=== PATIENT | female | born 2000 | race Caucasian/White ===

== ENCOUNTER 2022-09-19 00:12 | Emergency (ER) | payer BC, SELFPAY ==
[2022-09-19 00:28] VITALS: BP 135/90; PULSE 98; RESP 16; TEMP 36.3; O2SAT 98; BMI 22.3
--- NOTE | 2022-09-19 01:12 | ED.GENADULT ---
HPI - General Adult General Chief complaint: Unspecified Complaint, Adult Stated complaint: light headed, chest pain, shortness of breath Time Seen by Provider: 09/19/22 00:59 History of Present Illness HPI narrative: 22-year-old young woman presenting to the emergency department where was is lying in bed tonight and started to feel short of air, lightheaded, tingly, shaky. Maybe heart racing but did not measure pulse. Denies headaches or visual changes however on later review I see rizatriptan as a medication. Was seen for 5 days ago in clinic where workup included some labs and EKG. Has had 5-6 of these episodes over the last week and half. Today's sounds to have lingered a little more. Typically these episodes will last about 15 minutes and then fade slowly back to baseline. Has also noticed lately that seems more exertionally dyspneic, heart racing when taking the stairs for example. No extremity swelling or pain. Friend/SO accompanying references POTS. In initial conversation at least not amenable to suggestion of possibly anxiety related noting that not anxious; friend/SO who accompanies emphasizes that sentiment noting her own experiences with anxiety / panic attacks and that Radha is not anxious. Father was a smoker with [place] apparently around age 40 Later endorses THC oral ingestion yesterday Related Data Home Medications Medication Instructions Recorded Confirmed escitalopram oxalate 10 mg tablet 10 mg PO DAILY 09/19/22 09/19/22 (Lexapro) rizatriptan 5 mg disintegrating 5 mg PO Q2-4H PRN 09/19/22 09/19/22 tablet Allergies Allergy/AdvReac Type Severity Reaction Status Date / Time amoxicillin Allergy Intermediate Rash Verified 09/19/22 00:27 ciprofloxacin [From Cipro] Allergy Intermediate Rash Verified 09/19/22 00:27 morphine AdvReac Intermediate dizzy Verified 09/19/22 00:27 Review of Systems Status of ROS: Reports: 10 or more systems reviewed and unremarkable except as noted in History and below PFSH PFSH Social History Smoking Status: Never smoker Do you use any of these nicotine containing products: None Second hand tobacco smoke exposure: No How often do you have a drink containing alcohol: never AUDIT-C Alcohol total score: 0 Non-prescribed substance use: denies use service: No Exam Narrative: Exam Narrative: Quiet. NAD. Breathing easily. Speaking fluidly. Moving all extremities without difficulty. No focal weakness is appreciated. No sensory loss apparent. Cranial nerves 2-12 look to be intact. Neck is supple. Head atraumatic. No nystagmus appreciated. Lungs are clear. Heart with initially elevated rate in a regular rhythm. Abdomen is flat soft nontender. Well perfused peripherally. No extremity edema. Const: Vital Signs, click to edit/add: Vital Signs - 24 hr 09/19/22 00:28 09/19/22 01:43 09/19/22 02:01 Temperature 97.4 F L Pulse Rate [Pulse Oximeter] 98 79 Pulse Rate [orthos tatic lying Pulse Oximeter] Pulse Rate [orthos tatic sitting Puls e Oximeter] Pulse Rate [orthos tatic standing] Respiratory Rate 16 18 Blood Pressure [Le ft Upper Arm] 135/90 H 117/83 Blood Pressure [or thostatic lying Le ft Arm] Blood Pressure [or thostatic sitting Left Arm] Blood Pressure [or thostatic standing Left Arm] Pulse Oximetry 98 98 96 Oxygen Delivery Me thod Room Air Room Air 09/19/22 02:01 09/19/22 02:50 09/19/22 02:51 Temperature Pulse Rate [Pulse Oximeter] 72 Pulse Rate [orthos tatic lying Pulse Oximeter] 80 Pulse Rate [orthos tatic sitting Puls e Oximeter] 96 Pulse Rate [orthos tatic standing] 94 Respiratory Rate 16 Blood Pressure [Le ft Upper Arm] 120/81 Blood Pressure [or thostatic lying Le ft Arm] 118/71 Blood Pressure [or thostatic sitting Left Arm] 123/92 H Blood Pressure [or thostatic standing Left Arm] 117/81 Pulse Oximetry Oxygen Delivery Me thod Documenting provider has reviewed patient's vital signs: yes Course Vital Signs Vital signs: Initial Vital Signs Temperature 97.4 F L 09/19/22 00:28 Temperature Source Temporal Artery Scan 09/19/22 00:28 Pulse Rate 98 09/19/22 00:28 Pulse Rhythm 09/19/22 00:28 Respiratory Rate 16 09/19/22 00:28 Blood Pressure 135/90 H 09/19/22 00:28 Blood Pressure Mean 105 09/19/22 00:28 Pulse Oximetry 98 09/19/22 00:28 Oxygen Delivery Method 09/19/22 00:28 Vital Signs Temperature 97.4 F L 09/19/22 00:28 Pulse Rate 98 09/19/22 00:28 Respiratory Rate 16 09/19/22 00:28 Blood Pressure 135/90 H 09/19/22 00:28 Pulse Oximetry 98 09/19/22 00:28 Oxygen Delivery Method 09/19/22 00:28 Temperature 97.4 F L 09/19/22 00:28 Pulse Rate 72 09/19/22 02:50 Respiratory Rate 16 09/19/22 02:50 Blood Pressure 120/81 09/19/22 02:51 Pulse Oximetry 96 09/19/22 02:01 Oxygen Delivery Method 09/19/22 01:43 Medical Decision Making MDM Narrative Medical decision making narrative: I do discuss that anxiety would be high in the differential and that I suspect workup here will be negative. Admittedly anxiety is a diagnosis of exclusion and so does warrant further evaluation. Concerning perhaps more is what is described as an exertional dyspnea. Chest x-ray reviewed by me is unremarkable. Without pneumothorax or wide mediastinum. No pneumomediastinum. Normal cardiac silhouette. No evidence of edema. Did receive IV hydration. No events on monitor or otherwise during time in the emergency department. Lab Data Labs: Lab Results 09/19/22 09/19/22 09/19/22 Range/Units 01:30 01:30 01:35 WBC 9.19 (4.50-11.00) K/uL RBC 4.78 (4.00-5.20) m/uL Hgb 13.9 (12.0-16.0) gm/dL Hct 41.8 (33.0-51.0) % MCV 87 (80-100) fL MCH 29 (26-34) pg MCHC 33 (32-36) gm/dL RDW Coeff of Dionicio 12.4 (11.5-15.5) % Plt Count 299 (140-440) K/uL Neut % (Auto) 57.5 (42.0-72.0) % Lymph % (Auto) 35.1 (20-44) % [place] % (Auto) 6.5 (0.0-11.0) % Eos % (Auto) 0.4 (0.0-7.0) % Baso % (Auto) 0.3 (0.0-3.0) % Neut # (Auto) 5.27 (1.7-7.0) K/uL Lymph # (Auto) 3.23 H (0.90-2.90) K/uL [place] # (Auto) 0.60 (0.00-0.90) K/UL Eos # (Auto) 0.04 (0.00-0.50) K/uL Baso # (Auto) 0.03 (0.00-0.30) K/uL D-Dimer Quant (PE/DVT) (0.00-0.50) ug/ml Sodium (135-149) mmol/L Potassium (3.6-5.1) mmol/L Chloride (96-114) mmol/L Carbon Dioxide (20-32) mmol/L BUN (5-24) mg/dL Creatinine (0.5-1.5) mg/dL Estimated Creat Clear Estimated GFR ml/min Glucose (60-115) mg/dL Calcium (8.4-10.6) mg/dL Magnesium (1.5-2.6) mg/dL Total Bilirubin (0.1-1.5) mg/dL Direct Bilirubin (0.0-0.5) mg/dL AST (12-35) U/L ALT (4-35) U/L Alkaline Phosphatase (40-150) U/L Troponin I (0.01-0.04) ng/mL C-Reactive Protein (0.5-1.0) mg/dL NT-Pro-B Natriuret Pep pg/mL Total Protein (6.0-8.3) g/dL Albumin (3.3-5.0) g/dL Urine Color Yellow (Yellow) Urine Appearance Cloudy A (Clear) Urine pH 7.0 (5.0-8.5) Ur Specific Neely 1.015 (1.000-1.030) Urine Protein Negative (Negative) Urine Glucose (UA) Negative (Negative) Urine Ketones Negative (Negative) Urine Blood Negative (Negative) Urine Nitrite Negative (Negative) Urine Bilirubin Negative (Negative) Urine Urobilinogen 0.2 (0.2-1.0) Ur Leukocyte Esterase Trace A (Negative) Urine RBC 0-2 (0-2) Urine WBC 2-5 (0-5) Ur Squamous Epith Cells Few (None-Few) Amorphous Sediment Many A (None) Urine Bacteria Moderate A (None) Urine Opiates Screen Negative (Negative) Ur Oxycodone Screen Negative (Negative) Urine Methadone Screen Negative (Negative) Ur Propoxyphene Screen Negative (Negative) Ur Barbiturates Screen Negative (Negative) U Tricyclic Antidepress Negative (Negative) Ur Phencyclidine Scrn Negative (Negative) Ur Amphetamines Screen Negative (Negative) U Methamphetamines Scrn Negative (Negative) U Benzodiazepines Scrn Negative (Negative) Urine Cocaine Screen Negative (Negative) U Marijuana (THC) Screen POSITIVE A* (Negative) Ur Drug Screen Comment See Note Ethyl Alcohol (0.01-0.03) % SARS-CoV-2 (PCR) (Negative) Influenza Type A (PCR) (Negative) Influenza Type B (PCR) (Negative) 09/19/22 09/19/22 09/19/22 Range/Units 01:35 01:35 01:35 WBC (4.50-11.00) K/uL RBC (4.00-5.20) m/uL Hgb (12.0-16.0) gm/dL Hct (33.0-51.0) % MCV (80-100) fL MCH (26-34) pg MCHC (32-36) gm/dL RDW Coeff of Dionicio (11.5-15.5) % Plt Count (140-440) K/uL Neut % (Auto) (42.0-72.0) % Lymph % (Auto) (20-44) % [place] % (Auto) (0.0-11.0) % Eos % (Auto) (0.0-7.0) % Baso % (Auto) (0.0-3.0) % Neut # (Auto) (1.7-7.0) K/uL Lymph # (Auto) (0.90-2.90) K/uL [place] # (Auto) (0.00-0.90) K/UL Eos # (Auto) (0.00-0.50) K/uL Baso # (Auto) (0.00-0.30) K/uL D-Dimer Quant (PE/DVT) < 0.27 (0.00-0.50) ug/ml Sodium 140 (135-149) mmol/L Potassium 3.8 (3.6-5.1) mmol/L Chloride 106 (96-114) mmol/L Carbon Dioxide 26 (20-32) mmol/L BUN 8 (5-24) mg/dL Creatinine 0.6 (0.5-1.5) mg/dL Estimated Creat Clear 129.15 Estimated GFR 132 ml/min Glucose 102 (60-115) mg/dL Calcium 9.3 (8.4-10.6) mg/dL Magnesium (1.5-2.6) mg/dL Total Bilirubin (0.1-1.5) mg/dL Direct Bilirubin (0.0-0.5) mg/dL AST (12-35) U/L ALT (4-35) U/L Alkaline Phosphatase (40-150) U/L Troponin I (0.01-0.04) ng/mL C-Reactive Protein < 0.5 L (0.5-1.0) mg/dL NT-Pro-B Natriuret Pep pg/mL Total Protein (6.0-8.3) g/dL Albumin (3.3-5.0) g/dL Urine Color (Yellow) Urine Appearance (Clear) Urine pH (5.0-8.5) Ur Specific Neely (1.000-1.030) Urine Protein (Negative) Urine Glucose (UA) (Negative) Urine Ketones (Negative) Urine Blood (Negative) Urine Nitrite (Negative) Urine Bilirubin (Negative) Urine Urobilinogen (0.2-1.0) Ur Leukocyte Esterase (Negative) Urine RBC (0-2) Urine WBC (0-5) Ur Squamous Epith Cells (None-Few) Amorphous Sediment (None) Urine Bacteria (None) Urine Opiates Screen (Negative) Ur Oxycodone Screen (Negative) Urine Methadone Screen (Negative) Ur Propoxyphene Screen (Negative) Ur Barbiturates Screen (Negative) U Tricyclic Antidepress (Negative) Ur Phencyclidine Scrn (Negative) Ur Amphetamines Screen (Negative) U Methamphetamines Scrn (Negative) U Benzodiazepines Scrn (Negative) Urine Cocaine Screen (Negative) U Marijuana (THC) Screen (Negative) Ur Drug Screen Comment Ethyl Alcohol < 0.01 L (0.01-0.03) % SARS-CoV-2 (PCR) Negative SARS-CoV-2 (Negative) Influenza Type A (PCR) Negative PCR FLU A (Negative) Influenza Type B (PCR) Negative PCR FLU B (Negative) 09/19/22 Range/Units 01:35 WBC (4.50-11.00) K/uL RBC (4.00-5.20) m/uL Hgb (12.0-16.0) gm/dL Hct (33.0-51.0) % MCV (80-100) fL MCH (26-34) pg MCHC (32-36) gm/dL RDW Coeff of Dionicio (11.5-15.5) % Plt Count (140-440) K/uL Neut % (Auto) (42.0-72.0) % Lymph % (Auto) (20-44) % [place] % (Auto) (0.0-11.0) % Eos % (Auto) (0.0-7.0) % Baso % (Auto) (0.0-3.0) % Neut # (Auto) (1.7-7.0) K/uL Lymph # (Auto) (0.90-2.90) K/uL [place] # (Auto) (0.00-0.90) K/UL Eos # (Auto) (0.00-0.50) K/uL Baso # (Auto) (0.00-0.30) K/uL D-Dimer Quant (PE/DVT) (0.00-0.50) ug/ml Sodium (135-149) mmol/L Potassium (3.6-5.1) mmol/L Chloride (96-114) mmol/L Carbon Dioxide (20-32) mmol/L BUN (5-24) mg/dL Creatinine (0.5-1.5) mg/dL Estimated Creat Clear Estimated GFR ml/min Glucose (60-115) mg/dL Calcium (8.4-10.6) mg/dL Magnesium 2.0 (1.5-2.6) mg/dL Total Bilirubin 0.8 (0.1-1.5) mg/dL Direct Bilirubin 0.1 (0.0-0.5) mg/dL AST 26 (12-35) U/L ALT 19 (4-35) U/L Alkaline Phosphatase 91 (40-150) U/L Troponin I < 0.01 L (0.01-0.04) ng/mL C-Reactive Protein (0.5-1.0) mg/dL NT-Pro-B Natriuret Pep < 20 pg/mL Total Protein 7.5 (6.0-8.3) g/dL Albumin 4.6 (3.3-5.0) g/dL Urine Color (Yellow) Urine Appearance (Clear) Urine pH (5.0-8.5) Ur Specific Neely (1.000-1.030) Urine Protein (Negative) Urine Glucose (UA) (Negative) Urine Ketones (Negative) Urine Blood (Negative) Urine Nitrite (Negative) Urine Bilirubin (Negative) Urine Urobilinogen (0.2-1.0) Ur Leukocyte Esterase (Negative) Urine RBC (0-2) Urine WBC (0-5) Ur Squamous Epith Cells (None-Few) Amorphous Sediment (None) Urine Bacteria (None) Urine Opiates Screen (Negative) Ur Oxycodone Screen (Negative) Urine Methadone Screen (Negative) Ur Propoxyphene Screen (Negative) Ur Barbiturates Screen (Negative) U Tricyclic Antidepress (Negative) Ur Phencyclidine Scrn (Negative) Ur Amphetamines Screen (Negative) U Methamphetamines Scrn (Negative) U Benzodiazepines Scrn (Negative) Urine Cocaine Screen (Negative) U Marijuana (THC) Screen (Negative) Ur Drug Screen Comment Ethyl Alcohol (0.01-0.03) % SARS-CoV-2 (PCR) (Negative) Influenza Type A (PCR) (Negative) Influenza Type B (PCR) (Negative) ECG Data Attestation: I personally reviewed and interpreted this ECG as follows: ( normal sinus rate of 94. No ischemic changes.) Discharge Plan Discharge Clinical Impression: Exertional dyspnea, Malaise Patient Disposition: Home w/ Parent or Adult Condition: Improved Additional Instructions: Stable hydrated drinking 2-3 L of water daily. Try to get quality and regular sleep. Try to get in a little heart pumping exercise daily. I would caution you regarding THC ingestion. Possible this is contributing to some of your symptoms. Hard to tell. Follow-up as directed regarding this ZIO patch. Return for persistent and increased shortness of breath, persistent chest pain, persistent lightheadedness, syncope. Prescriptions: No Action escitalopram oxalate [Lexapro] 10 mg tablet 10 mg PO DAILY rizatriptan 5 mg tablet,disintegrating 5 mg PO Q2-4H PRN Rx Instructions: do not exceed 6 doses per 24 hrs Follow Up/Referrals: Provider,Not a Local [Primary Care Provider] - Stand Alone Forms: [facility] Info Instructions
--- NOTE | 2022-09-19 01:15 | CRLHL7_ITS ---
For Patients: As a result of the Century Cures Act, medical imaging exams and procedure reports are released immediately into your electronic medical record. You may view this report before your referring provider. If you have questions, please contact your health care provider. INDICATION: Chest pain. TECHNIQUE: Chest 1 view. COMPARISON: None. FINDINGS: Cardiovascular and mediastinum: Heart size and vasculature are normal in caliber and appearance. Lungs and pleural spaces: Lungs are clear. No sign of infiltrate or mass. No sign of pleural effusion. No pneumothorax. Bones and soft tissues: No significant findings. IMPRESSION: Unremarkable chest. Dictated by Thomas Shah MD @ 09/19/2022 1:36:54 AM (Electronically Signed)
[2022-09-19 01:38] LABS: Appearance Urine Cloudy (Clear); Bilirubin Urine Negative (Negative); Blood Urine Negative (Negative); Color Urine Yellow (Yellow); Glucose Urine Negative (Negative); Ketones Urine Negative (Negative); Leukocyte Esterase Urine Trace (Negative); Nitrite Urine Negative (Negative); Protein Urine Negative (Negative); Specific Gravity Urine 1.015 (1.000-1.030); Urobilinogen Urine 0.2 (0.2-1.0)
[2022-09-19 01:43] VITALS: BP 117/83; PULSE 79; RESP 18; O2SAT 98
[2022-09-19 01:45] LABS: Amphetamine Screen Urine Negative (Negative); Barbiturate Screen Urine Negative (Negative); Benzodiazepines Screen Urine Negative (Negative); Cocaine Screen Urine Negative (Negative); Methadone Screen Urine Negative (Negative); Methamphetamines Screen Urine Negative (Negative); Opiate Screen Urine Negative (Negative); Oxycodone Screen Urine Negative (Negative); Phencyclidine Screen Urine Negative (Negative); Tricyclic Antidepressant Urine Negative (Negative)
[2022-09-19] MEDS: 0.9 % SODIUM CHLORIDE 1000 ml 1,000 ML IV (01:50)
[2022-09-19 01:56] LABS: Cannabinoid Screen Urine POSITIVE (Negative)
[2022-09-19 01:57] LABS: Hematocrit 41.8 % (33.0-51.0); Hemoglobin* 13.9 gm/dL (12.0-16.0); Mean Corpuscular HGB Conc 33 gm/dL (32-36); Mean Corpuscular Hemoglobin 29 pg (26-34); Mean Corpuscular Volume 87 fL (80-100); Neutrophils Percent Auto 57.5 % (42.0-72.0); Platelet Count* 299 K/uL (140-440); RDW Coefficient of Variation % 12.4 % (11.5-15.5); Red Blood Count 4.78 m/uL (4.00-5.20); White Blood Count* 9.19 K/uL (4.50-11.00)
[2022-09-19 01:58] LABS: Basophils Absolute Auto 0.03 K/uL (0.00-0.30); Basophils Percent Auto 0.3 % (0.0-3.0); Eosinophils Absolute Auto 0.04 K/uL (0.00-0.50); Eosinophils Percent Auto 0.4 % (0.0-7.0); Immature Granulocytes Abs Auto 0.02 K/uL (0.00-0.30); Immature Granulocytes Pct Auto 0.2 %; Lymphocytes Absolute Auto 3.23 K/uL (0.90-2.90); Lymphocytes Percent Auto 35.1 % (20-44); Monocytes Percent Auto 6.5 % (0.0-11.0); Neutrophils Absolute Auto 5.27 K/uL (1.7-7.0)
[2022-09-19 02:00] LABS: Amorphous Sediment Urine Many; Bacteria Urine Moderate; RBC Urine 0-2 (0-2); Squamous Epithelial Cell Urine Few (None-Few)
[2022-09-19 02:01] VITALS: BP 117/81; BP 118/71; BP 123/92; PULSE 80; PULSE 94; PULSE 96; O2SAT 96
[2022-09-19 02:01] LABS: Slide Review Reflex No
[2022-09-19 02:10] LABS: Albumin* 4.6 g/dL (3.3-5.0)
[2022-09-19 02:11] LABS: Chloride* 106 mmol/L (96-114)
[2022-09-19 02:12] LABS: Potassium* 3.8 mmol/L (3.6-5.1); Sodium* 140 mmol/L (135-149)
[2022-09-19 02:13] LABS: Bilirubin Direct* 0.1 mg/dL (0.0-0.5); Bilirubin Total* 0.8 mg/dL (0.1-1.5)
[2022-09-19 02:14] LABS: Alanine Aminotransferase* 19 U/L (4-35); Alkaline Phosphatase* 91 U/L (40-150); Aspartate Amino Transferase* 26 U/L (12-35); Creatinine* 0.6 mg/dL (0.5-1.5); Est. Creatinine Clearance* 129.15; Estimated Glomerular Filt Rate 132 ml/min; Total Protein* 7.5 g/dL (6.0-8.3)
[2022-09-19 02:15] LABS: Blood Urea Nitrogen* 8 mg/dL (5-24); Carbon Dioxide* 26 mmol/L (20-32); Glucose* 102 mg/dL (60-115)
[2022-09-19 02:16] LABS: Calcium* 9.3 mg/dL (8.4-10.6); D Dimer Quantitative* < 0.27 ug/ml (0.00-0.50); Ethanol* < 0.01 % (0.01-0.03)
[2022-09-19 02:29] LABS: C Reactive Protein* < 0.5 mg/dL (0.5-1.0); NT Pro B Type NatriureticPept* < 20 pg/mL; Troponin I* < 0.01 ng/mL (0.01-0.04)
[2022-09-19 02:36] LABS: PCR FLU A Negative PCR FLU A (Negative); PCR FLU B Negative PCR FLU B (Negative)
[2022-09-19 02:43] LABS: SARS PCR* Negative SARS-CoV-2 (Negative)
[2022-09-19 02:50] VITALS: PULSE 72; RESP 16
[2022-09-19 02:51] VITALS: BP 120/81
== END 2022-09-19 02:51 | disposition home or self-care (01) ==
PROVIDERS: Emergency Provider Family Medicine
DX: R06.09 Other forms of dyspnea (principal); R53.81 Other malaise
CPT/HCPCS: 36415; 71045; 80048; 80076; 80306; 81001; 82077; 83735; 83880; 84484; 85025; 85379; 86140; 87086; 87631; 93005; 94761; 96360; 99284; 99285; J7030

== ENCOUNTER 2023-05-19 20:02 | Emergency (ER) | payer BC, SELFPAY ==
[2023-05-19 20:19] VITALS: BP 137/101; PULSE 97; RESP 16; TEMP 36.7; O2SAT 98
--- NOTE | 2023-05-19 20:35 | CRLHL7_ITS ---
Patient: RINA BAILEY Facility:?[facility] Patient ID:?[id number] Site Patient ID:?[id number]. Site :?[id number] Study:?XRay-Extremity Left Foot-05/19/2023 9:06:15 PM Ordering Physician:?Fareed Harmon Final Report: INDICATION: Medial foot injury, bent back TECHNIQUE: Foot radiograph 3 views left COMPARISON: None FINDINGS: Bone: No acute fractures or aggressive bone lesions are identified. Joint: The visualized hindfoot, midfoot, and forefoot joints are unremarkable in appearance. No significant ankle effusion is seen. Soft tissue: Unremarkable. No radiopaque foreign bodies are seen. IMPRESSION: 1. No acute osseous injuries or abnormalities are noted. Dictated by: Jessee Jason MD @ 05/19/2023 21:18:31 Signed by:?Jessee Jason MD @05/19/2023 9:18:31 PM (Electronic Signature)
--- NOTE | 2023-05-19 20:38 | ED.LOWEXIN ---
HPI - Extremity Injury (Lower) General Chief Complaint: Extremity Pain/Injury, Lower Stated Complaint: Broken toe Time Seen by Provider: 05/19/23 20:17 History of Present Illness HPI Narrative: This 23-year-old female comes in with an injury to her left foot. She states that she was playing sand volleyball and got her foot caught somehow where it was hyper flexed at her toes. She felt a pop and complains of pain in the MTP joint of her great toe of the left foot and extending proximally a bit into her foot. She does not report any other injury. She has ambulated on this foot but reports some pain when doing so. Related Data Home Medications Medication Instructions Recorded Confirmed escitalopram oxalate 10 mg tablet 10 mg PO DAILY 09/19/22 09/19/22 (Lexapro) rizatriptan 5 mg disintegrating 5 mg PO Q2-4H PRN 09/19/22 09/19/22 tablet Allergies Allergy/AdvReac Type Severity Reaction Status Date / Time amoxicillin Allergy Intermediate Rash Verified 09/19/22 00:27 ciprofloxacin [From Cipro] Allergy Intermediate Rash Verified 09/19/22 00:27 morphine AdvReac Intermediate dizzy Verified 09/19/22 00:27 Review of Systems Status of ROS: Reports: 10 or more systems reviewed and unremarkable except as noted in History and below Narrative: Constitutional: No fevers, no weight gain or loss. Eyes: No discharge. No vision changes. HENT: No congestion, no sore throat, no ear pain. Cardiovascular: No chest pain, no palpitations. Respiratory: No shortness of breath, no wheezes, no cough. Gastrointestinal: No abdominal pain, no vomiting, no diarrhea. Genitourinary: No dysuria, no hematuria. Musculoskeletal: Left foot injury as described above. Skin: No rashes, no pruritis. Neurological: No dizziness, weakness, sensory change, speech change. Endo/Heme/Allergies: No bruising or bleeding. No polydipsia. Pysch: no suicidality, no anxiety, no insomnia. All other systems reviewed and are negative. [facility] Social History Smoking Status: Never smoker Do you use any of these nicotine containing products: None Second hand tobacco smoke exposure: No How often do you have a drink containing alcohol: never AUDIT-C Alcohol total score: 0 Non-prescribed substance use: denies use service: No Exam Narrative: Exam Narrative: Constitutional: Well-developed, well-nourished, no acute distress. HEENT: Normocephalic, atraumatic. Neck: Normal range of motion. Nontender. Supple. Heart: Intact distal pulses. Lungs: No chest discomfort. No wheezes, rhonchi, or rales. Abdomen: Nontender. Back: Normal range of motion. Extremities: Tenderness along the 1st metatarsal and the great toe of the left foot. There is no obvious swelling or sign of deformity. There is no evidence of tendon dysfunction. She is able to dorsiflex and plantar flex her toes and that foot. Skin: Intact. No rash. Warm. No erythema or pallor. Neurologic: No altered sensation. No weakness. Alert and oriented. Psychiatric: No suicidality. No anxiety or depression. No insomnia. Nursing notes and vitals signs are reviewed. Const: Vital Signs, click to edit/add: Vital Signs - 24 hr 05/19/23 20:19 Temperature 98.1 F Pulse Rate [Left P ulse Oximeter] 97 Respiratory Rate 16 Blood Pressure [Ri ght Upper Arm] 137/101 H Pulse Oximetry 98 Oxygen Delivery Me thod Room Air Course Vital Signs Vital signs: Initial Vital Signs Temperature 98.1 F 05/19/23 20:19 Temperature Source Temporal Artery Scan 05/19/23 20:19 Pulse Rate 97 05/19/23 20:19 Pulse Rhythm Regular 05/19/23 20:19 Respiratory Rate 16 05/19/23 20:19 Blood Pressure 137/101 H 05/19/23 20:19 Blood Pressure Mean 113 H 05/19/23 20:19 Blood Pressure Position Sitting 05/19/23 20:19 Pulse Oximetry 98 05/19/23 20:19 Oxygen Delivery Method Room Air 05/19/23 20:19 Vital Signs Temperature 98.1 F 05/19/23 20:19 Pulse Rate 97 05/19/23 20:19 Respiratory Rate 16 05/19/23 20:19 Blood Pressure 137/101 H 05/19/23 20:19 Pulse Oximetry 98 05/19/23 20:19 Oxygen Delivery Method Room Air 05/19/23 20:19 Temperature 98.1 F 05/19/23 20:19 Pulse Rate 97 05/19/23 20:19 Respiratory Rate 16 05/19/23 20:19 Blood Pressure 137/101 H 05/19/23 20:19 Pulse Oximetry 98 05/19/23 20:19 Oxygen Delivery Method Room Air 05/19/23 20:19 MDM - Extremity Injury (Lower) MDM Narrative Medical decision making narrative: This patient comes in with an injury to her left great toe and forefoot. On exam her foot shows no sign of deformity or swelling. There is no skin injury also. She states that she hyper plantar flexed her toes when playing volleyball. She does have normal tendon function and is able to dorsiflex and plantar flex her toes on that foot. An x-ray is obtained which by my review shows no sign of fracture dislocation. Radiology report is pending. Patient received an Murali wrap and is encouraged to increase activity as tolerated. Discharge Plan Discharge Clinical Impression: Injury of toe Patient Disposition: Home, Self-Care Condition: Unchanged Additional Instructions: Use [id number] medicines as needed and directed. Increase activity as tolerated. Follow up with MD return if worsening. Prescriptions: No Action escitalopram oxalate [Lexapro] 10 mg tablet 10 mg PO DAILY rizatriptan 5 mg tablet,disintegrating 5 mg PO Q2-4H PRN Rx Instructions: do not exceed 6 doses per 24 hrs Follow Up/Referrals: Provider,Not a Local [Primary Care Provider] - Stand Alone Forms: [employer] Info Instructions
== END 2023-05-19 21:16 | disposition home or self-care (01) ==
PROVIDERS: Emergency Provider Emergency Medicine Emergency Medical Services
DX: S99.922A Unspecified injury of left foot, initial encounter (principal)
CPT/HCPCS: 73630; 99283; 99284

== ENCOUNTER 2023-07-02 14:18 | Emergency (ER) | payer BC, SELFPAY ==
[2023-07-02] VITALS (14 sets, daily range): BP systolic 115–149; BP diastolic 66–89; PULSE 82–111; RESP 18; TEMP 37.3; O2SAT 98–99; BMI 23.2
--- NOTE | 2023-07-02 14:31 | ED.GENADULT ---
HPI - General Adult General Chief complaint: Allergic Reaction Stated complaint: Allergic reaction--mouth tingling Time Seen by Provider: 07/02/23 14:28 History of Present Illness HPI narrative: when leaving lunch noted mouth was tingly. does have allergy to nuts. unsure if nuts in chicken. has taken 25 benedryl and 2 epi pens prior to arrival 23-year-old woman presenting to the emergency department concern of exposure to unspecified nuts. Noticed this just after lunch. Does have verified nut allergy recommended to avoid all nuts at this point. Last exposure and reaction was apparently to honey nut Cheerios. She treated herself similarly. Today as noted began to feel itchiness in her mouth extended over her jaw to her neck. She took diphenhydramine is followed by dose of epinephrine from her EpiPen repeating that in 10 minutes. After the 1st EpiPen dosing was experiencing chest tightness and so 10 minutes later repeated dosing. She has not had any nausea. No abdominal pain or cramping. No rash. Not describing trouble breathing. Underlying history of anxiety. Related Data Home Medications Medication Instructions Recorded Confirmed escitalopram oxalate 10 mg tablet 10 mg PO DAILY 09/19/22 05/28/23 (Lexapro) rizatriptan 5 mg disintegrating 5 mg PO Q2-4H PRN 09/19/22 05/28/23 tablet Previous Rx's Medication Instructions Recorded epinephrine 0.3 mg/0.3 mL 0.3 mg (0.3 mL) IM Q5-15M PRN #1 ea 07/02/23 injection, auto-injector (EpiPen 2-Pablo) prednisone 20 mg tablet 20 mg PO BID 2 days #4 tabs 07/02/23 Allergies Allergy/AdvReac Type Severity Reaction Status Date / Time amoxicillin Allergy Intermediate Rash Verified 05/28/23 13:01 ciprofloxacin [From Cipro] Allergy Intermediate Rash Verified 05/28/23 13:01 morphine AdvReac Intermediate dizzy Verified 05/28/23 13:01 Review of Systems Status of ROS: Reports: 6 or more systems reviewed and unremarkable except as noted in History and below [facility] Social History Smoking Status: Never smoker Do you use any of these nicotine containing products: None Second hand tobacco smoke exposure: No How often do you have a drink containing alcohol: 2-3 times a week How many standard drinks containing alcohol do you have on a typical day: 1 or 2 How often do you have six or more drinks on one occasion: Never AUDIT-C Alcohol total score: 3 Non-prescribed substance use: denies use service: No Exam Narrative: Exam Narrative: Pleasant. Accompanied by boyfriend. Seems a little sleepy. Breathing easily. Oropharynx is unremarkable moist erythematous no asymmetry. Lungs are clear heart is tachycardic in a regular rhythm. Seems to have intermittent murmur mid Systolic. Skin is warm and dry without rash. Abdomen soft flat nontender. Cranial nerves 2-12 intact. Const: Vital Signs, click to edit/add: Vital Signs - 24 hr 07/02/23 14:22 07/02/23 14:46 07/02/23 15:00 Temperature 99.1 F Pulse Rate 108 H 101 H Pulse Rate [Right Pulse Oximeter] 111 H Respiratory Rate 18 Blood Pressure Blood Pressure [Ri ght Upper Arm] 149/89 H Pulse Oximetry 99 98 99 Oxygen Delivery Me thod Room Air 07/02/23 15:02 07/02/23 15:19 07/02/23 15:23 Temperature Pulse Rate 101 H 92 Pulse Rate [Right Pulse Oximeter] Respiratory Rate Blood Pressure 125/72 Blood Pressure [Ri ght Upper Arm] Pulse Oximetry 98 98 98 Oxygen Delivery Me thod 07/02/23 15:30 07/02/23 15:32 07/02/23 15:45 Temperature Pulse Rate 101 H 94 94 Pulse Rate [Right Pulse Oximeter] Respiratory Rate Blood Pressure 117/66 Blood Pressure [Ri ght Upper Arm] Pulse Oximetry 98 98 98 Oxygen Delivery Me thod Documenting provider has reviewed patient's vital signs: yes Course Vital Signs Vital signs: Initial Vital Signs Temperature 99.1 F 07/02/23 14:22 Temperature Source Temporal Artery Scan 07/02/23 14:22 Pulse Rate 111 H 07/02/23 14:22 Respiratory Rate 18 07/02/23 14:22 Blood Pressure 149/89 H 07/02/23 14:22 Blood Pressure Mean 109 H 07/02/23 14:22 Blood Pressure Position Sitting 07/02/23 14:22 Pulse Oximetry 99 07/02/23 14:22 Oxygen Delivery Method Room Air 07/02/23 14:22 Vital Signs Temperature 99.1 F 07/02/23 14:22 Pulse Rate 111 H 07/02/23 14:22 Respiratory Rate 18 07/02/23 14:22 Blood Pressure 149/89 H 07/02/23 14:22 Pulse Oximetry 99 07/02/23 14:22 Oxygen Delivery Method Room Air 07/02/23 14:22 Temperature 99.1 F 07/02/23 14:22 Pulse Rate 94 07/02/23 15:45 Respiratory Rate 18 07/02/23 14:22 Blood Pressure 117/66 07/02/23 15:32 Pulse Oximetry 98 07/02/23 15:45 Oxygen Delivery Method Room Air 07/02/23 14:22 Medical Decision Making MDM Narrative Medical decision making narrative: Reports medically verified allergy to nuts. Symptoms generally seem to have resolved with treatment. Would add prednisone yet. Did discuss though IV fluids and decided to treat orally as above. Will also give another dose of diphenhydramine. Continue to monitor for at least 2 hours after prednisone. I suspect some of the chest discomfort she was feeling was more epinephrine effect than difficulty breathing. As far as the honey nut cheerio exposure goes, it is my understanding that that does not actually contain nuts. They maintain that this particular box noted almond extract. Anticipate continued improvement and discharge as noted above. Continue continue 2 more days of prednisone. Will refill EpiPen. On reassessment is feeling fine See patient discharge plan Discharge Plan Discharge Clinical Impression: Allergic reaction Patient Disposition: Home w/ Parent or Adult Condition: Improved Additional Instructions: You may want to wait a little more time before dosing another epinephrine in the future should that become necessary.. Can take diphenhydramine for breakthrough itch. Course of prednisone as prescribed. Prescriptions: New prednisone 20 mg tablet 20 mg PO BID 2 Days Qty: 4 1RF epinephrine [EpiPen 2-Pablo] 0.3 mg/0.3 mL auto-injector 0.3 mg IM Q5-15M PRNQty: 1 0RF Rx Instructions: do not exceed 3 doses per episode No Action escitalopram oxalate [Lexapro] 10 mg tablet 10 mg PO DAILY rizatriptan 5 mg tablet,disintegrating 5 mg PO Q2-4H PRN Rx Instructions: do not exceed 6 doses per 24 hrs Follow Up/Referrals: Provider,Not a Local [Primary Care Provider] - Stand Alone Forms: [employer] Info Instructions
[2023-07-02] MEDS: predniSONE 20 MG TABLET 80 MG PO (15:08)
[2023-07-02] MEDS: diphenhydrAMINE 25 MG CAPSULE PO (15:08)
== END 2023-07-02 17:20 | disposition home or self-care (01) ==
PROVIDERS: Emergency Provider Family Medicine
DX: T78.1XXA Other adverse food reactions, not elsewhere classified, initial encounter (principal); Z91.010 Allergy to peanuts
CPT/HCPCS: 94761; 99283; 99284; A9270; J7512

== ENCOUNTER 2023-12-26 11:36 | Outpatient (CLI) | payer BC, SELFPAY ==
--- OUTSIDE RECORDS SUMMARY | 2024-01-01 14:54 | XMS_ITS | Data Portability ---
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 Name Role Phone [facility] Primary Care Provid er [facility] [employer] [phone] ROSS ESCOTO [employer]ator Assessment Encounter Date Assessment Date Assessment LastModified [...] vitamin D, 25-hydroxy, total, serum 2021 022 [facility], [address] [place], [address], 08:43:42 CMP, serum or plasma 2021 022 [facility], [address] [place] [address], [address], 08:43:42 lipid panel, serum 2021 022 [place], [address] [place] [address], [address], 08:43:41 CBC w/ auto diff 2021 022 [employer], [address] [place] [address], [address], 08:43:43 TSH + free T4, serum 2021 022 [facility], [address] [place] [address], [address], 08:43:41 TSH, serum or plasma 2020 021 [facility], [address] [place] [address], [address], 09:49:46 CMP, serum or plasma 2020 021 [facility], [address] [place] [address], [address], 09:49:45 CBC w/ auto diff 2020 021 [facility], [address] [place] [address], [address], 09:49:47 iron + TIBC + ferritin, serum 2020 021 [facility], [address] [place] [address], [address], 09:49:45 vitamin D, 25-hydroxy, total, serum 2020 021 [facility], [address] [place], [address], 09:49:46 vitamin B12, serum 2020 021 [place] [facility], [address] [place], [address], 09:49:47 Referral None recorded. Procedures None recorded. Surgeries None recorded. Imaging None recorded. Medication Orders Auvi-Q 0.3 mg/0.3 mL injection, auto-inject or 2021 [facility] [address] [place], [address], 11:49:23 rizatriptan 10 mg disintegrat ing tablet 2021 [facility], [address] [place], [address], 11:49:23 escitalopra m 10 mg tablet 2021 [facility] [address] [place], [address], 13:21:44 ergocalcife rol (vitamin D2) 1,250 mcg (50,000 unit) capsule 2021 022 [facility] [address] [place], [address], 2 12:01:46 escitalopra m 10 mg tablet 2021 022 [facility] [address] [place], [address], 12:01:47 Zithromax Z-Pablo 250 mg tablet 2020 021 [email or web address], [address] [place], [address], 11:23:26 escitalopra m 10 mg tablet 2020 021 [facility], [address] [place], [address], 14:07:32 Patient TargetsNo targets recorded. Patient Instructions Encounter Date Encounter Id Patient Instructions Last Modified By Organization Details Last Modified Time 01/24/2022 [id number] learning about mood disorders Not available 01/24/2022 13:21:42 Reason for Referral None Reported. Results Created Date Observation Date Name Description Value Unit Range Abnormal Flag LastModifiedBy Organization Detail LastModifiedTime 11/29/1911/29/2020 iron + TIBC + chan tin, serum iron, total 67 mcg/d L 27-164 normal Not Available [facility] [address], [place], [address], 11/29/2020 09:49:44 11/29/1911/29/2020 iron + TIBC + chan tin, serum iron binding capacity 381 mcg/d L_(ca lc) 271-44 8 normal Not Available [facility] [address], [place], [address], 11/29/2020 09:49:44 11/29/1911/29/2020 iron + TIBC + chan tin, serum % saturation 18 %_(ca lc) 15-45 normal Not Available [facility] [address], [place], [address], 11/29/2020 09:49:44 11/29/19 21 11/29/2020 iron + TIBC + chan tin, serum ferritin 9 NG/mL 6-[address] [facility] [address], [place], [address], 11/29/2020 09:49:44 11/29/19 21 11/29/2020 CMP, serum or plasm a glucose 83 mg/dL 65-99 normal Not Available [facility] [address], [place], [address], 11/29/2020 09:49:45 11/29/19 21 11/29/2020 CMP, serum or plasm a urea nitrogen (BUN) 7 mg/dL 7-20 normal Not Available [facility] [place] [address], [place], [address], 11/29/2020 09:49:45 11/29/19 21 11/29/2020 CMP, serum or plasm a creatinine 0.92 mg/dL 0.50-1 .00 normal Not Available [place] [address], [place], [address], 11/29/2020 09:49:45 11/29/19 21 11/29/2020 CMP, serum or plasm a eGFR non-afr. marshallese 91 mL/mi n/1.7 3m2 > or = 60 normal Not Available [place] [address], [place], [address], 11/29/2020 09:49:45 11/29/19 21 11/29/2020 CMP, serum or plasm a eGFR 105 mL/mi n/1.7 3m2 > or = 60 normal Not Available [facility] [address], [place], [address], 11/29/2020 09:49:45 11/29/19 21 11/29/2020 CMP, serum or plasm a BUN/creatini ne ratio not applic able (calc ) 6-22 Not Available [facility] [place] [facility] [address], [place], [address], 11/29/2020 09:49:45 11/29/1911/29/2020 CMP, serum or plasm a sodium 143 mmol/ L 135-14 [address] [facility] [address], [place], [address], 11/29/2020 09:49:45 11/29/19 21 11/29/2020 CMP, serum or plasm a potassium 4.0 mmol/ L 3.8-5. [address] [facility] [address], [place], [address], 11/29/2020 09:49:45 11/29/1911/29/2020 CMP, serum or plasm a chloride 106 mmol/ L 98-[address] [facility] [address], [place], [address], 11/29/2020 09:49:45 11/29/19 21 11/29/2020 CMP, serum or plasm a carbon dioxide 27 mmol/ L 20-[address] [facility] [address], [place], [address], 11/29/2020 09:49:45 11/29/1911/29/2020 CMP, serum or plasm a calcium 9.5 mg/dL 8.9-10 .4 normal Not Available [facility] [address], [place], [address], 11/29/2020 09:49:45 11/29/1911/29/2020 CMP, serum or plasm a protein, total 6.9 g/dL 6.3-8. [address] [facility] [address], [place], [address], 11/29/2020 09:49:45 11/29/19 21 11/29/2020 CMP, serum or plasm a albumin 4.8 g/dL 3.6-5. [address] [facility] [address], [place], [address], 11/29/2020 09:49:45 11/29/19 21 11/29/2020 CMP, serum or plasm a globulin 2.1 g/dL_ (calc ) 2.0-3. [address] [facility] [address], [place], [address], 11/29/2020 09:49:45 11/29/19 21 11/29/2020 CMP, serum or plasm a albumin/glob ulin ratio 2.3 (calc ) 1.0-2. [address] [facility] [address], [place], [address], 11/29/2020 09:49:45 11/29/19 21 11/29/2020 CMP, serum or plasm a bilirubin, total 1.1 mg/dL 0.2-1. [address] [facility] [address], [place], [address], 11/29/2020 09:49:45 11/29/19 21 11/29/2020 CMP, serum or plasm a alkaline phosphatase 60 U/L 36-[address] [facility] [address], [place], [address], 11/29/2020 09:49:45 11/29/19 21 11/29/2020 CMP, serum or plasm a AST 17 U/L 12-32 normal Not Available [facility] [address], [place], [address], 11/29/2020 09:49:45 11/29/19 21 11/29/2020 CMP, serum or plasm a ALT 14 U/L 5-32 normal Not Available [facility] [address], [place], [address], 11/29/2020 09:49:45 11/29/19 21 11/29/2020 vitam in D, 25-hy droxy , total , serum vitamin D,25-oh,tota l,ia 17 NG/mL 30-[address] [facility] [address], [place], [address], 11/29/2020 09:49:46 11/29/19 21 11/29/2020 TSH, serum or plasm a TSH w/reflex to FT4 1.14 mIU/L normal Not Available [facility] [address], [place], [address], 11/29/2020 09:49:46 11/29/19 21 11/29/2020 CBC w/ auto diff white blood cell count 7.2 thous and/u L 4.5-13 .[address] [facility] [address], [place], [address], 11/29/2020 09:49:47 11/29/19 21 11/29/2020 CBC w/ auto diff red blood cell count 4.82 ghazala on/uL 3.80-5 .[address] [facility] [address], [place], [address], 11/29/2020 09:49:47 11/29/19 21 11/29/2020 CBC w/ auto diff hemoglobin 14.0 g/dL 11.5-1 5.3 normal Not Available [facility] [address], [place], [address], 11/29/2020 09:49:47 11/29/19 21 11/29/2020 CBC w/ auto diff hematocrit 41.4 % 34.0-4 6.0 normal Not Available [facility] [address], [place], [address], 11/29/2020 09:49:47 11/29/19 21 11/29/2020 CBC w/ auto diff MCV 85.9 fL 78.0-9 8.0 normal Not Available [facility] [address], [place], [address], 11/29/2020 09:49:47 11/29/19 21 11/29/2020 CBC w/ auto diff MCH 29.0 pg 25.0-3 5.0 normal Not Available [facility] [address], [place], [address], 11/29/2020 09:49:47 11/29/19 21 11/29/2020 CBC w/ auto diff MCHC 33.8 g/dL 31.0-3 6.[address] [facility] [address], [place], [address], 11/29/2020 09:49:47 11/29/19 21 11/29/2020 CBC w/ auto diff RDW 12.6 % 11.0-1 5.0 normal Not Available [facility] [address], [place], [address], 11/29/2020 09:49:47 11/29/19 21 11/29/2020 CBC w/ auto diff platelet count 288 thous and/u L 140-40 0 normal Not Available [facility] [address], [place], [address], 11/29/2020 09:49:47 11/29/19 21 11/29/2020 CBC w/ auto diff MPV 10.2 fL 7.5-12 .5 normal Not Available [facility] [address], [place], [address], 11/29/2020 09:49:47 11/29/19 21 11/29/2020 CBC w/ auto diff absolute neutrophils 4212 cells /uL 1800-8 000 normal Not Available [facility] [address], [place], [address], 11/29/2020 09:49:47 11/29/19 21 11/29/2020 CBC w/ auto diff absolute lymphocytes 2563 cells /uL 1200-5 200 normal Not Available [facility] [address], [place], [address], 11/29/2020 09:49:47 11/29/19 21 11/29/2020 CBC w/ auto diff absolute monocytes 353 cells /uL 200-90 0 normal Not Available [facility] [address], [place], [address], 11/29/2020 09:49:47 11/29/19 21 11/29/2020 CBC w/ auto diff absolute eosinophils 29 cells /uL 15-500 normal Not Available [facility] [address], [place], [address], 11/29/2020 09:49:47 11/29/19 21 11/29/2020 CBC w/ auto diff absolute basophils 43 cells /uL 0-200 normal Not Available [facility] [address], [place], [address], 11/29/2020 09:49:47 11/29/19 21 11/29/2020 CBC w/ auto diff neutrophils 58.5 % normal Not Available [facility] [address], [place], [address], 11/29/2020 09:49:47 11/29/19 21 11/29/2020 CBC w/ auto diff lymphocytes 35.6 % normal Not Available [facility] [address], [place], [address], 11/29/2020 09:49:47 11/29/19 21 11/29/2020 CBC w/ auto diff monocytes 4.9 % normal Not Available [facility] [address], [place], [address], 11/29/2020 09:49:47 11/29/19 21 11/29/2020 CBC w/ auto diff eosinophils 0.4 % normal Not Available [facility] [address], [place], [address], 11/29/2020 09:49:47 11/29/19 21 11/29/2020 CBC w/ auto diff basophils 0.6 % normal Not Available [facility] [address], [place], [address], 11/29/2020 09:49:47 11/29/19 21 11/29/2020 vitam in B12, serum vitamin B12 467 pg/mL 200-11 00 normal Not Available [facility] [address], [place], [address], 11/29/2020 09:49:47 10/03/19 22 10/04/2021 LIPID PANEL , STAND MICHAEL cholesterol, total 161 mg/dL <170 normal Not Available [facility] [address], [place], [address], 10/04/2021 08:43:41 10/03/19 22 10/04/2021 LIPID PANEL , STAND MICHAEL HDL cholesterol 61 mg/dL >45 normal Not Available [facility] [address], [place], [address], 10/04/2021 08:43:41 10/03/19 22 10/04/2021 LIPID PANEL , STAND MICHAEL triglyceride s 112 mg/dL <90 high Not Available [facility] [address], [place], [address], 10/04/2021 08:43:41 10/03/19 22 10/04/2021 LIPID PANEL , [place] LDL-choleste rol 79 mg/dL _(marvin c) <[address] [facility] [address], [place], [address], 10/04/2021 08:43:41 10/03/19 22 10/04/2021 LIPID PANEL , [place] chol/HDLC ratio 2.6 (calc ) <5.[address] [facility] [address], [place], [address], 10/04/2021 08:43:41 10/03/19 22 10/04/2021 LIPID PANEL , [place] non HDL cholesterol 100 mg/dL _(marvin c) <[address] [facility] [address], [place], [address], 10/04/2021 08:43:41 10/03/19 22 10/04/2021 TSH+F REE T4 TSH 1.19 mIU/L normal Not Available [facility] [address], [place], [address], 10/04/2021 08:43:41 10/03/19 22 10/04/2021 TSH+F REE T4 T4, free 1.1 NG/dL 0.8-1. [address] [facility] [address], [place], [address], 10/04/2021 08:43:41 10/03/19 22 10/04/2021 COMPR EHENS NICO METAB OLIC PANEL glucose 68 mg/dL 65-[address] [facility] [address], [place], [address], 10/04/2021 08:43:42 10/03/19 22 10/04/2021 COMPR EHENS NICO METAB OLIC PANEL urea nitrogen (BUN) 12 mg/dL 7-[address] [facility] [address], [place], [address], 10/04/2021 08:43:42 10/03/19 22 10/04/2021 COMPR EHENS NICO METAB OLIC PANEL creatinine 0.74 mg/dL 0.50-1 .00 normal Not Available [facility] [address], [place], [address], 10/04/2021 08:43:42 10/03/19 22 10/04/2021 COMPR EHENS NICO METAB OLIC PANEL eGFR non-afr. marshallese 117 mL/mi n/1.7 3m2 > or = [address] [facility] [address], [place], [address], 10/04/2021 08:43:42 10/03/19 22 10/04/2021 COMPR EHENS NICO METAB OLIC PANEL eGFR 136 mL/mi n/1.7 3m2 > or = [address] [facility] [address], [place], [address], 10/04/2021 08:43:42 10/03/19 22 10/04/2021 COMPR EHENS NICO METAB OLIC PANEL BUN/creatini ne ratio not applic able (calc ) 6-[address] [facility] [address], [place], [address], 10/04/2021 08:43:42 10/03/19 22 10/04/2021 COMPR EHENS NICO METAB OLIC PANEL sodium 141 mmol/ L 135-14 6 normal Not Available [facility] [address], [place], [address], 10/04/2021 08:43:42 10/03/19 22 10/04/2021 COMPR EHENS NICO METAB OLIC PANEL potassium 4.3 mmol/ L 3.8-5. 1 normal Not Available [facility] [address], [place], [address], 10/04/2021 08:43:42 10/03/19 22 10/04/2021 COMPR EHENS NICO METAB OLIC PANEL chloride 105 mmol/ L 98-110 normal Not Available [facility] [address], [place], [address], 10/04/2021 08:43:42 10/03/19 22 10/04/2021 COMPR EHENS NICO METAB OLIC PANEL carbon dioxide 26 mmol/ L 20-32 normal Not Available [facility] [address], [place], [address], 10/04/2021 08:43:42 10/03/19 22 10/04/2021 COMPR EHENS NICO METAB OLIC PANEL calcium 9.1 mg/dL 8.9-10 .4 normal Not Available [facility] [address], [place], [address], 10/04/2021 08:43:42 10/03/19 22 10/04/2021 COMPR EHENS NICO METAB OLIC PANEL protein, total 6.5 g/dL 6.3-8. 2 normal Not Available [facility] [address], [place], [address], 10/04/2021 08:43:42 10/03/19 22 10/04/2021 COMPR EHENS NICO METAB OLIC PANEL albumin 4.2 g/dL 3.6-5. 1 normal Not Available [facility] [address], [place], [address], 10/04/2021 08:43:42 10/03/19 22 10/04/2021 COMPR EHENS NICO METAB OLIC PANEL globulin 2.3 g/dL_ (calc ) 2.0-3. 8 normal Not Available [facility] [place] [facility] [address], [place], [address], 10/04/2021 08:43:42 10/03/19 22 10/04/2021 COMPR EHENS NICO METAB OLIC PANEL albumin/glob ulin ratio 1.8 (calc ) 1.0-2. [address] [facility] [address], [place], [address], 10/04/2021 08:43:42 10/03/19 22 10/04/2021 COMPR EHENS NICO METAB OLIC PANEL bilirubin, total 1.1 mg/dL 0.2-1. [address] [facility] [address], [place], [address], 10/04/2021 08:43:42 10/03/19 22 10/04/2021 COMPR EHENS NICO METAB OLIC PANEL alkaline phosphatase 63 U/L 36-[address] [facility] [address], [place], [address], 10/04/2021 08:43:42 10/03/19 22 10/04/2021 COMPR EHENS NICO METAB OLIC PANEL AST 23 U/L 12-[address] [facility] [address], [place], [address], 10/04/2021 08:43:42 10/03/19 22 10/04/2021 COMPR EHENS NICO METAB OLIC PANEL ALT 17 U/L 5-[address] [facility] [address], [place], [address], 10/04/2021 08:43:42 10/03/19 22 10/04/2021 VITAM IN D,25- OH,TO AILYN,I A vitamin D,25-oh,tota l,ia 71 NG/mL 30-100 normal Not Available [facility] [address], [place], [address], 10/04/2021 08:43:42 10/03/19 22 10/04/2021 CBC (INCL UDES DIFF/ PLT) white blood cell count 7.6 thous and/u L 3.8-10 .8 normal Not Available [facility] [address], [place], [address], 10/04/2021 08:43:43 10/03/19 22 10/04/2021 CBC (INCL UDES DIFF/ PLT) red blood cell count 4.80 ghazala on/uL 3.80-5 .10 normal Not Available [facility] [address], [place], [address], 10/04/2021 08:43:43 10/03/19 22 10/04/2021 CBC (INCL UDES DIFF/ PLT) hemoglobin 13.8 g/dL 11.7-1 5.5 normal Not Available [facility] [address], [place], [address], 10/04/2021 08:43:43 10/03/19 22 10/04/2021 CBC (INCL UDES DIFF/ PLT) hematocrit 41.5 % 35.0-4 5.0 normal Not Available [facility] [address], [place], [address], 10/04/2021 08:43:43 10/03/19 22 10/04/2021 CBC (INCL UDES DIFF/ PLT) MCV 86.5 fL 80.0-1 00.0 normal Not Available [facility] [address], [place], [address], 10/04/2021 08:43:43 10/03/19 22 10/04/2021 CBC (INCL UDES DIFF/ PLT) MCH 28.8 pg 27.0-3 3.0 normal Not Available [facility] [address], [place], [address], 10/04/2021 08:43:43 10/03/19 22 10/04/2021 CBC (INCL UDES DIFF/ PLT) MCHC 33.3 g/dL 32.0-3 6.0 normal Not Available [facility] [address], [place], [address], 10/04/2021 08:43:43 10/03/19 22 10/04/2021 CBC (INCL UDES DIFF/ PLT) RDW 12.5 % 11.0-1 5.0 normal Not Available [facility] [address], [place], [address], 10/04/2021 08:43:43 10/03/19 22 10/04/2021 CBC (INCL UDES DIFF/ PLT) platelet count 273 thous and/u L 140-40 0 normal Not Available [facility] [address], [place], [address], 10/04/2021 08:43:43 10/03/19 22 10/04/2021 CBC (INCL UDES DIFF/ PLT) MPV 10.2 fL 7.5-12 .5 normal Not Available [facility] [address], [place], [address], 10/04/2021 08:43:43 10/03/19 22 10/04/2021 CBC (INCL UDES DIFF/ PLT) absolute neutrophils 4180 cells /uL 1500-7 800 normal Not Available [facility] [address], [place], [address], 10/04/2021 08:43:43 10/03/19 22 10/04/2021 CBC (INCL UDES DIFF/ PLT) absolute lymphocytes 2949 cells /uL 850-39 00 normal Not Available [facility] [address], [place], [address], 10/04/2021 08:43:43 10/03/19 22 10/04/2021 CBC (INCL UDES DIFF/ PLT) absolute monocytes 403 cells /uL 200-95 0 normal Not Available [facility] [address], [place], [address], 10/04/2021 08:43:43 10/03/19 22 10/04/2021 CBC (INCL UDES DIFF/ PLT) absolute eosinophils 30 cells /uL 15-500 normal Not Available [facility] [address], [place], [address], 10/04/2021 08:43:43 10/03/19 22 10/04/2021 CBC (INCL UDES DIFF/ PLT) absolute basophils 38 cells /uL 0-[address] [facility] [address], [place], [address], 10/04/2021 08:43:43 10/03/19 22 10/04/2021 CBC (INCL UDES DIFF/ PLT) neutrophils 55 % normal Not Available [facility] [address], [place], [address], 10/04/2021 08:43:43 10/03/19 22 10/04/2021 CBC (INCL UDES DIFF/ PLT) lymphocytes 38.8 % normal Not Available [facility] [address], [place], [address], 10/04/2021 08:43:43 10/03/19 22 10/04/2021 CBC (INCL UDES DIFF/ PLT) monocytes 5.3 % normal Not Available [facility] [address], [place], [address], 10/04/2021 08:43:43 10/03/19 22 10/04/2021 CBC (INCL UDES DIFF/ PLT) eosinophils 0.4 % normal Not Available [facility] [place] [facility] [address], [place], [address], 10/04/2021 08:43:43 10/03/19 22 10/04/2021 CBC (INCL UDES DIFF/ PLT) basophils 0.5 % normal Not Available [facility] [place] [facility] [address], [place], [address], 10/04/2021 08:43:43 Result Notes None recorded. Problems Name Status Onset Date Resolution Date Notes Provider Name and Address Organization Details Recorded Time Asthma Active 016 Asthma ([id number]) Not Available [facility] 9 03:54:04 Gastroesophageal reflux disease Active 016 GERD - Gastro-es ophageal reflux disease ([id number]) Not Available [facility] 9 03:54:04 Notes:09/28/2021 Problem Notes None recorded. Procedures Surgical History Date Name Laterality Status Provider Name and Address Organization Details Recorded Time 01/25/20 BMI Assessment completed ANGIE Lantigua, [facility] 01/23/2022 15:56:04 01/25/20 22 Controlling High Blood Pressure-Systolic completed Ramona Smith [facility], [facility] 01/23/2022 15:56:04 01/25/20 22 Controlling High Blood Pressure-Diastolic completed ANGIE Lantigua, [facility] 01/23/2022 15:56:04 09/28/19 22 BMI Assessment completed Leigh Greene [facility] 09/28/2021 11:43:01 09/28/19 22 Controlling High Blood Pressure-Systolic completed Leigh Greene [facility] 09/28/2021 11:43:01 09/28/19 22 Controlling High Blood Pressure-Diastolic completed Leigh Greene [facility] 09/28/2021 11:43:01 01/18/20 21 BMI Assessment completed Carol Ann rush, [facility] 01/17/2021 12:17:36 01/18/20 21 Comprehensive Diabetes Care- Hemoglobin A1c completed Carol Ann rush [facility] 01/17/2021 12:17:36 01/18/20 21 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 completed Carol Ann Somers [facility] 01/17/2021 12:17:36 01/18/20 21 [facility] 12:17:36 01/18/20 21 Controlling High Blood Pressure-Systolic completed Carol Ann Somers [facility] 01/17/2021 12:17:36 01/18/20 21 Controlling High Blood Pressure-Diastolic completed Carol Ann Somers [facility] 01/17/2021 12:17:36 01/18/20 21 Transitions of Care-Medication Reconciliation Post-Discharge completed Carol Ann Somers [facility] 01/17/2021 12:17:36 11/22/19 21 BMI Assessment completed Dhiraj Rosa [facility] 11/17/2020 16:06:17 11/22/19 21 Comprehensive Diabetes Care- Hemoglobin A1c completed Dhiraj Rosa [facility] 11/17/2020 16:06:17 11/22/19 21 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 completed Dhiraj Rosa [facility] 11/17/2020 16:06:17 11/22/19 21 Comprehensive Diabetes Care-Eye Exam completed Dhiraj Rosa [facility] 11/17/2020 16:06:17 11/22/19 21 Controlling High Blood Pressure-Systolic completed Dhiraj Rosa [facility] 11/17/2020 16:06:17 11/22/19 21 Controlling High Blood Pressure-Diastolic completed Dhiraj Rosa [facility] 11/17/2020 16:06:17 11/22/19 21 DMARD Therapy [facility]oid [facility]thritis [facility] 16:06:17 11/22/19 21 Transitions of Care-Medication Reconciliation Post-Discharge completed Dhiraj Rosa [facility] 11/17/2020 16:06:17 12/02/19 20 Date of Last Pap Smear completed [facility] 11/21/2020 12:53:12 tonsilectomy/adeno idectomy completed [facility] 11/21/2020 12:37:14 Carpal tunnel surgery completed [facility] 11/21/2020 12:51:09 repair or plastic operation on bone, except facial bones completed [facility] 11/21/2020 12:51:53 Pin finger dislocation completed [facility] 11/21/2020 12:52:11 extraction of wisdom tooth completed [facility] 11/21/2020 12:52:39 Imaging Results None recorded. Procedure Notes None recorded. Medical Equipment None Reported. Allergies Allergen ID Allergen Name Allergen Category Reaction Reaction Severity Criticality Documentation Date Start Date Code Code System Note Provider Name and Address Organization Details Recorded Time 234514 wheat preparati on food,medi cation nausea other Not available Not available Not available 11/21/2020 16657 52 RxNorm [facility] 12:36:58 78008 amoxicill in medicatio n rash Not available Not available 08/28/20192015 723 RxNorm [facility] 12:36:58 36071 Medicinal product containin g penicilli n and acting as antibacte rial agent (product) medicatio n rash Not available Not available 08/28/20192015 16065 05 SNOMED [facility] 12:36:58 Medications Name Sig Start [...] No t Available Nasonex 50 mcg/actuati on [place] ,for 30 days 11/09 completed Not Available Not Available Not Available estradiol 0.01% (0.1 mg/gram) vaginal cream active Not Available Not Available Not Available levofloxaci n 750 mg tablet ,for 10 days 06/20 completed Not Available Not Available Not Available [facility] 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 [employer] 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 Tray Reg Bevel 1 mL 27 x [...] Address Organization Details Last Updated DateTime 8 25428.2 94392 g 162.56 cm 21.37 kg/m2 14 /min 97.6 [degF] 98 mm[Hg] 76 mm[Hg] Not Available [facility] 9 06:28:52 Date Recorded Body weight Body height Body mass index (BMI) Respiratory rate Body temperature Systolic blood pressure Diastolic blood pressure Provider Name and Address Organization Details Last Updated DateTime 6 27360.4 5388 g 162.56 cm 21.28 kg/m2 14 /min 97.8 [degF] 110 mm[Hg] 82 mm[Hg] Not Available [facility] 9 06:28:52 Date Recorded Body weight Body height Body mass index (BMI) Respiratory rate Body temperature Systolic blood pressure Diastolic blood pressure Provider Name and Address Organization Details Last Updated DateTime 7 09097.8 95300 g 162.56 cm 21.52 kg/m2 14 /min 97.7 [degF] 108 mm[Hg] 70 mm[Hg] Not Available [facility] 9 06:28:52 Date Recorded Body weight Body temperature Body mass index (BMI) Percentile per age and sex Body mass index (BMI) Body height Heart rate Oxygen saturation Oxygen saturation in Arterial blood by Pulse oximetry Respiratory rate Systolic blood pressure Diastolic blood pressure Provider Name and Address Organization Details Last Updated DateTime 1 25351.7 1 g 97.4 [degF] 29 % 19.9 kg/m2 162.56 cm 75 /min 99 % 99 % 14 /min 118 mm[Hg] 78 mm[Hg] [facility] 12:42:15 Date Recorded Body height Body mass index (BMI) Percentile per age and sex Body mass index (BMI) Body weight Body temperature Heart rate Oxygen saturation Oxygen saturation in Arterial blood by Pulse oximetry Respiratory rate Systolic blood pressure Diastolic blood pressure Provider Name and Address Organization Details Last Updated DateTime 1 162.56 cm 24 % 19.6 kg/m2 80813.5 3 g 99 [degF] 81 /min 99 % 99 % 14 /min 116 mm[Hg] 77 mm[Hg] Carol Ann rush [facility] 1 12:22:47 Date Recorded Body height Body [...] % 73 /min 20.6 kg/m2 36 % 11566.0 8 g 110 mm[Hg] 80 mm[Hg] Leigh Greene [facility] 2 11:44:49 Date Recorded Body height Body mass index (BMI) Body mass index (BMI) Percentile per age and sex Body weight Heart rate Oxygen saturation Oxygen saturation in Arterial blood by Pulse oximetry Respiratory rate Body temperature Systolic blood pressure Diastolic blood pressure Provider Name and Address Organization Details Last Updated DateTime 2 162.56 cm 23.2 kg/m2 66 % 58331.9 7 g 104 /min 98 % 98 % 18 /min 99.8 [degF] 122 mm[Hg] 68 mm[Hg] Ramona Smith MA [facility] 2 11:22:49 Social History Question Answer Notes LastModified by Organizat ion Details LastModified Time Tobacco Smoking Status Never Smoker Carol Ann Somers [facility] 11/21/2020 12:37:10 Do You Have An Advance [...] Do You Have A Medical Power Of Vice President Research? No Information not available 11/21/2020 What Was [...] PF, 0.5 mL 12/07/2020 completed ANGIE Lantigua, [facility] 01/24/2022 11:23:09 DTaP 2002 kamilah Somers [facility] 06/28/2021 17:20:51 Influenza, seasonal, injectable 06/14/2008 kamilah Somers [facility] 06/28/2021 17:20:51 Hep A, unspecified formulation [facility]/04/[facility] 17:20:51 IPV 2002 kamilah Somers [facility] 06/28/2021 17:20:51 meningococcal MCV4, unspecified formulation 05/13/2013 completed Carol Ann Somers [facility] 06/28/2021 17:20:51 COVID-19, mRNA, LNP-S, PF, 30 mcg/0.3 mL dose 12/07/2020 [facility] 17:20:51 HPV, quadrivalent 05/13/2013 [facility]/28/[facility]21 17:20:51 Novel [id number], preservative-free 07/13/2009 completed [facility] 06/28/2021 17:20:52 influenza, live, intranasal 06/15/2013 completed Carol Ann Lizbet null, [facility] 06/28/2021 17:20:52 MMR 06/16/2003 completed Carol Ann Lizbet null, [facility] 06/28/2021 17:20:52 DTaP 2002 [facility]/28/[facility]21 17:20:52 COVID-19, mRNA, LNP-S, PF, 30 mcg/0.3 mL dose 12/30/2020 completed [facility] 06/28/2021 17:20:52 Hib, unspecified formulation 2002 completed Carol Ann Lizbet null, [facility] 06/28/2021 17:20:52 DTaP 06/16/2003 completed Carol Ann Lizbet null, [facility] 06/28/2021 17:20:52 Hib, unspecified formulation 06/16/2003 completed Carol Ann Lizbet null, [facility] 06/28/2021 17:20:52 IPV 2002 completed Carol Ann Lizbet null, [facility] 06/28/2021 17:20:52 Hep B, unspecified formulation 2002 completed Carol Ann Lizbet null, [facility] 06/28/2021 17:20:52 MMR 05/31/2006 completed Carol Ann Lizbet null, [facility] 06/28/2021 17:20:52 varicella 06/16/2003 completed Carol Ann Lizbet null, [facility] 06/28/2021 17:20:52 DTaP 2002 completed Carol Ann Lizbet null, [facility] 06/28/2021 17:20:52 pneumococcal conjugate PCV 7 2002 [facility] 17:20:52 pneumococcal conjugate PCV 7 2002 [facility] 17:20:52 Influenza, seasonal, injectable, preservative free 06/15/2014 [facility] 17:20:52 Hep A, unspecified formulation 03/30/2009 [facility] 17:20:52 Tdap 04/30/2012 [facility] 17:20:52 HPV, quadrivalent 11/23/2013 [facility] 17:20:52 varicella 03/30/2009 [facility]21 17:20:52 influenza, live, intranasal 06/09/2009 [facility]21 17:20:52 Influenza, seasonal, injectable, preservative free 06/11/2015 [facility] 17:20:52 IPV 2002 [facility]21 17:20:52 pneumococcal conjugate PCV 7 06/16/2003 [facility]28[facility]21 17:20:52 Hep B, unspecified formulation 05/12/2003 [facility]28/[facility]21 17:20:52 meningococcal MCV4P 02/06/2019 [facility] 17:20:52 Hib, unspecified formulation 2002 completed Carol Ann Lizbet [facility] 06/28/2021 17:20:52 HPV, quadrivalent 07/13/2013 completed Carol Ann Somers [facility] 06/28/2021 17:20:52 IPV 05/28/2006 completed Carol Ann Somers [facility] 06/28/2021 17:20:52 Hep B, unspecified formulation 2002 completed Carol Ann Somers [facility] 06/28/2021 17:20:52 influenza, injectable, quadrivalent, preservative free 06/15/2021 completed Carol Ann Somers [facility] 06/28/2021 17:20:52 DTaP 05/31/2006 completed Carol Ann Somers [facility] 06/28/2021 17:20:52 Hib, unspecified formulation 2002 completed Carol Ann Somers [facility] 06/28/2021 17:20:52 Influenza, seasonal, injectable, preservative free 06/05/2010 completed Carol Ann Somers [facility] 06/28/2021 17:20:52 influenza, injectable, quadrivalent, preservative free 06/18/2020 completed Carol Ann Somers [facility] 06/28/2021 17:20:52 COVID-19, mRNA, LNP-S, PF, 30 mcg/0.3 mL dose 08/15/2021 completed Ramona Smith MA [facility] 01/24/2022 11:23:09 Past Encounters Encounter ID Performer Location Encounter Start Date Encounter Closed Date Diagnosis/Indication Diagnosis SNOMED-CT Code [id number] REYNA Seals [facility] [address] [place] [address] 11/21/2020 11:32:27 11/21/2020 14:05:45 Body mass index less than 20 884213311 Fatigue 16522930 Mood disorder 61775399 [id number] REYNA Seals [facility] [address] [place] [address] 12/19/2020 15:29:25 12/19/2020 17:00:03 Fatigue 37929319 Mood disorder 68831573 Body mass index less than 20 531110404 Vitamin D deficiency 347 73990 [id number] REYNA Seals [facility] [address],[place] [address] 01/17/2021 11:42:00 01/17/2021 12:40:30 Body mass index less than 20 561298657 Vitamin D deficiency 347 78407 Mood disorder 79184082 Acute sinusitis 10772921 Migraine 24085828 [id number] REYNA Seals [facility] [address],[place] [address] 06/29/2021 14:18:19 07/21/2021 15:35:12 [id number] REYNA Seals [facility] [address],[place] [address] 09/28/2021 11:28:19 09/28/2021 12:05:29 Body mass index 20-24 - normal 430168473 Depressive disorder 3548 9007 Asthma 463116410 Vitamin D deficiency 347 29233 Vertigo 944530423 Mood disorder 70566006 [id number] REYNA Seals [facility] [address],[place] [address] 01/24/2022 11:16:56 01/24/2022 11:56:41 Body mass index 20-24 - normal 704584823 Migraine 51557875 Food anaphylaxis 0923312 2 Depressive disorder 3548 9007 Dizziness 571160132 Hypertriglyceridemia 302 751205 Health Concerns Section Related Observation LastModified by Organization Detai ls LastModified Time None Recorded Concern Status LastModified by Organization Details LastModified Time None Recorded Advance Directives Directive N: Payers Encounter Date Sequence Insurance Name Policy Number Policy Deng Covered Member ID Deng Member ID Guarantor Name 01/24/2022 1 [employer] [place] Philip Crowder [id number] 09/28/2021 1 [employer] [place] Philip Crowder [id number] 06/29/2021 1 [employer] [place] Philip Crowder [id number] 01/17/2021 1 [employer] Philip Crowder [id number] 12/19/2020 1 [employer] [place] Philip Crowder [id number] 11/21/2020 1 [employer] [place] Philip Crowder [id number] Notes Date Note Type Note Provider Name and Address Organization Details Recorded Time 11/21/2020 text/html HPI Notes: new p t here to establish care c.o of being cold REYNA Seals [address] [place], [address], [facility] 11/21/2020 14:07:37 12/19/2020 text/html HPI Notes: pt do ing well lab result review high stress level with college and her final exams coming up but she notes she is handling it well Patient verbally consents today to telehealth visit via audiovisual communications ([email or web address], [employer], [employer], etc.) REYNA Seals [address] [place], [address], [facility] 12/19/2020 17:10:32 01/17/2021 text/html HPI Notes: pt c. o of head pressure around her forehead and under her eyes for the past 3 wks she is unsure if this is sinus related or migraine related no other sx high stress level at school REYNA Seals [address] [place], [address], [facility] 01/17/2021 14:24:49 01/24/2022 text/html HPI Notes: 3 mon th f/u on vertigo hx of depression- stable on escitalopram pt wants an epipen, has an allergy to almonds REYNA Seals [address] [place], [address], [facility] 01/24/2022 13:22:47 OBGyn Episode No OBEpisode recorded.
--- OUTSIDE RECORDS SUMMARY | 2024-01-01 14:54 | XMS_ITS | Data Portability ---
Author Name Unknown Address [address] [place] [id number] Phone [phone] Organization [facility] Address [address] [address] Assessment Encounter Date Assessment Date Assessment LastModified [...] monocytes to suggest EBV or CMV infection. [email or web address] Not available 02/11/2018 16:48:29 Plan of Treatment Reminders Order Date Submit Date Provider Last Modified By Organization Details Last Modified Time Details Appointments None recorded. Lab None recorded. Referral None recorded. Procedures None recorded. Surgeries None recorded. Imaging XR, abdomen 018 018 [facility], [address], [address], [place], [address], 8 17:35:17 Medication Orders None recorded. Patient TargetsNo targets recorded. Patient Instructions Encounter Date Encounter Id Patient Instructions Last Modified By Organization Details Last Modified Time 02/24/2018 [id number] 1. Reviewed all of her recently test [...] constipation/impaction . Note by Micha Anderson MD. [email or web address] Not available 02/25/2018 11:10:46 02/03/2018 [id number] 1. Both Radha hernandez nd her grandmother [...] on her clinical symptoms and test results. Not available 02/11/2018 16:57:16 Reason for Referral None Reported. Results Created Date Observation Date Name Description Value Unit Range Abnormal Flag LastModifiedBy Organization Detail LastModifiedTime 02/12/20 18 02/12/2018 hepat itis panel (A+B+ C), acute , serum hepatitis A IgM non-re active non-re active normal Not Available [facility] [place] [facility] [address], [place], [address], 02/12/2018 13:53:51 02/12/20 18 02/12/2018 hepat itis panel (A+B+ C), acute , serum hepatitis B surface antigen non-re active non-re active normal Not Available [facility] [address] [place], [address], 02/12/2018 13:53:51 02/12/20 18 02/12/2018 hepat itis panel (A+B+ C), acute , serum hepatitis B core antibody (IgM) non-re active non-re active normal Not Available [facility] [address] [place], [address], 02/12/2018 13:53:51 02/12/20 18 02/12/2018 hepat itis panel (A+B+ C), acute , serum hepatitis C antibody non-re active non-re active normal Not Available [facility] [address], [place], [address], 02/12/2018 13:53:51 02/12/20 18 02/12/2018 hepat itis panel (A+B+ C), acute , serum signal to cut-off 0.04 <1.00 normal Not Available [facility] [address] [place], [address], 02/12/2018 13:53:51 02/12/20 18 02/13/2018 cytom egalo virus (cmv) igg+i gm Ab, serum cytomegalovi malvin antibody (IgG) <0.60 U/mL normal Not Available [facility] [address] [place], [address], 02/13/2018 13:58:23 02/12/20 18 02/13/2018 cytom egalo virus (cmv) igg+i gm Ab, serum cytomegalovi malvin antibody (IgM) <30.00 AU/mL normal Not Available [facility] [address], [place], [address], 02/13/2018 13:58:23 02/12/20 18 02/12/2018 ldh, serum or plasm a LD 299 U/L 110-23 0 high Not Available [facility] [address], [place], [address], 02/12/2018 00:44:22 02/12/20 18 02/12/2018 CMP, serum or plasm a glucose 81 mg/dL 65-99 normal Not Available [facility] [address], [place], [address], 02/12/2018 00:44:23 02/12/20 18 02/12/2018 CMP, serum or plasm a urea nitrogen (BUN) 9 mg/dL 7-20 normal Not Available [facility] [address], [place], [address], 02/12/2018 00:44:23 02/12/20 18 02/12/2018 CMP, serum or plasm a creatinine 0.80 mg/dL 0.40-1 .00 normal Not Available [facility] [address], [place], [address], 02/12/2018 00:44:23 02/12/20 18 02/12/2018 CMP, serum or plasm a BUN/creatini ne ratio not applic able (calc ) 6-22 Not Available [facility] [address], [place], [address], 02/12/2018 00:44:23 02/12/20 18 02/12/2018 CMP, serum or plasm a sodium 140 mmol/ L 135-14 6 normal Not Available [facility] [address], [place], [address], 02/12/2018 00:44:23 02/12/20 18 02/12/2018 CMP, serum or plasm a potassium 3.9 mmol/ L 3.8-5. 1 normal Not Available [facility] [address], [place], [address], 02/12/2018 00:44:23 02/12/20 18 02/12/2018 CMP, serum or plasm a chloride 102 mmol/ L 98-110 normal Not Available [facility] [address], [place], [address], 02/12/2018 00:44:23 02/12/20 18 02/12/2018 CMP, serum or plasm a carbon dioxide 26 mmol/ L 20-31 normal Not Available [facility] [address], [place], [address], 02/12/2018 00:44:23 02/12/20 18 02/12/2018 CMP, serum or plasm a calcium 9.3 mg/dL 8.9-10 .4 normal Not Available [facility] [address], [place], [address], 02/12/2018 00:44:23 02/12/20 18 02/12/2018 CMP, serum or plasm a protein, total 7.4 g/dL 6.3-8. 2 normal Not Available [facility] [address], [place], [address], 02/12/2018 00:44:23 02/12/20 18 02/12/2018 CMP, serum or plasm a albumin 4.3 g/dL 3.6-5. 1 normal Not Available [facility] [address], [place], [address], 02/12/2018 00:44:23 02/12/20 18 02/12/2018 CMP, serum or plasm a globulin 3.1 g/dL_ (calc ) 2.0-3. 8 normal Not Available [facility] [address], [place], [address], 02/12/2018 00:44:23 02/12/20 18 02/12/2018 CMP, serum or plasm a albumin/glob ulin ratio 1.4 (calc ) 1.0-2. 5 normal Not Available [facility] [address] [place], [address], 02/12/2018 00:44:23 02/12/20 18 02/12/2018 CMP, serum or plasm a bilirubin, total 0.8 mg/dL 0.2-1. 1 normal Not Available [facility] [address] [place], [address], 02/12/2018 00:44:23 02/12/20 18 02/12/2018 CMP, serum or plasm a alkaline phosphatase 90 U/L 41-244 normal Not Available [facility] [address] [place], [address], 02/12/2018 00:44:23 02/12/20 18 02/12/2018 CMP, serum or plasm a AST 40 U/L 12-32 high Not Available [facility] [address], [place], [address], 02/12/2018 00:44:23 02/12/20 18 02/12/2018 CMP, serum or plasm a ALT 40 U/L 6-19 high Not Available [facility] [address] [place], [address], 02/12/2018 00:44:23 02/12/20 18 02/13/2018 mycop lasma pneum oniae igg Ab, EIA, serum mycoplasma pneumoniae antibody (IgG) >5.00 <=0.90 high Not Available [facility] [address], [place], [address], 02/13/2018 20:37:54 02/12/20 18 02/13/2018 mycop lasma pneum oniae igm Ab, serum mycoplasma pneumoniae antibody (IgM) 292 U/mL <770 Not Available [facility] [address] [place], [address], 02/13/2018 20:37:56 02/12/20 18 02/13/2018 lucian gunenr antib thom panel , serum B. henselae IgG screen negati ve Not Available [facility] [address] [place], [address], 02/13/2018 17:21:50 02/12/20 18 02/13/2018 lucian gunner antib thom panel , serum B. henselae IgM screen negati ve Not Available [facility] [address], [place], [address], 02/13/2018 17:21:50 02/12/20 18 02/12/2018 eryth rocyt e sedim entat ion rate by weste rgren metho d sed rate by modified westhalieren 6 mm/h < or = 20 normal Not Available [facility] [address] [place], [address], 02/12/2018 03:21:34 02/12/20 18 02/12/2018 CBC w/ auto diff white blood cell count 7.6 thous and/u L 4.5-13 .0 normal Not Available [facility] [address] [place], [address], 02/12/2018 16:01:34 02/12/20 18 02/12/2018 CBC w/ auto diff red blood cell count 4.24 ghazala on/uL 3.80-5 .10 normal Not Available [facility] [address] [place], [address], 02/12/2018 16:01:34 02/12/20 18 02/12/2018 CBC w/ auto diff hemoglobin 12.3 g/dL 11.5-1 5.3 normal Not Available [facility] [place] [facility] [address], [place], [address], 02/12/2018 16:01:34 02/12/20 18 02/12/2018 CBC w/ auto diff hematocrit 36.5 % 34.0-4 6.0 normal Not Available [facility] [place] [facility] [address], [place], [address], 02/12/2018 16:01:34 02/12/20 18 02/12/2018 CBC w/ auto diff MCV 86.1 fL 78.0-9 8.0 normal Not Available [facility] [place] [facility] [address], [place], [address], 02/12/2018 16:01:34 02/12/20 18 02/12/2018 CBC w/ auto diff MCH 29.0 pg 25.0-3 5.0 normal Not Available [facility] [address], [place], [address], 02/12/2018 16:01:34 02/12/20 18 02/12/2018 CBC w/ auto diff MCHC 33.7 g/dL 31.0-3 6.0 normal Not Available [facility] [place] [facility] [address], [place], [address], 02/12/2018 16:01:34 02/12/20 18 02/12/2018 CBC w/ auto diff RDW 13.0 % 11.0-1 5.0 normal Not Available [facility] [address], [place], [address], 02/12/2018 16:01:34 02/12/20 18 02/12/2018 CBC w/ auto diff platelet count 229 thous and/u L 140-40 0 normal Not Available [facility] [address], [place], [address], 02/12/2018 16:01:34 02/12/20 18 02/12/2018 CBC w/ auto diff MPV 9.0 fL 7.5-12 .5 normal Not Available [facility] [place] [facility] [address], [place], [address], 02/12/2018 16:01:34 02/12/20 18 02/12/2018 CBC w/ auto diff absolute neutrophils 2280 cells /uL 1800-8 000 normal Not Available [facility] [place] [facility] [address], [place], [address], 02/12/2018 16:01:34 02/12/20 18 02/12/2018 CBC w/ auto diff absolute lymphocytes 4788 cells /uL 1200-5 200 normal Not Available [facility] [place] [facility] [address], [place], [address], 02/12/2018 16:01:34 02/12/20 18 02/12/2018 CBC w/ auto diff absolute monocytes 532 cells /uL 200-90 0 normal Not Available [facility] [address], [place], [address], 02/12/2018 16:01:34 02/12/20 18 02/12/2018 CBC w/ auto diff absolute eosinophils 0 cells /uL 15-500 low Not Available [facility] [address], [place], [address], 02/12/2018 16:01:34 02/12/20 18 02/12/2018 CBC w/ auto diff absolute basophils 0 cells /uL 0-200 normal Not Available [facility] [address], [place], [address], 02/12/2018 16:01:34 02/12/20 18 02/12/2018 CBC w/ auto diff neutrophils 30 % normal Not Available [facility] [address], [place], [address], 02/12/2018 16:01:34 02/12/20 18 02/12/2018 CBC w/ auto diff lymphocytes 43 % normal Not Available [facility] [address], [place], [address], 02/12/2018 16:01:34 02/12/20 18 02/12/2018 CBC w/ auto diff reactive lymphocytes 20 % 0-10 high Not Available [facility] [address], [place], [address], 02/12/2018 16:01:34 02/12/20 18 02/12/2018 CBC w/ auto diff monocytes 7 % normal Not Available [facility] [address], [place], [address], 02/12/2018 16:01:34 02/12/20 18 02/12/2018 CBC w/ auto diff eosinophils 0 % normal Not Available [facility] [address], [place], [address], 02/12/2018 16:01:34 02/12/20 18 02/12/2018 CBC w/ auto diff basophils 0 % normal Not Available [facility] [address], [place], [address], 02/12/2018 16:01:34 02/12/20 18 02/12/2018 CBC w/ auto diff comment(s) Not Available [facility] [address], [place], [address], 02/12/2018 16:01:34 02/12/20 18 02/12/2018 C-osvaldo ctive prote in, quant itati ve, serum or plasm a C-reactive protein 4.1 mg/L <8.0 normal Not Available [facility] [address], [place], [address], 02/12/2018 13:53:59 02/12/20 18 02/13/2018 LESLEY (anti nucle ar antib odies ) scree n, ifa, serum LESLEY screen, ifa negati ve negati ve normal Not Available [facility] [address], [place], [address], 02/13/2018 17:21:53 02/12/20 18 02/12/2018 [facility] rr virus (ebv) IgG + IgM panel , serum ebv viral capsid Ag (vca) Ab (IgM) 123.00 U/mL high Not Available [facility] [address], [place], [address], 02/12/2018 11:46:27 02/12/20 18 02/12/2018 [facility] rr virus (ebv) IgG + IgM panel , serum ebv viral capsid Ag (vca) Ab (IgG) 111.00 U/mL high Not Available [facility] [address], [place], [address], 02/12/2018 11:46:27 02/12/20 18 02/12/2018 [facility] rr virus (ebv) IgG + IgM panel , serum ebv nuclear Ag (ebna) Ab (IgG) <18.00 U/mL normal Not Available [facility] [address], [place], [address], 02/12/2018 11:46:27 02/12/20 18 02/12/2018 [facility] rr virus (ebv) IgG + IgM panel , serum interpretati on: Not Available [facility] [address], [place], [address], 02/12/2018 11:46:27 02/12/20 18 02/14/2018 toxop lasma igg+i gm Ab, serum toxoplasma antibody (IgG) <7.20 IU/mL normal Not Available [facility] [address], [place], [address], 02/14/2018 15:30:46 02/12/20 18 02/14/2018 toxop lasma igg+i gm Ab, serum toxoplasma antibody (IgM) <8.00 AU/mL normal Not Available [facility] [place] [facility] [address], [place], [address], 02/14/2018 15:30:46 02/12/20 18 02/14/2018 actin willian h muscl e Ab, serum smooth muscle Ab screen negati ve negati ve normal Not Available [facility] [place] [facility] [address], [place], [address], 02/14/2018 15:30:48 02/25/20 18 02/24/2018 XR, abdom [...] Romeo Benz MD 018 5:31 PM EDT [email or web address] [facility] [address], [place], [address], 02/24/2018 22:23:02 Result Notes Documentation Provider Name [...] EDT Micha Anderson MD [address] [place], [address], [facility] Vusay 02/24/2018 22:23:02 Procedures Surgical History None recorded. Imaging Results Imaging Date Name Status LastModified by Organiz ation Details LastModified Time 02/24/2018 XR, abdomen completed [email or web address] [facility] [address], [place], [address], 02/24/2018 22:23:02 Procedure Notes None recorded. Medical Equipment None Reported. Allergies Allergen ID Allergen Name Allergen Category Reaction Reaction Severity Criticality Documentation Date Start Date Code Code System Note Provider Name and Address Organization Details Recorded Time 423028 pineapple extract food Not available Not available Not available 02/25/20182017 15555 74 RxNorm React ion: Anaph ylaxi s;Sev erity : Sever e; Comme nt: Verif ied: Yes T ype: Aller gy; Not Available [facility] 8 02:38:54 307421 calcium oxide food Not available Not available Not available 02/25/20182017 82228 RxNorm React ion: Anaph ylaxi s;Sev erity : Sever e; Comme nt: Verif ied: Yes T ype: Aller gy; Not Available [facility] 8 02:38:54 [id number] lemon extract food Not available Not available Not available 02/25/20182017 41434 91 RxNorm React ion: Anaph ylaxi s;Sev erity : Sever e; Comme nt: Verif ied: Yes T ype: Aller gy; Not Available [facility] 8 02:38:54 [id number] amoxicill in medicatio n Not available Not available Not available 02/25/20182017 723 RxNorm React ion: Rash; Sever ity: Sever e; Comme nt: Verif ied: Yes T ype: Aller gy; Not Available [facility] 8 02:52:40 [id number] cefprozil medicatio n Not available Not available Not available 02/25/20182017 74230 RxNorm React ion: RASH; Sever ity: Sever e; Comme nt: Verif ied: Yes T ype: Aller gy; Not Available [facility] 8 02:52:40 Medications Name Sig Start Date [...] Available Not Available No t Available [employer] Tray Reg Bevel 1 mL 27 x [...] Address Organization Details Last Updated DateTime 8 [address]9415.4 2 g 82 /min 20 /min 98.3 [degF] 110 mm[Hg] 62 mm[Hg] Rebecca Gale[facility] 8 13:47:39 Date Recorded Body weight Body temperature Respiratory rate Heart rate Systolic blood pressure Diastolic blood pressure Provider Name and Address Organization Details Last Updated DateTime 8 69584.0 5 g 99 [degF] 18 /min 90 /min 110 mm[Hg] 64 mm[Hg] [facility] 8 13:39:44 Social History None recorded. Functional Status None recorded. Mental Status None recorded. Family History Nothing Reported. Medical History No medical history recorded. Gynecological HistoryNo gynecological history recorded. Obstetrics History GPAL:G 0 P 0 0 0 0 Past Encounters Encounter ID Performer Location Encounter Start Date Encounter Closed Date Diagnosis/Indication Diagnosis SNOMED-CT Code [id number] Micha Anderson MD [facility] [address] [place] [address] 02/03/2018 13:33:18 02/03/2018 14:21:28 Cervical lymphadenopathy 624942546 Acute hepatitis 98780584 Fever [id number] [id number] Micha Anderson MD [facility] [address] [place] [address] 02/24/2018 13:32:11 02/24/2018 14:33:22 Cervical lymphadenopathy 465070439 Acute hepatitis 18935604 Abdominal pain 11400645 Constipation 29702813 Infectious mononucleosis 023845478 Health Concerns Section Related Observation LastModified by Organization Detai ls LastModified Time None Recorded Concern Status LastModified by Organization Details LastModified Time None Recorded Advance Directives Directive None Recorded Payers Encounter Date Sequence Insurance Name Policy Number Policy Deng Covered Member ID Deng Member ID Guarantor Name 02/24/2018 1 [facility]: [employer]OY[employer]GRAM (PPO) [id number] Crowder [id number] Jazmin Crowder 02/03/2018 1 [facility]: [employer]EE PRO[employer] (PPO) [address] Crowder [id number] Jazmin Crowder Notes Date Note Type Note [...] members. Micha Anderson MD [address] [place], [address], [facility] 02/11/2018 17:00:19 02/24/2018 text/html HPI Notes: [...] visit. Micha Anderson MD [address] [place], [address], [facility] 02/25/2018 11:15:01 OBGyn Episode No OBEpisode recorded.
--- OUTSIDE RECORDS SUMMARY | 2024-01-01 14:54 | XMS_ITS | Clinical Summary ---
Author Name Unknown Organization [facility] Address [place], [place] [address] Care Team Providers Care Junior Architect Name Role Phone Pcp, No Primary Care Provider Unavailabl e Allergies Active Allergy Reactions Criticality Noted Date Comments Norris Anaphylaxis High 07/04/2023 Amoxicillin Rash Low 11/21/2011 [...] 20 mg tablet 07/02/2023 Active rizatriptan (MAXALT COMBINE DRIVER) 10 mg disintegrating tablet TAKE 1 TABLET BY MOUTH NEEDED Active Active Problems No known active problems Encounters Date Type Department Care Team Description 12/31/2023 11:10 AM CDT Office Visit [facility] [address] [place] [address] Violet Winkler PA Follow Up (4/25 & 12/26- anaphylaxis [facility] ) 12/31/2023 Orders Only [facility] Scanner 1 scan: (1-Ord) INCOMING RECORDS-LABS, [facility], 12/31/2023 12/31/2023 Travel from Last 3 Months Immunizations Name Administration Dates Next Due DTaP 05/31/2006, 3,2002,09/09,2002 Hepatitis A (Peds) 10/04/2009,03/30/2009 Hepatitis A, Unspecified 10/04/2009,03/30/2009 Hepatitis B (Peds) 05/12/2003,2002, 002 Hepatitis B, Unspecified 05/12/2003,2002,0 2002 Hib Conjugate, Unspecified 06/16/2003,,2002,05/26 Human Papilloma Virus Vaccine 11/23/2013, 013,05/13/2013 Inactivated Polio Vaccine 05/28/2006,,2002,05/26 Influenza A (H1N1), Inactiva kartik (Age 6-35 Mos) 07/13/2009 Influenza Virus, Unspecified 06/05/2010, 10/04/2009,07/13/2009,06/09,06/14/2008,08/08/2007,06/04/2007 Influenza, IIV4 06/06/2023 Influenza, Live, Intranasal Laiv3 06/15/2013,04/2009 MMR 05/31/2006,06/16/2003 Meningococcal Mcv4, Unspecif ied Formulation 05/13/2013 Meningococcal Vaccine (Menactra) 02/06/2019,05/03 Pneumococcal conj 7-Valent (Prevnar 7) 3,2002,2002 Tdap 04/30/2012 Varicella Vaccine 03/30/2009,06/16/2003 Social History Tobacco Use Types Packs/Day Years Used Date Smoking Tobacco: Never Smokeless Tobacco: Never Tobacco Cessation:Counseling Given: Not Answered Alcohol Use Standard Drinks/Week Comments Yes 0 (1 standard drink = 0.6 oz pur e alcohol) occ Social Connections Answer Date Recorded Frequency of Communication with Friends and Fami ly 0 12/31/2023 Financial Resource Strain Answer Date R ecorded Difficulty of Paying Living Expenses 3 12/31/2023 Difficulty of Paying Living Expenses Not on file 12/31/2023 Food Insecurity Answer Date Recorded Worried About Running Out of Food in the Last Ye ar 1 12/31/2023 Transportation Needs Answer Date Record ed Lack of Transportation (Medical) 1 12/31/2023 Housing Stability Answer Date Recorded Unable to Pay for Housing in the Last Year 1 12/31/2023 Sex and Gender Information Value Date Recorded Sex Assigned at Not on file Gender Identity Not on file Sexual Orientation Not on file Obstetrics History Last Filed Vital Signs Vital Sign Reading Time Taken Comments Blood Pressure 121/88 12/31/2023 11:17 AM CDT Pulse 95 12/31/2023 11:17 AM CDT Temperature 37.2 ??C (98.9 ??F) 09/09/2023 9:12 AM CS T Respiratory Rate 18 12/27/2022 1:21 PM CDT Oxygen Saturation 100% 12/31/2023 11:17 AM CDT Inhaled Oxygen Concentration - - Weight 65.9 kg (145 lb 3.2 oz) 12/31/2023 11:17 AM CDT Height 164.3 cm (5' 4.67) 09/09/2023 9:12 AM CS T Body Mass Index 24.41 09/09/2023 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 Plan of Treatment Upcoming Encounters Date Type Department Care Team (Late st Contact Info) Description 01/06/2024 1:00 PM CDT Office Visit [facility] [address] [place] [address] Daron Humphrey MD [address] [facility] [place] [address] Health Maintenance Due Date Last Done Comments Depression screening for age 12+ 2014 HIV for age 15-65 2017 Chlamydia for age 16-24 2018 Hepatitis C screening for age 18-79 2020 Tetanus booster 04/30/2022 04/30/2012 Pap test for age 21-65 2023 COVID-19 vaccine series ( season) 2023 05/30/2022, 08/15/2021, 12/30/2020, Additional history exists Influenza for age 9-49 05/03/2024 , 06/15/2013, 06/05/2010, Additional history exists BMI (ht and wt on same day) for age 18+ 09/09/2024 09/09/2023, 07/04/2023, 09/13/2022 Pneumococcal series for age 6-64 Aged Out 06/16/2003, 2002, 2002 No longer eligible based on patient's age to complete this topic Tdap Completed 04/30/2012 HPV series for age 9-26 Completed 11/24/19 14, 07/13/2013, 05/13/2013 Meningococcal series for age 11-21 Completed 02/06/2019, 05/13/2013, 05/13/2013 Procedures Procedure Name Priority Date/Time Associated Diagnosis Comments SCAN CORRESP-LABORATORY RESULTS 12/31/2023 12:00 AM CDT from Last 3 Months Results * SCAN CORRESP-LABORATORY RESULTS (12/31/2023 12:00 AM CDT) Scanner OTHER from Last 3 Months Care Teams Junior Architect Relationship Specialty Start Date End Date Pcp, No . PCP - General 09/13/22
--- OUTSIDE RECORDS SUMMARY | 2024-01-01 14:54 | XMS_ITS | Data Portability ---
Author Name Unknown Address [address] [place] [address] Phone [phone] Organization [place] [facility] Address 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 [...] 08:20:16 physical therapy shoulder referral 2018 019 [email or web address] Not available 9 10:54:01 Procedures None recorded. Surgeries None recorded. Imaging XR, shoulder, 2 or more view 2018 Gregoria hurley In-House Results, For Internal Use Only, Do Not Delete/merge, [id number] 9 07:38:47 Medication Orders None recorded. Patient [...] joint Active 12/12/19 19 Milli Rosario MD [address] [place] [address], [phone], [facility] 12/11/2018 10:49:20 Pain of right shoulder joint Active 02/14/20 19 Milli Rosario MD [address] [place] [address], [phone], [facility] 02/13/2019 12:06:24 Problem Notes None recorded. Procedures Surgical History Date Name Laterality Status Provider Name and Address Organization Details Recorded Time Head or Neck Surgery completed Jada Kirkland null, [facility] 12/11/2018 09:38:02 Other completed [place]ada [place] null, [place] [facility] 12/11/2018 09:38:02 Wrist/Hand Surgery completed Jada Kirkland [facility], [facility] 12/11/2018 09:38:02 Imaging Results None recorded. Procedure Notes None recorded. Medical Equipment None Reported. Allergies Allergen ID Allergen Name Allergen Category Reaction Reaction Severity Criticality Documentation Date Start Date Code Code System Note Provider Name and Address Organization Details Recorded Time 34124 amoxicill in medicatio n Not available Not available Not available 12/11/2018 723 RxNorm Jada Fitzgeral d null, [facility] 9 10:01:29 78653 cefprozil medicatio n Not available Not available Not available 12/11/2018 00596 RxNorm Jada Fitzgeral d null, [facility] 9 10:01:40 41552 Cipro medicatio n Not available Not available Not available 12/11/2018 74524 3 RxNorm Jada Fitzgeral d null, [facility] 9 10:01:46 01081 Augmentin medicatio n Not available Not available Not available 12/11/2018 39365 2 RxNorm Jada Fitzgeral d null, [facility] 9 10:01:53 62600 Toradol medicatio n Not available Not available Not available 12/11/2018 52063 RxNorm Jada Fitzgeral d null, [facility] 9 10:02:01 13190 Zomig medicatio n Not available Not available Not available 12/11/2018 97645 4 RxNorm Jada Fitzgeral d null, [facility] 9 10:02:11 37727 lemon extract food Not available Not available Not available 12/11/2018 21569 91 RxNorm Jada Fitzgeral d null, [facility] 9 10:02:18 70261 calcium oxide food Not available Not available Not available 12/11/2018 73983 RxNorm Jada Fitzgeral d null, [facility] 9 10:02:23 72613 pineapple extract food Not available Not available Not available 12/11/2018 19941 74 RxNorm Jada Fitzgeral d null, [facility] 9 10:02:28 04832 cranberry preparati on food,medi cation Not available Not available Not available 12/11/2018 59724 3 RxNorm Jada Fitzgeral d null, [facility] 9 10:02:34 Medications Name Sig Start Date [...] Not Available Not Available Not Available BD Supervisor Hanging And Trimming Tray Reg Bevel 1 mL 27 x [...] 9 165.1 cm 20.8 kg/m2 50 % 17954.0 5 g 106 mm[Hg] 62 mm[Hg] Jada dean [facility] 9 09:50:16 Date Recorded Body height Body mass index (BMI) Percentile per age and sex Body mass index (BMI) Body weight Systolic blood pressure Diastolic blood pressure Provider Name and Address Organization Details Last Updated DateTime 9 165.1 cm 49 % 20.8 kg/m2 45852.0 5 g 116 mm[Hg] 64 mm[Hg] [facility] 9 10:11:31 Social History Question Answer Notes LastModified by Organizat ion Details LastModified Time Tobacco Smoking Status Never [facility]oker [facility] 12/11/2018 09:37:57 What Is Your Level Of Alcohol Consumption? None [email or web address] Information not available 12/11/2018 Auto Related Injury? No [email or web address] Information not available 12/11/2018 Is Blood Transfusion Acceptable In An Emergency? Yes [email or web address] Information not available 12/11/2018 Are You Currently Employed? Yes [email or web address] Information not available 12/11/2018 Who Is Your Employer? 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 Right [email or web address] Information not available 02/12/2019 Live Alone Or With Others? With Others [email or web address] Information not available 12/11/2018 What Was The Date Of Your Most Recent Tobacco Screening? 02/12/2019 Information not available 03/26/2019 How Much Tobacco Do You Smoke? No [email or web address] Information not available 02/12/2019 Work Related Injury? No Information not available 12/11/2018 Sex: Female Functional Status Question Answer Note LastModified by Organization D etails LastModified Time Are you able to care for yourself? Yes [email or web address] Information n ot available 12/11/2018 Mental Status [...] Encounter Closed Date Diagnosis/Indication Diagnosis SNOMED-CT Code [id number] Milli Rosario MD [facility] [address] [place] [address] 12/11/2018 09:17:18 12/16/2018 08:23:19 Pain of right shoulder joint [id number] 00 Instabilit y of right shoulder joint 508275603084384 8 [id number] Milli Rosario MD [place] [address] [place] [address] 02/12/2019 09:50:56 02/13/2019 13:00:18 Instability of right shoulder joint [id number] 8 Health Concerns Section Related Observation LastModified by Organization Detai ls LastModified Time None Recorded Concern Status LastModified by Organization Details LastModified Time None Recorded Advance Directives Directive None Recorded Payers Encounter Date Sequence Insurance Name Policy Number Policy Deng Covered Member ID Deng Member ID Guarantor Name 02/12/2019 1 [place] Philip Crowder [id number] 12/11/2018 1 [place] Philip Crowder [id number] Notes Date Note Type Note Provider Name and Address Organization Details Recorded Time 12/11/2018 text/html 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 The hop strainer at [facility] called and got appointment with our clinic. Milli Rosario MD [address] [place] [address], [phone], [facility] 12/15/2018 17:23:48 02/12/2019 text/html HPI Notes: R/C: [...] She reports no improvement. Milli Rosario MD [address] [place] [address], [phone], [facility] 02/13/2019 12:12:43 OBGyn Episode No OBEpisode recorded.
--- OUTSIDE RECORDS SUMMARY | 2024-01-01 14:54 | XMS_ITS | Clinical Summary ---
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 (Maxalt-GLASS PULVERIZER EQUIPMENT OPERATOR) 10 MG disintegrating tablet PLEASE SEE ATTACHED FOR DETAILED DIRECTIONS 0 09/10/2021 Active Social History Tobacco Use Types Packs/Day Years Used Date Smoking Tobacco: Never Smokeless Tobacco: Never Alcohol Use Standard Drinks/Week Comments Never 0 (1 standard drink = 0.6 oz pur e alcohol) [facility] Housing Answer Date Recorded Living Situation Not on file 04/18/2023 Housing Problems Not on file 04/18/2023 [facility] Safety Answer Date Recorded Threatened Not [...] age to complete this topic Care Teams Social Services Assistant Relationship Specialty Start Date End Date Pcp, No PCP - General 12/19/21
--- OUTSIDE RECORDS SUMMARY | 2024-01-01 14:54 | XMS_ITS | Data Portability ---
Author Name Unknown Address [address] [place] [id number] Phone [phone] Organization [facility] Address [address] [place] [address] Assessment Encounter Date Assessment Date Assessment LastModified [...] mg/0.3 mL injection, auto-inject or 2022 023 [facility]acy #[id number], [address] [place], [address], 11:01:57 ipratropium bromide 21 mcg (0.03 %) nasal spray 2022 023 [facility] #[id number], [address] [place], [address], 3 11:03:29 rizatriptan 10 mg disintegrat ing tablet 2022 023 [id number] [address] [place], [address], 3 11:02:35 escitalopra m 10 mg tablet 2022 023 [facility]acy #[id number], [address] [facility], [place], [address], 11:02:36 Patient TargetsNo targets recorded. Patient InstructionsNo instructions recorded. Reason for Referral None Reported. Results Created Date Observation Date Name Description Value Unit Range Abnormal Flag LastModifiedBy Organization Detail LastModifiedTime 11/29/19 21 11/29/2020 VITAM IN B12 vitamin B12 467 pg/mL 200-11 00 normal Not Available [facility] ANGIE Barkley, [id number] 07/31/2022 09:48:50 11/29/19 21 11/29/2020 CBC (INCL UDES DIFF/ PLT) white blood cell count 7.2 thous and/u L 4.5-13 .0 normal Not Available [facility] ANGIE Barkley, [id number] 07/31/2022 09:48:49 11/29/1911/29/2020 CBC (INCL UDES DIFF/ PLT) red blood cell count 4.82 ghazala on/uL 3.80-5 .10 normal Not Available [facility] ANGIE Barkley, 15770 07/31/2022 09:48:49 11/29/1911/29/2020 CBC (INCL UDES DIFF/ PLT) hemoglobin 14.0 g/dL 11.5-1 5.3 normal Not Available [facility] ANGIE Barkley, 00526 07/31/2022 09:48:49 11/29/1911/29/2020 CBC (INCL UDES DIFF/ PLT) hematocrit 41.4 % 34.0-4 6.0 normal Not Available [facility] ANGIE Barkley, 86174 07/31/2022 09:48:49 11/29/1911/29/2020 CBC (INCL UDES DIFF/ PLT) MCV 85.9 fL 78.0-9 8.0 normal Not Available [facility] ANGIE Barkley, 63685 07/31/2022 09:48:49 11/29/19 21 11/29/2020 CBC (INCL UDES DIFF/ PLT) MCH 29.0 pg 25.0-3 5.0 normal Not Available [facility] ANGIE Barkley, [id number] 07/31/2022 09:48:49 11/29/19 21 11/29/2020 CBC (INCL UDES DIFF/ PLT) MCHC 33.8 g/dL 31.0-3 6.0 normal Not Available [facility] ANGIE Barkley, [id number] 07/31/2022 09:48:49 11/29/19 21 11/29/2020 CBC (INCL UDES DIFF/ PLT) RDW 12.6 % 11.0-1 5.0 normal Not Available [facility] [address] 07/31/2022 09:48:49 11/29/19 21 11/29/2020 CBC (INCL UDES DIFF/ PLT) platelet count 288 thous and/u L 140-40 0 normal [facility] Available [facility] [address] 07/31/2022 09:48:49 11/29/19 21 11/29/2020 CBC (INCL UDES DIFF/ PLT) MPV 10.2 fL 7.5-12 .5 normal Not Available [facility], [id number] 07/31/2022 09:48:49 11/29/19 21 11/29/2020 CBC (INCL UDES DIFF/ PLT) absolute neutrophils 4212 cells /uL 1800-8 000 normal Not Available [facility] ANGIE Barkley, 52955 07/31/2022 09:48:49 11/29/19 21 11/29/2020 CBC (INCL UDES DIFF/ PLT) absolute lymphocytes 2563 cells /uL 1200-5 200 normal Not Available [facility], [id number] 07/31/2022 09:48:49 11/29/19 21 11/29/2020 CBC (INCL UDES DIFF/ PLT) absolute monocytes 353 cells /uL 200-90 0 normal Not Available [facility], 07/31/2022 09:48:49 11/29/19 21 11/29/2020 CBC (INCL UDES DIFF/ PLT) absolute eosinophils 29 cells /uL 15-500 normal Not Available [facility], 07/31/2022 09:48:49 03/29/20 21 11/29/2020 CBC (INCL UDES DIFF/ PLT) absolute basophils 43 cells /uL 0-200 normal Not Available [facility] ANGIE Barkley, [id number] 07/31/2022 09:48:49 11/29/19 21 11/29/2020 CBC (INCL UDES DIFF/ PLT) neutrophils 58.5 % normal Not Available [facility] ANGIE Barkley, 07/31/2022 09:48:49 11/29/19 21 11/29/2020 CBC (INCL UDES DIFF/ PLT) lymphocytes 35.6 % normal Not Available [facility] ANGIE Barkley, 07/31/2022 09:48:49 11/29/19 21 11/29/2020 CBC (INCL UDES DIFF/ PLT) monocytes 4.9 % normal Not Available [facility], 07/31/2022 09:48:49 11/29/19 21 11/29/2020 CBC (INCL UDES DIFF/ PLT) eosinophils 0.4 % normal Not Available [facility] ANGIE Barkley, 07/31/2022 09:48:49 11/29/19 21 11/29/2020 CBC (INCL UDES DIFF/ PLT) basophils 0.6 % normal Not Available [facility] ANGIE Barkley, 07/31/2022 09:48:49 11/29/19 21 11/29/2020 TSH W/REF WILLIAM TO FT4 TSH w/reflex to FT4 1.14 mIU/L normal Not Available [facility] ANGIE Barkley, [id number] 07/31/2022 09:48:49 11/29/19 21 11/29/2020 VITAM IN D,25- OH,TO Winnie ROBERTSON A vitamin D,25-oh,tota joanna christie 17 NG/mL 30-100 low Not Available [facility] ANGIE Barkley, 07/31/2022 09:48:48 11/29/19 21 11/29/2020 VITAM IN D,25- OH,TO Winnie ROBERTSON A comment Not Available [facility] ANGIE Barkley, 98612 07/31/2022 09:48:48 11/29/19 21 11/29/2020 COMPR EHENS NICO METAB OLIC PANEL glucose 83 mg/dL 65-99 normal Not Available [facility] ANGIE Barkley, [id number] 07/31/2022 09:48:47 11/29/19 21 11/29/2020 COMPR EHENS NICO METAB OLIC PANEL urea nitrogen (BUN) 7 mg/dL 7-20 normal Not Available [facility] ANGIE Barkley, 01449 07/31/2022 09:48:47 11/29/19 21 11/29/2020 COMPR EHENS NICO METAB OLIC PANEL creatinine 0.92 mg/dL 0.50-1 .00 normal Not Available [facility] ANGIE Barkley, [id number] 07/31/2022 09:48:47 11/29/19 21 11/29/2020 COMPR EHENS NICO METAB OLIC PANEL eGFR non-afr. zimbabwean 91 mL/mi n/1.7 3m2 > or = 60 normal Not Available [facility] ANGIE Barkley, 51436 07/31/2022 09:48:47 11/29/19 21 11/29/2020 COMPR EHENS NICO METAB OLIC PANEL eGFR 105 mL/mi n/1.7 3m2 > or = 60 normal Not Available [facility] ANGIE Barkley, 72382 07/31/2022 09:48:47 11/29/19 21 11/29/2020 COMPR EHENS NICO METAB OLIC PANEL BUN/creatini ne ratio not applic able (calc ) 6-22 Not Available [facility] ANGIE Barkley, 66026 07/31/2022 09:48:47 11/29/19 21 11/29/2020 COMPR EHENS NICO METAB OLIC PANEL sodium 143 mmol/ L 135-14 6 normal Not Available [facility] ANGIE Barkley, 07/31/2022 09:48:47 11/29/19 21 11/29/2020 COMPR EHENS NICO METAB OLIC PANEL potassium 4.0 mmol/ L 3.8-5. 1 normal Not Available [facility] ANGIE Barkley, 50223 07/31/2022 09:48:47 11/29/19 21 11/29/2020 COMPR EHENS NICO METAB OLIC PANEL chloride 106 mmol/ L 98-110 normal Not Available [facility] ANGIE Barkley, 98684 07/31/2022 09:48:47 11/29/19 21 11/29/2020 COMPR EHENS NICO METAB OLIC PANEL carbon dioxide 27 mmol/ L 20-32 normal Not Available [facility] ANGIE Barkley, 43784 07/31/2022 09:48:47 11/29/19 21 11/29/2020 COMPR EHENS NICO METAB OLIC PANEL calcium 9.5 mg/dL 8.9-10 .4 normal Not Available [facility] ANGIE Barkley, [id number] 07/31/2022 09:48:47 11/29/19 21 11/29/2020 COMPR EHENS NICO METAB OLIC PANEL protein, total 6.9 g/dL 6.3-8. 2 normal Not Available [facility] ANGIE Barkley, [id number] 07/31/2022 09:48:47 11/29/19 21 11/29/2020 COMPR EHENS [...] [facility] ANGIE Barkley, [id number] 07/31/2022 09:48:47 11/29/19 21 11/29/2020 COMPR EHENS NICO METAB OLIC PANEL alkaline phosphatase 60 U/L 36-128 normal Not Available [facility] ANGIE Barkley, 07/31/2022 09:48:47 11/29/19 21 11/29/2020 COMPR EHENS NICO METAB OLIC PANEL AST 17 U/L 12-32 normal Not Available [facility] ANGIE Barkley, 07/31/2022 09:48:47 11/29/19 21 11/29/2020 COMPR EHENS NICO METAB OLIC PANEL ALT 14 U/L 5-32 normal Not Available [facility], 07/31/2022 09:48:47 11/29/19 21 11/29/2020 IRON, TIBC AND DIDI TIN PANEL iron, total 67 mcg/d L 27-164 normal Not Available [facility] ANGIE Barkley, [id number] 07/31/2022 09:48:47 11/29/19 21 11/29/2020 IRON, TIBC AND DIDI TIN PANEL iron binding capacity 381 mcg/d L_(ca lc) 271-44 8 normal Not Available [facility], 07/31/2022 09:48:47 11/29/19 21 11/29/2020 IRON, TIBC AND DIDI TIN PANEL % saturation 18 %_(ca lc) 15-45 normal Not Available [facility] ANGIE Barkley, [id number] 07/31/2022 09:48:47 11/29/19 21 11/29/2020 IRON, TIBC AND DIDI TIN PANEL ferritin 9 NG/mL 6-67 normal Not Available [facility] ANGIE Barkley, 07/31/2022 09:48:47 11/29/19 21 11/29/2020 VITAM IN B12 vitamin B12 467 pg/mL 200-11 00 normal Not Available [facility], [id number] 04/10/2022 16:13:18 11/29/19 21 11/29/2020 CBC (INCL [...] 78.0-9 8.0 normal Not Available [facility], 04/10/2022 16:13:17 11/29/19 21 11/29/2020 CBC (INCL UDES DIFF/ PLT) MCH 29.0 pg 25.0-3 5.0 normal Not Available [facility] ANGIE Barkley, 04/10/2022 16:13:17 11/29/19 21 11/29/2020 CBC (INCL UDES DIFF/ PLT) MCHC 33.8 g/dL 31.0-3 6.0 normal Not Available [email or web address], 04/10/2022 16:13:17 11/29/1911/29/2020 CBC (INCL UDES DIFF/ PLT) RDW 12.6 % 11.0-1 5.0 normal Not Available [facility], 04/10/2022 16:13:17 11/29/19 21 11/29/2020 CBC (INCL UDES DIFF/ PLT) platelet count 288 thous and/u L 140-40 0 normal Not Available [facility], 04/10/2022 16:13:17 11/29/19 21 11/29/2020 CBC (INCL UDES DIFF/ PLT) MPV 10.2 fL 7.5-12 .5 normal Not Available [facility], 04/10/2022 16:13:17 11/29/19 21 11/29/2020 CBC (INCL UDES DIFF/ PLT) absolute neutrophils 4212 cells /uL 1800-8 000 normal Not Available [facility], 04/10/2022 16:13:17 11/29/19 21 11/29/2020 CBC (INCL UDES DIFF/ PLT) absolute lymphocytes 2563 cells /uL 1200-5 200 normal Not Available [facility], 04/10/2022 16:13:17 11/29/19 21 11/29/2020 CBC (INCL UDES DIFF/ PLT) absolute monocytes 353 cells /uL 200-90 0 normal Not Available [facility], 04/10/2022 16:13:17 11/29/19 21 11/29/2020 CBC (INCL UDES DIFF/ PLT) absolute eosinophils 29 cells /uL 15-500 normal Not Available [facility] ANGIE Barkley, 04/10/2022 16:13:17 11/29/19 21 11/29/2020 CBC (INCL UDES DIFF/ PLT) absolute basophils 43 cells /uL 0-200 normal Not Available [facility] ANGIE Barkley, 04/10/2022 16:13:17 11/29/19 21 11/29/2020 CBC (INCL UDES DIFF/ PLT) neutrophils 58.5 % normal Not [facility], 04/10/2022 16:13:17 11/29/19 21 11/29/2020 CBC (INCL UDES DIFF/ PLT) lymphocytes 35.6 % normal Not Available [facility] ANGIE Barkley, 04/10/2022 16:13:17 11/29/19 21 11/29/2020 CBC (INCL UDES DIFF/ PLT) monocytes 4.9 % normal Not Available [facility] ANGIE Barkley, 04/10/2022 16:13:17 11/29/19 21 11/29/2020 CBC (INCL UDES DIFF/ PLT) eosinophils 0.4 % normal Not Available [facility] ANGIE Barkley, 04/10/2022 16:13:17 11/29/19 21 11/29/2020 CBC (INCL UDES DIFF/ PLT) basophils 0.6 % normal Not Available [facility] ANGIE Barkley, 04/10/2022 16:13:17 11/29/19 21 11/29/2020 TSH W/REF WILLIAM TO FT4 TSH w/reflex to FT4 1.14 mIU/L normal Not Available [email or web address] [facility] ANGIE Barkley, 04/10/2022 16:13:16 11/29/19 21 11/29/2020 VITAM IN D,25- OH,TO AILYN,I A vitamin D,25-oh,tota l,ia 17 NG/mL 30-100 low Not Available [facility] ANGIE Barkley, 04/10/2022 16:13:15 11/29/19 21 11/29/2020 VITAM IN D,25- OH,TO AILYN,I A comment Not Available [facility], 04/10/2022 16:13:15 11/29/19 21 11/29/2020 COMPR EHENS NICO METAB OLIC PANEL glucose 83 mg/dL 65-99 normal Not Available [facility] ANGIE Barkley, 04/10/2022 16:13:15 11/29/19 21 11/29/2020 COMPR EHENS NICO METAB OLIC PANEL urea nitrogen (BUN) 7 mg/dL 7-20 normal Not Available [email or web address] Michele christie [facility] ANGIE Barkley, 04/10/2022 16:13:15 11/29/19 21 11/29/2020 COMPR EHENS NICO METAB OLIC PANEL creatinine 0.92 mg/dL 0.50-1 .00 normal Not Available [facility] ANGIE Barkley, 04/10/2022 16:13:15 11/29/19 21 11/29/2020 COMPR EHENS NICO METAB OLIC PANEL eGFR non-afr. zimbabwean 91 mL/mi n/1.7 3m2 > or = 60 normal Not Available [facility] ANGIE Barkley, 04/10/2022 16:13:15 11/29/19 21 11/29/2020 COMPR EHENS NICO METAB OLIC PANEL eGFR 105 mL/mi n/1.7 3m2 > or = 60 normal Not Available [facility] ANGIE Barkley, 04/10/2022 16:13:15 11/29/19 21 11/29/2020 COMPR EHENS NICO METAB OLIC PANEL BUN/creatini ne ratio not applic able (calc ) 6-22 Not Available [facility] ANGIE Barkley, 04/10/2022 16:13:15 11/29/19 21 11/29/2020 COMPR EHENS NICO METAB OLIC PANEL sodium 143 mmol/ L 135-14 6 normal Not Available [facility] ANGIE Barkley, 04/10/2022 16:13:15 11/29/19 21 11/29/2020 COMPR EHENS NICO METAB OLIC PANEL potassium 4.0 mmol/ L 3.8-5. 1 normal Not Available [facility] ANGIE Barkley, 04/10/2022 16:13:15 11/29/19 21 11/29/2020 COMPR EHENS NICO METAB OLIC PANEL chloride 106 mmol/ L 98-110 normal Not Available [facility] ANGIE Barkley, 04/10/2022 16:13:15 11/29/19 21 11/29/2020 COMPR EHENS NICO METAB OLIC PANEL carbon dioxide 27 mmol/ L 20-32 normal Not Available [facility] ANGIE Barkley, 04/10/2022 16:13:15 11/29/19 21 11/29/2020 COMPR EHENS NICO METAB OLIC PANEL calcium 9.5 mg/dL 8.9-10 .4 normal Not Available [facility] ANGIE Barkley, [id number] 04/10/2022 16:13:15 11/29/19 21 11/29/2020 COMPR EHENS NIOC METAB OLIC PANEL protein, total 6.9 g/dL 6.3-8. 2 normal Not Available [facility] ANGIE Barlkey, [id number] 04/10/2022 16:13:15 11/29/19 21 11/29/2020 COMPR EHENS NICO METAB OLIC PANEL albumin 4.8 g/dL 3.6-5. 1 normal Not Available [facility] ANGIE Barkley, 22843 04/10/2022 16:13:15 11/29/19 21 11/29/2020 COMPR EHENS NICO METAB OLIC PANEL globulin 2.1 g/dL_ (calc ) 2.0-3. 8 normal Not Available [facility] ANGIE Barkley, 04/10/2022 16:13:15 11/29/19 21 11/29/2020 COMPR EHENS NICO METAB OLIC PANEL albumin/glob ulin ratio 2.3 (calc ) 1.0-2. 5 normal Not Available [facility] ANGIE Barkley, [id number] 04/10/2022 16:13:15 11/29/19 21 11/29/2020 COMPR EHENS NICO METAB OLIC PANEL bilirubin, total 1.1 mg/dL 0.2-1. 1 normal Not Available [facility] ANGIE Barkley, [id number] 04/10/2022 16:13:15 11/29/19 21 11/29/2020 COMPR EHENS NICO METAB OLIC PANEL alkaline phosphatase 60 U/L 36-128 normal Not Available [facility] ANGIE Barkley, [id number] 04/10/2022 16:13:15 11/29/19 21 11/29/2020 COMPR EHENS NICO METAB OLIC PANEL AST 17 U/L 12-32 normal Not Available [facility] ANGIE Barkley, 31933 04/10/2022 16:13:15 11/29/19 21 11/29/2020 COMPR EHENS NICO METAB OLIC PANEL ALT 14 U/L 5-32 normal Not Available [facility] ANGIE Barkley, [id number] 04/10/2022 16:13:15 11/29/19 21 11/29/2020 IRON, TIBC AND DIDI TIN PANEL iron, total 67 mcg/d L 27-164 normal Not Available [facility] ANGIE Barkley, 04/10/2022 16:13:14 11/29/19 21 11/29/2020 IRON, TIBC AND DIDI TIN PANEL iron binding capacity 381 mcg/d L_(ca lc) 271-44 8 normal Not Available [facility] ANGIE Barkley, 04/10/2022 16:13:14 11/29/19 21 11/29/2020 IRON, TIBC AND DIDI TIN PANEL % saturation 18 %_(ca lc) 15-45 normal Not Available [facility] ANGIE Barkley, 04/10/2022 16:13:14 11/29/19 21 11/29/2020 IRON, TIBC AND DIDI TIN PANEL ferritin 9 NG/mL 6-67 normal Not Available [facility] ANGIE Barkley, 04/10/2022 16:13:14 10/03/19 22 10/04/2021 CBC (INCL UDES DIFF/ PLT) white blood cell count 7.6 thous and/u L 3.8-10 .8 normal Not Available [facility] ANGIE Barkley, 07/31/2022 11:21:53 10/03/19 22 10/04/2021 CBC (INCL UDES DIFF/ PLT) red blood cell count 4.80 ghazala on/uL 3.80-5 .10 normal Not Available [facility] ANGIE Barkley, 07/31/2022 11:21:53 10/03/19 22 10/04/2021 CBC (INCL UDES DIFF/ PLT) hemoglobin 13.8 g/dL 11.7-1 5.5 normal Not Available [facility] ANGIE Barkley, 07/31/2022 11:21:53 10/03/19 22 10/04/2021 CBC (INCL UDES DIFF/ PLT) hematocrit 41.5 % 35.0-4 5.0 normal Not Available [facility] ANGIE Barkley, [id number] 07/31/2022 11:21:53 10/03/19 22 10/04/2021 CBC (INCL UDES DIFF/ PLT) MCV 86.5 fL 80.0-1 00.0 normal Not Available [facility] ANGIE Barkley, 07/31/2022 11:21:53 10/03/19 22 10/04/2021 CBC (INCL UDES DIFF/ PLT) MCH 28.8 pg 27.0-3 3.0 normal Not Available [facility], 07/31/2022 11:21:53 10/03/19 22 10/04/2021 CBC (INCL UDES DIFF/ PLT) MCHC 33.3 g/dL 32.0-3 6.0 normal Not Available [facility] ANGIE Barkley, 07/31/2022 11:21:53 10/03/19 22 10/04/2021 CBC (INCL UDES DIFF/ PLT) RDW 12.5 % 11.0-1 5.0 normal Not Available [facility] [id number] 07/31/2022 11:21:53 10/03/19 22 10/04/2021 CBC (INCL UDES DIFF/ PLT) platelet count 273 thous and/u L 140-40 0 normal Not Available [facility] ANGIE Barkley, 07/31/2022 11:21:53 10/03/19 22 10/04/2021 CBC (INCL UDES DIFF/ PLT) MPV 10.2 fL 7.5-12 .5 normal Not Available [facility] ANGIE Barkley, 07/31/2022 11:21:53 10/03/19 22 10/04/2021 CBC (INCL UDES DIFF/ PLT) absolute neutrophils 4180 cells /uL 1500-7 800 normal Not Available [facility] ANGIE Barkley, 07/31/2022 11:21:53 10/03/19 22 10/04/2021 CBC (INCL UDES DIFF/ PLT) absolute lymphocytes 2949 cells /uL 850-39 00 normal Not Available [facility] ANGIE Barkley, 07/31/2022 11:21:53 10/03/19 22 10/04/2021 CBC (INCL UDES DIFF/ PLT) absolute monocytes 403 cells /uL 200-95 0 normal Not Available [facility], [id number] 07/31/2022 11:21:53 10/03/19 22 10/04/2021 CBC (INCL UDES DIFF/ PLT) absolute eosinophils 30 cells /uL 15-500 normal Not Available [facility], 07/31/2022 11:21:53 10/03/19 22 10/04/2021 CBC (INCL UDES DIFF/ PLT) absolute basophils 38 cells /uL 0-200 normal Not Available [facility], 07/31/2022 11:21:53 10/03/19 22 10/04/2021 CBC (INCL UDES DIFF/ PLT) neutrophils 55 % normal Not Available [facility] ANGIE Barkley, 07/31/2022 11:21:53 10/03/19 22 10/04/2021 CBC (INCL UDES DIFF/ PLT) lymphocytes 38.8 % normal Not Available [facility]ley, 07/31/2022 11:21:53 10/03/19 22 10/04/2021 CBC (INCL UDES DIFF/ PLT) monocytes 5.3 % normal Not Available [facility] ANGIE Barkley, 07/31/2022 11:21:53 10/03/19 22 10/04/2021 CBC (INCL UDES DIFF/ PLT) eosinophils 0.4 % normal Not Available [facility]ley, [id number] 07/31/2022 11:21:53 10/03/19 22 10/04/2021 CBC (INCL UDES DIFF/ PLT) basophils 0.5 % normal Not Available [facility] ANGIE Barkley, 07/31/2022 11:21:53 10/03/19 22 10/04/2021 VITAM IN D,25- OH,TO AILYN,I A vitamin D,25-oh,tota l,ia 71 NG/mL 30-100 normal Not Available [facility] [place], [id number] 07/31/2022 11:21:52 10/03/19 22 10/04/2021 VITAM IN D,25- OH,TO AILYN,I A comment Not Available [facility] ANGIE Barkley, 07/31/2022 11:21:52 10/03/19 22 10/04/2021 COMPR EHENS NICO METAB OLIC PANEL glucose 68 mg/dL 65-99 normal Not Available [facility] ANGIE Barkley, 07/31/2022 11:21:52 10/03/19 22 10/04/2021 COMPR EHENS NICO METAB OLIC PANEL urea nitrogen (BUN) 12 mg/dL 7-20 normal Not Available [facility], 07/31/2022 11:21:52 10/03/19 22 10/04/2021 COMPR EHENS NICO METAB OLIC PANEL creatinine 0.74 mg/dL 0.50-1 .00 normal Not Available [facility] ANGIE Barkley, 07/31/2022 11:21:52 10/03/19 22 10/04/2021 COMPR EHENS NICO METAB OLIC PANEL eGFR non-afr. zimbabwean 117 mL/mi n/1.7 3m2 > or = 60 normal Not Available [facility] ANGIE Barkley, 07/31/2022 11:21:52 10/03/19 22 10/04/2021 COMPR EHENS NICO METAB OLIC PANEL eGFR 136 mL/mi n/1.7 3m2 > or = 60 normal Not Available [facility] ANGIE Barkley, 07/31/2022 11:21:52 10/03/19 22 10/04/2021 COMPR EHENS NICO METAB OLIC PANEL BUN/creatini ne ratio not applic able (calc ) 6-22 Not Available [facility] ANGIE Barkley, 07/31/2022 11:21:52 10/03/19 22 10/04/2021 COMPR EHENS NICO METAB OLIC PANEL sodium 141 mmol/ L 135-14 6 normal Not Available [facility] ANGIE Barkley, 07/31/2022 11:21:52 10/03/19 22 10/04/2021 COMPR EHENS NICO METAB OLIC PANEL potassium 4.3 mmol/ L 3.8-5. 1 normal Not Available [facility] ANGIE Barkley, [id number] 07/31/2022 11:21:52 10/03/19 22 10/04/2021 COMPR EHENS NICO METAB OLIC PANEL chloride 105 mmol/ L 98-110 normal Not Available [facility] ANGIE Barkley, [id number] 07/31/2022 11:21:52 10/03/19 22 10/04/2021 COMPR EHENS NICO METAB OLIC PANEL carbon dioxide 26 mmol/ L 20-32 normal Not Available [facility] ANGIE Barkley, [id number] 07/31/2022 11:21:52 10/03/19 22 10/04/2021 COMPR EHENS NICO METAB OLIC PANEL calcium 9.1 mg/dL 8.9-10 .4 normal Not Available [facility] ANGIE Barkley, [id number] 07/31/2022 11:21:52 10/03/19 22 10/04/2021 COMPR EHENS NICO METAB OLIC PANEL protein, total 6.5 g/dL 6.3-8. 2 normal Not Available [facility] ANGIE Barkley, [id number] 07/31/2022 11:21:52 10/03/19 22 10/04/2021 COMPR EHENS NICO METAB OLIC PANEL albumin 4.2 g/dL 3.6-5. 1 normal Not Available [facility] ANGIE Barkley, [id number] 07/31/2022 11:21:52 10/03/19 22 10/04/2021 COMPR EHENS NICO METAB OLIC PANEL globulin 2.3 g/dL_ (calc ) 2.0-3. 8 normal Not Available [facility] ANGIE Barkley, 07/31/2022 11:21:52 10/03/19 22 10/04/2021 COMPR EHENS NIOC METAB OLIC PANEL albumin/glob ulin ratio 1.8 (calc ) 1.0-2. 5 normal Not Available [facility] ANGIE Barkley, 07/31/2022 11:21:52 10/03/19 22 10/04/2021 COMPR EHENS NICO METAB OLIC PANEL bilirubin, total 1.1 mg/dL 0.2-1. 1 normal Not Available [facility] ANGIE Barkley, 07/31/2022 11:21:52 10/03/19 22 10/04/2021 COMPR EHENS NICO METAB OLIC PANEL alkaline phosphatase 63 U/L 36-128 normal Not Available [facility] ANGIE Barkley, 07/31/2022 11:21:52 10/03/19 22 10/04/2021 COMPR EHENS NICO METAB OLIC PANEL AST 23 U/L 12-32 normal [facility] Available [facility] ANGIE Barkley, 07/31/2022 11:21:52 10/03/19 22 10/04/2021 COMPR EHENS NICO METAB OLIC PANEL ALT 17 U/L 5-32 normal Not Available [facility] ANGIE Barkley, 07/31/2022 11:21:52 10/03/19 22 10/04/2021 TSH+F REE T4 TSH 1.19 mIU/L normal Not Available [facility] ANGIE Barkley, 07/31/2022 11:21:51 10/03/19 22 10/04/2021 TSH+F REE T4 T4, free 1.1 NG/dL 0.8-1. 4 normal Not Available [facility] ANGIE Barkley, 07/31/2022 11:21:51 10/03/19 22 10/04/2021 LIPID PANEL , STAND MICHAEL cholesterol, total 161 mg/dL <170 normal Not Available [facility] ANGIE Barkley, 07/31/2022 11:21:50 10/03/19 22 10/04/2021 LIPID PANEL , STAND MICHAEL HDL cholesterol 61 mg/dL >45 normal [facility], 07/31/2022 11:21:50 10/03/19 22 10/04/2021 LIPID PANEL , STAND MICHAEL triglyceride s 112 mg/dL <90 high Not Available [facility]GIE Barkley, 07/31/2022 11:21:50 10/03/19 22 10/04/2021 LIPID PANEL , STAND MICHAEL LDL-choleste rol 79 mg/dL _(marvin c) <110 normal Not Available [facility] ANGIE Barkley, 07/31/2022 11:21:50 10/03/19 22 10/04/2021 LIPID PANEL , STAND MICHAEL chol/HDLC ratio 2.6 (calc ) <5.0 normal Not Available [facility] ANGIE Barkley, 07/31/2022 11:21:50 10/03/19 22 10/04/2021 LIPID PANEL , STAND MICHAEL non HDL cholesterol 100 mg/dL _(marvin c) <120 normal Not Available [facility] ANGIE Barkley, 07/31/2022 11:21:50 10/03/19 22 10/04/2021 CBC (INCL UDES DIFF/ PLT) white blood cell count 7.6 thous and/u L 3.8-10 .8 normal Not Available [facility] ANGIE Barkley, 04/10/2022 22:05:33 10/03/19 22 10/04/2021 CBC (INCL UDES DIFF/ PLT) red blood cell count 4.80 ghazala on/uL 3.80-5 .10 normal Not Available [facility] ANGIE Barkley, 04/10/2022 22:05:33 10/03/19 22 10/04/2021 CBC (INCL UDES DIFF/ PLT) hemoglobin 13.8 g/dL 11.7-1 5.5 normal Not Available [facility] ANGIE Barkley, 04/10/2022 22:05:33 10/03/19 22 10/04/2021 CBC (INCL UDES DIFF/ PLT) hematocrit 41.5 % 35.0-4 5.0 normal Not Available [facility] ANGIE Barkley, 04/10/2022 22:05:33 10/03/19 22 10/04/2021 CBC (INCL UDES DIFF/ PLT) MCV 86.5 fL 80.0-1 00.0 normal Not Available [facility] ANGIE Barkley, 04/10/2022 22:05:33 10/03/19 22 10/04/2021 CBC (INCL UDES DIFF/ PLT) MCH 28.8 pg 27.0-3 3.0 normal Not Available [facility] ANGIE Barkley, 04/10/2022 22:05:33 10/03/19 22 10/04/2021 CBC (INCL UDES DIFF/ PLT) MCHC 33.3 g/dL 32.0-3 6.0 normal Not Available [facility] ANGIE Barkley, 04/10/2022 22:05:33 10/03/19 22 10/04/2021 CBC (INCL UDES DIFF/ PLT) RDW 12.5 % 11.0-1 5.0 normal Not Available [facility] ANGIE Barkley, 04/10/2022 22:05:33 10/03/19 22 10/04/2021 CBC (INCL UDES DIFF/ PLT) platelet count 273 thous and/u L 140-40 0 normal Not Available [facility] ANGIE Barkley, 04/10/2022 22:05:33 10/03/19 22 10/04/2021 CBC (INCL UDES DIFF/ PLT) MPV 10.2 fL 7.5-12 .5 normal Not Available [facility] ANGIE Barkley, 04/10/2022 22:05:33 10/03/19 22 10/04/2021 CBC (INCL UDES DIFF/ PLT) absolute neutrophils 4180 cells /uL 1500-7 800 normal Not Available [facility] ANGIE Barkley, 04/10/2022 22:05:33 10/03/19 22 10/04/2021 CBC (INCL UDES DIFF/ PLT) absolute lymphocytes 2949 cells /uL 850-39 00 normal Not Available [facility] ANGIE Barkley, 04/10/2022 22:05:33 10/03/19 22 10/04/2021 CBC (INCL UDES DIFF/ PLT) absolute monocytes 403 cells /uL 200-95 0 normal Not Available [facility] ANGIE Barkley, 04/10/2022 22:05:33 10/03/19 22 10/04/2021 CBC (INCL UDES DIFF/ PLT) absolute eosinophils 30 cells /uL 15-500 normal Not Available [facility] ANGIE Barkley, 04/10/2022 22:05:33 10/03/19 22 10/04/2021 CBC (INCL UDES DIFF/ PLT) absolute basophils 38 cells /uL 0-200 normal Not Available [facility], 04/10/2022 22:05:33 10/03/19 22 10/04/2021 CBC (INCL UDES DIFF/ PLT) neutrophils 55 % normal Not Available [facility] ANGIE Barkley, 04/10/2022 22:05:33 10/03/19 22 10/04/2021 CBC (INCL UDES DIFF/ PLT) lymphocytes 38.8 % normal Not Available [facility] ANGIE aBrkley, 04/10/2022 22:05:33 10/03/19 22 10/04/2021 CBC (INCL UDES DIFF/ PLT) monocytes 5.3 % normal Not Available [facility] ANGIE Barkley, 04/10/2022 22:05:33 10/03/19 22 10/04/2021 CBC (INCL UDES DIFF/ PLT) eosinophils 0.4 % normal Not Available [facility], 04/10/2022 22:05:33 10/03/19 22 10/04/2021 CBC (INCL UDES DIFF/ PLT) basophils 0.5 % normal Not Available [facility] ANGIE Barkley, 04/10/2022 22:05:33 10/03/19 22 10/04/2021 VITAM IN D,25- OH,TO Winnie ROBERTSON A vitamin D,25-oh,tota l,ia 71 NG/mL 30-100 normal Not Available [facility] ANGIE Barkley, 04/10/2022 22:05:30 10/03/19 22 10/04/2021 VITAM IN D,25- OH,TO Winnie ROBERTSON A comment Not Available [facility] ANGIE Barkley, 04/10/2022 22:05:30 10/03/19 22 10/04/2021 COMPR EHENS NICO METAB OLIC PANEL glucose 68 mg/dL 65-99 normal Not Available [facility] ANGIE Barkley, 04/10/2022 22:05:27 10/03/19 22 10/04/2021 COMPR EHENS NICO METAB OLIC PANEL urea nitrogen (BUN) 12 mg/dL 7-20 normal Not Available [facility] ANGIE Barkley, 04/10/2022 22:05:27 10/03/19 22 10/04/2021 COMPR EHENS NICO METAB OLIC PANEL creatinine 0.74 mg/dL 0.50-1 .00 normal Not Available [facility] ANGIE Barkley, 04/10/2022 22:05:27 10/03/19 22 10/04/2021 COMPR EHENS NICO METAB OLIC PANEL eGFR non-afr. zimbabwean 117 mL/mi n/1.7 3m2 > or = 60 normal Not Available [facility] ANGIE Barkley, 04/10/2022 22:05:27 10/03/19 22 10/04/2021 COMPR EHENS NICO METAB OLIC PANEL eGFR 136 mL/mi n/1.7 3m2 > or = 60 normal Not Available [facility] ANGIE Barkley, 04/10/2022 22:05:27 10/03/19 22 10/04/2021 COMPR EHENS NICO METAB OLIC PANEL BUN/creatini ne ratio not applic able (calc ) 6-22 Not Available [facility] ANGIE Barkley, 04/10/2022 22:05:27 10/03/19 22 10/04/2021 COMPR EHENS NICO METAB OLIC PANEL sodium 141 mmol/ L 135-14 6 normal Not Available [facility] ANGIE Barkley, 04/10/2022 22:05:27 10/03/19 22 10/04/2021 COMPR EHENS NICO METAB OLIC PANEL potassium 4.3 mmol/ L 3.8-5. 1 normal Not Available [facility] ANGIE Barkley, 04/10/2022 22:05:27 10/03/19 22 10/04/2021 [...] g/dL 6.3-8. 2 normal Not Available [facility] [place], 04/10/2022 22:05:27 10/03/19 22 10/04/2021 COMPR EHENS [...] mg/dL 0.2-1. 1 normal Not Available [facility] [place], 04/10/2022 22:05:27 10/03/19 22 10/04/2021 COMPR EHENS NICO METAB OLIC PANEL alkaline phosphatase 63 U/L 36-128 normal Not Available [facility], 04/10/2022 22:05:27 10/03/19 22 10/04/2021 COMPR EHENS NICO METAB OLIC PANEL AST 23 U/L 12-32 normal Not Available [facility] ANGIE Barkley, 04/10/2022 22:05:27 10/03/19 22 10/04/2021 COMPR EHENS NICO METAB OLIC PANEL ALT 17 U/L 5-32 normal Not Available [facility] ANGIE Barkley, 04/10/2022 22:05:27 10/03/19 22 10/04/2021 TSH+F REE T4 TSH 1.19 mIU/L normal Not Available [facility] ANGIE Barkley, 04/10/2022 22:05:25 10/03/19 22 10/04/2021 TSH+F REE T4 T4, free 1.1 NG/dL 0.8-1. 4 normal Not Available [facility] ANGIE Barkley, 04/10/2022 22:05:25 10/03/19 22 10/04/2021 LIPID PANEL , STAND MICHAEL cholesterol, total 161 mg/dL <170 normal Not Available [facility], 04/10/2022 22:05:22 10/03/19 22 10/04/2021 LIPID PANEL , STAND MICHAEL HDL cholesterol 61 mg/dL >45 normal Not Available [facility], 04/10/2022 22:05:22 10/03/19 22 10/04/2021 LIPID PANEL , STAND MICHAEL triglyceride s 112 mg/dL <90 high Not Available [facility], 04/10/2022 22:05:22 10/03/19 22 10/04/2021 LIPID PANEL , STAND MICHAEL LDL-choleste rol 79 mg/dL _(marvin c) <110 normal Not Available [facility] ANGIE Barkley, 04/10/2022 22:05:22 10/03/19 22 10/04/2021 LIPID PANEL , STAND MICHAEL chol/HDLC ratio 2.6 (calc ) <5.0 normal Not Available [email or web address] [facility] ANGIE Barkley, [id number] 04/10/2022 22:05:22 10/03/19 22 10/04/2021 LIPID PANEL , STAND MICHAEL non HDL cholesterol 100 mg/dL _(marvin c) <120 normal Not Available [employer] [facility] ANGIE Barkley, [id number] 04/10/2022 22:05:22 Result Notes None recorded. Problems Name Status Onset Date Resolution Date Notes Provider Name and Address Organization Details Recorded Time Asthma Active 016 Asthma ([id number]) Not Available [facility] 09:58:47 Gastroesophageal reflux disease Active 016 GERD - Gastro-es ophageal reflux disease ([id number]) Not Available [facility] 09:58:47 Migraine Active 023 REYNA Seals [address] [place] [address], [phone] , [facility] 3 15:55:21 Postural orthostatic tachycardia syndrome Active 022 Janis rushREPLACED BY [facility] 3 10:20:37 Notes:09/28/2021 Problem Notes None recorded. Medical Equipment None Reported. Allergies Allergen ID Allergen Name Allergen Category Reaction Reaction Severity Criticality Documentation Date Start Date Code Code System Note Provider Name and Address Organization Details Recorded Time 46313 wheat preparati on food,medi cation nausea other Not available Not available Not available 02/28/2022 20652 52 RxNorm Not Available [facility] 2 21:33:17 61982 Medicinal product containin g penicilli n and acting as antibacte rial agent (product) medicatio n rash Not available Not available 02/28/20222015 51134 05 SNOMED Not Available [facility] 2 21:33:17 79492 amoxicill in medicatio n rash Not available Not available 02/28/20222015 723 RxNorm Not Available [facility] 21:33:18 Medications Name Sig Start Date [...] Not Avai lable Nasonex 50 mcg/actuati on [place] ,for 30 days 11/09 completed Not Available Not Available Not Available estradiol 0.01% (0.1 mg/gram) vaginal cream 04/11 completed Not Available Not Available Not Available levofloxaci n 750 mg tablet ,for 10 days 06/20 completed Not Available Not Available Not Available [employer] Bevel 1 mL 27 [...] bromide 21 mcg (0.03 %) nasal spray [place] 2 sprays twice a day by intranasa [...] kg/m2 162.56 cm 14 /min 97.8 [degF] 17920.4 539 g 110 mm[Hg] 82 mm[Hg] Not Available [facility] 2 21:28:07 Date Recorded Body mass index (BMI) Body height Respiratory rate Body temperature Body weight Systolic blood pressure Diastolic blood pressure Provider Name and Address Organization Details Last Updated DateTime 7 21.52 kg/m2 162.56 cm 14 /min 97.7 [degF] 32425.8 754 g 108 mm[Hg] 70 mm[Hg] Not Available [facility] 2 21:28:07 Date Recorded Body mass index (BMI) Body height Respiratory rate Body temperature Body weight Systolic blood pressure Diastolic blood pressure Provider Name and Address Organization Details Last Updated DateTime 8 21.37 kg/m2 162.56 cm 14 /min 97.6 [degF] 10219.2 501 g 98 mm[Hg] 76 mm[Hg] Not Available [facility] 2 21:28:07 Date Recorded Body mass index (BMI) Body height Oxygen saturation Oxygen saturation in Arterial blood by Pulse oximetry Heart rate Respiratory rate Body temperature Body weight Systolic blood pressure Diastolic blood pressure Provider Name and Address Organization Details Last Updated DateTime 1 19.9 kg/m2 162.56 cm 99 % 99 % 75 /min 14 /min 97.4 [degF] 27346.7 1 g 118 mm[Hg] 78 mm[Hg] Not Available [facility] 2 21:28:08 Date Recorded Body mass index (BMI) Body height Oxygen saturation Oxygen saturation in Arterial blood by Pulse oximetry Heart rate Respiratory rate Body temperature Body weight Systolic blood pressure Diastolic blood pressure Provider Name and Address Organization Details Last Updated DateTime 1 19.6 kg/m2 162.56 cm 99 % 99 % 81 /min 14 /min 99 [degF] 19990.5 3 g 116 mm[Hg] 77 mm[Hg] Not Available [facility] 2 21:28:08 Date Recorded Body mass index (BMI) Body height Oxygen saturation Oxygen saturation in Arterial blood by Pulse oximetry Heart rate Respiratory rate Body temperature Body weight Systolic blood pressure Diastolic blood pressure Provider Name and Address Organization Details Last Updated DateTime 2 20.6 kg/m2 162.56 cm 99 % 99 % 73 /min 15 /min 98.6 [degF] 11070.0 8 g 110 mm[Hg] 80 mm[Hg] Not Available [facility] 2 21:28:08 Date Recorded Body mass index (BMI) Body height Oxygen saturation Oxygen saturation in Arterial blood by Pulse oximetry Heart rate Respiratory rate Body temperature Body weight Systolic blood pressure Diastolic blood pressure Provider Name and Address Organization Details Last Updated DateTime 2 23.2 kg/m2 162.56 cm 98 % 98 % 104 /min 18 /min 99.8 [degF] 76449.9 7 g 122 mm[Hg] 68 mm[Hg] Not Available [facility] 2 21:28:08 Date Recorded Body temperature Body weight Heart rate Respiratory rate Oxygen saturation Oxygen saturation in Arterial blood by Pulse oximetry Body mass index (BMI) Body height Systolic blood pressure Diastolic blood pressure Provider Name and Address Organization Details Last Updated DateTime 3 98.9 [degF] 66133.6 3 g 90 /min 15 /min 99 % 99 % 23.3 kg/m2 165.1 cm 127 mm[Hg] 80 mm[Hg] GILL Vieyra [facility] 10:27:08 Social History None recorded. Functional [...] [place] - [facility] 04/11/2023 10:13:57 Novel [id number], preservative-free 07/13/2009 completed Janis Chaskin null, [place] [...] Encounter Closed Date Diagnosis/Indication Diagnosis SNOMED-CT Code [id number] [address] [address] 11/21/2020 00:00:00 11/21/2020 00:00:[id number] [address] 12/19/2020 00:00:00 12/19/2020 00:00:[id number] [address] 01/17/2021 00:00:00 01/17/2021 00:00:[id number] [address] 09/28/2021 00:00:00 09/28/2021 00:00:[id number] [address] 01/24/2022 00:00:00 01/24/2022 00:00:00 [id number] REYNA Seals [address] [address] 04/11/2023 10:06:17 04/11/2023 11:14:51 Body mass index 20-24 - normal [id number] Depressive disorder 3548 9007 Migraine [id number] Asthma [id number] Postural o rthostatic tachycardia syndrome [id number] Mood disorder [id number] Adult heal th examination [id number] Health Concerns Section Related Observation LastModified by Organization Detai ls LastModified Time None Recorded Concern Status LastModified by Organization Details LastModified Time None Recorded Advance Directives Directive None Recorded Payers Encounter Date Sequence Insurance Name Policy Number Policy Deng Covered Member ID Deng Member ID Guarantor Name 04/11/2023 1 [facility] [employer] ([employer]) Philip Crowder [id number] Philip Crowder Notes Date Note Type Note Provider Name and Address Organization Details Recorded Time 11/21/2020 text/html HPI Notes: new p t here to establish care c.o of being cold Not Available [facility] 11/21/2020 14:07:37 12/19/2020 text/html HPI Notes: pt do ing well lab result review high stress level with college and her final exams coming up but she notes she is handling it well Patient verbally consents today to telehealth visit via audiovisual communications ([employer], [employer], [employer], etc.) Not Available [facility] 12/19/2020 17:10:32 01/17/2021 text/html HPI Notes: pt c. o of head pressure around her forehead and under her eyes for the past 3 wks she is unsure if this is sinus related or migraine related no other sx high stress level at school Not Available [facility] 01/17/2021 14:24:49 01/24/2022 text/html HPI Notes: 3 mon th f/u on vertigo hx of depression- stable on escitalopram pt wants an epipen, has an allergy to almonds Not Available [facility] 01/24/2022 13:22:47 04/11/2023 text/html HPI Notes: AWE, Parking accommodations form for college to limited walking distance due to DX: REYNA Marinelli [address] [place] [address], [phone], [facility] 04/11/2023 11:13:20 OBGyn Episode No OBEpisode recorded.
== END 2023-12-26 11:37 | disposition home or self-care (01) ==
LOC: AMB 01-01 14:52
PROVIDERS: Visit Provider Student in an Organized Health Care Education/Training Program
DX: R21 Rash and other nonspecific skin eruption (principal); R06.09 Other forms of dyspnea; T78.40XA Allergy, unspecified, initial encounter
CPT/HCPCS: A0425; A0427

== ENCOUNTER 2023-12-26 12:04 | Emergency (ER) | payer BC, SELFPAY ==
[2023-12-26 12:09] VITALS: BP 136/86; PULSE 100; RESP 18; TEMP 37.9; O2SAT 100; BMI 24.9
[2023-12-26 12:29] LABS: Basophils Absolute Auto 0.05 K/uL (0.00-0.30); Basophils Percent Auto 0.8 % (0.0-3.0); Eosinophils Absolute Auto 0.05 K/uL (0.00-0.50); Eosinophils Percent Auto 0.8 % (0.0-7.0); Hematocrit 43.1 % (33.0-51.0); Immature Granulocytes Abs Auto 0.01 K/uL (0.00-0.30); Immature Granulocytes Pct Auto 0.2 %; Lymphocytes Absolute Auto 1.83 K/uL (0.90-2.90); Lymphocytes Percent Auto 30.6 % (20-44); Mean Corpuscular HGB Conc 33 gm/dL (32-36); Mean Corpuscular Hemoglobin 28 pg (26-34); Mean Corpuscular Volume 85 fL (80-100); Monocytes Percent Auto 6.5 % (0.0-11.0); Neutrophils Absolute Auto 3.66 K/uL (1.7-7.0); Neutrophils Percent Auto 61.1 % (42.0-72.0); Platelet Count* 374 K/uL (140-440); RDW Coefficient of Variation % 12.1 % (11.5-15.5); Red Blood Count 5.06 m/uL (4.00-5.20); White Blood Count* 5.99 K/uL (4.50-11.00)
[2023-12-26 12:30] LABS: Slide Review Reflex No
[2023-12-26] MEDS: METHYLPREDNISOLONE SOD SUCC 62.5 MG/ML (125) 125 MG IVP (12:33)
--- OUTSIDE RECORDS SUMMARY | 2023-12-26 12:39 | XMS_ITS | Data Portability ---
Author Name Unknown Address [address] [place] [id number] Phone [phone] Organization [facility] Address [address] [phone] Care Team Providers Care Treating Engineer Helper Name Role Phone [facility] Primary Care Provid er [facility] Preventive Medicine Specialist ROSS ESCOTO Electrotyper Helper Assessment Encounter Date Assessment Date Assessment LastModified by Organization Details LastModified Time 12/19/2020 12/19/2020 labs reviewed pt doing well Not available 12/19/2020 17:09:29 01/17/2021 01/17/2021 ubrelvy sample given abx if no sx resolve Not available 01/17/2021 12:39:21 09/28/2021 09/28/2021 consdier vestibular therapy if no chnage or cause on labs meds filled Not available 09/28/2021 12:01:24 01/24/2022 01/24/2022 epipen sent med refills sent labs reviewed pt dizziness has resolved and she feels well f.u in 1 year or sooner if needed Not available 01/24/2022 13:21:15 Plan of Treatment Reminders Order Date Submit Date Provider Last Modified By Organization Details Last Modified Time Details Appointments None recorded. Lab vitamin D, 25-hydroxy, total, serum 2021 022 [facility], [address] [place], [address], 08:43:42 CMP, serum or plasma 2021 022 [facility], [address] [place] [address], [address], 08:43:42 lipid panel, serum 2021 022 [facility], [address] [place] [address], [address], 08:43:41 CBC w/ auto diff 2021 022 [facility], [address] [place] [address], [address], 08:43:43 TSH + free T4, serum 2021 022 [facility], [address] [place] [address], [address], 08:43:41 TSH, serum or plasma 2020 021 [facility], [address] [place] [address], [address], 09:49:46 CMP, serum or plasma 2020 021 [facility], [address] [place] [address], [address], 09:49:45 CBC w/ auto diff 2020 021 [facility], [address] [place] [address], [address], 09:49:47 iron + TIBC + ferritin, serum 2020 021 [facility], [address] [place] [address], [address], 09:49:45 vitamin D, 25-hydroxy, total, serum 2020 021 [facility], [address] [place], [address], 09:49:46 vitamin B12, serum 2020 021 [facility], [address] [place], [address], 09:49:47 Referral None recorded. Procedures None recorded. Surgeries None recorded. Imaging None recorded. Medication Orders Auvi-Q 0.3 mg/0.3 mL injection, auto-inject or 2021 [id number], [address] [place], [address], 11:49:23 rizatriptan 10 mg disintegrat ing tablet 2021 [id number], [address] [place], [address], 11:49:23 escitalopra m 10 mg tablet 2021 [id number] [address] [place], [address], 13:21:44 ergocalcife rol (vitamin D2) 1,250 mcg (50,000 unit) capsule 2021 022 [id number], [address] [place], [address], 2 12:01:46 escitalopra m 10 mg tablet 2021 022 [facility] [address] [place], [address], 12:01:47 Zithromax Z-Pablo 250 mg tablet 2020 021 tcarpente [email or web address] [id number], [address] [place], [address], 11:23:26 escitalopra m 10 mg tablet 2020 021 [id number], [address] [place], [address], 14:07:32 Patient TargetsNo targets recorded. Patient Instructions Encounter Date Encounter Id Patient Instructions Last Modified By Organization Details Last Modified Time 01/24/2022 [id number] learning about mood disorders Not available 01/24/2022 13:21:42 Reason for Referral None Reported. Results Created Date Observation Date Name Description Value Unit Range Abnormal Flag LastModifiedBy Organization Detail LastModifiedTime 11/29/1911/29/2020 iron + TIBC + chan tin, serum iron, total 67 mcg/d L 27-164 normal Not Available [facility] [address], [place], [address], 11/29/2020 09:49:44 11/29/1911/29/2020 iron + TIBC + chan tin, serum iron binding capacity 381 mcg/d L_(ca lc) 271-44 8 normal Not Available [facility] [address], [place], [address], 11/29/2020 09:49:44 11/29/1911/29/2020 iron + TIBC + chan tin, serum % saturation 18 %_(ca lc) 15-45 normal Not Available [facility] [address], [place], [address], 11/29/2020 09:49:44 11/29/19 21 11/29/2020 iron + TIBC + chan tin, serum ferritin 9 NG/mL 6-67 normal Not Available [facility] [address], [place], [address], 11/29/2020 09:49:44 11/29/19 21 11/29/2020 CMP, serum or plasm a glucose 83 mg/dL 65-99 normal Not Available [facility] [address], [place], [address], 11/29/2020 09:49:45 11/29/19 21 11/29/2020 CMP, serum or plasm a urea nitrogen (BUN) 7 mg/dL 7-20 normal Not Available [facility] [place] [address], [place], [address], 11/29/2020 09:49:45 11/29/19 21 11/29/2020 CMP, serum or plasm a creatinine 0.92 mg/dL 0.50-1 .00 normal Not Available [place] [address], [place], [address], 11/29/2020 09:49:45 11/29/19 21 11/29/2020 CMP, serum or plasm a eGFR non-afr. palauan 91 mL/mi n/1.7 3m2 > or = 60 normal Not Available [place] [address], [place], [address], 11/29/2020 09:49:45 11/29/19 21 11/29/2020 CMP, serum or plasm a eGFR 105 mL/mi n/1.7 3m2 > or = 60 normal Not Available [facility] [address], [place], [address], 11/29/2020 09:49:45 11/29/19 21 11/29/2020 CMP, serum or plasm a BUN/creatini ne ratio not applic able (calc ) 6-22 Not Available [facility] [place] [facility] [address], [place], [address], 11/29/2020 09:49:45 11/29/1911/29/2020 CMP, serum or plasm a sodium 143 mmol/ L 135-14 6 normal Not Available [facility] [address], [place], [address], 11/29/2020 09:49:45 11/29/19 21 11/29/2020 CMP, serum or plasm a potassium 4.0 mmol/ L 3.8-5. 1 normal Not Available [facility] [address], [place], [address], 11/29/2020 09:49:45 11/29/1911/29/2020 CMP, serum or plasm a chloride 106 mmol/ L 98-110 normal Not Available [facility] [address], [place], [address], 11/29/2020 09:49:45 11/29/19 21 11/29/2020 CMP, serum or plasm a carbon dioxide 27 mmol/ L 20-32 normal Not Available [facility] [address], [place], [address], 11/29/2020 09:49:45 11/29/1911/29/2020 CMP, serum or plasm a calcium 9.5 mg/dL 8.9-10 .4 normal Not Available [facility] [address], [place], [address], 11/29/2020 09:49:45 11/29/1911/29/2020 CMP, serum or plasm a protein, total 6.9 g/dL 6.3-8. 2 normal Not Available [facility] [address], [place], [address], 11/29/2020 09:49:45 11/29/19 21 11/29/2020 CMP, serum or plasm a albumin 4.8 g/dL 3.6-5. 1 normal Not Available [facility] [address], [place], [address], 11/29/2020 09:49:45 11/29/19 21 11/29/2020 CMP, serum or plasm a globulin 2.1 g/dL_ (calc ) 2.0-3. 8 normal Not Available [facility] [address], [place], [address], 11/29/2020 09:49:45 11/29/19 21 11/29/2020 CMP, serum or plasm a albumin/glob ulin ratio 2.3 (calc ) 1.0-2. 5 normal Not Available [facility] [address], [place], [address], 11/29/2020 09:49:45 11/29/19 21 11/29/2020 CMP, serum or plasm a bilirubin, total 1.1 mg/dL 0.2-1. 1 normal Not Available [facility] [address], [place], [address], 11/29/2020 09:49:45 11/29/19 21 11/29/2020 CMP, serum or plasm a alkaline phosphatase 60 U/L 36-128 normal Not Available [facility] [address], [place], [address], 11/29/2020 09:49:45 11/29/19 21 11/29/2020 CMP, serum or plasm a AST 17 U/L 12-32 normal Not Available [facility] [address], [place], [address], 11/29/2020 09:49:45 11/29/19 21 11/29/2020 CMP, serum or plasm a ALT 14 U/L 5-32 normal Not Available [facility] [address], [place], [address], 11/29/2020 09:49:45 11/29/19 21 11/29/2020 vitam in D, 25-hy droxy , total , serum vitamin D,25-oh,tota l,ia 17 NG/mL 30-100 low Not Available [facility] [address], [place], [address], 11/29/2020 09:49:46 11/29/19 21 11/29/2020 TSH, serum or plasm a TSH w/reflex to FT4 1.14 mIU/L normal Not Available [facility] [address], [place], [address], 11/29/2020 09:49:46 11/29/19 21 11/29/2020 CBC w/ auto diff white blood cell count 7.2 thous and/u L 4.5-13 .0 normal Not Available [facility] [address], [place], [address], 11/29/2020 09:49:47 11/29/19 21 11/29/2020 CBC w/ auto diff red blood cell count 4.82 ghazala on/uL 3.80-5 .10 normal Not Available [facility] [address], [place], [address], 11/29/2020 09:49:47 11/29/19 21 11/29/2020 CBC w/ auto diff hemoglobin 14.0 g/dL 11.5-1 5.3 normal Not Available [facility] [address], [place], [address], 11/29/2020 09:49:47 11/29/19 21 11/29/2020 CBC w/ auto diff hematocrit 41.4 % 34.0-4 6.0 normal Not Available [facility] [address], [place], [address], 11/29/2020 09:49:47 11/29/19 21 11/29/2020 CBC w/ auto diff MCV 85.9 fL 78.0-9 8.0 normal Not Available [facility] [address], [place], [address], 11/29/2020 09:49:47 11/29/19 21 11/29/2020 CBC w/ auto diff MCH 29.0 pg 25.0-3 5.0 normal Not Available [facility] [address], [place], [address], 11/29/2020 09:49:47 11/29/19 21 11/29/2020 CBC w/ auto diff MCHC 33.8 g/dL 31.0-3 6.0 normal Not Available [facility] [address], [place], [address], 11/29/2020 09:49:47 11/29/19 21 11/29/2020 CBC w/ auto diff RDW 12.6 % 11.0-1 5.0 normal Not Available [facility] [address], [place], [address], 11/29/2020 09:49:47 11/29/19 21 11/29/2020 CBC w/ auto diff platelet count 288 thous and/u L 140-40 0 normal Not Available [facility] [address], [place], [address], 11/29/2020 09:49:47 11/29/19 21 11/29/2020 CBC w/ auto diff MPV 10.2 fL 7.5-12 .5 normal Not Available [facility] [address], [place], [address], 11/29/2020 09:49:47 11/29/19 21 11/29/2020 CBC w/ auto diff absolute neutrophils 4212 cells /uL 1800-8 000 normal Not Available [facility] [address], [place], [address], 11/29/2020 09:49:47 11/29/19 21 11/29/2020 CBC w/ auto diff absolute lymphocytes 2563 cells /uL 1200-5 200 normal Not Available [facility] [address], [place], [address], 11/29/2020 09:49:47 11/29/19 21 11/29/2020 CBC w/ auto diff absolute monocytes 353 cells /uL 200-90 0 normal Not Available [facility] [address], [place], [address], 11/29/2020 09:49:47 11/29/19 21 11/29/2020 CBC w/ auto diff absolute eosinophils 29 cells /uL 15-500 normal Not Available [facility] [address], [place], [address], 11/29/2020 09:49:47 11/29/19 21 11/29/2020 CBC w/ auto diff absolute basophils 43 cells /uL 0-200 normal Not Available [facility] [address], [place], [address], 11/29/2020 09:49:47 11/29/19 21 11/29/2020 CBC w/ auto diff neutrophils 58.5 % normal Not Available [facility] [employer] [facility] [address], [place], [address], 11/29/2020 09:49:47 11/29/19 21 11/29/2020 CBC w/ auto diff lymphocytes 35.6 % normal Not Available [facility] [employer] [facility] [address], [place], [address], 11/29/2020 09:49:47 11/29/19 21 11/29/2020 CBC w/ auto diff monocytes 4.9 % normal Not Available [facility] [employer] [facility] [address], [place], [address], 11/29/2020 09:49:47 11/29/19 21 11/29/2020 CBC w/ auto diff eosinophils 0.4 % normal Not Available [facility] [address], [place], [address], 11/29/2020 09:49:47 11/29/19 21 11/29/2020 CBC w/ auto diff basophils 0.6 % normal Not Available [facility] [employer] [facility] [address], [place], [address], 11/29/2020 09:49:47 11/29/19 21 11/29/2020 vitam in B12, serum vitamin B12 467 pg/mL 200-11 00 normal Not Available [facility] [employer] [facility] [address], [place], [address], 11/29/2020 09:49:47 10/03/19 22 10/04/2021 LIPID PANEL , STAND MICHAEL cholesterol, total 161 mg/dL <170 normal Not Available [facility] [employer] [facility] [address], [place], [address], 10/04/2021 08:43:41 10/03/19 22 10/04/2021 LIPID PANEL , STAND MICHAEL HDL cholesterol 61 mg/dL >45 normal Not Available [facility] [address], [place], [address], 10/04/2021 08:43:41 10/03/19 22 10/04/2021 LIPID PANEL , STAND MICHAEL triglyceride s 112 mg/dL <90 high Not Available [facility] [address], [place], [address], 10/04/2021 08:43:41 10/03/19 22 10/04/2021 LIPID PANEL , STAND MICHAEL LDL-choleste rol 79 mg/dL _(marvin c) <110 normal Not Available [facility] [address], [place], [address], 10/04/2021 08:43:41 10/03/19 22 10/04/2021 LIPID PANEL , STAND MICHAEL chol/HDLC ratio 2.6 (calc ) <5.0 normal Not Available [facility] [address], [place], [address], 10/04/2021 08:43:41 10/03/19 22 10/04/2021 LIPID PANEL , STAND MICHAEL non HDL cholesterol 100 mg/dL _(marvin c) <120 normal Not Available [facility] [address], [place], [address], 10/04/2021 08:43:41 10/03/19 22 10/04/2021 TSH+F REE T4 TSH 1.19 mIU/L normal Not Available [facility] [address], [place], [address], 10/04/2021 08:43:41 10/03/19 22 10/04/2021 TSH+F REE T4 T4, free 1.1 NG/dL 0.8-1. 4 normal Not Available [facility] [address], [place], [address], 10/04/2021 08:43:41 10/03/19 22 10/04/2021 COMPR EHENS NICO METAB OLIC PANEL glucose 68 mg/dL 65-99 normal Not Available [facility] [address], [place], [address], 10/04/2021 08:43:42 10/03/19 22 10/04/2021 COMPR EHENS NICO METAB OLIC PANEL urea nitrogen (BUN) 12 mg/dL 7-20 normal Not Available [facility] [address], [place], [address], 10/04/2021 08:43:42 10/03/19 22 10/04/2021 COMPR EHENS NICO METAB OLIC PANEL creatinine 0.74 mg/dL 0.50-1 .00 normal Not Available [facility] [address], [place], [address], 10/04/2021 08:43:42 10/03/19 22 10/04/2021 COMPR EHENS NICO METAB OLIC PANEL eGFR non-afr. palauan 117 mL/mi n/1.7 3m2 > or = 60 normal Not Available [facility] [address], [place], [address], 10/04/2021 08:43:42 10/03/19 22 10/04/2021 COMPR EHENS NICO METAB OLIC PANEL eGFR 136 mL/mi n/1.7 3m2 > or = 60 normal Not Available [facility] [address], [place], [address], 10/04/2021 08:43:42 10/03/19 22 10/04/2021 COMPR EHENS NICO METAB OLIC PANEL BUN/creatini ne ratio not applic able (calc ) 6-22 Not Available [facility] [address], [place], [address], 10/04/2021 08:43:42 10/03/19 22 10/04/2021 COMPR EHENS NICO METAB OLIC PANEL sodium 141 mmol/ L 135-14 6 normal Not Available [facility] [address], [place], [address], 10/04/2021 08:43:42 10/03/19 22 10/04/2021 COMPR EHENS NICO METAB OLIC PANEL potassium 4.3 mmol/ L 3.8-5. 1 normal Not Available [facility] [address], [place], [address], 10/04/2021 08:43:42 10/03/19 22 10/04/2021 COMPR EHENS NICO METAB OLIC PANEL chloride 105 mmol/ L 98-110 normal Not Available [facility] [address], [place], [address], 10/04/2021 08:43:42 10/03/19 22 10/04/2021 COMPR EHENS NICO METAB OLIC PANEL carbon dioxide 26 mmol/ L 20-32 normal Not Available [facility] [address], [place], [address], 10/04/2021 08:43:42 10/03/19 22 10/04/2021 COMPR EHENS NICO METAB OLIC PANEL calcium 9.1 mg/dL 8.9-10 .4 normal Not Available [facility] [address], [place], [address], 10/04/2021 08:43:42 10/03/19 22 10/04/2021 COMPR EHENS NICO METAB OLIC PANEL protein, total 6.5 g/dL 6.3-8. 2 normal Not Available [facility] [address], [place], [address], 10/04/2021 08:43:42 10/03/19 22 10/04/2021 COMPR EHENS NICO METAB OLIC PANEL albumin 4.2 g/dL 3.6-5. 1 normal Not Available [facility] [address], [place], [address], 10/04/2021 08:43:42 10/03/19 22 10/04/2021 COMPR EHENS NICO METAB OLIC PANEL globulin 2.3 g/dL_ (calc ) 2.0-3. 8 normal Not Available [facility] [employer] [place] [facility] [address], [place], [address], 10/04/2021 08:43:42 10/03/19 22 10/04/2021 COMPR EHENS NICO METAB OLIC PANEL albumin/glob ulin ratio 1.8 (calc ) 1.0-2. 5 normal Not Available [facility] [address], [place], [address], 10/04/2021 08:43:42 10/03/19 22 10/04/2021 COMPR EHENS NICO METAB OLIC PANEL bilirubin, total 1.1 mg/dL 0.2-1. 1 normal Not Available [facility] [address], [place], [address], 10/04/2021 08:43:42 10/03/19 22 10/04/2021 COMPR EHENS NICO METAB OLIC PANEL alkaline phosphatase 63 U/L 36-128 normal Not Available [facility] [address], [place], [address], 10/04/2021 08:43:42 10/03/19 22 10/04/2021 COMPR EHENS NICO METAB OLIC PANEL AST 23 U/L 12-32 normal Not Available [facility] [address], [place], [address], 10/04/2021 08:43:42 10/03/19 22 10/04/2021 COMPR EHENS NICO METAB OLIC PANEL ALT 17 U/L 5-32 normal Not Available [facility] [address], [place], [address], 10/04/2021 08:43:42 10/03/19 22 10/04/2021 VITAM IN D,25- OH,TO AILYN,I A vitamin D,25-oh,tota l,ia 71 NG/mL 30-100 normal Not Available [facility] [address], [place], [address], 10/04/2021 08:43:42 10/03/19 22 10/04/2021 CBC (INCL UDES DIFF/ PLT) white blood cell count 7.6 thous and/u L 3.8-10 .8 normal Not Available [facility] [address], [place], [address], 10/04/2021 08:43:43 10/03/19 22 10/04/2021 CBC (INCL UDES DIFF/ PLT) red blood cell count 4.80 ghazala on/uL 3.80-5 .10 normal Not Available [facility] [address], [place], [address], 10/04/2021 08:43:43 10/03/19 22 10/04/2021 CBC (INCL UDES DIFF/ PLT) hemoglobin 13.8 g/dL 11.7-1 5.5 normal Not Available [facility] [address], [place], [address], 10/04/2021 08:43:43 10/03/19 22 10/04/2021 CBC (INCL UDES DIFF/ PLT) hematocrit 41.5 % 35.0-4 5.0 normal Not Available [facility] [address], [place], [address], 10/04/2021 08:43:43 10/03/19 22 10/04/2021 CBC (INCL UDES DIFF/ PLT) MCV 86.5 fL 80.0-1 00.0 normal Not Available [facility] [address], [place], [address], 10/04/2021 08:43:43 10/03/19 22 10/04/2021 CBC (INCL UDES DIFF/ PLT) MCH 28.8 pg 27.0-3 3.0 normal Not Available [facility] [address], [place], [address], 10/04/2021 08:43:43 10/03/19 22 10/04/2021 CBC (INCL UDES DIFF/ PLT) MCHC 33.3 g/dL 32.0-3 6.0 normal Not Available [facility] [address], [place], [address], 10/04/2021 08:43:43 10/03/19 22 10/04/2021 CBC (INCL UDES DIFF/ PLT) RDW 12.5 % 11.0-1 5.0 normal Not Available [facility] [address], [place], [address], 10/04/2021 08:43:43 10/03/19 22 10/04/2021 CBC (INCL UDES DIFF/ PLT) platelet count 273 thous and/u L 140-40 0 normal Not Available [facility] [address], [place], [address], 10/04/2021 08:43:43 10/03/19 22 10/04/2021 CBC (INCL UDES DIFF/ PLT) MPV 10.2 fL 7.5-12 .5 normal Not Available [facility] [address], [place], [address], 10/04/2021 08:43:43 10/03/19 22 10/04/2021 CBC (INCL UDES DIFF/ PLT) absolute neutrophils 4180 cells /uL 1500-7 800 normal Not Available [facility] [address], [place], [address], 10/04/2021 08:43:43 10/03/19 22 10/04/2021 CBC (INCL UDES DIFF/ PLT) absolute lymphocytes 2949 cells /uL 850-39 00 normal Not Available [facility] [address], [place], [address], 10/04/2021 08:43:43 10/03/19 22 10/04/2021 CBC (INCL UDES DIFF/ PLT) absolute monocytes 403 cells /uL 200-95 0 normal Not Available [facility] [address], [place], [address], 10/04/2021 08:43:43 10/03/19 22 10/04/2021 CBC (INCL UDES DIFF/ PLT) absolute eosinophils 30 cells /uL 15-500 normal Not Available [facility] [address], [place], [address], 10/04/2021 08:43:43 10/03/19 22 10/04/2021 CBC (INCL UDES DIFF/ PLT) absolute basophils 38 cells /uL 0-200 normal Not Available [facility] [address], [place], [address], 10/04/2021 08:43:43 10/03/19 22 10/04/2021 CBC (INCL UDES DIFF/ PLT) neutrophils 55 % normal Not Available [facility] [employer] [facility] [address], [place], [address], 10/04/2021 08:43:43 10/03/19 22 10/04/2021 CBC (INCL UDES DIFF/ PLT) lymphocytes 38.8 % normal Not Available [facility] [employer] [facility] [address], [place], [address], 10/04/2021 08:43:43 10/03/19 22 10/04/2021 CBC (INCL UDES DIFF/ PLT) monocytes 5.3 % normal Not Available [facility] [address], [place], [address], 10/04/2021 08:43:43 10/03/19 22 10/04/2021 CBC (INCL UDES DIFF/ PLT) eosinophils 0.4 % normal Not Available [facility] [place] [facility] [address], [place], [address], 10/04/2021 08:43:43 10/03/19 22 10/04/2021 CBC (INCL UDES DIFF/ PLT) basophils 0.5 % normal Not Available [facility] [place] [facility] [address], [place], [address], 10/04/2021 08:43:43 Result Notes None recorded. Problems Name Status Onset Date Resolution Date Notes Provider Name and Address Organization Details Recorded Time Asthma Active 016 Asthma ([id number]) Not Available [facility] 9 03:54:04 Gastroesophageal reflux disease Active 016 GERD - Gastro-es ophageal reflux disease ([id number]) Not Available [facility] 9 03:54:04 Notes:09/28/2021 Problem Notes None recorded. Procedures Surgical History Date Name Laterality Status Provider Name and Address Organization Details Recorded Time 01/25/20 BMI Assessment completed ANGIE Lantigua, [facility] 01/23/2022 15:56:04 01/25/20 22 Controlling High Blood Pressure-Systolic completed Ramona Smith MA [facility] [facility], [facility] 01/23/2022 15:56:04 01/25/20 22 Controlling High Blood Pressure-Diastolic completed ANGIE Lantigua, [facility] 01/23/2022 15:56:04 09/28/19 22 BMI Assessment completed Leigh Greene [facility] 09/28/2021 11:43:01 09/28/19 22 Controlling High Blood Pressure-Systolic completed Leigh Greene [facility] 09/28/2021 11:43:01 09/28/19 22 Controlling High Blood Pressure-Diastolic completed Leigh Greene [facility] 09/28/2021 11:43:01 01/18/20 21 BMI Assessment completed Carol Ann rush, [facility] 01/17/2021 12:17:36 01/18/20 21 Comprehensive Diabetes Care- Hemoglobin A1c completed Carol Ann rush [facility] 01/17/2021 12:17:36 01/18/20 21 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 completed Carol Ann Somers [facility] 01/17/2021 12:17:36 01/18/20 21 [facility] 12:17:36 01/18/20 21 Controlling High Blood Pressure-Systolic completed Carol Ann Somers [facility] 01/17/2021 12:17:36 01/18/20 21 Controlling High Blood Pressure-Diastolic completed Carol Ann Somers [facility] 01/17/2021 12:17:36 01/18/20 21 Transitions of Care-Medication Reconciliation Post-Discharge completed Carol Ann Somers [facility] 01/17/2021 12:17:36 11/22/19 21 BMI Assessment completed Dhiraj Rosa [facility] 11/17/2020 16:06:17 11/22/19 21 Comprehensive Diabetes Care- Hemoglobin A1c completed Dhiraj Rosa [facility] 11/17/2020 16:06:17 11/22/19 21 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 completed Dhiraj Rosa [facility] 11/17/2020 16:06:17 11/22/19 21 Comprehensive Diabetes Care-Eye Exam completed Dhiraj Rosa [facility] 11/17/2020 16:06:17 11/22/19 21 Controlling High Blood Pressure-Systolic completed Dhiraj Rosa [facility] 11/17/2020 16:06:17 11/22/19 21 Controlling High Blood Pressure-Diastolic completed Dhiraj Rosa [facility] 11/17/2020 16:06:17 11/22/19 21 DMARD [facility]th[facility] 16:06:17 11/22/19 21 Transitions of Care-Medication Reconciliation Post-Discharge completed Dhiraj Rosa [facility] 11/17/2020 16:06:17 12/02/19 20 Date of Last Pap Smear completed [facility] 11/21/2020 12:53:12 tonsilectomy/adeno idectomy completed [facility] 11/21/2020 12:37:14 Carpal tunnel surgery completed [facility] 11/21/2020 12:51:09 repair or plastic operation on bone, except facial bones completed [facility] 11/21/2020 12:51:53 Pin finger dislocation completed [facility] 11/21/2020 12:52:11 extraction of wisdom tooth completed [facility] 11/21/2020 12:52:39 Imaging Results None recorded. Procedure Notes None recorded. Medical Equipment None Reported. Allergies Allergen ID Allergen Name Allergen Category Reaction Reaction Severity Criticality Documentation Date Start Date Code Code System Note Provider Name and Address Organization Details Recorded Time 213614 wheat preparati on food,medi cation nausea other Not available Not available Not available 11/21/2020 34529 52 RxNorm [facility] 12:36:58 23794 amoxicill in medicatio n rash Not available Not available 08/28/20192015 723 RxNorm [facility] 12:36:58 50222 Medicinal product containin g penicilli n and acting as antibacte rial agent (product) medicatio n rash Not available Not available 08/28/20192015 60268 05 SNOMED [facility] 12:36:58 Medications Name Sig Start Date Stop Date Status Note LastModified by Organization Details LastModified Time cefprozil 500 mg tablet ,for 10 days 05/07 completed Not Available Not Available Not Available prednisone 10 mg tablet ,for 5 days 02/05 completed Not Available Not Available Not Available clindamycin HCl 300 mg capsule ,for 10 days 08/08 completed Not Available Not Available Not Available cetirizine 10 mg tablet 1 tablet 1 time per day,for 30 days 11/21 completed Not Available Not Available Not Available azithromyci n 250 mg tablet TAKE 2 TABLETS BY MOUTH TODAY, THEN TAKE 1 TABLET DAILY FOR 4 DAYS 01/24 completed Not Available Not Available Not Available Lidocaine Viscous 2 % mucosal solution ,for 7 days 08/28 completed Not Available Not Available Not Available cephalexin 250 mg capsule ,for 14 days 10/24 completed Not Available Not Available Not Available hydrocodone 5 mg-acetamin ophen 325 mg tablet ,for 4 days 07/31 completed Not Available Not Available Not Available sucralfate 100 mg/mL oral suspension TAKE 10 ML BY MOUTH 3 TIMES DAILY 09/28 completed Not Available Not Available Not Available sucralfate 1 gram tablet TAKE 1 TABLET BY MOUTH 3 TIMES DAILY NEEDED FOR EPIGASTRI C PAIN 09/28 completed Not Available Not Available Not Available phenazopyri dine 200 mg tablet 09/28 completed Not Available Not Available Not Available prednisone 20 mg tablet TAKE 1 TABLET BY MOUTH TWICE A DAY FOR 5 DAYS 01/24 completed Not Available Not Available Not Available rizatriptan 10 mg tablet ,for 6 days 07/19 completed Not Available Not Available Not Available propranolol ER 60 mg capsule,24 hr,extended release ,for 30 days 07/26 completed Not Available Not Available Not Available almotriptan malate 6.25 mg tablet TAKE 6.25 12.5 MG AT ONSET OF PAIN MAY REPEAT ONCE AFTER 2 HOURS. NOT TO EXCEED 25 MG/DAY 01/24 completed Not Available Not Available Not Available acetaminoph en 300 mg-codeine 30 mg tablet ,for 3 days 08/04 completed Not Available Not Available Not Available ciprofloxac in 500 mg tablet ,for 10 days 01/30 completed Not Available Not Available Not Available sulfamethox azole 800 mg-trimetho prim 160 mg tablet ,for 10 days 05/08 completed Not Available Not Available Not Available omeprazole 40 mg capsule,del ayed release ,for 30 days 11/24 completed Not Available Not Available Not Available ketorolac 10 mg tablet ,for 5 days 06/23 completed Not Available Not Available Not Available pantoprazol e 20 mg tablet,jamie yed release TAKE 1 TABLET BY MOUTH EVERY DAY 01/17 completed Not Available Not Available Not Available Promethazin e VC-Codeine 6.25 mg-5 mg-10 mg/5 mL oral syrup ,for 4 days 10/13 completed Not Available Not Available Not Available rifampin 300 mg capsule ,for 3 days 08/11 completed Not Available Not Available Not Available propranolol 10 mg tablet TAKE 1 TABLET BY MOUTH TWICE A DAY 09/28 completed Not Available Not Available Not Available amitriptyli ne 10 mg tablet TAKE 1 TABLET BY MOUTH EVERYDAY AT BEDTIME 11/21 completed Not Available Not Available Not Available rizatriptan 10 mg disintegrat ing tablet TAKE 1 TABLET BY MOUTH NEEDED active Not Available Not Available No t Available hydrocodone 7.5 mg-acetamin ophen 325 mg tablet ,for 8 days 12/01 completed Not Available Not Available Not Available cephalexin 500 mg capsule ,for 10 days 09/02 completed Not Available Not Available Not Available hyoscyamine sulfate 0.125 mg tablet TAKE 1 TABLET EVERY 8 HOURS NEEDED ABDOMINAL CRAMPING 09/28 completed Not Available Not Available Not Available naproxen sodium 550 mg tablet ,for 10 days 08/06 completed Not Available Not Available Not Available oseltamivir 75 mg capsule 09/28 completed Not Available Not Available Not Available nitrofurant oin macrocrysta l 100 mg capsule PLEASE SEE ATTACHED FOR DETAILED DIRECTION S 01/24 completed Not Available Not Available Not Available ranitidine 150 mg tablet ,for 14 days 06/25 completed Not Available Not Available Not Available clotrimazol e-betametha sone 1 %-0.05 % topical cream 09/28 completed Not Available Not Available Not Available indomethaci n 50 mg capsule ,for 8 days 08/08 completed Not Available Not Available Not Available gabapentin 300 mg capsule ,for 30 days 09/06 completed Not Available Not Available Not Available diclofenac sodium 75 mg tablet,jamie yed release 09/28 completed Not Available Not Available Not Available ergocalcife rol (vitamin D2) 1,250 mcg (50,000 unit) capsule Take 1 capsule every week by oral route. active Not Available Not Available No t Available clobetasol 0.05 % topical ointment 09/28 completed Not Available Not Available Not Available epinephrine 0.3 mg/0.3 mL injection, auto-inject or TAKE 1 AUTO BY INJECTION ROUTE NEEDED FOR 90 DAYS. 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 Reg Bevel 1 mL 27 x 1/2 syringe use for 2 injection s subcutane ous 2 times per week,for 84 days 02/04 completed Not Available Not Available Not Available ondansetron 4 mg disintegrat ing tablet TAKE 4 MG BY MOUTH EVERY 8 HOURS NEEDED FOR NAUSEA 09/28 completed Not Available Not Available Not Available fluticasone propionate 50 mcg/actuati on nasal spray,suspe nsion ,for 30 days 05/27 completed Not Available Not Available Not Available doxycycline hyclate 100 mg tablet 09/28 completed Not Available Not Available Not Available dicyclomine 10 mg capsule TAKE 1 CAPSULE BY MOUTH TWICE A DAY 11/21 completed Not Available Not Available Not Available escitalopra m 10 mg tablet TAKE 1 TABLET BY MOUTH EVERY DAY 2021 active Not Available Not Available Not Avai lable hydrocodone 7.5 mg-acetamin ophen 325 mg/15 mL oral solution ,for 6 days 10/07 completed Not Available Not Available Not Available nitrofurant oin monohydrate /macrocryst als 100 mg capsule 09/28 completed Not Available Not Available Not Available Flovent HFA 220 mcg/actuati on aerosol inhaler ,for 30 days 11/08 completed Not Available Not Available Not Available ProAir HFA 90 mcg/actuati on aerosol inhaler ,for 25 days 05/22 completed Not Available Not Available Not Available omeprazole 20 mg tablet,jamie yed release 11/21 completed Not Available Not Available Not Available butalbital- acetaminoph en-caffeine 50 mg-300 mg-40 mg capsule ,for 16 days 07/23 completed Not Available Not Available Not Available Lo Loestrin Fe 1 mg-10 mcg (24)/10 mcg (2) tablet TAKE 1 TABLET BY MOUTH EVERY DAY FOR 84 DAYS active Not Available Not Available No t Available Clindamycin Pediatric 75 mg/5 mL oral solution ,for 10 days 10/11 completed Not Available Not Available Not Available Qudexy XR 50 mg capsule sprinkle,ex tended release TAKE 1 CAPSULE BY MOUTH EVERY DAY 11/21 completed Not Available Not Available Not Available Qudexy XR 25 mg capsule sprinkle,ex tended release TAKE 1 CAPSULE BY MOUTH EVERY DAY IN THE EVENING 09/28 completed Not Available Not Available Not Available Blisovi Fe 1.5/30 (28) 1.5 mg-30 mcg (21)/75 mg (7) tablet ,for 28 days 12/21 completed Not Available Not Available Not Available Aimovig Autoinjecto r 70 mg/mL subcutaneou s auto-inject or 09/28 completed Not Available Not Available Not Available Aimovig Autoinjecto r 140 mg/mL subcutaneou s auto-inject or 09/28 completed Not Available Not Available Not Available Vitals Date Recorded Body weight Body height Body mass index (BMI) Respiratory rate Body temperature Systolic blood pressure Diastolic blood pressure Provider Name and Address Organization Details Last Updated DateTime 8 24912.2 72146 g 162.56 cm 21.37 kg/m2 14 /min 97.6 [degF] 98 mm[Hg] 76 mm[Hg] Not Available [facility] 9 06:28:52 Date Recorded Body weight Body height Body mass index (BMI) Respiratory rate Body temperature Systolic blood pressure Diastolic blood pressure Provider Name and Address Organization Details Last Updated DateTime 6 60192.4 5388 g 162.56 cm 21.28 kg/m2 14 /min 97.8 [degF] 110 mm[Hg] 82 mm[Hg] Not Available [facility] 9 06:28:52 Date Recorded Body weight Body height Body mass index (BMI) Respiratory rate Body temperature Systolic blood pressure Diastolic blood pressure Provider Name and Address Organization Details Last Updated DateTime 7 17582.8 89204 g 162.56 cm 21.52 kg/m2 14 /min 97.7 [degF] 108 mm[Hg] 70 mm[Hg] Not Available [facility] 9 06:28:52 Date Recorded Body weight Body temperature Body mass index (BMI) Percentile per age and sex Body mass index (BMI) Body height Heart rate Oxygen saturation Oxygen saturation in Arterial blood by Pulse oximetry Respiratory rate Systolic blood pressure Diastolic blood pressure Provider Name and Address Organization Details Last Updated DateTime 1 26531.7 1 g 97.4 [degF] 29 % 19.9 kg/m2 162.56 cm 75 /min 99 % 99 % 14 /min 118 mm[Hg] 78 mm[Hg] [facility] 12[facility]15 Date Recorded Body height Body mass index (BMI) Percentile per age and sex Body mass index (BMI) Body weight Body temperature Heart rate Oxygen saturation Oxygen saturation in Arterial blood by Pulse oximetry Respiratory rate Systolic blood pressure Diastolic blood pressure Provider Name and Address Organization Details Last Updated DateTime 1 162.56 cm 24 % 19.6 kg/m2 82799.5 3 g 99 [degF] 81 /min 99 % 99 % 14 /min 116 mm[Hg] 77 mm[Hg] Carol Ann rush [facility] 1 12:22:47 Date Recorded Body height Body temperature Respiratory rate Oxygen saturation Oxygen saturation in Arterial blood by Pulse oximetry Heart rate Body mass index (BMI) Body mass index (BMI) Percentile per age and sex Body weight Systolic blood pressure Diastolic blood pressure Provider Name and Address Organization Details Last Updated DateTime 2 162.56 cm 98.6 [degF] 15 /min 99 % 99 % 73 /min 20.6 kg/m2 36 % 76205.0 8 g 110 mm[Hg] 80 mm[Hg] Leigh Greene [facility] 2 11:44:49 Date Recorded Body height Body mass index (BMI) Body mass index (BMI) Percentile per age and sex Body weight Heart rate Oxygen saturation Oxygen saturation in Arterial blood by Pulse oximetry Respiratory rate Body temperature Systolic blood pressure Diastolic blood pressure Provider Name and Address Organization Details Last Updated DateTime 2 162.56 cm 23.2 kg/m2 66 % 41012.9 7 g 104 /min 98 % 98 % 18 /min 99.8 [degF] 122 mm[Hg] 68 mm[Hg] Ramona Smtih MA [facility] 2 11:22:49 Social History Question Answer Notes LastModified by Organizat ion Details LastModified Time Tobacco Smoking Status Never Smoker Carol Ann Somers [facility] 11/21/2020 12:37:10 Do You Have An Advance Directive? No Information not available 11/21/2020 What Is Your Level Of Alcohol Consumption? None Information not available 11/21/2020 Are You Blind Or Do You Have Difficulty Seeing? No Information not available 11/21/2020 What Is Your Level Of Caffeine Consumption? Occasional Information not available 11/21/2020 How Much Tobacco Do You Chew? None Information not available 11/21/2020 Are You Deaf Or Do You Have Serious Difficulty Hearing? No Information not available 11/21/2020 What Type Of Diet Are You Following? GLUTENFREE Information not available 11/21/2020 Do You Or Have You Ever Used E-cigarettes Or Vape? Never Used Electronic Cigarettes Information not available 11/21/2020 Medication List Reviewed Yes Information not available 11/21/2020 Medication List Documented In Medical Record. Yes Information not available 11/21/2020 Pain Assessment Completed No Pain Present Information not available 11/21/2020 Cognitive Status Excellent Informat ion not available 11/21/2020 Sensory Hearing Excellent Informati on not available 11/21/2020 Sensory Vision Glasses Contacts Informatio n not available 11/21/2020 Sensory Speech Excellent Informatio n not available 11/21/2020 Ambulatory Status Excellent Information not available 11/21/2020 Dressing Independent Information n ot available 11/21/2020 Toilet Use Independent Information n ot available 11/21/2020 Housework Independent Information n ot available 11/21/2020 Shopping Independent Information n ot available 11/21/2020 Eating Independent Information n ot available 11/21/2020 Walking Independent Information n ot available 11/21/2020 Bathing Independent Information n ot available 11/21/2020 Transferring Independent Information not available 11/21/2020 Does The Patient Have An Advance Care Plan? No Information not available 11/21/2020 CARE OF OLDER ADULTS COMPLETED 11/21/2020 Information not available 11/21/2020 Marital Status Single Informatio n not available 11/21/2020 Do You Have A Medical Power Of Bread Icer? No Information not available 11/21/2020 What Was The Date Of Your Most Recent Tobacco Screening? 11/21/2020 Information not available 11/21/2020 Do You Or Have You Ever Used Smokeless Tobacco? Never Used Smokeless Tobacco Information not available 11/21/2020 Sex: Female Functional Status Question Answer Note LastModified by Organization D etails LastModified Time What is your exercise level? Moderate Information not available 11/21/2020 Mental Status None recorded. Family History Relationship Description Onset Age of this Age Resolved Age Notes Paternal Grandfather Heart disease Father Heart disease Notes:09/28/2021 Medical History Condition Response Depression Y Migraine headache; chronic Y Anxiety Y E-Force History checked Gynecological History Statement/Question Response Syphillis N HAVE YOU EVER HAD ANY OF THE FOLLOWING C ONDITIONS? Y Date of Last Mammogram Gonorrhea N genital warts N Date of last BMD Date of Last Colonoscopy Endometriosis N an abnormal PAP Y Date of last Colorectal CA Screening Ovarian cysts Y Herpes Simplex I N PCOS N PID N Hysterectomy? (Partial or Complete) N HPV N Current Control Method BCPs Have you or anyone in your family ever b een diagnosed with breast cancer N Herpes Simplex II N Have you or anyone in your family ever b een diagnosed with cervical cancer N Chlamydia N Menses Monthly N Date of Last Pap Smear 12/02/2019 HIV / Aids N Obstetrics History GPAL:G 0 P 0 0 0 0 Immunizations Vaccine Type Date Status Provider Name and Address Organization Details Recorded Time COVID-19 vaccine, vector-nr, rS-ChAdOx1, PF, 0.5 mL 12/07/2020 completed ANGIE Lantigua, [facility] 01/24/2022 11:23:09 DTaP 2002 kamilah Somers [facility] 06/28/2021 17:20:51 Influenza, seasonal, injectable 06/14/2008 completed Carol Ann Somers [facility] 06/28/2021 17:20:51 Hep A, unspecified formulation [facility]/04[facility] 17:20:51 IPV 2002 kamilah Somers [facility] 06/28/2021 17:20:51 meningococcal MCV4, unspecified formulation 05/13/2013 completed Carol Ann Somers [facility] 06/28/2021 17:20:51 COVID-19, mRNA, LNP-S, PF, 30 mcg/0.3 mL dose 12/07/2020 [facility] 17:20:51 HPV, quadrivalent 05/13/2013 [facility] 06/28/2021 17:20:51 Novel [id number], preservative-free 07/13/2009 completed [facility]/28/2021 17:20:52 influenza, live, intranasal 06/15/2013 completed Carol Ann Lizbet null, [facility] 06/28/2021 17:20:52 MMR 06/16/2003 completed Carol Ann Lizbet null, [facility] 06/28/2021 17:20:52 DTaP 2002 [facility] 06/28/2021 17:20:52 COVID-19, mRNA, LNP-S, PF, 30 mcg/0.3 mL dose 12/30/2020 [facility]21 17:20:52 Hib, unspecified formulation 2002 completed Carol Ann Lizbet null, [facility] 06/28/2021 17:20:52 DTaP 06/16/2003 completed Carol Ann Lizbet null, [facility] 06/28/2021 17:20:52 Hib, unspecified formulation 06/16/2003 completed Carol Ann Lizbet null, [facility] 06/28/2021 17:20:52 IPV 2002 completed Carol Ann Lizbet null, [facility] 06/28/2021 17:20:52 Hep B, unspecified formulation 2002 completed Carol Ann Lizbet null, [facility] 06/28/2021 17:20:52 MMR 05/31/2006 completed Carol Ann Lizbet null, [facility] 06/28/2021 17:20:52 varicella 06/16/2003 completed Carol Ann Lizbet null, [facility] 06/28/2021 17:20:52 DTaP 2002 completed Carol Ann Lizbet null, [facility] 06/28/2021 17:20:52 pneumococcal conjugate PCV 7 2002 [facility] 17:20:52 pneumococcal conjugate PCV 7 2002 [facility] 17:20:52 Influenza, seasonal, injectable, preservative free 06/15/2014 [facility] 17:20:52 Hep A, unspecified formulation 03/30/2009 [facility] 17:20:52 Tdap 04/30/2012 [facility]21 17:20:52 HPV, quadrivalent 11/23/2013 [facility] 17:20:52 varicella 03/30/2009 [facility]21 17:20:52 influenza, live, intranasal 06/09/2009 [facility]21 17:20:52 Influenza, seasonal, injectable, preservative free 06/11/2015 [facility] 17:20:52 IPV 2002 [facility]21 17:20:52 pneumococcal conjugate PCV 7 06/16/2003 [facility]21 17:20:52 Hep B, unspecified formulation 05/12/2003 [facility]21 17:20:52 meningococcal MCV4P 02/06/2019 [facility]21 17:20:52 Hib, unspecified formulation 2002 completed Carol Ann Lizbet [facility] 06/28/2021 17:20:52 HPV, quadrivalent 07/13/2013 completed Carol Ann Somers [facility] 06/28/2021 17:20:52 IPV 05/28/2006 completed Carol Ann Somers [facility] 06/28/2021 17:20:52 Hep B, unspecified formulation 2002 completed Carol Ann Somers [facility] 06/28/2021 17:20:52 influenza, injectable, quadrivalent, preservative free 06/15/2021 completed Carol Ann Somers [facility] 06/28/2021 17:20:52 DTaP 05/31/2006 completed Carol Ann Somers [facility] 06/28/2021 17:20:52 Hib, unspecified formulation 2002 completed Carol Ann Somers [facility] 06/28/2021 17:20:52 Influenza, seasonal, injectable, preservative free 06/05/2010 completed Carol Ann Somers [facility] 06/28/2021 17:20:52 influenza, injectable, quadrivalent, preservative free 06/18/2020 completed Carol Ann Somers [facility] 06/28/2021 17:20:52 COVID-19, mRNA, LNP-S, PF, 30 mcg/0.3 mL dose 08/15/2021 completed Ramona Smith MA [facility] 01/24/2022 11:23:09 Past Encounters Encounter ID Performer Location Encounter Start Date Encounter Closed Date Diagnosis/Indication Diagnosis SNOMED-CT Code [id number] REYNA Seals [facility] [address] [place] [address] 11/21/2020 11:32:27 11/21/2020 14:05:45 Body mass index less than 20 [id number] Fatigue 43156521 Mood disorder 57443717 [id number] REYNA Seals [facility] [address] [place] [address] 12/19/2020 15:29:25 12/19/2020 17:00:03 Fatigue 58003075 Mood disorder 82954258 Body mass index less than 20 601474888 Vitamin D deficiency 347 14352 [id number] REYNA Seals [facility] [address],[place] [address] 01/17/2021 11:42:00 01/17/2021 12:40:30 Body mass index less than 20 865179247 Vitamin D deficiency 347 25518 Mood disorder [id number] Acute sinusitis [id number] Migraine [id number] REYNA Seals [facility] [address],[place] [address] 06/29/2021 14:18:19 07/21/2021 15:35:12 [id number] REYNA Seals [facility] [address],[place] [address] 09/28/2021 11:28:19 09/28/2021 12:05:29 Body mass index 20-24 - normal [id number] Depressive disorder 3548 9007 Asthma [id number] Vitamin D deficiency 347 76119 Vertigo [id number] Mood disorder [id number] REYNA Seals [facility] [address],[place] [address] 01/24/2022 11:16:56 01/24/2022 11:56:41 Body mass index 20-24 - normal [id number] Migraine 78429802 Food anaphylaxis 0482482 2 Depressive disorder 3548 9007 Dizziness [id number] Hypertriglyceridemia 302 066748 Health Concerns Section Related Observation LastModified by Organization Detai ls LastModified Time None Recorded Concern Status LastModified by Organization Details LastModified Time None Recorded Advance Directives Directive N: Payers Encounter Date Sequence Insurance Name Policy Number Policy Deng Covered Member ID Deng Member ID Guarantor Name 01/24/2022 1 [employer] [employer] [place] Philip Crowder [id number] 09/28/2021 1 [employer] [employer] [place] [place] Philip Crowder [id number] 06/29/2021 1 [employer] [employer] [place] Philip Crowder [id number] 01/17/2021 1 [employer] [employer] [place] [place] Philip Crowder [id number] 12/19/2020 1 [employer] [employer] [place] Philip Crowder [id number] 11/21/2020 1 [employer] [employer] [place] Philip Crowder [id number] Notes Date Note Type Note Provider Name and Address Organization Details Recorded Time 11/21/2020 text/html HPI Notes: new p t here to establish care c.o of being cold REYNA Seals [address] [place], [address], [facility] 11/21/2020 14:07:37 12/19/2020 text/html HPI Notes: pt do ing well lab result review high stress level with college and her final exams coming up but she notes she is handling it well Patient verbally consents today to telehealth visit via audiovisual communications ([employer], [employer], [employer], etc.) REYNA Seals [address] [place], [address], [facility] 12/19/2020 17:10:32 01/17/2021 text/html HPI Notes: pt c. o of head pressure around her forehead and under her eyes for the past 3 wks she is unsure if this is sinus related or migraine related no other sx high stress level at school REYNA Seals [address] [place], [address], [facility] 01/17/2021 14:24:49 01/24/2022 text/html HPI Notes: 3 mon th f/u on vertigo hx of depression- stable on escitalopram pt wants an epipen, has an allergy to almonds REYNA Seals [address] [place], [address], [facility] 01/24/2022 13:22:47 OBGyn Episode No OBEpisode recorded.
--- OUTSIDE RECORDS SUMMARY | 2023-12-26 12:39 | XMS_ITS | Data Portability ---
Author Name Unknown Address [address] [place] [id number] Phone [phone] Organization [facility] Address [address] [place] [address] Assessment Encounter Date Assessment Date Assessment LastModified by Organization Details LastModified Time 04/11/2023 04/11/2023 trial of salt tablet - is sx are worse - d.c [email or web address] Not available 04/11/2023 11:12:07 Plan of Treatment Reminders Order Date Submit Date Provider Last Modified By Organization Details Last Modified Time Details Appointments None recorded. Lab None recorded. Referral None recorded. Procedures None recorded. Surgeries None recorded. Imaging None recorded. Medication Orders epinephrine 0.3 mg/0.3 mL injection, auto-inject or 2022 023 [id number], [address] [place], [address], 11:01:57 ipratropium bromide 21 mcg (0.03 %) nasal spray 2022 023 [id number], [address] [place], [address], 3 11:03:29 rizatriptan 10 mg disintegrat ing tablet 2022 023 [id number] [address] [place], [address], 3 11:02:35 escitalopra m 10 mg tablet 2022 023 [id number], [address] [facility], [place], [address], 11:02:36 Patient TargetsNo targets recorded. Patient InstructionsNo instructions recorded. Reason for Referral None Reported. Results Created Date Observation Date Name Description Value Unit Range Abnormal Flag LastModifiedBy Organization Detail LastModifiedTime 11/29/19 21 11/29/2020 VITAM IN B12 vitamin B12 467 pg/mL 200-11 00 normal Not Available [facility] ANGIE Barkley, [id number] 07/31/2022 09:48:50 11/29/19 21 11/29/2020 CBC (INCL UDES DIFF/ PLT) white blood cell count 7.2 thous and/u L 4.5-13 .0 normal Not Available [facility] ANGIE Barkley, [id number] 07/31/2022 09:48:49 11/29/1911/29/2020 CBC (INCL UDES DIFF/ PLT) red blood cell count 4.82 ghazala on/uL 3.80-5 .10 normal Not Available [facility] ANGIE Barkley, [id number] 07/31/2022 09:48:49 11/29/1911/29/2020 CBC (INCL UDES DIFF/ PLT) hemoglobin 14.0 g/dL 11.5-1 5.3 normal Not Available [facility] ANGIE Barkley, [id number] 07/31/2022 09:48:49 11/29/1911/29/2020 CBC (INCL UDES DIFF/ PLT) hematocrit 41.4 % 34.0-4 6.0 normal Not Available [facility] ANGIE Barkley, 501[address] 07/31/2022 09:48:49 11/29/1911/29/2020 CBC (INCL UDES DIFF/ PLT) MCV 85.9 fL 78.0-9 8.0 normal Not Available [facility] ANGIE Barkley, [id number] 07/31/2022 09:48:49 11/29/19 21 11/29/2020 CBC (INCL UDES DIFF/ PLT) MCH 29.0 pg 25.0-3 5.0 normal Not Available [facility] ANGIE Barkley, [id number] 07/31/2022 09:48:49 11/29/19 21 11/29/2020 CBC (INCL UDES DIFF/ PLT) MCHC 33.8 g/dL 31.0-3 6.0 normal Not Available [facility] ANGIE Barkley, [id number] 07/31/2022 09:48:49 11/29/19 21 11/29/2020 CBC (INCL UDES DIFF/ PLT) RDW 12.6 % 11.0-1 5.0 normal Not Available [facility] [id number] 07/31/2022 09:48:49 11/29/19 21 11/29/2020 CBC (INCL UDES DIFF/ PLT) platelet count 288 thous and/u L 140-40 0 normal Not Available [facility] [id number] 07/31/2022 09:48:49 11/29/19 21 11/29/2020 CBC (INCL UDES DIFF/ PLT) MPV 10.2 fL 7.5-12 .5 normal Not Available [facility], [id number] 07/31/2022 09:48:49 11/29/19 21 11/29/2020 CBC (INCL UDES DIFF/ PLT) absolute neutrophils 4212 cells /uL 1800-8 000 normal Not Available [facility] ANGIE Barkley, [id number] 07/31/2022 09:48:49 11/29/19 21 11/29/2020 CBC (INCL UDES DIFF/ PLT) absolute lymphocytes 2563 cells /uL 1200-5 200 normal Not Available [facility], [id number] 07/31/2022 09:48:49 11/29/19 21 11/29/2020 CBC (INCL UDES DIFF/ PLT) absolute monocytes 353 cells /uL 200-90 0 normal Not Available [facility], 07/31/2022 09:48:49 11/29/19 21 11/29/2020 CBC (INCL UDES DIFF/ PLT) absolute eosinophils 29 cells /uL 15-500 normal Not Available [facility], 07/31/2022 09:48:49 03/29/20 21 11/29/2020 CBC (INCL UDES DIFF/ PLT) absolute basophils 43 cells /uL 0-200 normal Not Available [facility] ANGIE Barkley, [id number] 07/31/2022 09:48:49 11/29/19 21 11/29/2020 CBC (INCL UDES DIFF/ PLT) neutrophils 58.5 % normal Not Available [facility] ANGIE Barkley, 07/31/2022 09:48:49 11/29/19 21 11/29/2020 CBC (INCL UDES DIFF/ PLT) lymphocytes 35.6 % normal Not Available [facility] ANGIE Barkley, 07/31/2022 09:48:49 11/29/19 21 11/29/2020 CBC (INCL UDES DIFF/ PLT) monocytes 4.9 % normal Not Available [facility], 07/31/2022 09:48:49 11/29/19 21 11/29/2020 CBC (INCL UDES DIFF/ PLT) eosinophils 0.4 % normal Not Available [facility] ANGIE Barkley, 07/31/2022 09:48:49 11/29/19 21 11/29/2020 CBC (INCL UDES DIFF/ PLT) basophils 0.6 % normal Not Available [facility] ANGIE Barkley, 07/31/2022 09:48:49 11/29/19 21 11/29/2020 TSH W/REF WILLIAM TO FT4 TSH w/reflex to FT4 1.14 mIU/L normal Not Available [facility] ANGIE Barkley, [id number] 07/31/2022 09:48:49 11/29/19 21 11/29/2020 VITAM IN D,25- OH,TO Winnie ROBERTSON A vitamin D,25-oh,tota joanna christie 17 NG/mL 30-100 low Not Available [facility] ANGIE Barkley, 07/31/2022 09:48:48 11/29/19 21 11/29/2020 VITAM IN D,25- OH,TO Winnie ROBERTSON A comment Not Available [facility] ANGIE Barkley, [id number] 07/31/2022 09:48:48 11/29/19 21 11/29/2020 COMPR EHENS NICO METAB OLIC PANEL glucose 83 mg/dL 65-99 normal Not Available [facility] ANGIE Barkley, [id number] 07/31/2022 09:48:47 11/29/19 21 11/29/2020 COMPR EHENS NICO METAB OLIC PANEL urea nitrogen (BUN) 7 mg/dL 7-20 normal Not Available [facility] ANGIE Barkley, [id number] 07/31/2022 09:48:47 11/29/19 21 11/29/2020 COMPR EHENS NICO METAB OLIC PANEL creatinine 0.92 mg/dL 0.50-1 .00 normal Not Available [facility] ANGIE Barkley, [id number] 07/31/2022 09:48:47 11/29/19 21 11/29/2020 COMPR EHENS NICO METAB OLIC PANEL eGFR non-afr. slovak 91 mL/mi n/1.7 3m2 > or = 60 normal Not Available [facility] ANGIE Barkley, [id number] 07/31/2022 09:48:47 11/29/19 21 11/29/2020 COMPR EHENS NICO METAB OLIC PANEL eGFR 105 mL/mi n/1.7 3m2 > or = 60 normal Not Available [facility] ANGIE Barkley, [id number] 07/31/2022 09:48:47 11/29/19 21 11/29/2020 COMPR EHENS NICO METAB OLIC PANEL BUN/creatini ne ratio not applic able (calc ) 6-22 Not Available [facility] ANGIE Barkley, [id number] 07/31/2022 09:48:47 11/29/19 21 11/29/2020 COMPR EHENS NICO METAB OLIC PANEL sodium 143 mmol/ L 135-14 6 normal Not Available [facility] ANGIE Barkley, 07/31/2022 09:48:47 11/29/19 21 11/29/2020 COMPR EHENS NICO METAB OLIC PANEL potassium 4.0 mmol/ L 3.8-5. 1 normal Not Available [facility] ANGIE Barkley, [id number] 07/31/2022 09:48:47 11/29/19 21 11/29/2020 COMPR EHENS NICO METAB OLIC PANEL chloride 106 mmol/ L 98-110 normal Not Available [facility] ANGIE Barkley, [id number] 07/31/2022 09:48:47 11/29/19 21 11/29/2020 COMPR EHENS NICO METAB OLIC PANEL carbon dioxide 27 mmol/ L 20-32 normal Not Available [facility] ANGIE Barkley, [id number] 07/31/2022 09:48:47 11/29/19 21 11/29/2020 COMPR EHENS NICO METAB OLIC PANEL calcium 9.5 mg/dL 8.9-10 .4 normal Not Available [facility] ANG[facility] Barkley, [id number] 07/31/2022 09:48:47 11/29/19 21 11/29/2020 COMPR EHENS NICO METAB OLIC PANEL protein, total 6.9 g/dL 6.3-8. 2 normal Not Available [facility]GIE Barkley, [id number] 07/31/2022 09:48:47 11/29/19 21 11/29/2020 COMPR EHENS NICO METAB OLIC PANEL albumin 4.8 g/dL 3.6-5. 1 normal Not Available [facility] ANGIE Barkley, 07/31/2022 09:48:47 11/29/19 21 11/29/2020 COMPR EHENS NICO METAB OLIC PANEL globulin 2.1 g/dL_ (calc ) 2.0-3. 8 normal Not Available [facility] ANGIE Barkley, 07/31/2022 09:48:47 11/29/19 21 11/29/2020 COMPR EHENS NICO METAB OLIC PANEL albumin/glob ulin ratio 2.3 (calc ) 1.0-2. 5 normal Not Available [facility] ANGIE Barkley, 07/31/2022 09:48:47 11/29/19 21 11/29/2020 COMPR EHENS NICO METAB OLIC PANEL bilirubin, total 1.1 mg/dL 0.2-1. 1 normal Not Available [facility] ANGIE Barkley, [id number] 07/31/2022 09:48:47 11/29/19 21 11/29/2020 COMPR EHENS NICO METAB OLIC PANEL alkaline phosphatase 60 U/L 36-128 normal Not Available [facility] ANGIE Barkley, 07/31/2022 09:48:47 11/29/19 21 11/29/2020 COMPR EHENS NICO METAB OLIC PANEL AST 17 U/L 12-32 normal Not Available [facility] ANGIE Barkley, 07/31/2022 09:48:47 11/29/19 21 11/29/2020 COMPR EHENS NICO METAB OLIC PANEL ALT 14 U/L 5-32 normal Not Available [facility], 07/31/2022 09:48:47 11/29/19 21 11/29/2020 IRON, TIBC AND DIDI TIN PANEL iron, total 67 mcg/d L 27-164 normal Not Available [facility] ANGIE Barkley, [id number] 07/31/2022 09:48:47 11/29/19 21 11/29/2020 IRON, TIBC AND DIDI TIN PANEL iron binding capacity 381 mcg/d L_(ca lc) 271-44 8 normal Not Available [facility], 07/31/2022 09:48:47 11/29/19 21 11/29/2020 IRON, TIBC AND DIDI TIN PANEL % saturation 18 %_(ca lc) 15-45 normal Not Available [facility] ANGIE Barkley, [id number] 07/31/2022 09:48:47 11/29/19 21 11/29/2020 IRON, TIBC AND DIDI TIN PANEL ferritin 9 NG/mL 6-67 normal Not Available [facility] ANGIE Barkley, 07/31/2022 09:48:47 11/29/19 21 11/29/2020 VITAM IN B12 vitamin B12 467 pg/mL 200-11 00 normal Not Available [facility], [id number] 04/10/2022 16:13:18 11/29/19 21 11/29/2020 CBC (INCL UDES DIFF/ PLT) white blood cell count 7.2 thous and/u L 4.5-13 .0 normal Not Available [facility] ANGIE Barkley, 04/10/2022 16:13:17 11/29/19 21 11/29/2020 CBC (INCL UDES DIFF/ PLT) red blood cell count 4.82 ghazala on/uL 3.80-5 .10 normal Not Available [facility] ANGIE Barkley, 04/10/2022 16:13:17 11/29/19 21 11/29/2020 CBC (INCL UDES DIFF/ PLT) hemoglobin 14.0 g/dL 11.5-1 5.3 normal Not Available [facility] ANGIE Barkley, 04/10/2022 16:13:17 11/29/19 21 11/29/2020 CBC (INCL UDES DIFF/ PLT) hematocrit 41.4 % 34.0-4 6.0 normal Not Available [facility] ANGIE Barkley, 04/10/2022 16:13:17 11/29/19 21 11/29/2020 CBC (INCL UDES DIFF/ PLT) MCV 85.9 fL 78.0-9 8.0 normal Not Available [facility], 04/10/2022 16:13:17 11/29/19 21 11/29/2020 CBC (INCL UDES DIFF/ PLT) MCH 29.0 pg 25.0-3 5.0 normal Not Available [facility] ANGIE Barkley, 04/10/2022 16:13:17 11/29/19 21 11/29/2020 CBC (INCL UDES DIFF/ PLT) MCHC 33.8 g/dL 31.0-3 6.0 normal Not Available [facility], 04/10/2022 16:13:17 11/29/1911/29/2020 CBC (INCL UDES DIFF/ PLT) RDW 12.6 % 11.0-1 5.0 normal Not Available [facility], 04/10/2022 16:13:17 11/29/19 21 11/29/2020 CBC (INCL UDES DIFF/ PLT) platelet count 288 thous and/u L 140-40 0 normal Not Available [facility], 04/10/2022 16:13:17 11/29/19 21 11/29/2020 CBC (INCL UDES DIFF/ PLT) MPV 10.2 fL 7.5-12 .5 normal Not Available [facility], 04/10/2022 16:13:17 11/29/19 21 11/29/2020 CBC (INCL UDES DIFF/ PLT) absolute neutrophils 4212 cells /uL 1800-8 000 normal Not Available [facility], 04/10/2022 16:13:17 11/29/19 21 11/29/2020 CBC (INCL UDES DIFF/ PLT) absolute lymphocytes 2563 cells /uL 1200-5 200 normal Not Available [facility], 04/10/2022 16:13:17 11/29/19 21 11/29/2020 CBC (INCL UDES DIFF/ PLT) absolute monocytes 353 cells /uL 200-90 0 normal Not Available [facility], 04/10/2022 16:13:17 11/29/19 21 11/29/2020 CBC (INCL UDES DIFF/ PLT) absolute eosinophils 29 cells /uL 15-500 normal Not Available [facility] ANGIE Barkley, 04/10/2022 16:13:17 11/29/19 21 11/29/2020 CBC (INCL UDES DIFF/ PLT) absolute basophils 43 cells /uL 0-200 normal Not Available [facility] ANGIE Barkley, 04/10/2022 16:13:17 11/29/19 21 11/29/2020 CBC (INCL UDES DIFF/ PLT) neutrophils 58.5 % normal Not Available [facility], 04/10/2022 16:13:17 11/29/19 21 11/29/2020 CBC (INCL UDES DIFF/ PLT) lymphocytes 35.6 % normal Not Available [facility] ANGIE Barkley, 04/10/2022 16:13:17 11/29/19 21 11/29/2020 CBC (INCL UDES DIFF/ PLT) monocytes 4.9 % normal Not Available [facility] ANGIE Barkley, 04/10/2022 16:13:17 11/29/19 21 11/29/2020 CBC (INCL UDES DIFF/ PLT) eosinophils 0.4 % normal Not Available [facility] ANGIE Barkley, 04/10/2022 16:13:17 11/29/19 21 11/29/2020 CBC (INCL UDES DIFF/ PLT) basophils 0.6 % normal Not Available [facility] ANGIE Barkley, 04/10/2022 16:13:17 11/29/19 21 11/29/2020 TSH W/REF WILLIAM TO FT4 TSH w/reflex to FT4 1.14 mIU/L normal Not Available [facility] Michele christie [facility] ANGIE Barkley, 04/10/2022 16:13:16 11/29/19 21 11/29/2020 VITAM IN D,25- OH,TO AILYN,I A vitamin D,25-oh,tota l,ia 17 NG/mL 30-100 low Not Available [facility] christie [facility] ANGIE Barkley, 04/10/2022 16:13:15 11/29/19 21 11/29/2020 VITAM IN D,25- OH,TO AILYN,I A comment Not Available [facility], 04/10/2022 16:13:15 11/29/19 21 11/29/2020 COMPR EHENS NICO METAB OLIC PANEL glucose 83 mg/dL 65-99 normal Not Available [facility] ANGIE Barkley, 04/10/2022 16:13:15 11/29/19 21 11/29/2020 COMPR EHENS NICO METAB OLIC PANEL urea nitrogen (BUN) 7 mg/dL 7-20 normal Not Available [facility] Michele christie [facility] ANGIE Barkley, 04/10/2022 16:13:15 11/29/19 21 11/29/2020 COMPR EHENS NICO METAB OLIC PANEL creatinine 0.92 mg/dL 0.50-1 .00 normal Not Available [facility] ANGIE Barkley, 04/10/2022 16:13:15 11/29/19 21 11/29/2020 COMPR EHENS NICO METAB OLIC PANEL eGFR non-afr. slovak 91 mL/mi n/1.7 3m2 > or = 60 normal Not Available [facility] ANGIE Barkley, 04/10/2022 16:13:15 11/29/19 21 11/29/2020 COMPR EHENS NICO METAB OLIC PANEL eGFR 105 mL/mi n/1.7 3m2 > or = 60 normal Not Available [facility] ANGIE Barkley, 04/10/2022 16:13:15 11/29/19 21 11/29/2020 COMPR EHENS NICO METAB OLIC PANEL BUN/creatini ne ratio not applic able (calc ) 6-22 Not Available [facility] ANGIE Barkley, 04/10/2022 16:13:15 11/29/19 21 11/29/2020 COMPR EHENS NICO METAB OLIC PANEL sodium 143 mmol/ L 135-14 6 normal Not Available [facility] ANGIE Barkley, 04/10/2022 16:13:15 11/29/19 21 11/29/2020 COMPR EHENS NICO METAB OLIC PANEL potassium 4.0 mmol/ L 3.8-5. 1 normal Not Available [facility] ANGIE Barkley, 04/10/2022 16:13:15 11/29/19 21 11/29/2020 COMPR EHENS NICO METAB OLIC PANEL chloride 106 mmol/ L 98-110 normal Not Available [facility] ANGIE Barkley, 04/10/2022 16:13:15 11/29/19 21 11/29/2020 COMPR EHENS NICO METAB OLIC PANEL carbon dioxide 27 mmol/ L 20-32 normal Not Available [facility] ANGIE Barkley, 04/10/2022 16:13:15 11/29/19 21 11/29/2020 COMPR EHENS NICO METAB OLIC PANEL calcium 9.5 mg/dL 8.9-10 .4 normal Not Available [facility] ANGIE Barkley, [id number] 04/10/2022 16:13:15 11/29/19 21 11/29/2020 COMPR EHENS NICO METAB OLIC PANEL protein, total 6.9 g/dL 6.3-8. 2 normal Not Available [facility] ANGIE Barkley, [id number] 04/10/2022 16:13:15 11/29/19 21 11/29/2020 COMPR EHENS NICO METAB OLIC PANEL albumin 4.8 g/dL 3.6-5. 1 normal Not Available [facility] ANGIE Barkley, [id number] 04/10/2022 16:13:15 11/29/19 21 11/29/2020 COMPR EHENS NICO METAB OLIC PANEL globulin 2.1 g/dL_ (calc ) 2.0-3. 8 normal Not Available [facility] ANGIE Barkley, 04/10/2022 16:13:15 11/29/19 21 11/29/2020 COMPR EHENS NICO METAB OLIC PANEL albumin/glob ulin ratio 2.3 (calc ) 1.0-2. 5 normal Not Available [facility] ANGIE Barkley, [id number] 04/10/2022 16:13:15 11/29/19 21 11/29/2020 COMPR EHENS NICO METAB OLIC PANEL bilirubin, total 1.1 mg/dL 0.2-1. 1 normal Not Available [facility] ANGIE Barkley, [id number] 04/10/2022 16:13:15 11/29/19 21 11/29/2020 COMPR EHENS NICO METAB OLIC PANEL alkaline phosphatase 60 U/L 36-128 normal Not Available [facility] ANGIE Barkley, [id number] 04/10/2022 16:13:15 11/29/19 21 11/29/2020 COMPR EHENS NICO METAB OLIC PANEL AST 17 U/L 12-32 normal Not Available [facility] ANGIE Barkley, [id number] 04/10/2022 16:13:15 11/29/19 21 11/29/2020 COMPR EHENS NICO METAB OLIC PANEL ALT 14 U/L 5-32 normal Not Available [facility] ANGIE Barkley, [id number] 04/10/2022 16:13:15 11/29/19 21 11/29/2020 IRON, TIBC AND DIDI TIN PANEL iron, total 67 mcg/d L 27-164 normal Not Available [facility] ANGIE Barkley, 04/10/2022 16:13:14 11/29/19 21 11/29/2020 IRON, TIBC AND DIDI TIN PANEL iron binding capacity 381 mcg/d L_(ca lc) 271-44 8 normal Not Available [facility] ANGIE Barkley, 04/10/2022 16:13:14 11/29/19 21 11/29/2020 IRON, TIBC AND DIDI TIN PANEL % saturation 18 %_(ca lc) 15-45 normal Not Available [facility] ANGIE Barkley, 04/10/2022 16:13:14 11/29/19 21 11/29/2020 IRON, TIBC AND DIDI TIN PANEL ferritin 9 NG/mL 6-67 normal Not Available [facility] ANGIE Barkley, 04/10/2022 16:13:14 10/03/19 22 10/04/2021 CBC (INCL UDES DIFF/ PLT) white blood cell count 7.6 thous and/u L 3.8-10 .8 normal Not Available [facility] ANGIE Barkley, 07/31/2022 11:21:53 10/03/19 22 10/04/2021 CBC (INCL UDES DIFF/ PLT) red blood cell count 4.80 ghazala on/uL 3.80-5 .10 normal Not Available [facility] ANGIE Barkley, 07/31/2022 11:21:53 10/03/19 22 10/04/2021 CBC (INCL UDES DIFF/ PLT) hemoglobin 13.8 g/dL 11.7-1 5.5 normal Not Available [facility] ANGIE Barkley, 07/31/2022 11:21:53 10/03/19 22 10/04/2021 CBC (INCL UDES DIFF/ PLT) hematocrit 41.5 % 35.0-4 5.0 normal Not Available [facility] ANGIE Barkley, [id number] 07/31/2022 11:21:53 10/03/19 22 10/04/2021 CBC (INCL UDES DIFF/ PLT) MCV 86.5 fL 80.0-1 00.0 normal Not Available [facility] ANGIE Barkley, 07/31/2022 11:21:53 10/03/19 22 10/04/2021 CBC (INCL UDES DIFF/ PLT) MCH 28.8 pg 27.0-3 3.0 normal Not Available [facility], 07/31/2022 11:21:53 10/03/19 22 10/04/2021 CBC (INCL UDES DIFF/ PLT) MCHC 33.3 g/dL 32.0-3 6.0 normal Not Available [facility] ANGIE Barkley, 07/31/2022 11:21:53 10/03/19 22 10/04/2021 CBC (INCL UDES DIFF/ PLT) RDW 12.5 % 11.0-1 5.0 normal Not Available [facility], [id number] 07/31/2022 11:21:53 10/03/19 22 10/04/2021 CBC (INCL UDES DIFF/ PLT) platelet count 273 thous and/u L 140-40 0 normal Not Available [facility] ANGIE Barkley, 07/31/2022 11:21:53 10/03/19 22 10/04/2021 CBC (INCL UDES DIFF/ PLT) MPV 10.2 fL 7.5-12 .5 normal Not Available [facility] ANGIE Barkley, 07/31/2022 11:21:53 10/03/19 22 10/04/2021 CBC (INCL UDES DIFF/ PLT) absolute neutrophils 4180 cells /uL 1500-7 800 normal Not Available [facility] ANGIE Barkley, 07/31/2022 11:21:53 10/03/19 22 10/04/2021 CBC (INCL UDES DIFF/ PLT) absolute lymphocytes 2949 cells /uL 850-39 00 normal Not Available [facility] ANGIE Barkley, 07/31/2022 11:21:53 10/03/19 22 10/04/2021 CBC (INCL UDES DIFF/ PLT) absolute monocytes 403 cells /uL 200-95 0 normal [facility], [id number] 07/31/2022 11:21:53 10/03/19 22 10/04/2021 CBC (INCL UDES DIFF/ PLT) absolute eosinophils 30 cells /uL 15-500 normal Not [facility], 07/31/2022 11:21:53 10/03/19 22 10/04/2021 CBC (INCL UDES DIFF/ PLT) absolute basophils 38 cells /uL 0-200 normal Not [facility], 07/31/2022 11:21:53 10/03/19 22 10/04/2021 CBC (INCL UDES DIFF/ PLT) neutrophils 55 % normal Not Available [facility] ANGIE Barkley, 07/31/2022 11:21:53 10/03/19 22 10/04/2021 CBC (INCL UDES DIFF/ PLT) lymphocytes 38.8 % normal [facility], 07/31/2022 11:21:53 10/03/19 22 10/04/2021 CBC (INCL UDES DIFF/ PLT) monocytes 5.3 % normal Not Available [facility] ANGIE Barkley, 07/31/2022 11:21:53 10/03/19 22 10/04/2021 CBC (INCL UDES DIFF/ PLT) eosinophils 0.4 % normal [facility], [id number] 07/31/2022 11:21:53 10/03/19 22 10/04/2021 CBC (INCL UDES DIFF/ PLT) basophils 0.5 % normal Not Available [facility] ANGIE Barkley, 07/31/2022 11:21:53 10/03/19 22 10/04/2021 VITAM IN D,25- OH,TO AILYN,I A vitamin D,25-oh,tota l,ia 71 NG/mL 30-100 normal Not Available [facility] [place], [id number] 07/31/2022 11:21:52 10/03/19 22 10/04/2021 VITAM IN D,25- OH,TO AILYN,I A comment Not Available [facility] ANGIE Barkley, 07/31/2022 11:21:52 10/03/19 22 10/04/2021 COMPR EHENS NICO METAB OLIC PANEL glucose 68 mg/dL 65-99 normal Not Available [facility] ANGIE Barkley, 07/31/2022 11:21:52 10/03/19 22 10/04/2021 COMPR EHENS NICO METAB OLIC PANEL urea nitrogen (BUN) 12 mg/dL 7-20 normal Not Available [facility] 07/31/2022 11:21:52 10/03/19 22 10/04/2021 COMPR EHENS NICO METAB OLIC PANEL creatinine 0.74 mg/dL 0.50-1 .00 normal Not Available [facility] ANGIE Barkley, 07/31/2022 11:21:52 10/03/19 22 10/04/2021 COMPR EHENS NICO METAB OLIC PANEL eGFR non-afr. slov[place] 117 mL/mi n/1.7 3m2 > or = 60 normal Not Available [facility] ANGIE aBrkley, 07/31/2022 11:21:52 10/03/19 22 10/04/2021 COMPR EHENS NICO METAB OLIC PANEL eGFR 136 mL/mi n/1.7 3m2 > or = 60 normal Not Available [facility] ANGIE Barkley, 07/31/2022 11:21:52 10/03/19 22 10/04/2021 COMPR EHENS NICO METAB OLIC PANEL BUN/creatini ne ratio not applic able (calc ) 6-22 Not Available [facility] ANGIE Barkley, 07/31/2022 11:21:52 10/03/19 22 10/04/2021 COMPR EHENS NICO METAB OLIC PANEL sodium 141 mmol/ L 135-14 6 normal Not Available [facility] ANGIE Barkley, 07/31/2022 11:21:52 10/03/19 22 10/04/2021 COMPR EHENS NICO METAB OLIC PANEL potassium 4.3 mmol/ L 3.8-5. 1 normal Not Available [facility] ANGIE Barkley, [id number] 07/31/2022 11:21:52 10/03/19 22 10/04/2021 COMPR EHENS NICO METAB OLIC PANEL chloride 105 mmol/ L 98-110 normal Not Available [facility] ANGIE Barkley, [id number] 07/31/2022 11:21:52 10/03/19 22 10/04/2021 COMPR EHENS NICO METAB OLIC PANEL carbon dioxide 26 mmol/ L 20-32 normal Not Available [facility] ANGIE Barkley, [id number] 07/31/2022 11:21:52 10/03/19 22 10/04/2021 COMPR EHENS NICO METAB OLIC PANEL calcium 9.1 mg/dL 8.9-10 .4 normal Not Available [facility] ANGIE Barkley, [id number] 07/31/2022 11:21:52 10/03/19 22 10/04/2021 COMPR EHENS NICO METAB OLIC PANEL protein, total 6.5 g/dL 6.3-8. 2 normal Not Available [facility] ANGIE Barkley, [id number] 07/31/2022 11:21:52 10/03/19 22 10/04/2021 COMPR EHENS NICO METAB OLIC PANEL albumin 4.2 g/dL 3.6-5. 1 normal Not Available [facility] ANGIE Barkley, [id number] 07/31/2022 11:21:52 10/03/19 22 10/04/2021 COMPR EHENS NICO METAB OLIC PANEL globulin 2.3 g/dL_ (calc ) 2.0-3. 8 normal Not Available [facility] ANGIE Barkley, 07/31/2022 11:21:52 10/03/19 22 10/04/2021 COMPR EHENS NICO METAB OLIC PANEL albumin/glob ulin ratio 1.8 (calc ) 1.0-2. 5 normal Not Available [facility] ANGIE Barkley, 07/31/2022 11:21:52 10/03/19 22 10/04/2021 COMPR EHENS NICO METAB OLIC PANEL bilirubin, total 1.1 mg/dL 0.2-1. 1 normal Not Available [facility] ANGIE Barkley, 07/31/2022 11:21:52 10/03/19 22 10/04/2021 COMPR EHENS NICO METAB OLIC PANEL alkaline phosphatase 63 U/L 36-128 normal Not Available [facility] ANGIE Barkley, 07/31/2022 11:21:52 10/03/19 22 10/04/2021 COMPR EHENS NICO METAB OLIC PANEL AST 23 U/L 12-32 normal Not [facility], 07/31/2022 11:21:52 10/03/19 22 10/04/2021 COMPR EHENS NICO METAB OLIC PANEL ALT 17 U/L 5-32 normal Not Available [facility] ANGIE Barkley, 07/31/2022 11:21:52 10/03/19 22 10/04/2021 TSH+F REE T4 TSH 1.19 mIU/L normal Not Available [facility] ANGIE Barkley, 07/31/2022 11:21:51 10/03/19 22 10/04/2021 TSH+F REE T4 T4, free 1.1 NG/dL 0.8-1. 4 normal Not Available [facility] ANGIE Barkley, 07/31/2022 11:21:51 10/03/19 22 10/04/2021 LIPID PANEL , STAND MICHAEL cholesterol, total 161 mg/dL <170 normal Not Available [facility] ANGIE Barkley, 07/31/2022 11:21:50 10/03/19 22 10/04/2021 LIPID PANEL , STAND MICHAEL HDL cholesterol 61 mg/dL >45 normal Not Available [facility], 07/31/2022 11:21:50 10/03/19 22 10/04/2021 LIPID PANEL , STAND MICHAEL triglyceride s 112 mg/dL <90 high Not Available [facility] ANGIE Barkley, 07/31/2022 11:21:50 10/03/19 22 10/04/2021 LIPID PANEL , STAND MICHAEL LDL-choleste rol 79 mg/dL _(marvin c) <110 normal Not Available [facility] ANGIE Barkley, 07/31/2022 11:21:50 10/03/19 22 10/04/2021 LIPID PANEL , STAND MICHAEL chol/HDLC ratio 2.6 (calc ) <5.0 normal Not Available [facility] ANGIE Barkley, 07/31/2022 11:21:50 10/03/19 22 10/04/2021 LIPID PANEL , STAND MICHAEL non HDL cholesterol 100 mg/dL _(marvin c) <120 normal Not Available [facility] ANGIE Barkley, 07/31/2022 11:21:50 10/03/19 22 10/04/2021 CBC (INCL UDES DIFF/ PLT) white blood cell count 7.6 thous and/u L 3.8-10 .8 normal Not Available [facility] ANGIE Barkley, 04/10/2022 22:05:33 10/03/19 22 10/04/2021 CBC (INCL UDES DIFF/ PLT) red blood cell count 4.80 ghazala on/uL 3.80-5 .10 normal Not Available [facility] ANGIE Barkley, 04/10/2022 22:05:33 10/03/19 22 10/04/2021 CBC (INCL UDES DIFF/ PLT) hemoglobin 13.8 g/dL 11.7-1 5.5 normal Not Available [facility] ANGIE Barkley, 04/10/2022 22:05:33 10/03/19 22 10/04/2021 CBC (INCL UDES DIFF/ PLT) hematocrit 41.5 % 35.0-4 5.0 normal Not Available [facility] ANGIE Barkley, 04/10/2022 22:05:33 10/03/19 22 10/04/2021 CBC (INCL UDES DIFF/ PLT) MCV 86.5 fL 80.0-1 00.0 normal Not Available [facility] ANGIE Barkley, 04/10/2022 22:05:33 10/03/19 22 10/04/2021 CBC (INCL UDES DIFF/ PLT) MCH 28.8 pg 27.0-3 3.0 normal Not Available [facility] ANGIE Barkley, 04/10/2022 22:05:33 10/03/19 22 10/04/2021 CBC (INCL UDES DIFF/ PLT) MCHC 33.3 g/dL 32.0-3 6.0 normal Not Available [facility] ANGIE Barkley, 04/10/2022 22:05:33 10/03/19 22 10/04/2021 CBC (INCL UDES DIFF/ PLT) RDW 12.5 % 11.0-1 5.0 normal Not Available [facility] ANGIE Barkley, 04/10/2022 22:05:33 10/03/19 22 10/04/2021 CBC (INCL UDES DIFF/ PLT) platelet count 273 thous and/u L 140-40 0 normal Not Available [facility] ANGIE Barkley, 04/10/2022 22:05:33 10/03/19 22 10/04/2021 CBC (INCL UDES DIFF/ PLT) MPV 10.2 fL 7.5-12 .5 normal Not Available [facility] ANGIE Barkley, 04/10/2022 22:05:33 10/03/19 22 10/04/2021 CBC (INCL UDES DIFF/ PLT) absolute neutrophils 4180 cells /uL 1500-7 800 normal Not Available [facility] ANGIE Barkley, 04/10/2022 22:05:33 10/03/19 22 10/04/2021 CBC (INCL UDES DIFF/ PLT) absolute lymphocytes 2949 cells /uL 850-39 00 normal Not Available [facility] ANGIE Barkley, 04/10/2022 22:05:33 10/03/19 22 10/04/2021 CBC (INCL UDES DIFF/ PLT) absolute monocytes 403 cells /uL 200-95 0 normal Not Available [facility] ANGIE Barkley, 04/10/2022 22:05:33 10/03/19 22 10/04/2021 CBC (INCL UDES DIFF/ PLT) absolute eosinophils 30 cells /uL 15-500 normal Not Available [facility] ANGIE Barkley, 04/10/2022 22:05:33 10/03/19 22 10/04/2021 CBC (INCL UDES DIFF/ PLT) absolute basophils 38 cells /uL 0-200 normal Not [facility], 04/10/2022 22:05:33 10/03/19 22 10/04/2021 CBC (INCL UDES DIFF/ PLT) neutrophils 55 % normal Not Available [facility] ANGIE Barkley, 04/10/2022 22:05:33 10/03/19 22 10/04/2021 CBC (INCL UDES DIFF/ PLT) lymphocytes 38.8 % normal Not Available [facility] ANGIE Barkley, 04/10/2022 22:05:33 10/03/19 22 10/04/2021 CBC (INCL UDES DIFF/ PLT) monocytes 5.3 % normal Not Available [facility] ANGIE Barkley, 04/10/2022 22:05:33 10/03/19 22 10/04/2021 CBC (INCL UDES DIFF/ PLT) eosinophils 0.4 % normal [facility], 04/10/2022 22:05:33 10/03/19 22 10/04/2021 CBC (INCL UDES DIFF/ PLT) basophils 0.5 % normal Not Available [facility] ANGIE Barkley, 04/10/2022 22:05:33 10/03/19 22 10/04/2021 VITAM IN D,25- OH,TO Winnie ROBERTSON A vitamin D,25-oh,tota l,ia 71 NG/mL 30-100 normal Not Available [facility] ANGIE Barkley, 04/10/2022 22:05:30 10/03/19 22 10/04/2021 VITAM IN D,25- OH,TO Winnie ROBERTSON A comment Not Available [facility] ANGIE Barkley, 04/10/2022 22:05:30 10/03/19 22 10/04/2021 COMPR EHENS NICO METAB OLIC PANEL glucose 68 mg/dL 65-99 normal Not Available [facility] ANGIE Barkley, 04/10/2022 22:05:27 10/03/19 22 10/04/2021 COMPR EHENS NICO METAB OLIC PANEL urea nitrogen (BUN) 12 mg/dL 7-20 normal Not Available [facility] Michele [facility] ANGIE Barkley, 04/10/2022 22:05:27 10/03/19 22 10/04/2021 COMPR EHENS NICO METAB OLIC PANEL creatinine 0.74 mg/dL 0.50-1 .00 normal Not Available [facility] ANGIE Barkley, 04/10/2022 22:05:27 10/03/19 22 10/04/2021 COMPR EHENS NICO METAB OLIC PANEL eGFR non-afr. slovak 117 mL/mi n/1.7 3m2 > or = 60 normal Not Available [facility] ANGIE Barkley, 04/10/2022 22:05:27 10/03/19 22 10/04/2021 COMPR EHENS NICO METAB OLIC PANEL eGFR 136 mL/mi n/1.7 3m2 > or = 60 normal Not Available [facility] ANGIE Barkley, 04/10/2022 22:05:27 10/03/19 22 10/04/2021 COMPR EHENS NICO METAB OLIC PANEL BUN/creatini ne ratio not applic able (calc ) 6-22 Not Available [facility] ANGIE Barkley, 04/10/2022 22:05:27 10/03/19 22 10/04/2021 COMPR EHENS NICO METAB OLIC PANEL sodium 141 mmol/ L 135-14 6 normal Not Available [facility] ANGIE Barkley, 04/10/2022 22:05:27 10/03/19 22 10/04/2021 COMPR EHENS NICO METAB OLIC PANEL potassium 4.3 mmol/ L 3.8-5. 1 normal Not Available [facility] ANGIE Barkley, 04/10/2022 22:05:27 10/03/19 22 10/04/2021 COMPR EHENS NICO METAB OLIC PANEL chloride 105 mmol/ L 98-110 normal Not Available [facility] ANGIE Barkley, 04/10/2022 22:05:27 10/03/19 22 10/04/2021 COMPR EHENS NICO METAB OLIC PANEL carbon dioxide 26 mmol/ L 20-32 normal Not Available [facility] ANGIE Barkley, 04/10/2022 22:05:27 10/03/19 22 10/04/2021 COMPR EHENS NICO METAB OLIC PANEL calcium 9.1 mg/dL 8.9-10 .4 normal Not Available [facility] ANGIE Barkley, 04/10/2022 22:05:27 10/03/19 22 10/04/2021 COMPR EHENS NICO METAB OLIC PANEL protein, total 6.5 g/dL 6.3-8. 2 normal Not Available [facility] HarveyANGIE, 04/10/2022 22:05:27 10/03/19 22 10/04/2021 COMPR EHENS NICO METAB OLIC PANEL albumin 4.2 g/dL 3.6-5. 1 normal Not Available [facility] ANGIE Barkley, 04/10/2022 22:05:27 10/03/19 22 10/04/2021 COMPR EHENS NICO METAB OLIC PANEL globulin 2.3 g/dL_ (calc ) 2.0-3. 8 normal Not Available [facility] ANGIE Barkley, 04/10/2022 22:05:27 10/03/19 22 10/04/2021 COMPR EHENS NICO METAB OLIC PANEL albumin/glob ulin ratio 1.8 (calc ) 1.0-2. 5 normal Not Available [facility] ANGIE Barkley, 04/10/2022 22:05:27 10/03/19 22 10/04/2021 COMPR EHENS NICO METAB OLIC PANEL bilirubin, total 1.1 mg/dL 0.2-1. 1 normal Not Available [facility] HarveyANGIE, 04/10/2022 22:05:27 10/03/19 22 10/04/2021 COMPR EHENS NICO METAB OLIC PANEL alkaline phosphatase 63 U/L 36-128 normal Not Available [facility], 04/10/2022 22:05:27 10/03/19 22 10/04/2021 COMPR EHENS NICO METAB OLIC PANEL AST 23 U/L 12-32 normal Not Available [facility] ANGIE Barkley, 04/10/2022 22:05:27 10/03/19 22 10/04/2021 COMPR EHENS NICO METAB OLIC PANEL ALT 17 U/L 5-32 normal Not Available [facility] ANGIE Barkley, 04/10/2022 22:05:27 10/03/19 22 10/04/2021 TSH+F REE T4 TSH 1.19 mIU/L normal Not Available [facility] ANGIE Barkley, 04/10/2022 22:05:25 10/03/19 22 10/04/2021 TSH+F REE T4 T4, free 1.1 NG/dL 0.8-1. 4 normal Not Available [facility] ANGIE Barkley, 04/10/2022 22:05:25 10/03/19 22 10/04/2021 LIPID PANEL , STAND MICHAEL cholesterol, total 161 mg/dL <170 normal Not Available [facility], 04/10/2022 22:05:22 10/03/19 22 10/04/2021 LIPID PANEL , STAND MICHAEL HDL cholesterol 61 mg/dL >45 normal Not Available [facility], 04/10/2022 22:05:22 10/03/19 22 10/04/2021 LIPID PANEL , STAND MICHAEL triglyceride s 112 mg/dL <90 high Not Available [facility], 04/10/2022 22:05:22 10/03/19 22 10/04/2021 LIPID PANEL , STAND MICHAEL LDL-choleste rol 79 mg/dL _(marvin c) <110 normal Not Available [facility] ANGIE Barkley, 04/10/2022 22:05:22 10/03/19 22 10/04/2021 LIPID PANEL , STAND MICHAEL chol/HDLC ratio 2.6 (calc ) <5.0 normal Not Available [facility] ANGIE Barkley, [id number] 04/10/2022 22:05:22 10/03/19 22 10/04/2021 LIPID PANEL , STAND MICHAEL non HDL cholesterol 100 mg/dL _(marvin c) <120 normal Not Available [facility] ANGIE Barkley, [id number] 04/10/2022 22:05:22 Result Notes None recorded. Problems Name Status Onset Date Resolution Date Notes Provider Name and Address Organization Details Recorded Time Asthma Active 016 Asthma ([id number]) Not Available [facility] 09:58:47 Gastroesophageal reflux disease Active 016 GERD - Gastro-es ophageal reflux disease ([id number]) Not Available [facility] 09:58:47 Migraine Active 023 REYNA Seals [address] [place] [address], [id number] , [facility] 3 15:55:21 Postural orthostatic tachycardia syndrome Active 022 [facility] 3 10:20:37 Notes:09/28/2021 Problem Notes None recorded. Medical Equipment None Reported. Allergies Allergen ID Allergen Name Allergen Category Reaction Reaction Severity Criticality Documentation Date Start Date Code Code System Note Provider Name and Address Organization Details Recorded Time 44978 wheat preparati on food,medi cation nausea other Not available Not available Not available 02/28/2022 58622 52 RxNorm Not Available [facility] 2 21:33:17 15918 Medicinal product containin g penicilli n and acting as antibacte rial agent (product) medicatio n rash Not available Not available 02/28/20222015 95289 05 SNOMED Not Available [facility] 2 21:33:17 60116 amoxicill in medicatio n rash Not available Not available 02/28/20222015 723 RxNorm Not Available [facility] 21:33:18 Medications Name Sig Start Date Stop Date [...] completed Not Available Not Available Not Available benzonatate 100 mg capsule TAKE 1 CAPSULE ORALLY EVERY 8 HOURS NEEDED FOR COUGH. 04/11 completed Not Available Not Available Not Available rizatriptan 10 mg disintegrat ing tablet 1 tablet po prn active Not Available Not Available No t [...] 1 capsule every week by oral route. 04/11 completed Not Available Not Available Not Available clobetasol 0.05 % topical ointment 09/28 completed Not Available Not Available Not Available epinephrine 0.3 mg/0.3 mL injection, auto-inject or INJECT 0.3 MILLILITE R (0.3 MG) BY INTRAMUSC ULAR ROUTE ONCE NEEDED FOR ANAPHYLAX IS 2022 active Not Available Not Available Not Avai lable Nasonex 50 mcg/actuati on [place] ,for 30 days 11/09 completed Not Available Not Available Not Available estradiol 0.01% (0.1 mg/gram) vaginal cream 04/11 completed Not Available Not Available Not Available levofloxaci n 750 mg tablet ,for 10 days 06/20 completed Not Available Not Available Not Available [employer] Tray Reg Bevel 1 mL 27 x [...] completed Not Available Not Available Not Available ipratropium bromide 21 mcg (0.03 %) nasal spray [place] 2 sprays twice a day by intranasa l route for 90 days. active Not Available Not Available No t Available escitalopra m 10 mg tablet TAKE 1 TABLET BY MOUTH EVERY DAY 2022 active Not Available Not Available Not Avai [...] BY MOUTH EVERY DAY FOR 84 DAYS 04/11 completed Not Available Not Available Not Available Clindamycin Pediatric 75 mg/5 mL oral [...] completed Not Available Not Available Not Available Annovera 0.15 mg-0.013 mg/24 hr vaginal ring INSERT 1 VAGINAL RING BY VAGINAL ROUTE ONCE A MONTH LEAVE IN PLACE FOR 3 WEEKS, REMOVE FOR 1 WEEK active Not Available Not Available No t Available [employer] COVID-19 Antigen Home Test kit REFER TO KELLYU TINY SIFUENTES ONS 04/11 completed Not Available Not Available Not Available Vitals Date Recorded Body mass index (BMI) Body height Respiratory rate Body temperature Body weight Systolic blood pressure Diastolic blood pressure Provider Name and Address Organization Details Last Updated DateTime 6 21.28 kg/m2 162.56 cm 14 /min 97.8 [degF] 76767.4 539 g 110 mm[Hg] 82 mm[Hg] Not Available [facility] 2 21:28:07 Date Recorded Body mass index (BMI) Body height Respiratory rate Body temperature Body weight Systolic blood pressure Diastolic blood pressure Provider Name and Address Organization Details Last Updated DateTime 7 21.52 kg/m2 162.56 cm 14 /min 97.7 [degF] 25335.8 754 g 108 mm[Hg] 70 mm[Hg] Not Available [facility] 2 21:28:07 Date Recorded Body mass index (BMI) Body height Respiratory rate Body temperature Body weight Systolic blood pressure Diastolic blood pressure Provider Name and Address Organization Details Last Updated DateTime 8 21.37 kg/m2 162.56 cm 14 /min 97.6 [degF] 86288.2 501 g 98 mm[Hg] 76 mm[Hg] Not Available [facility] 2 21:28:07 Date Recorded Body mass index (BMI) Body height Oxygen saturation Oxygen saturation in Arterial blood by Pulse oximetry Heart rate Respiratory rate Body temperature Body weight Systolic blood pressure Diastolic blood pressure Provider Name and Address Organization Details Last Updated DateTime 1 19.9 kg/m2 162.56 cm 99 % 99 % 75 /min 14 /min 97.4 [degF] 13817.7 1 g 118 mm[Hg] 78 mm[Hg] Not Available [facility] 2 21:28:08 Date Recorded Body mass index (BMI) Body height Oxygen saturation Oxygen saturation in Arterial blood by Pulse oximetry Heart rate Respiratory rate Body temperature Body weight Systolic blood pressure Diastolic blood pressure Provider Name and Address Organization Details Last Updated DateTime 1 19.6 kg/m2 162.56 cm 99 % 99 % 81 /min 14 /min 99 [degF] 54810.5 3 g 116 mm[Hg] 77 mm[Hg] Not Available [facility] 2 21:28:08 Date Recorded Body mass index (BMI) Body height Oxygen saturation Oxygen saturation in Arterial blood by Pulse oximetry Heart rate Respiratory rate Body temperature Body weight Systolic blood pressure Diastolic blood pressure Provider Name and Address Organization Details Last Updated DateTime 2 20.6 kg/m2 162.56 cm 99 % 99 % 73 /min 15 /min 98.6 [degF] 05712.0 8 g 110 mm[Hg] 80 mm[Hg] Not Available [facility] 2 21:28:08 Date Recorded Body mass index (BMI) Body height Oxygen saturation Oxygen saturation in Arterial blood by Pulse oximetry Heart rate Respiratory rate Body temperature Body weight Systolic blood pressure Diastolic blood pressure Provider Name and Address Organization Details Last Updated DateTime 2 23.2 kg/m2 162.56 cm 98 % 98 % 104 /min 18 /min 99.8 [degF] 22273.9 7 g 122 mm[Hg] 68 mm[Hg] Not Available [facility] 2 21:28:08 Date Recorded Body temperature Body weight Heart rate Respiratory rate Oxygen saturation Oxygen saturation in Arterial blood by Pulse oximetry Body mass index (BMI) Body height Systolic blood pressure Diastolic blood pressure Provider Name and Address Organization Details Last Updated DateTime 3 98.9 [degF] 56805.6 3 g 90 /min 15 /min 99 % 99 % 23.3 kg/m2 165.1 cm 127 mm[Hg] 80 mm[Hg] GILL Vieyra - [facility] 10:27:08 Social History None recorded. Functional Status None recorded. Mental Status None recorded. Family History Relationship Description Onset Age of this Age Resolved Age Notes Paternal Grandfather Heart disease Father Heart disease Notes:09/28/2021 Medical History No medical history recorded. Gynecological HistoryNo gynecological history recorded. Obstetrics History GPAL:G 0 P 0 0 0 0 Immunizations Vaccine Type Date Status Provider Name and Address Organization Details Recorded Time Tdap 08/30/2022 completed Janis [place]que[place] - [facility] 04/11/2023 10:13:56 influenza, injectable, quadrivalent, preservative free 08/30/2022 completed Janis Roque[place] - [facility] 04/11/2023 10:21:06 COVID-19, mRNA, LNP-S, PF, 30 mcg/0.3 mL dose 08/15/2021 completed Janis Rogers [place] - [facility] 04/11/2023 10:13:56 influenza, injectable, quadrivalent, preservative free 06/15/2021 completed Janis Roquein [place] - [facility] 04/11/2023 10:13:57 COVID-19, mRNA, LNP-S, PF, 30 mcg/0.3 mL dose 12/30/2020 completed Janis Roquein [place] - [facility] 04/11/2023 10:21:06 COVID-19, mRNA, LNP-S, PF, 30 mcg/0.3 mL dose 12/07/2020 completed Janis Rogers [place] - [facility] 04/11/2023 10:13:56 influenza, injectable, quadrivalent, preservative free 06/18/2020 completed Janis Rogers [place] - [facility] 04/11/2023 10:13:57 meningococcal MCV4P 02/06/2019 completed Janis grayson [place] - [facility] 04/11/2023 10:13:57 Influenza, seasonal, injectable, preservative free 06/11/2015 completed Janis Rogers [place] - [facility] 04/11/2023 10:21:06 Influenza, seasonal, injectable, preservative free 06/15/2014 completed Janis Rogers [place] - [facility] 04/11/2023 10:21:06 HPV, quadrivalent 11/23/2013 completed Janis Julia skin [place] - [facility] 04/11/2023 10:21:06 influenza, live, intranasal 06/15/2013 completed Janis Chaskin [place] - [facility] 04/11/2023 10:21:06 HPV, quadrivalent 07/13/2013 completed Janis Julia skin [place] - [facility] 04/11/2023 10:13:57 HPV, quadrivalent 05/13/2013 completed Janis Julia skin [place] - [facility] 04/11/2023 10:13:57 meningococcal MCV4, unspecified formulation 05/13/2013 completed Janis Chaskin [place] - [facility] 04/11/2023 10:13:57 Tdap 04/30/2012 completed Janis Chask[place] [facility] 04/11/2023 10:13:56 Influenza, seasonal, injectable, preservative free 06/05/2010 completed Janis Chask[place] [facility] 04/11/2023 10:13:57 Hep A, unspecified formulation 10/04/2009 completed Janis Ch[place] [facility] 04/11/2023 10:13:57 Novel [id number], preservative-free 07/13/2009 completed Janis Chaskin [place] - [facility] 04/11/2023 10:13:57 influenza, live, intranasal 06/09/2009 completed Janis Chaskin [place] - [facility] 04/11/2023 10:13:56 varicella 03/30/2009 completed Janis Ch[place] [facility] 04/11/2023 10:13:56 Hep A, unspecified formulation 03/30/2009 completed Janis Chask[place] [facility] 04/11/2023 10:13:57 Influenza, seasonal, injectable 06/14/2008 completed Janis Ch[place] [facility] 04/11/2023 10:13:57 DTaP 05/31/2006 completed Janis Chask[place] [facility] 04/11/2023 10:13:57 MMR 05/31/2006 completed Janis Chask[place] [facility] 04/11/2023 10:13:56 IPV 05/28/2006 completed Janis Chask[place] [facility] 04/11/2023 10:13:56 pneumococcal conjugate PCV 7 06/16/2003 completed Janis Chask[place] - [facility] 04/11/2023 10:13:56 varicella 06/16/2003 completed Janis Chaskin [place] [facility] 04/11/2023 10:13:56 Hib, unspecified formulation 06/16/2003 completed Janis Chaskin [place] [facility] 04/11/2023 10:13:56 DTaP 06/16/2003 completed Janis Chaskin [place] [facility] 04/11/2023 10:13:57 MMR 06/16/2003 completed Janis Chaskin [place] [facility] 04/11/2023 10:13:56 Hep B, unspecified formulation 05/12/2003 completed Janis Chaskin [place] [facility] 04/11/2023 10:13:57 Hib, unspecified formulation 2002 completed Janis Chaskin [place] [facility] 04/11/2023 10:13:56 pneumococcal conjugate PCV 7 2002 completed Janis Chask[place] [facility] 04/11/2023 10:13:56 IPV 2002 completed Janis Chask[place] [facility] 04/11/2023 10:13:56 DTaP 2002 completed Janis Chaskin [place], [place] [facility] 04/11/2023 10:13:57 IPV 2002 completed Janis Chaskin [place] [facility] 04/11/2023 10:13:56 pneumococcal conjugate PCV 7 2002 completed Janis Chask[place] [facility] 04/11/2023 10:13:56 Hib, unspecified formulation 2002 completed Janis Chask[place] [facility] 04/11/2023 10:13:56 DTaP 2002 completed Janis Chask[place] [facility] 04/11/2023 10:13:57 Hib, unspecified formulation 2002 completed Janis [place] - [facility] 04/11/2023 10:13:56 DTaP 2002 completed [place] [facility] 04/11/2023 10:13:57 IPV 2002 completed Janis Ro[place] - [facility] 04/11/2023 10:13:56 Hep B, unspecified formulation 2002 completed Janis [place] - [facility] 04/11/2023 10:13:57 Hep B, unspecified formulation 2002 completed Janis Ro[place] [facility] 04/11/2023 10:13:56 COVID-19 vaccine, vector-nr, rS-ChAdOx1, PF, 0.5 mL 12/07/2020 completed Janis Juliam[place] - [facility] 04/11/2023 10:21:06 Past Encounters Encounter ID Performer Location Encounter Start Date Encounter Closed Date Diagnosis/Indication Diagnosis SNOMED-CT Code [id number] [address] [address] 11/21/2020 00:00:00 11/21/2020 00:00:[id number] [address] 12/19/2020 00:00:00 12/19/2020 00:00:[id number] [address] 01/17/2021 00:00:00 01/17/2021 00:00:[id number] [id number] 09/28/2021 00:00:00 09/28/2021 00:00:[id number] [address] 01/24/2022 00:00:00 01/24/2022 00:00:00 [id number] REYNA Seals [address] [address] 04/11/2023 10:06:17 04/11/2023 11:14:51 Body mass index 20-24 - normal [id number] Depressive disorder 3548 9007 Migraine [id number] Asthma [id number] Postural o rthostatic tachycardia syndrome [id number] Mood disorder [id number] Adult heal th examination [id number] Health Concerns Section Related Observation LastModified by Organization Detai ls LastModified Time None Recorded Concern Status LastModified by Organization Details LastModified Time None Recorded Advance Directives Directive None Recorded Payers Encounter Date Sequence Insurance Name Policy Number Policy Deng Covered Member ID Deng Member ID Guarantor Name 04/11/2023 1 [facility] [employer] ([employer]) Philip Crowder [id number] Philip Crowder Notes Date Note Type Note Provider Name and Address Organization Details Recorded Time 11/21/2020 text/html HPI Notes: new p t here to establish care c.o of being cold Not Available [facility] 11/21/2020 14:07:37 12/19/2020 text/html HPI Notes: pt do ing well lab result review high stress level with college and her final exams coming up but she notes she is handling it well Patient verbally consents today to telehealth visit via audiovisual communications ([employer], [employer], [employer], etc.) Not Available [facility] 12/19/2020 17:10:32 01/17/2021 text/html HPI Notes: pt c. o of head pressure around her forehead and under her eyes for the past 3 wks she is unsure if this is sinus related or migraine related no other sx high stress level at school Not Available [facility] hospital 01/17/2021 14:24:49 01/24/2022 text/html HPI Notes: 3 mon th f/u on vertigo hx of depression- stable on escitalopram pt wants an epipen, has an allergy to almonds Not Available [facility] hospital 01/24/2022 13:22:47 04/11/2023 text/html HPI Notes: AWE, Parking accommodations form for college to limited walking distance due to DX: REYNA Marinelli [address] [place] [address], [phone], [facility] 04/11/2023 11:13:20 OBGyn Episode No OBEpisode recorded.
--- OUTSIDE RECORDS SUMMARY | 2023-12-26 12:39 | XMS_ITS | Clinical Summary ---
Author Name Unknown Organization [facility] Address [place], [place] [address] Care Team Providers Care Rn Staffing Name Role Phone Pcp, No Primary Care Provider Unavailabl e Allergies Active Allergy Reactions Criticality Noted Date Comments Bulan Anaphylaxis High 07/04/2023 Amoxicillin Rash Low 11/21/2011 Cefprozil Rash Low 12/19/2021 Ciprofloxacin Rash Low 12/19/2021 Morphine Dyspnea High 12/19/2021 Severe pain Wheat Nausea Only,Other - Describe In Comment Field 07/04/2023 Zolmitriptan Paresthesias 07/04/2023 Medications Medication Sig Dispensed Refills Start Date End Date Status escitalopram oxalate (LEXAPRO) 10 mg tablet Take 10 mg by mouth. Active segesterone ac-ethin estradioL (Annovera) 0.15-0.013 mg/24 hour ring as directed Vaginal EVERY YEAR for 356 days 04/03/2023 Active cetirizine (ZyrTEC) 10 mg tablet 1 tablet Orally Once a day Active EPINEPHrine (EPIPEN) 0.3 mg/0.3 mL auto-injector TAKE 1 AUTO BY INJECTION ROUTE NEEDED FOR 90 DAYS. Active ipratropium (ATROVENT NASAL) 21 mcg (0.03 %) nasal spray 07/03/2023 Active predniSONE (DELTASONE) 20 mg tablet 07/02/2023 Active rizatriptan (MAXALT PAN OPERATOR) 10 mg disintegrating tablet TAKE 1 TABLET BY MOUTH NEEDED Active Active Problems No known active problems Social History Tobacco Use Types Packs/Day Years Used Date Smoking Tobacco: Never Smokeless Tobacco: Never Tobacco Cessation:Counseling Given: Not Answered Alcohol Use Standard Drinks/Week Comments Yes 0 (1 standard drink = 0.6 oz pur e alcohol) occ Social Connections Answer Date Recorded Frequency of Communication with Friends and Fami ly Not on file 09/16/2023 Financial Resource Strain Answer Date R ecorded Difficulty of Paying Living Expenses 3 09/13/2022 Difficulty of Paying Living Expenses Not on file 09/13/2022 Food Insecurity Answer Date Recorded Worried About Running Out of Food in the Last Ye ar 1 09/13/2022 Transportation Needs Answer Date Record ed Lack of Transportation (Medical) 1 09/13/2022 Housing Stability Answer Date Recorded Unable to Pay for Housing in the Last Year 1 09/13/2022 Sex and Gender Information Value Date Recorded Sex Assigned at Not on file Gender Identity Not on file Sexual Orientation Not on file Obstetrics History Last Filed Vital Signs Vital Sign Reading Time Taken Comments Blood Pressure 127/82 09/09/2023 9:12 AM AIR TRAFFIC CONTROL EQUIPMENT REPAIRER Pulse 95 09/09/2023 9:12 AM AIR TRAFFIC CONTROL EQUIPMENT REPAIRER Temperature 37.2 ??C (98.9 ??F) 09/09/2023 9:12 AM CS T Respiratory Rate 18 12/27/2022 1:21 PM CDT Oxygen Saturation 98% 09/09/2023 9:12 AM AIR TRAFFIC CONTROL EQUIPMENT REPAIRER Inhaled Oxygen Concentration - - Weight 65.1 kg (143 lb 9.6 oz) 09/09/2023 9:12 A M AIR TRAFFIC CONTROL EQUIPMENT REPAIRER Height 164.3 cm (5' 4.67) 09/09/2023 9:12 AM CS T Body Mass Index 24.14 09/09/2023 9:12 AM AIR TRAFFIC CONTROL EQUIPMENT REPAIRER Plan of Treatment Health Maintenance Due Date Last Done Comments Tdap 2013 Depression screening for age 12+ 2014 HIV for age 15-65 2017 HPV series for age 9-26 (1 - 3-dose series) 2017 Chlamydia for age 16-24 2018 Hepatitis C screening for age 18-79 2020 Tetanus booster 2022 Pap test for age 21-65 2023 COVID-19 vaccine series (2022- season) 2023 05/30/2022, 08/15/2021, 12/30/2020, Additional history exists Influenza for age 9-49 05/03/2024 BMI (ht and wt on same day) for age 18+ 09/09/2024 09/09/2023, 07/04/2023, 09/13/2022 Meningococcal series for age 11-21 Aged Out No longer eligible based on patient's age to complete this topic Pneumococcal series for age 6-64 Aged Out No longer eligible based on patient's age to complete this topic Care Teams Rn Staffing Relationship Specialty Start Date End Date Pcp, No . PCP - General 09/13/22
--- OUTSIDE RECORDS SUMMARY | 2023-12-26 12:39 | XMS_ITS | Clinical Summary ---
Author Name Unknown Organization [facility] Address [address] [place] [address] Care Team Providers Care Licensed Architect Name Role Phone Pcp, No Primary Care Provider Unavailabl e Allergies Active Allergy Reactions Criticality Noted Date Comments Amoxicillin Rash Low 11/21/2011 Amoxicillin-Pot Clavulanate Rash Low 12/20/19 22 Cefprozil Rash Low 12/19/2021 Ciprofloxacin Rash Low 12/19/2021 Morphine Shortness of breath High 12/19/2021 Severe pain Medications Medication Sig Dispensed Refills Start Date End Date Status norethindrone-ethinyl estradiol-iron (Lo Loestrin Fe) 1 MG-10 MCG / 10 MCG tablet Take 1 tablet 1 (one) time each day by mouth. 0 Active escitalopram (Lexapro) 10 MG tablet Take 10 mg 1 (one) time each day by mouth. 0 Active estradiol (Estrace) 0.1 MG/GM vaginal cream APPLY A PEAS SIZED AMOUNT EXTERNALLY EVERY DAY 0 08/30/2021 Active rizatriptan CLIENT RELATIONS REPRESENTATIVE (Maxalt-CLIENT RELATIONS REPRESENTATIVE) 10 MG disintegrating tablet PLEASE SEE ATTACHED FOR DETAILED DIRECTIONS 0 09/10/2021 Active Social History Tobacco Use Types Packs/Day Years Used Date Smoking Tobacco: Never Smokeless Tobacco: Never Alcohol Use Standard Drinks/Week Comments Never 0 (1 standard drink = 0.6 oz pur e alcohol) [facility] Housing Answer Date Recorded Living Situation Not on file 04/18/2023 Housing Problems Not on file 04/18/2023 [facility] Safety Answer Date Recorded Threatened Not on file 04/18/2023 Insulted Not on file 04/18/2023 Physically Hurt Not on file 04/18/2023 Scream Not on file 04/18/2023 Sex and Gender Information Value Date Recorded Sex Assigned at Not on file Gender Identity Not on file Sexual Orientation Not on file Last Filed Vital Signs Vital Sign Reading Time Taken Comments Blood Pressure 132/81 12/19/2021 9:44 PM EDT Pulse 82 12/19/2021 9:44 PM EDT Temperature 36.4 ??C (97.5 ??F) 12/19/2021 9:44 PM ED T Respiratory Rate 16 12/19/2021 9:44 PM EDT Oxygen Saturation - - Inhaled Oxygen Concentration - - Weight 59.7 kg (131 lb 9.6 oz) 12/19/2021 9:44 P M EDT Height 162.6 cm (5' 4) 12/19/2021 9:44 PM EDT Body Mass Index 22.59 12/19/2021 9:44 PM EDT Plan of Treatment Health Maintenance Due Date Last Done Comments HIV Screening 2002 Annual Physical 09/15/2004 DTaP/Tdap/Td Vaccines (7 - Td or Tdap) 04/30/2022 04/30/2012, 05/31/2006, 06/16/2003, Additional history exists Pap Smear 2023 COVID-19 Vaccine ( season) 2023 08/15/2021, 12/30/2020, 12/07/2020 Influenza Vaccine (Season Ended) 2024 06/15/2021, 06/18/2020, 06/11/2015, Additional history exists Zoster Vaccines (1 of 2) 2052 Hepatitis B Vaccines Completed 05/12/2003, 2002, 2002 Pneumococcal: Pediatrics (0 to 5 Yrs) and At-Risk Patients (6 to 64 Years) Completed 06/16/2003, 2002, 2002 MMR Vaccines Completed 05/31/2006, 06/16/2003 Varicella Vaccines Completed 03/30/2009, 06/16/2003 Hepatitis A Vaccines Completed 10/04/2009, 03/30/20 09 HPV Vaccines Completed 11/23/2013, 07/03, 05/13/2013 Meningococcal Vaccine Completed 02/06/2019, 013 Respiratory Syncytial Virus (RSV) <20 months Aged Out No longer eligible based on patient's age to complete this topic Care Teams Licensed Architect Relationship Specialty Start Date End Date Pcp, No PCP - General 12/19/21
--- OUTSIDE RECORDS SUMMARY | 2023-12-26 12:39 | XMS_ITS | Data Portability ---
Author Name Unknown Address [address] [place] [address] Phone [phone] Organization [place] [facility] Address 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 She states it started hurting after she was serving during a volleyball game, but did not have a discrete injury. On exam she has a positive sulcus sign bilaterally and negative O'briens testing. She does have some anterior apprehension and increased but symmetric excursion on load and shift testing. 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 I discussed this with her and her grandmother today and I recommended conservative treatment with a formal course of physical therapy. I reiterated that this may take several months to improve but that very rarely is surgical treatment indicated. I will see her back in 2 months for recheck. 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 She has been doing physical therapy without any noticable benefit. She states she was not given a home exercise program to do. She has not been playing volleyball, but does play the cello daily and this seems to be exacerbating her symptoms. 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 I still do not see an indication for an MRI at this time. I would like her to try a different physical therapist to see if this helps and reiterated that she should be given a home exercise program to do in between these visits. I advised her to limit her cello playing for now if it is bothering the shoulder. I will see her back in 2 months for recheck. [email or web address] Not available 02/13/2019 12:12:29 Plan of Treatment Reminders Order Date Submit Date Provider Last Modified By Organization Details Last Modified Time Details Appointments None recorded. Lab None recorded. Referral physical therapy shoulder referral 2018 019 [email or web address] Not available 9 08:20:16 physical therapy shoulder referral 2018 019 [email or web address] Not available 9 10:54:01 Procedures None recorded. Surgeries None recorded. Imaging XR, shoulder, 2 or more view 2018 Gregoria hurley In-House Results, For Internal Use Only, Do Not Delete/merge, [id number] 9 07:38:47 Medication Orders None recorded. Patient TargetsNo targets recorded. Patient InstructionsNo instructions recorded. Reason for Referral Referring Physician: Milli rey, Orthopedic Surgery, Encounter Date: 12/11/2018 Referring Physician: Milli rey, Orthopedic Surgery, Encounter Date: 02/12/2019 Results Created Date Observation Date Name Description Value Unit Range Abnormal Flag LastModifiedBy Organization Detail LastModifiedTime Result Notes None recorded. Problems Name Status Onset Date Resolution Date Notes Provider Name and Address Organization Details Recorded Time Instability of right shoulder joint Active 12/12/19 19 Milli Rosario MD [address] [place] [address], [phone], [facility] 12/11/2018 10:49:20 Pain of right shoulder joint Active 02/14/20 19 Milli Rosario MD [address] [place] [address], [phone], [facility] 02/13/2019 12:06:24 Problem Notes None recorded. Procedures Surgical History Date Name Laterality Status Provider Name and Address Organization Details Recorded Time Head or Neck Surgery completed Jada Kirkland null, [facility] 12/11/2018 09:38:02 Other completed Jada Kirkland null, [place] [facility] 12/11/2018 09:38:02 Wrist/Hand Surgery [facility], [facility] 12/11/2018 09:38:02 Imaging Results None recorded. Procedure Notes None recorded. Medical Equipment None Reported. Allergies Allergen ID Allergen Name Allergen Category Reaction Reaction Severity Criticality Documentation Date Start Date Code Code System Note Provider Name and Address Organization Details Recorded Time 64069 amoxicill in medicatio n Not available Not available Not available 12/11/2018 723 RxNorm Jada Fitzgeral d null, [facility] 9 10:01:29 48607 cefprozil medicatio n Not available Not available Not available 12/11/2018 87651 RxNorm Jada Fitzgeral d null, [facility] 9 10:01:40 11676 Cipro medicatio n Not available Not available Not available 12/11/2018 86873 3 RxNorm Jada Fitzgeral d null, [facility] 9 10:01:46 71320 Augmentin medicatio n Not available Not available Not available 12/11/2018 48510 2 RxNorm Jada Fitzgeral d null, [facility] 9 10:01:53 20365 Toradol medicatio n Not available Not available Not available 12/11/2018 13872 RxNorm Jada Fitzgeral d null, [facility] 9 10:02:01 47741 Zomig medicatio n Not available Not available Not available 12/11/2018 95807 4 RxNorm Jada Fitzgeral d null, [facility] 9 10:02:11 69547 lemon extract food Not available Not available Not available 12/11/2018 35583 91 RxNorm Jada Fitzgeral d null, [place] [facility] 9 10:02:18 50720 calcium oxide food Not available Not available Not available 12/11/2018 00410 RxNorm Jada Fitzgeral d null, [place] [facility] 9 10:02:23 59326 pineapple extract food Not available Not available Not available 12/11/2018 45385 74 RxNorm Jada Fitzgeral d null, [place] [facility] 9 10:02:28 92118 cranberry preparati on food,medi cation Not available Not available Not available 12/11/2018 07954 3 RxNorm Jada Fitzgeral d null, [place] [facility] 9 10:02:34 Medications Name Sig Start Date Stop Date Status Note LastModified by Organization Details LastModified Time prednisone 10 mg tablet 12/11 completed Not Available Not Available Not Available azithromycin 250 mg tablet 02/12 completed Not Available Not Available Not Available sumatriptan 100 mg tablet active Not Available Not Availabl e Not Available prednisone 20 mg tablet 12/11 completed Not Available Not Available Not Available propranolol ER 60 mg capsule,24 hr,extended release 12/11 completed Not Available Not Available Not Available ciprofloxacin 500 mg tablet 12/11 completed Not Available Not Available Not Available ketorolac 10 mg tablet active Not Available Not Available No t Available propranolol 10 mg tablet 12/11 completed Not Available Not Available Not Available ranitidine 75 mg tablet Take 1 tablet twice a day by oral route. active Not Available Not Available No t Available amitriptyline 10 mg tablet active Not Available Not Available Not Available IBU 400 mg tablet active Not Available Not Available Not Available gabapentin 300 mg capsule 12/11 completed Not Available Not Available Not Available [facility] [place] 1 mL 27 x 1/2 syringe 12/11 completed Not Available Not Available Not Available bromphenirami ne-pseudoephe drine-DM 2 mg-30 mg-10 mg/5 mL oral syrup active Not Available Not Available Not Available ondansetron 4 mg disintegratin g tablet 12/11 completed Not Available Not Available Not Available topiramate 50 mg tablet 12/11 completed Not Available Not Available Not Available magnesium active Not Available Not Miriam ilable Not Available epinephrine active Not Available Not A vailable Not Available ibuprofen active Not Available Not Miriam ilable Not Available cetirizine 10 mg capsule Take by oral route. active Not Available Not Available No t Available B12 active Not Available Not Availa ble Not Available butalbital-ac etaminophen-c affeine 50 mg-300 mg-40 mg capsule 12/11 completed Not Available Not Available Not Available Lo Loestrin Fe 1 mg-10 mcg (24)/10 mcg (2) tablet active Not Available Not Available Not Available Qudexy XR 50 mg capsule sprinkle,exte nded release active Not Available Not Available Not Available Vitals Date Recorded Body height Body mass index (BMI) Body mass index (BMI) Percentile per age and sex Body weight Systolic blood pressure Diastolic blood pressure Provider Name and Address Organization Details Last Updated DateTime 9 165.1 cm 20.8 kg/m2 50 % 71956.0 5 g 106 mm[Hg] 62 mm[Hg] Jada dean [facility] 9 09:50:16 Date Recorded Body height Body mass index (BMI) Percentile per age and sex Body mass index (BMI) Body weight Systolic blood pressure Diastolic blood pressure Provider Name and Address Organization Details Last Updated DateTime 9 165.1 cm 49 % 20.8 kg/m2 73031.0 5 g 116 mm[Hg] 64 mm[Hg] [facility] 9 10:11:31 Social History Question Answer Notes LastModified by Organizat ion Details LastModified Time Tobacco Smoking Status [facility] 12/11/2018 09:37:57 What Is Your Level Of Alcohol Consumption? None [email or web address] Information not available 12/11/2018 Auto Related Injury? No [email or web address] Information not available 12/11/2018 Is Blood Transfusion Acceptable In An Emergency? Yes [email or web address] Information not available 12/11/2018 Are You Currently Employed? Yes [email or web address] Information not available 12/11/2018 Who Is Your Employer? 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 Right [email or web address] Information not available 02/12/2019 Live Alone Or With Others? With Others Information not available 12/11/2018 What Was The Date Of Your Most Recent Tobacco Screening? 02/12/2019 Information not available 03/26/2019 How Much Tobacco Do You Smoke? No [email or web address] Information not available 02/12/2019 Work Related Injury? No [email or web address] Information not available 12/11/2018 Sex: Female Functional Status Question Answer Note LastModified by Organization D etails LastModified Time Are you able to care for yourself? Yes [email or web address] Information n ot available 12/11/2018 Mental Status None recorded. Family History Relationship Description Onset Age of this Age Resolved Age Notes Father Diabetes mellitus Father Heart disease Maternal Grandfather Diabetes mellitus Maternal Grandfather Heart disease Medical History Condition Response Gout N High Blood Pressure N Scoliosis N Liver/Gallbladder Disease N Depression N COPD N Pacemaker N Multiple Sclerosis N Anesthesia Complications N Ulcers N Diabetes N Bleeding Disorder N Seizures/Epilepsy N Blood Clot N AIDS/HIV N Cancer N Stroke N Asthma N Peripheral Vascular Disease N Reflux/GERD N Other Conditions Y High Cholesterol N Hepatitis N Heart Disease N Organ Transplant N Rheumatoid Arthritis N Pulmonary Embolism N Osteoporosis N Kidney Disease N Bladder/Prostate N Gynecological HistoryNo gynecological history recorded. Obstetrics History GPAL:G 0 P 0 0 0 0 Past Encounters Encounter ID Performer Location Encounter Start Date Encounter Closed Date Diagnosis/Indication Diagnosis SNOMED-CT Code [id number] Milli Rosario MD [place] [address] [place] [address] 12/11/2018 09:17:18 12/16/2018 08:23:19 Pain of right shoulder joint 872538270061994 00 Instabilit y of right shoulder joint 713319185930623 8 [id number] Milli Rosario MD [place] [address] [place] [address] 02/12/2019 09:50:56 02/13/2019 13:00:18 Instability of right shoulder joint 292025966444976 8 Health Concerns Section Related Observation LastModified by Organization Detai ls LastModified Time None Recorded Concern Status LastModified by Organization Details LastModified Time None Recorded Advance Directives Directive None Recorded Payers Encounter Date Sequence Insurance Name Policy Number Policy Deng Covered Member ID Deng Member ID Guarantor Name 02/12/2019 1 [place] [place] Philip Crowder [id number] 12/11/2018 1 [place] [place] Philip Crowder [id number] Notes Date Note Type Note Provider Name and Address Organization Details Recorded Time 12/11/2018 text/html HPI 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 She states that 11/17/18 she was playing volleyball and after serving she noticed sharp pain of the posterior shoulder that radiates towards the lateral shoulder and occasionally radiates to lateral humerus. She was able to continue playing in the game. She denies arm symptoms. She saw a family friend who is a PM&R physician. that suggested exercises, ice and advil. She states that ice gave no relief and that exercises increased her pain. They called the friend back wanting an MRI and he suggested to continue exercises. The patternmaker plaster at [facility] called and got appointment with our clinic. Milli Rosario MD [address] [place] [address], [phone], [facility] 12/15/2018 17:23:48 02/12/2019 text/html HPI Notes: R/C: Right Shoulder 18 year old female RHD presents with her grandmother for recheck of right shoulder. She states that she has completed physical therapy on 02/11/2019 with no relief. She states that she has constant aching with the occasional sharp pain that radiates to the biceps. Patient is taking aleve twice daily and applying ice with little relief. She reports no improvement. Milli Rosario MD [address] [place] [address], [phone], [facility] 02/13/2019 12:12:43 OBGyn Episode No OBEpisode recorded.
--- OUTSIDE RECORDS SUMMARY | 2023-12-26 12:40 | XMS_ITS | Data Portability ---
Author Name Unknown Address [address] [place] [address] Phone [phone] Organization [facility] Address [address] [address] Assessment Encounter Date Assessment Date Assessment LastModified by Organization Details LastModified Time 02/03/2018 02/03/2018 In summary, Radha is a 16-year-old female who has been sick for approximately 2 weeks with fevers, swollen neck glands and nonspecific symptoms such as headache and tiredness. Clinically, she appears to be recovering but rather slowly from this illness. Lab studies that were obtained on January 28, 2018 are significant for low WBC of 3.7 with an ANC of 2009, minimally elevated liver enzymes (AST 59, ALT 42 U/L), WSR of 6 and negative Ricardo-Gill virus antibody panel. Because of low white cell count and normal sedimentation rate, most likely she has a self limiting viral infection. Her peripheral smear did not show elevation of atypical lymphocytes or monocytes to suggest EBV or CMV infection. [email or web address] Not available 02/11/2018 16:48:29 Plan of Treatment Reminders Order Date Submit Date Provider Last Modified By Organization Details Last Modified Time Details Appointments None recorded. Lab None recorded. Referral None recorded. Procedures None recorded. Surgeries None recorded. Imaging XR, abdomen [phone] [facility], [address], [address], [place], [address], 8 17:35:17 Medication Orders None recorded. Patient TargetsNo targets recorded. Patient Instructions Encounter Date Encounter Id Patient Instructions Last Modified By Organization Details Last Modified Time 02/24/2018 [id number] 1. Reviewed all of her recently test results in detail with her mom. 2. She was reassured that her abdominal pain is most likely related to constipation with impaction and not Ricardo-Gill virus infection. 3. Obtain plain x-rays of abdomen to rule out impaction/constipation . 4. If abdominal x-ray comes back normal, would order an ultrasound of abdomen to rule out hepatosplenomegaly as cause of abdominal pain. 5. Advised to refrain from contact sports because of increased splenic fragility secondary to Ricardo-Gill virus infection, until medically cleared. ADDENDUM (02/24/2018): Mom dropped off CD of her abdominal x-ray at our office this afternoon. Abdominal x-ray was read by Radiologist as unremarkable, but upon reviewing it myself, I noticed that she has abundance of stool throughout her abdomen and more so on the left side. Radha's mom was instructed to implement cleansing regimen using MiraLAX and high-fiber foods such as fruits and vegetables. She was also instructed to notify us back in few days with an update. Would recheck her in 1-2 weeks and if indicated, repeat abdominal x-ray to document clearance, resolution of constipation/impaction . Note by Micha Anderson MD. [email or web address] Not available 02/25/2018 11:10:46 02/03/2018 [id number] 1. Both Radha hernandez nd her grandmother were reassured and advised to continue with supportive care. 2. Following labs were ordered to be drawn over the next few weeks: CBC with differential, CMP, CRP, WSR, LDH, LESLEY, hepatitis panel, serologies for EBV/CMV/Mycoplasma/Bar tonella henselae/Toxoplasmosis and smooth muscle antibody test. 3. She will return for a recheck on February 17, 2018, or sooner, based on her clinical symptoms and test results. [email or web address] Not available 02/11/2018 16:57:16 Reason for Referral None Reported. Results Created Date Observation Date Name Description Value Unit Range Abnormal Flag LastModifiedBy Organization Detail LastModifiedTime 02/12/20 18 02/12/2018 hepat itis panel (A+B+ C), acute , serum hepatitis A IgM non-re active non-re active normal Not Available [facility] [place] [facility] [address], [place], [address], 02/12/2018 13:53:51 02/12/20 18 02/12/2018 hepat itis panel (A+B+ C), acute , serum hepatitis B surface antigen non-re active non-re active normal Not Available [facility] [address] [place], [address], 02/12/2018 13:53:51 02/12/20 18 02/12/2018 hepat itis panel (A+B+ C), acute , serum hepatitis B core antibody (IgM) non-re active non-re active normal Not Available [facility] [address] [place], [address], 02/12/2018 13:53:51 02/12/20 18 02/12/2018 hepat itis panel (A+B+ C), acute , serum hepatitis C antibody non-re active non-re active normal Not Available [facility] [address], [place], [address], 02/12/2018 13:53:51 02/12/20 18 02/12/2018 hepat itis panel (A+B+ C), acute , serum signal to cut-off 0.04 <1.00 normal Not Available [facility] [address] [place], [address], 02/12/2018 13:53:51 02/12/20 18 02/13/2018 cytom egalo virus (cmv) igg+i gm Ab, serum cytomegalovi malvin antibody (IgG) <0.60 U/mL normal Not Available [facility] [address] [place], [address], 02/13/2018 13:58:23 02/12/20 18 02/13/2018 cytom egalo virus (cmv) igg+i gm Ab, serum cytomegalovi malvin antibody (IgM) <30.00 AU/mL normal Not Available [facility] [address], [place], [address], 02/13/2018 13:58:23 02/12/20 18 02/12/2018 ldh, serum or plasm a LD 299 U/L 110-23 0 high Not Available [facility] [address], [place], [address], 02/12/2018 00:44:22 02/12/20 18 02/12/2018 CMP, serum or plasm a glucose 81 mg/dL 65-99 normal Not Available [facility] [address], [place], [address], 02/12/2018 00:44:23 02/12/20 18 02/12/2018 CMP, serum or plasm a urea nitrogen (BUN) 9 mg/dL 7-20 normal Not Available [facility] [address], [place], [address], 02/12/2018 00:44:23 02/12/20 18 02/12/2018 CMP, serum or plasm a creatinine 0.80 mg/dL 0.40-1 .00 normal Not Available [facility] [address], [place], [address], 02/12/2018 00:44:23 02/12/20 18 02/12/2018 CMP, serum or plasm a BUN/creatini ne ratio not applic able (calc ) 6-22 Not Available [facility] [address], [place], [address], 02/12/2018 00:44:23 02/12/20 18 02/12/2018 CMP, serum or plasm a sodium 140 mmol/ L 135-14 6 normal Not Available [facility] [address], [place], [address], 02/12/2018 00:44:23 02/12/20 18 02/12/2018 CMP, serum or plasm a potassium 3.9 mmol/ L 3.8-5. 1 normal Not Available [facility] [address], [place], [address], 02/12/2018 00:44:23 02/12/20 18 02/12/2018 CMP, serum or plasm a chloride 102 mmol/ L 98-110 normal Not Available [facility] [address], [place], [address], 02/12/2018 00:44:23 02/12/20 18 02/12/2018 CMP, serum or plasm a carbon dioxide 26 mmol/ L 20-31 normal Not Available [facility] [address], [place], [address], 02/12/2018 00:44:23 02/12/20 18 02/12/2018 CMP, serum or plasm a calcium 9.3 mg/dL 8.9-10 .4 normal Not Available [facility] [address], [place], [address], 02/12/2018 00:44:23 02/12/20 18 02/12/2018 CMP, serum or plasm a protein, total 7.4 g/dL 6.3-8. 2 normal Not Available [facility] [address], [place], [address], 02/12/2018 00:44:23 02/12/20 18 02/12/2018 CMP, serum or plasm a albumin 4.3 g/dL 3.6-5. 1 normal Not Available [facility] [address], [place], [address], 02/12/2018 00:44:23 02/12/20 18 02/12/2018 CMP, serum or plasm a globulin 3.1 g/dL_ (calc ) 2.0-3. 8 normal Not Available [facility] [address], [place], [address], 02/12/2018 00:44:23 02/12/20 18 02/12/2018 CMP, serum or plasm a albumin/glob ulin ratio 1.4 (calc ) 1.0-2. 5 normal Not Available [facility] [address] [place], [address], 02/12/2018 00:44:23 02/12/20 18 02/12/2018 CMP, serum or plasm a bilirubin, total 0.8 mg/dL 0.2-1. 1 normal Not Available [facility] [address] [place], [address], 02/12/2018 00:44:23 02/12/20 18 02/12/2018 CMP, serum or plasm a alkaline phosphatase 90 U/L 41-244 normal Not Available [facility] [address] [place], [address], 02/12/2018 00:44:23 02/12/20 18 02/12/2018 CMP, serum or plasm a AST 40 U/L 12-32 high Not Available [facility] [address], [place], [address], 02/12/2018 00:44:23 02/12/20 18 02/12/2018 CMP, serum or plasm a ALT 40 U/L 6-19 high Not Available [facility] [address] [place], [address], 02/12/2018 00:44:23 02/12/20 18 02/13/2018 mycop lasma pneum oniae igg Ab, EIA, serum mycoplasma pneumoniae antibody (IgG) >5.00 <=0.90 high Not Available [facility] [address], [place], [address], 02/13/2018 20:37:54 02/12/20 18 02/13/2018 mycop lasma pneum oniae igm Ab, serum mycoplasma pneumoniae antibody (IgM) 292 U/mL <770 Not Available [facility] [address] [place], [address], 02/13/2018 20:37:56 02/12/20 18 02/13/2018 lucian gunner antib thom panel , serum B. henselae IgG screen negati ve Not Available [facility] [address] [place], [address], 02/13/2018 17:21:50 02/12/20 18 02/13/2018 lucian gunner antib thom panel , serum B. henselae IgM screen negati ve Not Available [facility] [address], [place], [address], 02/13/2018 17:21:50 02/12/20 18 02/12/2018 eryth rocyt e sedim entat ion rate by weste rgren metho d sed rate by modified westhalieren 6 mm/h < or = 20 normal Not Available [facility] [address] [place], [address], 02/12/2018 03:21:34 02/12/20 18 02/12/2018 CBC w/ auto diff white blood cell count 7.6 thous and/u L 4.5-13 .0 normal Not Available [facility] [address] [place], [address], 02/12/2018 16:01:34 02/12/20 18 02/12/2018 CBC w/ auto diff red blood cell count 4.24 ghazala on/uL 3.80-5 .10 normal Not Available [facility] [address] [place], [address], 02/12/2018 16:01:34 02/12/20 18 02/12/2018 CBC w/ auto diff hemoglobin 12.3 g/dL 11.5-1 5.3 normal Not Available [facility] [place] [facility] [address], [place], [address], 02/12/2018 16:01:34 02/12/20 18 02/12/2018 CBC w/ auto diff hematocrit 36.5 % 34.0-4 6.0 normal Not Available [facility] [place] [facility] [address], [place], [address], 02/12/2018 16:01:34 02/12/20 18 02/12/2018 CBC w/ auto diff MCV 86.1 fL 78.0-9 8.0 normal Not Available [facility] [place] [facility] [address], [place], [address], 02/12/2018 16:01:34 02/12/20 18 02/12/2018 CBC w/ auto diff MCH 29.0 pg 25.0-3 5.0 normal Not Available [facility] [address], [place], [address], 02/12/2018 16:01:34 02/12/20 18 02/12/2018 CBC w/ auto diff MCHC 33.7 g/dL 31.0-3 6.0 normal Not Available [facility] [place] [facility] [address], [place], [address], 02/12/2018 16:01:34 02/12/20 18 02/12/2018 CBC w/ auto diff RDW 13.0 % 11.0-1 5.0 normal Not Available [facility] [address], [place], [address], 02/12/2018 16:01:34 02/12/20 18 02/12/2018 CBC w/ auto diff platelet count 229 thous and/u L 140-40 0 normal Not Available [facility] [address], [place], [address], 02/12/2018 16:01:34 02/12/20 18 02/12/2018 CBC w/ auto diff MPV 9.0 fL 7.5-12 .5 normal Not Available [facility] [place] [facility] [address], [place], [address], 02/12/2018 16:01:34 02/12/20 18 02/12/2018 CBC w/ auto diff absolute neutrophils 2280 cells /uL 1800-8 000 normal Not Available [facility] [place] [facility] [address], [place], [address], 02/12/2018 16:01:34 02/12/20 18 02/12/2018 CBC w/ auto diff absolute lymphocytes 4788 cells /uL 1200-5 200 normal Not Available [facility] [place] [facility] [address], [place], [address], 02/12/2018 16:01:34 02/12/20 18 02/12/2018 CBC w/ auto diff absolute monocytes 532 cells /uL 200-90 0 normal Not Available [facility] [address], [place], [address], 02/12/2018 16:01:34 02/12/20 18 02/12/2018 CBC w/ auto diff absolute eosinophils 0 cells /uL 15-500 low Not Available [facility] [address], [place], [address], 02/12/2018 16:01:34 02/12/20 18 02/12/2018 CBC w/ auto diff absolute basophils 0 cells /uL 0-200 normal Not Available [facility] [address], [place], [address], 02/12/2018 16:01:34 02/12/20 18 02/12/2018 CBC w/ auto diff neutrophils 30 % normal Not Available [facility] [address], [place], [address], 02/12/2018 16:01:34 02/12/20 18 02/12/2018 CBC w/ auto diff lymphocytes 43 % normal Not Available [facility] [address], [place], [address], 02/12/2018 16:01:34 02/12/20 18 02/12/2018 CBC w/ auto diff reactive lymphocytes 20 % 0-10 high Not Available [facility] [address], [place], [address], 02/12/2018 16:01:34 02/12/20 18 02/12/2018 CBC w/ auto diff monocytes 7 % normal Not Available [facility] [address], [place], [address], 02/12/2018 16:01:34 02/12/20 18 02/12/2018 CBC w/ auto diff eosinophils 0 % normal Not Available [facility] [address], [place], [address], 02/12/2018 16:01:34 02/12/20 18 02/12/2018 CBC w/ auto diff basophils 0 % normal Not Available [facility] [address], [place], [address], 02/12/2018 16:01:34 02/12/20 18 02/12/2018 CBC w/ auto diff comment(s) Not Available [facility] [address], [place], [address], 02/12/2018 16:01:34 02/12/20 18 02/12/2018 C-osvaldo ctive prote in, quant itati ve, serum or plasm a C-reactive protein 4.1 mg/L <8.0 normal Not Available [facility] [address], [place], [address], 02/12/2018 13:53:59 02/12/20 18 02/13/2018 LESLEY (anti nucle ar antib odies ) scree n, ifa, serum LESLEY screen, ifa negati ve negati ve normal Not Available [facility] [address], [place], [address], 02/13/2018 17:21:53 02/12/20 18 02/12/2018 [facility] rr virus (ebv) IgG + IgM panel , serum ebv viral capsid Ag (vca) Ab (IgM) 123.00 U/mL high Not Available [facility] [address], [place], [address], 02/12/2018 11:46:27 02/12/20 18 02/12/2018 [facility] rr virus (ebv) IgG + IgM panel , serum ebv viral capsid Ag (vca) Ab (IgG) 111.00 U/mL high Not Available [facility] [address], [place], [address], 02/12/2018 11:46:27 02/12/20 18 02/12/2018 [facility] rr virus (ebv) IgG + IgM panel , serum ebv nuclear Ag (ebna) Ab (IgG) <18.00 U/mL normal Not Available [facility] [address], [place], [address], 02/12/2018 11:46:27 02/12/20 18 02/12/2018 [facility] rr virus (ebv) IgG + IgM panel , serum interpretati on: Not Available [facility] [address], [place], [address], 02/12/2018 11:46:27 02/12/20 18 02/14/2018 toxop lasma igg+i gm Ab, serum toxoplasma antibody (IgG) <7.20 IU/mL normal Not Available [facility] [address], [place], [address], 02/14/2018 15:30:46 02/12/20 18 02/14/2018 toxop lasma igg+i gm Ab, serum toxoplasma antibody (IgM) <8.00 AU/mL normal Not Available [facility] [place] [facility] [address], [place], [address], 02/14/2018 15:30:46 02/12/20 18 02/14/2018 actin willian h muscl e Ab, serum smooth muscle Ab screen negati ve negati ve normal Not Available [facility] [place] [facility] [address], [place], [address], 02/14/2018 15:30:48 02/25/20 18 02/24/2018 XR, abdom en INDICA TIONS: Consti pation . Left upper quadra nt pain. CLINIC AL DATA: This is the patien t's Initia l encoun ter. Patien t report s that signs and/or sympto ms have been presen t for 1 week and indica cami a pain score of 6/10. MEDICA L/SURG ICAL HISTOR Y: No pertin ent surger ies. Histor y of ovaria n cysts. COMPAR UJN: No prior exams availa ble for compar jun FINDIN GS: The abdomi nal bowel gas patter n is normal . No abnorm al masses , calcif icatio ns, or organo megaly is seen. The osseou s struct ures are unrema rkable . CONCLU RANI: Benign appear ing KUB. Electr onical ly signed by: Romeo Benz MD 018 5:31 PM EDT [facility] [address], [place], [address], 02/24/2018 22:23:02 Result Notes Documentation Provider Name and Address Organization Details Recorded Time Xr, Abdomen : INDICATIONS: Constipation. Left upper quadrant pain. CLINICAL DATA: This is the patient's Initial encounter. Patient reports that signs and/or symptoms have been present for 1 week and indicates a pain score of 6/10. MEDICAL/SURGICAL HISTORY: No pertinent surgeries. History of ovarian cysts. COMPARISON: No prior exams available for comparison FINDINGS: The abdominal bowel gas pattern is normal. No abnormal masses, calcifications, or organomegaly is seen. The osseous structures are unremarkable. CONCLUSION: Benign appearing KUB. Electronically signed by: Romeo Benz MD 02/24/2018 5:31 PM EDT Micha Anderson MD [address] [facility] [place], [address], [facility] [employer] 02/24/2018 22:23:02 Procedures Surgical History None recorded. Imaging Results Imaging Date Name Status LastModified by Organiz ation Details LastModified Time 02/24/2018 XR, abdomen completed [facility] [address], [place], [address], 02/24/2018 22:23:02 Procedure Notes None recorded. Medical Equipment None Reported. Allergies Allergen ID Allergen Name Allergen Category Reaction Reaction Severity Criticality Documentation Date Start Date Code Code System Note Provider Name and Address Organization Details Recorded Time 363224 pineapple extract food Not available Not available Not available 02/25/20182017 05756 74 RxNorm React ion: Anaph ylaxi s;Sev erity : Sever e; Comme nt: Verif ied: Yes T ype: Aller gy; Not Available [facility] 8 02:38:54 931814 calcium oxide food Not available Not available Not available 02/25/20182017 16883 RxNorm React ion: Anaph ylaxi s;Sev erity : Sever e; Comme nt: Verif ied: Yes T ype: Aller gy; Not Available [facility] 8 02:38:54 341639 lemon extract food Not available Not available Not available 02/25/20182017 88461 91 RxNorm React ion: Anaph ylaxi s;Sev erity : Sever e; Comme nt: Verif ied: Yes T ype: Aller gy; Not Available [facility] 8 02:38:54 [id number] amoxicill in medicatio n Not available Not available Not available 02/25/20182017 723 RxNorm React ion: Rash; Sever ity: Sever e; Comme nt: Verif ied: Yes T ype: Aller gy; Not Available [facility] 8 02:52:40 560188 cefprozil medicatio n Not available Not available Not available 02/25/20182017 54360 RxNorm React ion: RASH; Sever ity: Sever e; Comme nt: Verif ied: Yes T ype: Aller gy; Not Available [facility] 8 02:52:40 Medications Name Sig Start Date Stop Date Status Note LastModified by Organization Details LastModified Time cefprozil 500 mg tablet active Not Available Not Available Not Available prednisone 10 mg tablet active Not Available Not Available Not Available clindamycin HCl 300 mg capsule active Not Available Not Availab le Not Available azithromycin 250 mg tablet active Not Available Not Available No t Available Lidocaine Viscous 2 % mucosal solution active Not Available Not Available Not Available ciprofloxacin 500 mg tablet active Not Available Not Available No t Available sulfamethoxazole 800 mg-trimethoprim 160 mg tablet active Not Available Not Availabl e Not Available omeprazole 40 mg capsule,delayed release active Not Available Not Available Not Available rifampin 300 mg capsule active Not Available Not Available Not Available levofloxacin 750 mg tablet active Not Available Not Available No t Available BD Process Control Supervisor Tray Reg Bevel 1 mL 27 x 1/2 syringe active Not Available Not Availab le Not Available fluticasone propionate 50 mcg/actuation nasal spray,suspension active Not Available Not Avail able Not Available hydrocodone 7.5 mg-acetaminophen 325 mg/15 mL oral solution active Not Available Not Available Not Available ProAir HFA 90 mcg/actuation aerosol inhaler active Not Available Not Availa ble Not Available Lo Loestrin Fe 1 mg-10 mcg (24)/10 mcg (2) tablet active Not Available Not Availab le Not Available Clindamycin Pediatric 75 mg/5 mL oral solution active Not Available Not Avail able Not Available Vitals Date Recorded Body weight Heart rate Respiratory rate Body temperature Systolic blood pressure Diastolic blood pressure Provider Name and Address Organization Details Last Updated DateTime 8 79147.4 2 g 82 /min 20 /min 98.3 [degF] 110 mm[Hg] 62 mm[Hg] Rebecca Galeano [facility] 8 13:47:39 Date Recorded Body weight Body temperature Respiratory rate Heart rate Systolic blood pressure Diastolic blood pressure Provider Name and Address Organization Details Last Updated DateTime 8 49293.0 5 g 99 [degF] 18 /min 90 /min 110 mm[Hg] 64 mm[Hg] [facility] 8 13:[facility]:44 Social History None recorded. Functional Status None recorded. Mental Status None recorded. Family History Nothing Reported. Medical History No medical history recorded. Gynecological HistoryNo gynecological history recorded. Obstetrics History GPAL:G 0 P 0 0 0 0 Past Encounters Encounter ID Performer Location Encounter Start Date Encounter Closed Date Diagnosis/Indication Diagnosis SNOMED-CT Code [id number] Micha Anderson MD [facility] [address] [place] [address] 02/03/2018 13:33:18 02/03/2018 14:21:28 Cervical lymphadenopathy 635454320 Acute hepatitis 58401878 Fever [id number] Micha Anderson MD [facility] [address] [place] [address] 02/24/2018 13:32:11 02/24/2018 14:33:22 Cervical lymphadenopathy 299587551 Acute hepatitis 36843577 Abdominal pain 59181401 Constipation 21523921 Infectious mononucleosis 928852457 Health Concerns Section Related Observation LastModified by Organization Detai ls LastModified Time None Recorded Concern Status LastModified by Organization Details LastModified Time None Recorded Advance Directives Directive None Recorded Payers Encounter Date Sequence Insurance Name Policy Number Policy Deng Covered Member ID Deng Member ID Guarantor Name 02/24/2018 1 [facility]: [employer] EM[employer]OY[employer] PROGRAM (PPO) [id number] [id number] Jazmin Crowder 02/03/2018 1 [facility]: [employer]EE PROGRAM (PPO) [id number] [id number] Jazmin Crowder Notes Date Note Type Note Provider Name and Address Organization Details Recorded Time 02/03/2018 text/html HPI Notes: Joanne hernandez was accompanied today by her grandmother whom she also lives with. Information was obtained by reviewing her medical records as well as by talking to her grandmother. She was in good health until about the third week of December 2017, when she developed nasal/sinus congestion and blocked ears. She was seen by her PCP on January 21, 2018 and prescribed ciprofloxacin 500 mg twice a day. After taking the first dose, she developed tingling around her mouth and medication was discontinued. She was subsequently started on Zithromax that she took as prescribed. About 3 days later, on January 24, 2015, she developed headaches, fever, sore throat and swollen neck glands. She was seen by her PCP again on January 28, 2018 and tested negative for rapid strep as well as Monospot. Labs were ordered during this visit and parents were advised to continue with supportive care in the meantime. She remained symptomatic with fevers during this time and also appeared pale and tired. Fevers were reported to be as high as 102.6??F. In addition, she also developed neck pain. She was seen by Dr. Rader on January 30, 2018, who reassured her parents that Radha has a viral illness. Following day she was seen by her PCP -Dr. Sotelo, who referred her to an ID specialist because of abnormal labs She seems to be doing better in general and no longer has any fevers. In addition, neck glands seems to have come down in size somewhat. Presently she does not have any headache, neck pain, runny nose, sinus congestion, sore throat, cough or chest congestion. Denies any nausea, vomiting or abdominal pain. Does not have any urinary symptoms like urgency, discomfort with voiding or flank/suprapubic pain. Also denies any musculoskeletal symptoms such as muscle pain, joint swelling, stiffness or pain. Past medical history: history is unremarkable. She had an episode of swollen neck glands in July 2017 and underwent tonsillectomy on October 03, 2013. Medical history is also significant for dog attack at age 9 years and hand surgery for removal of ganglion cyst from her palm when she was about 15 years old. Development is age-appropriate and vaccinations are current. Family history: There is no history of any major illness/condition amongst close or distant family members. Micha Anderson MD [address] [facility] [place], [address], [place] 02/11/2018 17:00:19 02/24/2018 text/html HPI Notes: Joanne hernandez was initially seen on February 03, 2018 as an ID consult. She was diagnosed with cervical lymphadenopathy, acute hepatitis and fevers. Several additional labs were ordered at the time of her initial visit, that established diagnosis of acute Ricardo-Gill virus infection. Both Radha and her mom were reassured, and advised to continue with supportive care as Ricardo-Gill virus infection is self-limiting. She is brought in today for evaluation of left-sided abdominal pain that has been present for past few days. Does not have any associated symptoms such as nausea, emesis or diarrhea. Denies being constipated and moves her bowels regularly. She does not have any acute symptoms such as fevers, runny nose, ear pain, sore throat, cough/chest congestion or headaches. Also denies any urinary symptoms such as frequency/urgency, discomfort with voiding or flank pain. She still has some swollen neck glands that have not changed much since her last office visit. Micha Anderson MD [address] [facility] [place], [address], [place] 02/25/2018 11:15:01 OBGyn Episode No OBEpisode recorded.
[2023-12-26 12:45] LABS: Albumin* 4.9 g/dL (3.3-5.0)
[2023-12-26 12:46] LABS: Chloride* 105 mmol/L (96-114); Potassium* 3.7 mmol/L (3.6-5.1); Sodium* 140 mmol/L (135-149)
[2023-12-26 12:48] LABS: Anion Gap 8 mEq/L (7-15); Bilirubin Total* 0.9 mg/dL (0.1-1.5); Carbon Dioxide* 27 mmol/L (20-32); Creatinine* 0.7 mg/dL (0.5-1.5); Est. Creatinine Clearance* 109.78; Estimated Glomerular Filt Rate 126 ml/min
[2023-12-26 12:49] LABS: Alanine Aminotransferase* 20 U/L (4-35); Alkaline Phosphatase* 77 U/L (40-150); Aspartate Amino Transferase* 28 U/L (12-35); Blood Urea Nitrogen* 10 mg/dL (5-24); Calcium* 9.7 mg/dL (8.4-10.6); Glucose* 83 mg/dL (60-115); Total Protein* 8.2 g/dL (6.0-8.3)
--- NOTE | 2023-12-26 13:33 | ED_ITS ---
HPI - Allergic Reaction General Date Seen: 12/26/23 Chief complaint: Allergic Reaction Stated complaint: Allergic Reaction Time Seen by Provider: 12/26/23 12:06 Source: patient and EMS Mode of arrival: EMS Limitations: no limitations History of Present Illness HPI narrative: Patient is a 23-year-old female presenting to the emergency department for an allergic reaction. She states she has an allergy to tree nuts and notice yesterday she was having a rash on her forearms that she notes was itchy and raised. She states that look like hives. She took Benadryl yesterday in symptoms are not resolved. She took more Benadryl today. She then noticed she was having some abdominal discomfort and was feeling like her throat was closing up. EMS was called at that time. When they arrived they gave her IV Benadryl and 0.3 mg of IM epinephrine. EMS states that when they 1st arrived her heart rate was within normal limits but then became tachycardic after the epi was given. Patient is now states the throat tightening head and chest discomfort are now gone and her abdominal discomfort is improving. She states usually with allergic reactions she will have a tingling sensation with itchiness in her mouth followed by feelings of chest tightness and throat closing up. The hives on her arms are different compared to normal. Currently still has some mild abdominal discomfort but denies nausea, vomiting, lightheadedness, dizziness, weakness, fevers, chills. No other concerns noted at this time. Related Data Home Medications Medication Instructions Recorded Confirmed escitalopram oxalate 10 mg tablet 10 mg PO DAILY 09/19/22 05/28/23 (Lexapro) rizatriptan 5 mg disintegrating 5 mg PO Q2-4H PRN 09/19/22 05/28/23 tablet Previous Rx's Medication Instructions Recorded epinephrine 0.3 mg/0.3 mL 0.3 mg (0.3 mL) IM Q5-15M PRN #1 ea 07/02/23 injection, auto-injector (EpiPen 2-Pablo) prednisone 20 mg tablet 20 mg PO BID 2 days #4 tabs 07/02/23 prednisone 20 mg tablet 40 mg (2 x 20 mg) PO DAILY #8 tabs 12/26/23 Allergies Allergy/AdvReac Type Severity Reaction Status Date / Time tree nut Allergy Severe Verified 12/26/23 12:13 amoxicillin Allergy Intermediate Rash Verified 05/28/23 13:01 ciprofloxacin [From Cipro] Allergy Intermediate Rash Verified 05/28/23 13:01 morphine AdvReac Intermediate dizzy Verified 05/28/23 13:01 Review of Systems Status of ROS Reports: 10 or more systems reviewed and unremarkable except as noted in History and below [facility] Social History Smoking Status: Never smoker Do you use any of these nicotine containing products: None Second hand tobacco smoke exposure: No How often do you have a drink containing alcohol: 2-3 times a week How many standard drinks containing alcohol do you have on a typical day: 1 or 2 How often do you have six or more drinks on one occasion: Never AUDIT-C Alcohol total score: 3 Non-prescribed substance use: denies use service: No Exam Narrative: Exam Narrative: Const: Well-nourished, Well-developed, in mild distress Eyes: PERRL, no conjunctival injection, and symmetrical lids HENT: Atraumatic external nose and ears. Moist mucous membranes. Neck: Symmetric, trachea midline, No thyromegaly. CVS: Tachycardic, No murmurs or gallops. Peripheral pulses 2+ and equal in all extremities RESP: Unlabored respiratory effort. Clear to auscultation bilaterally. GI: Nontender/Nondistended, No rebound or guarding. MSK:Extremities w/o deformity, Normal Active ROM Skin: Warm, Dry. Lacy and flat appearing rash on her bilateral upper arms Neuro: Normal Muscle tone, No focal neurological deficits. Psych: Awake, Alert, & Oriented x3. Appropriate mood and affect. Const: Vital Signs, click to edit/add: Vital Signs - 24 hr 12/26/23 12:09 12/26/23 14:04 12/26/23 14:06 Temperature 100.3 F H Pulse Rate 88 Pulse Rate [Left P ulse Oximeter] 100 Respiratory Rate 18 Blood Pressure 118/70 115/78 Blood Pressure [Le ft Upper Arm] 136/86 Pulse Oximetry 100 100 Oxygen Delivery Me thod Room Air Course Vital Signs Vital signs: Initial Vital Signs Temperature 100.3 F H 12/26/23 12:09 Temperature Source Temporal Artery Scan 12/26/23 12:09 Pulse Rate 100 12/26/23 12:09 Pulse Rhythm Regular 12/26/23 12:09 Pulse Strength 3+ Normal 12/26/23 12:09 Respiratory Rate 18 12/26/23 12:09 Blood Pressure 136/86 12/26/23 12:09 Blood Pressure Mean 102 12/26/23 12:09 Blood Pressure Position Sitting 12/26/23 12:09 Pulse Oximetry 100 12/26/23 12:09 Oxygen Delivery Method Room Air 12/26/23 12:09 Vital Signs Temperature 100.3 F H 12/26/23 12:09 Pulse Rate 100 12/26/23 12:09 Respiratory Rate 18 12/26/23 12:09 Blood Pressure 136/86 12/26/23 12:09 Pulse Oximetry 100 12/26/23 12:09 Oxygen Delivery Method Room Air 12/26/23 12:09 Temperature 100.3 F H 12/26/23 12:09 Pulse Rate 88 12/26/23 14:06 Respiratory Rate 18 12/26/23 12:09 Blood Pressure 115/78 12/26/23 14:06 Pulse Oximetry 100 12/26/23 14:06 Oxygen Delivery Method Room Air 12/26/23 12:09 Medications Administered Medications: Discontinued Medications Generic Name Dose Route Start Last Admin Trade Name Freq PRN Reason Stop Dose Admin Methylprednisolone Sodium Succinate 125 mg 12/26/23 12:16 12/26/23 12:33 Methylprednisolone Sod Succ 62.5 Mg/Ml (125) IVP 12/26/23 12:17 125 mg ONCE ONE Administration MDM - Allergic Reaction MDM Narrative Medical decision making narrative: Patient is a 23-year-old female presenting for allergic reaction. Considering she has a rash and abdominal discomfort and chest discomfort/shortness of breath she does meet criteria for anaphylaxis. She was already treated with IM epi by EMS. Is already having improvement in her symptoms. She does have an IV and a dose of Solu-Medrol was given. Since she is still having some mild abdominal discomfort we will do a CBC and CMP. Most likely this is secondary to anaphylaxis. Lab work returned showing no concerning abnormalities. The abdominal discomfort is most likely secondary to the allergic reaction. Vital signs are stable. Her temperature is elevated 100.3 but does not meet definition of fever at this time. Symptoms have not returned. And worse at this time we washed sure for 2.5 hours and she was stable throughout this time. She can be safely discharged. She is agreeable to this plan. States she already has EpiPen in does not need a new prescription. Lab Data Labs: Lab Results 12/26/23 Range/Units 12:20 WBC 5.99 (4.50-11.00) K/uL RBC 5.06 (4.00-5.20) m/uL Hgb 14.0 (12.0-16.0) gm/dL Hct 43.1 (33.0-51.0) % MCV 85 (80-100) fL MCH 28 (26-34) pg MCHC 33 (32-36) gm/dL RDW Coeff of Dionicio 12.1 (11.5-15.5) % Plt Count 374 (140-440) K/uL Neut % (Auto) 61.1 (42.0-72.0) % Lymph % (Auto) 30.6 (20-44) % [place] % (Auto) 6.5 (0.0-11.0) % Eos % (Auto) 0.8 (0.0-7.0) % Baso % (Auto) 0.8 (0.0-3.0) % Neut # (Auto) 3.66 (1.7-7.0) K/uL Lymph # (Auto) 1.83 (0.90-2.90) K/uL [place] # (Auto) 0.40 (0.00-0.90) K/UL Eos # (Auto) 0.05 (0.00-0.50) K/uL Baso # (Auto) 0.05 (0.00-0.30) K/uL Abs Immat Gran (auto) 0.01 (0.00-0.30) K/uL Imm/Tot Granulo (auto) 0.2 % Sodium 140 (135-149) mmol/L Potassium 3.7 (3.6-5.1) mmol/L Chloride 105 (96-114) mmol/L Carbon Dioxide 27 (20-32) mmol/L Anion Gap 8 (7-15) mEq/L BUN 10 (5-24) mg/dL Creatinine 0.7 (0.5-1.5) mg/dL Estimated Creat Clear 109.78 Estimated GFR 126 ml/min Glucose 83 (60-115) mg/dL Calcium 9.7 (8.4-10.6) mg/dL Total Bilirubin 0.9 (0.1-1.5) mg/dL AST 28 (12-35) U/L ALT 20 (4-35) U/L Alkaline Phosphatase 77 (40-150) U/L Total Protein 8.2 (6.0-8.3) g/dL Albumin 4.9 (3.3-5.0) g/dL Discharge Plan Discharge Clinical Impression: Anaphylaxis Qualifiers: Encounter type: initial encounter Qualified Code(s): T78.2XXA - Anaphylactic sh ock, unspecified, initial encounter Patient Disposition: Home, Self-Care Condition: Improved Instructions: General Allergic Reaction (ED) Additional Instructions: Return to the emergency department for new or worsening symptoms. Ocular prescription for prednisone which should help with the symptoms. Start taking the medication tomorrow 12/27/2023 and take for total 4 days. Prescriptions: New prednisone 20 mg tablet 40 mg PO DAILY Qty: 8 0RF No Action escitalopram oxalate [Lexapro] 10 mg tablet 10 mg PO DAILY rizatriptan 5 mg tablet,disintegrating 5 mg PO Q2-4H PRN Rx Instructions: do not exceed 6 doses per 24 hrs prednisone 20 mg tablet 20 mg PO BID 2 Days Qty: 4 1RF epinephrine [EpiPen 2-Pablo] 0.3 mg/0.3 mL auto-injector 0.3 mg IM Q5-15M PRNQty: 1 0RF Rx Instructions: do not exceed 3 doses per episode Follow Up/Referrals: Provider,Not a Local [Primary Care Provider] - Stand Alone Forms: Züm XRth Info Instructions
[2023-12-26 14:04] VITALS: BP 118/70
[2023-12-26 14:06] VITALS: BP 115/78; PULSE 88; O2SAT 100
== END 2023-12-26 14:49 | disposition home or self-care (01) ==
PROVIDERS: Emergency Provider Student in an Organized Health Care Education/Training Program
DX: R21 Rash and other nonspecific skin eruption (principal); T78.2XXA Anaphylactic shock, unspecified, initial encounter
CPT/HCPCS: 36415; 80053; 85025; 96374; 99283; J2919

== ENCOUNTER 2023-12-27 17:35 | Emergency (ER) | payer BC, SELFPAY ==
[2023-12-27 17:41] VITALS: BP 135/89; PULSE 88; RESP 22; TEMP 36.6; O2SAT 99; BMI 26.9
[2023-12-27 17:52] VITALS: BP 129/85; PULSE 92; O2SAT 98
[2023-12-27 17:53] VITALS: PULSE 90; O2SAT 98
[2023-12-27 18:00] VITALS: PULSE 90; O2SAT 98
[2023-12-27 18:02] VITALS: BP 130/79; PULSE 88; O2SAT 98
--- OUTSIDE RECORDS SUMMARY | 2023-12-27 18:14 | XMS_ITS | Data Portability ---
Author Name Unknown Address [address] [place] [id number] Phone [phone] Organization [facility] [employer] [facility] Address [address] [place] [address] Assessment Encounter Date Assessment Date Assessment LastModified [...] mg/0.3 mL injection, auto-inject or 2022 023 [facility]/Pharmacy #[id number], [address] [place], [address], 11:01:57 ipratropium bromide 21 mcg (0.03 %) nasal spray 2022 023 [facility]armacy #[id number], [address] [place], [address], 3 11:03:29 rizatriptan 10 mg disintegrat ing tablet 2022 023 [id number] [address] [place], [address], 3 11:02:35 escitalopra m 10 mg tablet 2022 023 [facility]/Pharmacy #[id number], [address] [facility], [place], [address], 11:02:36 Patient TargetsNo targets recorded. Patient InstructionsNo instructions recorded. Reason for Referral None Reported. Results Created Date Observation Date Name Description Value Unit Range Abnormal Flag LastModifiedBy Organization Detail LastModifiedTime 11/29/19 21 11/29/2020 VITAM IN B12 vitamin B12 467 pg/mL 200-11 00 normal Not Available [employer] ANGIE Barkley, [id number] 07/31/2022 09:48:50 11/29/19 21 11/29/2020 CBC (INCL UDES DIFF/ PLT) white blood cell count 7.2 thous and/u L 4.5-13 .0 normal Not Available [employer] [facility] ANGIE Barkley, [id number] 07/31/2022 09:48:49 11/29/1911/29/2020 CBC (INCL UDES DIFF/ PLT) red blood cell count 4.82 ghazala on/uL 3.80-5 .10 normal Not Available [employer] [facility] ANGIE Barkley, 15447 07/31/2022 09:48:49 11/29/1911/29/2020 CBC (INCL UDES DIFF/ PLT) hemoglobin 14.0 g/dL 11.5-1 5.3 normal Not Available [employer] [facility] ANGIE Barkley, [id number] 07/31/2022 09:48:49 11/29/1911/29/2020 CBC (INCL UDES DIFF/ PLT) hematocrit 41.4 % 34.0-4 6.0 normal Not Available [employer] [facility] ANGIE Barkley, [id number] 07/31/2022 09:48:49 11/29/1911/29/2020 CBC (INCL UDES DIFF/ PLT) MCV 85.9 fL 78.0-9 8.0 normal Not Available [employer] [facility] ANGIE Barkley, [id number] 07/31/2022 09:48:49 11/29/19 21 11/29/2020 CBC (INCL UDES DIFF/ PLT) MCH 29.0 pg 25.0-3 5.0 normal Not Available [facility] ANGIE Barkley, [id number] 07/31/2022 09:48:49 11/29/19 21 11/29/2020 CBC (INCL UDES DIFF/ PLT) MCHC 33.8 g/dL 31.0-3 6.0 normal Not Available [facility] ANGIE Barkley, [id number] 07/31/2022 09:48:49 11/29/19 21 11/29/2020 CBC (INCL UDES DIFF/ PLT) RDW 12.6 % 11.0-1 5.0 normal Not Available [facility] IncEffinghamANGIE estrada, [id number] 07/31/2022 09:48:49 11/29/19 21 11/29/2020 CBC (INCL UDES DIFF/ PLT) platelet count 288 thous and/u L 140-40 0 normal Not Available [facility] [id number] 07/31/2022 09:48:49 11/29/19 21 11/29/2020 CBC (INCL UDES DIFF/ PLT) MPV 10.2 fL 7.5-12 .5 normal Not Available [facility], 12901 07/31/2022 09:48:49 11/29/19 21 11/29/2020 CBC (INCL UDES DIFF/ PLT) absolute neutrophils 4212 cells /uL 1800-8 000 normal Not Available [facility] ANGIE Barkley, [id number] 07/31/2022 09:48:49 11/29/19 21 11/29/2020 CBC (INCL UDES DIFF/ PLT) absolute lymphocytes 2563 cells /uL 1200-5 200 normal Not Available [facility], [id number] 07/31/2022 09:48:49 11/29/19 21 11/29/2020 CBC (INCL UDES DIFF/ PLT) absolute monocytes 353 cells /uL 200-90 0 normal Not Available [facility], 07/31/2022 09:48:49 11/29/19 21 11/29/2020 CBC (INCL UDES DIFF/ PLT) absolute eosinophils 29 cells /uL 15-500 normal Not Available [facility] 07/31/2022 09:48:49 03/29/20 21 11/29/2020 CBC (INCL UDES DIFF/ PLT) absolute basophils 43 cells /uL 0-200 normal Not Available [facility] ANGIE Barkley, [id number] 07/31/2022 09:48:49 11/29/19 21 11/29/2020 CBC (INCL UDES DIFF/ PLT) neutrophils 58.5 % normal Not Available [facility] ANGIE Barkley, 07/31/2022 09:48:49 11/29/19 21 11/29/2020 CBC (INCL UDES DIFF/ PLT) lymphocytes 35.6 % normal Not Available [facility] ANGIE Barkley, 07/31/2022 09:48:49 11/29/19 21 11/29/2020 CBC (INCL UDES DIFF/ PLT) monocytes 4.9 % normal Not Available [facility], 07/31/2022 09:48:49 11/29/19 21 11/29/2020 CBC (INCL UDES DIFF/ PLT) eosinophils 0.4 % normal Not Available [facility] ANGIE Barkley, 07/31/2022 09:48:49 11/29/19 21 11/29/2020 CBC (INCL UDES DIFF/ PLT) basophils 0.6 % normal Not Available [facility] ANGIE Barkley, 07/31/2022 09:48:49 11/29/19 21 11/29/2020 TSH W/REF WILLIAM TO FT4 TSH w/reflex to FT4 1.14 mIU/L normal Not Available [facility] [employer] ANGIE Barkley, [id number] 07/31/2022 09:48:49 11/29/19 21 11/29/2020 VITAM IN D,25- OH,TO Winnie ROBERTSON A vitamin D,25-oh,tota joanna christie 17 NG/mL 30-100 low Not Available [facility] [employer] ANGIE Barkley, 07/31/2022 09:48:48 11/29/19 21 11/29/2020 VITAM IN D,25- OH,TO Winnie ROBERTSON A comment Not Available [facility] ANGIE Barkley, [id number] 07/31/2022 09:48:48 11/29/19 21 11/29/2020 COMPR EHENS NICO METAB OLIC PANEL glucose 83 mg/dL 65-99 normal Not Available [facility] ANGIE Barkley, 13419 07/31/2022 09:48:47 11/29/19 21 11/29/2020 COMPR EHENS NICO METAB OLIC PANEL urea nitrogen (BUN) 7 mg/dL 7-20 normal Not Available [facility] ANGIE Barkley, [id number] 07/31/2022 09:48:47 11/29/19 21 11/29/2020 COMPR EHENS NICO METAB OLIC PANEL creatinine 0.92 mg/dL 0.50-1 .00 normal Not Available [facility] ANGIE Barkley, [id number] 07/31/2022 09:48:47 11/29/19 21 11/29/2020 COMPR EHENS NICO METAB OLIC PANEL eGFR non-afr. luxembourger 91 mL/mi n/1.7 3m2 > or = 60 normal Not Available [facility] ANGIE Barkley, [id number] 07/31/2022 09:48:47 11/29/19 21 11/29/2020 COMPR EHENS NICO METAB OLIC PANEL eGFR 105 mL/mi n/1.7 3m2 > or = 60 normal Not Available [facility] ANGIE Barkley, 81429 07/31/2022 09:48:47 11/29/19 21 11/29/2020 COMPR EHENS NICO METAB OLIC PANEL BUN/creatini ne ratio not applic able (calc ) 6-22 Not Available [facility] ANGIE Barkley, [id number] 07/31/2022 09:48:47 11/29/19 21 11/29/2020 COMPR EHENS NICO METAB OLIC PANEL sodium 143 mmol/ L 135-14 6 normal Not Available [facility] ANGIE Barkley, 07/31/2022 09:48:47 11/29/19 21 11/29/2020 COMPR EHENS NICO METAB OLIC PANEL potassium 4.0 mmol/ L 3.8-5. 1 normal Not Available [facility] ANGIE Barkley, [id number] 07/31/2022 09:48:47 11/29/19 21 11/29/2020 COMPR EHENS NICO METAB OLIC PANEL chloride 106 mmol/ L 98-110 normal Not Available [facility] ANGIE Barkley, 67689 07/31/2022 09:48:47 11/29/19 21 11/29/2020 COMPR EHENS NICO METAB OLIC PANEL carbon dioxide 27 mmol/ L 20-32 normal Not Available [facility] ANGIE Barkley, 24675 07/31/2022 09:48:47 11/29/19 21 11/29/2020 COMPR EHENS NICO METAB OLIC PANEL calcium 9.5 mg/dL 8.9-10 .4 normal Not Available [facility] ANGIE Barkley, 29637 07/31/2022 09:48:47 11/29/19 21 11/29/2020 COMPR EHENS NICO METAB OLIC PANEL protein, total 6.9 g/dL 6.3-8. 2 normal Not Available [facility] ANGIE Barkley, 26099 07/31/2022 09:48:47 11/29/19 21 11/29/2020 COMPR EHENS NICO METAB OLIC PANEL albumin 4.8 g/dL 3.6-5. 1 normal Not Available [facility] ANGIE Barkley, 07/31/2022 09:48:47 11/29/19 21 11/29/2020 COMPR EHENS NICO METAB OLIC PANEL globulin 2.1 g/dL_ (calc ) 2.0-3. 8 normal Not Available [facility] ANGIE Barkley, 07/31/2022 09:48:47 11/29/19 21 11/29/2020 COMPR EHENS NICO METAB OLIC PANEL albumin/glob ulin ratio 2.3 (calc ) 1.0-2. 5 normal Not Available [facility] ANGIE Barkley, 07/31/2022 09:48:47 11/29/19 21 11/29/2020 COMPR EHENS NICO METAB OLIC PANEL bilirubin, total 1.1 mg/dL 0.2-1. 1 normal Not Available [facility] ANGIE Barkley, [id number] 07/31/2022 09:48:47 11/29/19 21 11/29/2020 COMPR EHENS NICO METAB OLIC PANEL alkaline phosphatase 60 U/L 36-128 normal Not Available [facility] ANGIE Barkley, 07/31/2022 09:48:47 11/29/19 21 11/29/2020 COMPR EHENS NICO METAB OLIC PANEL AST 17 U/L 12-32 normal Not Available [facility] ANGIE Barkley, 07/31/2022 09:48:47 11/29/19 21 11/29/2020 COMPR EHENS NICO METAB OLIC PANEL ALT 14 U/L 5-32 normal Not Available [facility], 07/31/2022 09:48:47 11/29/19 21 11/29/2020 IRON, TIBC AND DIDI TIN PANEL iron, total 67 mcg/d L 27-164 normal Not Available [facility] ANGIE Barkley, [id number] 07/31/2022 09:48:47 11/29/19 21 11/29/2020 IRON, TIBC AND DIDI TIN PANEL iron binding capacity 381 mcg/d L_(ca lc) 271-44 8 normal Not Available [facility], 07/31/2022 09:48:47 11/29/19 21 11/29/2020 IRON, TIBC AND DIDI TIN PANEL % saturation 18 %_(ca lc) 15-45 normal Not Available [facility] ANGIE Barkley, 71407 07/31/2022 09:48:47 11/29/19 21 11/29/2020 IRON, TIBC AND DIDI TIN PANEL ferritin 9 NG/mL 6-67 normal Not Available [facility] ANGIE Barkley, 07/31/2022 09:48:47 11/29/19 21 11/29/2020 VITAM IN B12 vitamin B12 467 pg/mL 200-11 00 normal Not Available [facility], [id number] 04/10/2022 16:13:18 11/29/19 21 11/29/2020 CBC (INCL UDES DIFF/ PLT) white blood cell count 7.2 thous and/u L 4.5-13 .0 normal Not Available [facility] ANGIE Barkley, 04/10/2022 16:13:17 11/29/19 21 11/29/2020 CBC (INCL UDES DIFF/ PLT) red blood cell count 4.82 ghazala on/uL 3.80-5 .10 normal Not Available [facility] ANGIE Barkley, 04/10/2022 16:13:17 11/29/19 21 11/29/2020 CBC (INCL UDES DIFF/ PLT) hemoglobin 14.0 g/dL 11.5-1 5.3 normal Not Available [facility] ANGIE Barkley, 04/10/2022 16:13:17 11/29/19 21 11/29/2020 CBC (INCL UDES DIFF/ PLT) hematocrit 41.4 % 34.0-4 6.0 normal Not Available [facility] ANGIE Barkley, 04/10/2022 16:13:17 11/29/19 21 11/29/2020 CBC (INCL UDES DIFF/ PLT) MCV 85.9 fL 78.0-9 8.0 normal Not Available [facility], 04/10/2022 16:13:17 11/29/19 21 11/29/2020 CBC (INCL UDES DIFF/ PLT) MCH 29.0 pg 25.0-3 5.0 normal Not Available [facility] ANGIE Barkley, 04/10/2022 16:13:17 11/29/19 21 11/29/2020 CBC (INCL UDES DIFF/ PLT) MCHC 33.8 g/dL 31.0-3 6.0 normal Not Available [facility] [facility], IncEffinghamANGIE esrtada, 04/10/2022 16:13:17 11/29/1911/29/2020 CBC (INCL UDES DIFF/ PLT) RDW 12.6 % 11.0-1 5.0 normal Not Available [facility], IncEffinghamANGIE estrada, 04/10/2022 16:13:17 11/29/19 21 11/29/2020 CBC (INCL UDES DIFF/ PLT) platelet count 288 thous and/u L 140-40 0 normal Not Available [facility], 04/10/2022 16:13:17 11/29/19 21 11/29/2020 CBC (INCL UDES DIFF/ PLT) MPV 10.2 fL 7.5-12 .5 normal Not Available [facility], 04/10/2022 16:13:17 11/29/19 21 11/29/2020 CBC (INCL UDES DIFF/ PLT) absolute neutrophils 4212 cells /uL 1800-8 000 normal Not Available [facility] IncEffinghamANGIE estrada, 04/10/2022 16:13:17 11/29/19 21 11/29/2020 CBC (INCL UDES DIFF/ PLT) absolute lymphocytes 2563 cells /uL 1200-5 200 normal Not Available [facility], 04/10/2022 16:13:17 11/29/19 21 11/29/2020 CBC (INCL UDES DIFF/ PLT) absolute monocytes 353 cells /uL 200-90 0 normal Not Available [facility], 04/10/2022 16:13:17 11/29/19 21 11/29/2020 CBC (INCL UDES DIFF/ PLT) absolute eosinophils 29 cells /uL 15-500 normal Not Available [facility] ANGIE Barkley, 04/10/2022 16:13:17 11/29/19 21 11/29/2020 CBC (INCL UDES DIFF/ PLT) absolute basophils 43 cells /uL 0-200 normal Not Available [facility] ANGIE Barkley, 04/10/2022 16:13:17 11/29/19 21 11/29/2020 CBC (INCL UDES DIFF/ PLT) neutrophils 58.5 % normal Not Available [facility], 04/10/2022 16:13:17 11/29/19 21 11/29/2020 CBC (INCL UDES DIFF/ PLT) lymphocytes 35.6 % normal Not Available [facility] ANGIE Barkley, 04/10/2022 16:13:17 11/29/19 21 11/29/2020 CBC (INCL UDES DIFF/ PLT) monocytes 4.9 % normal Not Available [facility] ANGIE Barkley, 04/10/2022 16:13:17 11/29/19 21 11/29/2020 CBC (INCL UDES DIFF/ PLT) eosinophils 0.4 % normal Not Available [facility] ANGIE Barkley, 04/10/2022 16:13:17 11/29/19 21 11/29/2020 CBC (INCL UDES DIFF/ PLT) basophils 0.6 % normal Not Available [facility] ANGIE Barkley, 04/10/2022 16:13:17 11/29/19 21 11/29/2020 TSH W/REF WILLIAM TO FT4 TSH w/reflex to FT4 1.14 mIU/L normal Not Available [employer] Mic[facility] ANGIE Barkley, 04/10/2022 16:13:16 11/29/19 21 11/29/2020 VITAM IN D,25- OH,TO AILYN,I A vitamin D,25-oh,tota l,ia 17 NG/mL 30-100 low Not Available [facility] ANGIE Barkley, 04/10/2022 16:13:15 11/29/19 21 11/29/2020 VITAM IN D,25- OH,TO AILYN,I A comment Not Available [facility], 04/10/2022 16:13:15 11/29/19 21 11/29/2020 COMPR EHENS NICO METAB OLIC PANEL glucose 83 mg/dL 65-99 normal Not Available [facility] ANGIE Barkley, 04/10/2022 16:13:15 11/29/19 21 11/29/2020 COMPR EHENS NICO METAB OLIC PANEL urea nitrogen (BUN) 7 mg/dL 7-20 normal Not Available [employer] Michele christie [facility] ANGIE Barkley, 04/10/2022 16:13:15 11/29/19 21 11/29/2020 COMPR EHENS NICO METAB OLIC PANEL creatinine 0.92 mg/dL 0.50-1 .00 normal Not Available [employer] [facility] ANGIE Barkley, 04/10/2022 16:13:15 11/29/19 21 11/29/2020 COMPR EHENS NICO METAB OLIC PANEL eGFR non-afr. luxembourger 91 mL/mi n/1.7 3m2 > or = 60 normal Not Available [facility] ANGIE Barkley, 04/10/2022 16:13:15 11/29/19 21 11/29/2020 COMPR EHENS NICO METAB OLIC PANEL eGFR 105 mL/mi n/1.7 3m2 > or = 60 normal Not Available [facility] ANGIE Barkley, 04/10/2022 16:13:15 11/29/19 21 11/29/2020 COMPR EHENS NICO METAB OLIC PANEL BUN/creatini ne ratio not applic able (calc ) 6-22 Not Available [facility] ANGIE Barkley, 04/10/2022 16:13:15 11/29/19 21 11/29/2020 COMPR EHENS NICO METAB OLIC PANEL sodium 143 mmol/ L 135-14 6 normal Not Available [facility] ANGIE Barkley, 04/10/2022 16:13:15 11/29/19 21 11/29/2020 COMPR EHENS NICO METAB OLIC PANEL potassium 4.0 mmol/ L 3.8-5. 1 normal Not Available [facility] ANGIE Barkley, 04/10/2022 16:13:15 11/29/19 21 11/29/2020 COMPR EHENS NICO METAB OLIC PANEL chloride 106 mmol/ L 98-110 normal Not Available [facility] ANGIE Barkley, 04/10/2022 16:13:15 11/29/19 21 11/29/2020 COMPR EHENS NICO METAB OLIC PANEL carbon dioxide 27 mmol/ L 20-32 normal Not Available [facility] ANGIE Barkley, 04/10/2022 16:13:15 11/29/19 21 11/29/2020 COMPR EHENS NICO METAB OLIC PANEL calcium 9.5 mg/dL 8.9-10 .4 normal Not Available [employer] [facility] ANGIE Barkley, [id number] 04/10/2022 16:13:15 11/29/19 21 11/29/2020 COMPR EHENS NICO METAB OLIC PANEL protein, total 6.9 g/dL 6.3-8. 2 normal Not Available [facility] ANGIE Barkley, [id number] 04/10/2022 16:13:15 11/29/19 21 11/29/2020 COMPR EHENS NICO METAB OLIC PANEL albumin 4.8 g/dL 3.6-5. 1 normal Not Available [facility] ANGIE Barkley, [id number] 04/10/2022 16:13:15 11/29/19 21 11/29/2020 COMPR EHENS NICO METAB OLIC PANEL globulin 2.1 g/dL_ (calc ) 2.0-3. 8 normal Not Available [facility] ANGIE Brakley, 04/10/2022 16:13:15 11/29/19 21 11/29/2020 COMPR EHENS NICO METAB OLIC PANEL albumin/glob ulin ratio 2.3 (calc ) 1.0-2. 5 normal Not Available [facility] ANGIE Barkley, [id number] 04/10/2022 16:13:15 11/29/19 21 11/29/2020 COMPR EHENS NICO METAB OLIC PANEL bilirubin, total 1.1 mg/dL 0.2-1. 1 normal Not Available [facility] ANGIE Barkley, [id number] 04/10/2022 16:13:15 11/29/19 21 11/29/2020 COMPR EHENS NICO METAB OLIC PANEL alkaline phosphatase 60 U/L 36-128 normal Not Available [facility] ANGIE Barkley, [id number] 04/10/2022 16:13:15 11/29/19 21 11/29/2020 COMPR EHENS NICO METAB OLIC PANEL AST 17 U/L 12-32 normal Not Available [facility] ANGIE Barkley, [id number] 04/10/2022 16:13:15 11/29/19 21 11/29/2020 COMPR EHENS NICO METAB OLIC PANEL ALT 14 U/L 5-32 normal Not Available [facility] ANGIE Barkley, [id number] 04/10/2022 16:13:15 11/29/19 21 11/29/2020 IRON, TIBC AND DIDI TIN PANEL iron, total 67 mcg/d L 27-164 normal Not Available [facility] ANGIE Barkley, 04/10/2022 16:13:14 11/29/19 21 11/29/2020 IRON, TIBC AND DIDI TIN PANEL iron binding capacity 381 mcg/d L_(ca lc) 271-44 8 normal Not Available [facility] ANGIE Barkley, 04/10/2022 16:13:14 11/29/19 21 11/29/2020 IRON, TIBC AND DIDI TIN PANEL % saturation 18 %_(ca lc) 15-45 normal Not Available [facility] ANGIE Barkley, 04/10/2022 16:13:14 11/29/19 21 11/29/2020 IRON, TIBC AND DIDI TIN PANEL ferritin 9 NG/mL 6-67 normal Not Available [facility] ANGIE Barkley, 04/10/2022 16:13:14 10/03/19 22 10/04/2021 CBC (INCL UDES DIFF/ PLT) white blood cell count 7.6 thous and/u L 3.8-10 .8 normal Not Available [facility] ANGIE Barkley, 07/31/2022 11:21:53 10/03/19 22 10/04/2021 CBC (INCL UDES DIFF/ PLT) red blood cell count 4.80 ghazala on/uL 3.80-5 .10 normal Not Available [facility] ANGIE Barkley, 07/31/2022 11:21:53 10/03/19 22 10/04/2021 CBC (INCL UDES DIFF/ PLT) hemoglobin 13.8 g/dL 11.7-1 5.5 normal Not Available [facility] ANGIE Barkley, 07/31/2022 11:21:53 10/03/19 22 10/04/2021 CBC (INCL UDES DIFF/ PLT) hematocrit 41.5 % 35.0-4 5.0 normal Not Available [facility] ANGIE Barkley, [id number] 07/31/2022 11:21:53 10/03/19 22 10/04/2021 CBC (INCL UDES DIFF/ PLT) MCV 86.5 fL 80.0-1 00.0 normal Not Available [facility] ANGIE Barkley, 07/31/2022 11:21:53 10/03/19 22 10/04/2021 CBC (INCL UDES DIFF/ PLT) MCH 28.8 pg 27.0-3 3.0 normal Not Available [facility], 07/31/2022 11:21:53 10/03/19 22 10/04/2021 CBC (INCL UDES DIFF/ PLT) MCHC 33.3 g/dL 32.0-3 6.0 normal Not Available [facility] ANGIE Barkley, 07/31/2022 11:21:53 10/03/19 22 10/04/2021 CBC (INCL UDES DIFF/ PLT) RDW 12.5 % 11.0-1 5.0 normal Not Available [facility] [id number] 07/31/2022 11:21:53 10/03/19 22 10/04/2021 CBC (INCL UDES DIFF/ PLT) platelet count 273 thous and/u L 140-40 0 normal Not Available [facility] ANGIE Barkley, 07/31/2022 11:21:53 10/03/19 22 10/04/2021 CBC (INCL UDES DIFF/ PLT) MPV 10.2 fL 7.5-12 .5 normal Not Available [facility] ANGIE Barkley, 07/31/2022 11:21:53 10/03/19 22 10/04/2021 CBC (INCL UDES DIFF/ PLT) absolute neutrophils 4180 cells /uL 1500-7 800 normal Not Available [facility] ANGIE Barkley, 07/31/2022 11:21:53 10/03/19 22 10/04/2021 CBC (INCL UDES DIFF/ PLT) absolute lymphocytes 2949 cells /uL 850-39 00 normal Not Available [facility] ANGIE Barkley, 07/31/2022 11:21:53 10/03/19 22 10/04/2021 CBC (INCL UDES DIFF/ PLT) absolute monocytes 403 cells /uL 200-95 0 normal Not Available [facility], [id number] 07/31/2022 11:21:53 10/03/19 22 10/04/2021 CBC (INCL UDES DIFF/ PLT) absolute eosinophils 30 cells /uL 15-500 normal Not Available [facility], 07/31/2022 11:21:53 10/03/19 22 10/04/2021 CBC (INCL UDES DIFF/ PLT) absolute basophils 38 cells /uL 0-200 normal Not Available [facility], 07/31/2022 11:21:53 10/03/19 22 10/04/2021 CBC (INCL UDES DIFF/ PLT) neutrophils 55 % normal Not Available [facility] ANGIE Barkley, 07/31/2022 11:21:53 10/03/19 22 10/04/2021 CBC (INCL UDES DIFF/ PLT) lymphocytes 38.8 % normal Not Available [facility], 07/31/2022 11:21:53 10/03/19 22 10/04/2021 CBC (INCL UDES DIFF/ PLT) monocytes 5.3 % normal Not Available [facility] ANGIE Barkley, 07/31/2022 11:21:53 10/03/19 22 10/04/2021 CBC (INCL UDES DIFF/ PLT) eosinophils 0.4 % normal Not Available [facility], [id number] 07/31/2022 11:21:53 10/03/19 22 10/04/2021 CBC (INCL UDES DIFF/ PLT) basophils 0.5 % normal Not Available [facility] ANGIE Barkley, 07/31/2022 11:21:53 10/03/19 22 10/04/2021 VITAM IN D,25- OH,TO AILYN,I A vitamin D,25-oh,tota l,ia 71 NG/mL 30-100 normal Not Available [facility] [place], [id number] 07/31/2022 11:21:52 10/03/19 22 10/04/2021 VITAM IN D,25- OH,TO AILYN,I A comment Not Available [facility] ANGIE Barkley, 07/31/2022 11:21:52 10/03/19 22 10/04/2021 COMPR EHENS NICO METAB OLIC PANEL glucose 68 mg/dL 65-99 normal Not Available [facility] ANGIE Barkley, 07/31/2022 11:21:52 10/03/19 22 10/04/2021 COMPR EHENS NICO METAB OLIC PANEL urea nitrogen (BUN) 12 mg/dL 7-20 normal Not Available [facility], 07/31/2022 11:21:52 10/03/19 22 10/04/2021 COMPR EHENS NICO METAB OLIC PANEL creatinine 0.74 mg/dL 0.50-1 .00 normal Not Available [facility] ANGIE Barkley, 07/31/2022 11:21:52 10/03/19 22 10/04/2021 COMPR EHENS NICO METAB OLIC PANEL eGFR non-afr. luxembourger 117 mL/mi n/1.7 3m2 > or = 60 normal Not Available [facility] ANGIE Barkley, 07/31/2022 11:21:52 10/03/19 22 10/04/2021 COMPR EHENS NICO METAB OLIC PANEL eGFR 136 mL/mi n/1.7 3m2 > or = 60 normal Not Available [facility] ANGIE Barkley, 07/31/2022 11:21:52 10/03/19 22 10/04/2021 COMPR EHENS NICO METAB OLIC PANEL BUN/creatini ne ratio not applic able (calc ) 6-22 Not Available [facility] ANGIE Barkley, 07/31/2022 11:21:52 10/03/19 22 10/04/2021 COMPR EHENS NICO METAB OLIC PANEL sodium 141 mmol/ L 135-14 6 normal Not Available [facility] ANGIE Barkley, 07/31/2022 11:21:52 10/03/19 22 10/04/2021 COMPR EHENS NICO METAB OLIC PANEL potassium 4.3 mmol/ L 3.8-5. 1 normal Not Available [facility] [employer] ANGIE Barkley, [id number] 07/31/2022 11:21:52 10/03/19 22 10/04/2021 COMPR EHENS NICO METAB OLIC PANEL chloride 105 mmol/ L 98-110 normal Not Available [facility] [employer] ANGIE Barkley, [id number] 07/31/2022 11:21:52 10/03/19 22 10/04/2021 COMPR EHENS NICO METAB OLIC PANEL carbon dioxide 26 mmol/ L 20-32 normal Not Available [facility] [employer] ANGIE Barkley, [id number] 07/31/2022 11:21:52 10/03/19 22 10/04/2021 COMPR EHENS NICO METAB OLIC PANEL calcium 9.1 mg/dL 8.9-10 .4 normal Not Available [facility] ANGIE Barkley, [id number] 07/31/2022 11:21:52 10/03/19 22 10/04/2021 COMPR EHENS NICO METAB OLIC PANEL protein, total 6.5 g/dL 6.3-8. 2 normal Not Available [facility] ANGIE Barkley, [id number] 07/31/2022 11:21:52 10/03/19 22 10/04/2021 COMPR EHENS NICO METAB OLIC PANEL albumin 4.2 g/dL 3.6-5. 1 normal Not Available [facility] ANGIE Barkley, [id number] 07/31/2022 11:21:52 10/03/19 22 10/04/2021 COMPR EHENS NICO METAB OLIC PANEL globulin 2.3 g/dL_ (calc ) 2.0-3. 8 normal Not Available [facility] ANGIE Barkley, 07/31/2022 11:21:52 10/03/19 22 10/04/2021 COMPR EHENS NICO METAB OLIC PANEL albumin/glob ulin ratio 1.8 (calc ) 1.0-2. 5 normal Not Available [facility] ANGIE Barkley, 07/31/2022 11:21:52 10/03/19 22 10/04/2021 COMPR EHENS NICO METAB OLIC PANEL bilirubin, total 1.1 mg/dL 0.2-1. 1 normal Not Available [facility] ANGIE Barkley, 07/31/2022 11:21:52 10/03/19 22 10/04/2021 COMPR EHENS NICO METAB OLIC PANEL alkaline phosphatase 63 U/L 36-128 normal Not Available [facility] ANGIE Barkley, 07/31/2022 11:21:52 10/03/19 22 10/04/2021 COMPR EHENS NICO METAB OLIC PANEL AST 23 U/L 12-32 normal Not [facility], 07/31/2022 11:21:52 10/03/19 22 10/04/2021 COMPR EHENS NICO METAB OLIC PANEL ALT 17 U/L 5-32 normal Not Available [facility] ANGIE Barkley, 07/31/2022 11:21:52 10/03/19 22 10/04/2021 TSH+F REE T4 TSH 1.19 mIU/L normal Not Available [facility] ANGIE Barkley, 07/31/2022 11:21:51 10/03/19 22 10/04/2021 TSH+F REE T4 T4, free 1.1 NG/dL 0.8-1. 4 normal Not Available [facility] ANGIE Barkley, 07/31/2022 11:21:51 10/03/19 22 10/04/2021 LIPID PANEL , STAND MICHAEL cholesterol, total 161 mg/dL <170 normal Not Available [facility] ANGIE Barkley, 07/31/2022 11:21:50 10/03/19 22 10/04/2021 LIPID PANEL , STAND MICHAEL HDL cholesterol 61 mg/dL >45 normal Not [facility], 07/31/2022 11:21:50 10/03/19 22 10/04/2021 LIPID PANEL , STAND MICHAEL triglyceride s 112 mg/dL <90 high Not Available [facility], 07/31/2022 11:21:50 10/03/19 22 10/04/2021 LIPID PANEL , STAND MICHAEL LDL-choleste rol 79 mg/dL _(marvin c) <110 normal Not Available [facility] ANGIE Barkley, 07/31/2022 11:21:50 10/03/19 22 10/04/2021 LIPID PANEL , STAND MICHAEL chol/HDLC ratio 2.6 (calc ) <5.0 normal Not Available [facility] ANGIE Barkley, 07/31/2022 11:21:50 10/03/19 22 10/04/2021 LIPID PANEL , STAND MICHAEL non HDL cholesterol 100 mg/dL _(marvin c) <120 normal Not Available [facility] ANGIE Barkley, 07/31/2022 11:21:50 10/03/19 22 10/04/2021 CBC (INCL UDES DIFF/ PLT) white blood cell count 7.6 thous and/u L 3.8-10 .8 normal Not Available [facility] ANGIE Barkley, 04/10/2022 22:05:33 10/03/19 22 10/04/2021 CBC (INCL UDES DIFF/ PLT) red blood cell count 4.80 ghazala on/uL 3.80-5 .10 normal Not Available [facility] ANGIE Barkley, 04/10/2022 22:05:33 10/03/19 22 10/04/2021 CBC (INCL UDES DIFF/ PLT) hemoglobin 13.8 g/dL 11.7-1 5.5 normal Not Available [facility] ANGIE Barkley, 04/10/2022 22:05:33 10/03/19 22 10/04/2021 CBC (INCL UDES DIFF/ PLT) hematocrit 41.5 % 35.0-4 5.0 normal Not Available [facility] ANGIE Barkley, 04/10/2022 22:05:33 10/03/19 22 10/04/2021 CBC (INCL UDES DIFF/ PLT) MCV 86.5 fL 80.0-1 00.0 normal Not Available [facility] ANGIE Barkley, 04/10/2022 22:05:33 10/03/19 22 10/04/2021 CBC (INCL UDES DIFF/ PLT) MCH 28.8 pg 27.0-3 3.0 normal Not Available [facility] ANGIE Barkley, 04/10/2022 22:05:33 10/03/19 22 10/04/2021 CBC (INCL UDES DIFF/ PLT) MCHC 33.3 g/dL 32.0-3 6.0 normal Not Available [facility] ANGIE Barkley, 04/10/2022 22:05:33 10/03/19 22 10/04/2021 CBC (INCL UDES DIFF/ PLT) RDW 12.5 % 11.0-1 5.0 normal Not Available [facility] ANGIE Barkley, 04/10/2022 22:05:33 10/03/19 22 10/04/2021 CBC (INCL UDES DIFF/ PLT) platelet count 273 thous and/u L 140-40 0 normal Not Available [facility] ANGIE Barkley, 04/10/2022 22:05:33 10/03/19 22 10/04/2021 CBC (INCL UDES DIFF/ PLT) MPV 10.2 fL 7.5-12 .5 normal Not Available [facility] ANGIE Barkley, 04/10/2022 22:05:33 10/03/19 22 10/04/2021 CBC (INCL UDES DIFF/ PLT) absolute neutrophils 4180 cells /uL 1500-7 800 normal Not Available [facility] ANGIE Barkley, 04/10/2022 22:05:33 10/03/19 22 10/04/2021 CBC (INCL UDES DIFF/ PLT) absolute lymphocytes 2949 cells /uL 850-39 00 normal Not Available [facility] ANGIE Barkley, 04/10/2022 22:05:33 10/03/19 22 10/04/2021 CBC (INCL UDES DIFF/ PLT) absolute monocytes 403 cells /uL 200-95 0 normal Not Available [facility] ANGIE Barkley, 04/10/2022 22:05:33 10/03/19 22 10/04/2021 CBC (INCL UDES DIFF/ PLT) absolute eosinophils 30 cells /uL 15-500 normal Not Available [facility] ANGIE Barkley, 04/10/2022 22:05:33 10/03/19 22 10/04/2021 CBC (INCL UDES DIFF/ PLT) absolute basophils 38 cells /uL 0-200 normal Not [facility] 04/10/2022 22:05:33 10/03/19 22 10/04/2021 CBC (INCL UDES DIFF/ PLT) neutrophils 55 % normal Not Available [facility] ANGIE Barkley, 04/10/2022 22:05:33 10/03/19 22 10/04/2021 CBC (INCL UDES DIFF/ PLT) lymphocytes 38.8 % normal Not Available [facility] ANGIE Barkley, 04/10/2022 22:05:33 10/03/19 22 10/04/2021 CBC (INCL UDES DIFF/ PLT) monocytes 5.3 % normal Not Available [facility] ANGIE Barkley, 04/10/2022 22:05:33 10/03/19 22 10/04/2021 CBC (INCL UDES DIFF/ PLT) eosinophils 0.4 % normal Not [facility], 04/10/2022 22:05:33 10/03/19 22 10/04/2021 CBC (INCL UDES DIFF/ PLT) basophils 0.5 % normal Not Available [facility] ANGIE Barkley, 04/10/2022 22:05:33 10/03/19 22 10/04/2021 VITAM IN D,25- OH,TO Winnie ROBERTSON A vitamin D,25-oh,tota l,ia 71 NG/mL 30-100 normal Not Available [facility] ANGIE Barkley, 04/10/2022 22:05:30 10/03/19 22 10/04/2021 VITAM IN D,25- OH,TO Winnie ROBERTSON A comment Not Available [facility] ANGIE Barkley, 04/10/2022 22:05:30 10/03/19 22 10/04/2021 COMPR EHENS NICO METAB OLIC PANEL glucose 68 mg/dL 65-99 normal Not Available [facility] ANGIE Barkley, 04/10/2022 22:05:27 10/03/19 22 10/04/2021 COMPR EHENS NICO METAB OLIC PANEL urea nitrogen (BUN) 12 mg/dL 7-20 normal Not Available [facility] ANGIE Barkley, 04/10/2022 22:05:27 10/03/19 22 10/04/2021 COMPR EHENS NICO METAB OLIC PANEL creatinine 0.74 mg/dL 0.50-1 .00 normal Not Available [facility] ANGIE Barkley, 04/10/2022 22:05:27 10/03/19 22 10/04/2021 COMPR EHENS NICO METAB OLIC PANEL eGFR non-afr. luxembourger 117 mL/mi n/1.7 3m2 > or = 60 normal Not Available [facility] ANGIE Barkley, 04/10/2022 22:05:27 10/03/19 22 10/04/2021 COMPR EHENS NICO METAB OLIC PANEL eGFR 136 mL/mi n/1.7 3m2 > or = 60 normal Not Available [facility] ANGIE Barkley, 04/10/2022 22:05:27 10/03/19 22 10/04/2021 COMPR EHENS NICO METAB OLIC PANEL BUN/creatini ne ratio not applic able (calc ) 6-22 Not Available [facility] ANGIE Barkley, 04/10/2022 22:05:27 10/03/19 22 10/04/2021 COMPR EHENS NICO METAB OLIC PANEL sodium 141 mmol/ L 135-14 6 normal Not Available [facility] ANGIE Barkley, 04/10/2022 22:05:27 10/03/19 22 10/04/2021 COMPR EHENS NICO METAB OLIC PANEL potassium 4.3 mmol/ L 3.8-5. 1 normal Not Available [facility] ANGIE Barkley, 04/10/2022 22:05:27 10/03/19 22 [...] g/dL 6.3-8. 2 normal Not Available [facility] [place], 04/10/2022 22:05:27 10/03/19 22 10/04/2021 COMPR EHENS [...] mg/dL 0.2-1. 1 normal Not Available [facility] [place], 04/10/2022 22:05:27 10/03/19 22 10/04/2021 COMPR EHENS NICO METAB OLIC PANEL alkaline phosphatase 63 U/L 36-128 normal Not Available [facility], 04/10/2022 22:05:27 10/03/19 22 10/04/2021 COMPR EHENS NICO METAB OLIC PANEL AST 23 U/L 12-32 normal Not Available [facility] ANGIE Barkley, 04/10/2022 22:05:27 10/03/19 22 10/04/2021 COMPR EHENS NICO METAB OLIC PANEL ALT 17 U/L 5-32 normal Not Available [facility] ANGIE Barkley, 04/10/2022 22:05:27 10/03/19 22 10/04/2021 TSH+F REE T4 TSH 1.19 mIU/L normal Not Available [facility] ANGIE Barkley, 04/10/2022 22:05:25 10/03/19 22 10/04/2021 TSH+F REE T4 T4, free 1.1 NG/dL 0.8-1. 4 normal Not Available [facility] ANGIE Barkley, 04/10/2022 22:05:25 10/03/19 22 10/04/2021 LIPID PANEL , STAND MICHAEL cholesterol, total 161 mg/dL <170 normal Not Available [facility] [place], 04/10/2022 22:05:22 10/03/19 22 10/04/2021 LIPID PANEL , STAND MICHAEL HDL cholesterol 61 mg/dL >45 normal Not Available [facility], 04/10/2022 22:05:22 10/03/19 22 10/04/2021 LIPID PANEL , STAND MICHAEL triglyceride s 112 mg/dL <90 high Not Available [facility], 04/10/2022 22:05:22 10/03/19 22 10/04/2021 LIPID PANEL , STAND MICHAEL LDL-choleste rol 79 mg/dL _(marvin c) <110 normal Not Available [facility] ANGIE Barkley, 04/10/2022 22:05:22 10/03/19 22 10/04/2021 LIPID PANEL , STAND MICHAEL chol/HDLC ratio 2.6 (calc ) <5.0 normal Not Available [employer] [facility] ANGIE Barkley, [id number] 04/10/2022 22:05:22 10/03/19 22 10/04/2021 LIPID PANEL , STAND MICHAEL non HDL cholesterol 100 mg/dL _(marvin c) <120 normal Not Available [employer] ANGIE Barkley, [id number] 04/10/2022 22:05:22 Result Notes None recorded. Problems Name Status Onset Date Resolution Date Notes Provider Name and Address Organization Details Recorded Time Asthma Active 016 Asthma (ONE09832 7001) Not Available [facility] 09:58:47 Gastroesophageal reflux disease Active 016 GERD - Gastro-es ophageal reflux disease ([id number]) Not Available [facility] 09:58:47 Migraine Active 023 REYNA Seals [address] [place] [address], [phone] , [facility] 3 15:55:21 Postural orthostatic tachycardia syndrome Active 022 [facility] 3 10:20:37 Notes:09/28/2021 Problem Notes None recorded. Medical Equipment None Reported. Allergies Allergen ID Allergen Name Allergen Category Reaction Reaction Severity Criticality Documentation Date Start Date Code Code System Note Provider Name and Address Organization Details Recorded Time 32687 wheat preparati on food,medi cation nausea other Not available Not available Not available 02/28/2022 22365 52 RxNorm Not Available [facility] 2 21:33:17 84811 Medicinal product containin g penicilli n and acting as antibacte rial agent (product) medicatio n rash Not available Not available 02/28/20222015 47854 05 SNOMED Not Available [facility] 2 21:33:17 10290 amoxicill in medicatio n rash Not available Not available 02/28/20222015 723 RxNorm Not Available [facility] 21:33:18 Medications Name Sig Start Date Stop [...] Not Avai lable Nasonex 50 mcg/actuati on Endeavor ,for 30 days 11/09 completed Not Available Not Available Not Available estradiol 0.01% (0.1 mg/gram) vaginal cream 04/11 completed Not Available Not Available Not Available levofloxaci n 750 mg tablet ,for 10 days 06/20 completed Not Available Not Available Not Available [employer] Tray Reg Bevel 1 mL 27 x [...] bromide 21 mcg (0.03 %) nasal spray Endeavor 2 sprays twice a day by intranasa [...] kg/m2 162.56 cm 14 /min 97.8 [degF] 63916.4 539 g 110 mm[Hg] 82 mm[Hg] Not Available [facility] 2 21:28:07 Date Recorded Body mass index (BMI) Body height Respiratory rate Body temperature Body weight Systolic blood pressure Diastolic blood pressure Provider Name and Address Organization Details Last Updated DateTime 7 21.52 kg/m2 162.56 cm 14 /min 97.7 [degF] 37456.8 754 g 108 mm[Hg] 70 mm[Hg] Not Available [facility] 2 21:28:07 Date Recorded Body mass index (BMI) Body height Respiratory rate Body temperature Body weight Systolic blood pressure Diastolic blood pressure Provider Name and Address Organization Details Last Updated DateTime 8 21.37 kg/m2 162.56 cm 14 /min 97.6 [degF] 71298.2 501 g 98 mm[Hg] 76 mm[Hg] Not Available [facility] 2 21:28:07 Date Recorded Body mass index (BMI) Body height Oxygen saturation Oxygen saturation in Arterial blood by Pulse oximetry Heart rate Respiratory rate Body temperature Body weight Systolic blood pressure Diastolic blood pressure Provider Name and Address Organization Details Last Updated DateTime 1 19.9 kg/m2 162.56 cm 99 % 99 % 75 /min 14 /min 97.4 [degF] 47774.7 1 g 118 mm[Hg] 78 mm[Hg] Not Available [facility] 2 21:28:08 Date Recorded Body mass index (BMI) Body height Oxygen saturation Oxygen saturation in Arterial blood by Pulse oximetry Heart rate Respiratory rate Body temperature Body weight Systolic blood pressure Diastolic blood pressure Provider Name and Address Organization Details Last Updated DateTime 1 19.6 kg/m2 162.56 cm 99 % 99 % 81 /min 14 /min 99 [degF] 90788.5 3 g 116 mm[Hg] 77 mm[Hg] Not Available [facility] 2 21:28:08 Date Recorded Body mass index (BMI) Body height Oxygen saturation Oxygen saturation in Arterial blood by Pulse oximetry Heart rate Respiratory rate Body temperature Body weight Systolic blood pressure Diastolic blood pressure Provider Name and Address Organization Details Last Updated DateTime 2 20.6 kg/m2 162.56 cm 99 % 99 % 73 /min 15 /min 98.6 [degF] 06298.0 8 g 110 mm[Hg] 80 mm[Hg] Not Available [facility] 2 21:28:08 Date Recorded Body mass index (BMI) Body height Oxygen saturation Oxygen saturation in Arterial blood by Pulse oximetry Heart rate Respiratory rate Body temperature Body weight Systolic blood pressure Diastolic blood pressure Provider Name and Address Organization Details Last Updated DateTime 2 23.2 kg/m2 162.56 cm 98 % 98 % 104 /min 18 /min 99.8 [degF] 01540.9 7 g 122 mm[Hg] 68 mm[Hg] Not Available [facility] 2 21:28:08 Date Recorded Body temperature Body weight Heart rate Respiratory rate Oxygen saturation Oxygen saturation in Arterial blood by Pulse oximetry Body mass index (BMI) Body height Systolic blood pressure Diastolic blood pressure Provider Name and Address Organization Details Last Updated DateTime 3 98.9 [degF] 53165.6 3 g 90 /min 15 /min 99 % 99 % 23.3 kg/m2 165.1 cm 127 mm[Hg] 80 mm[Hg] GILL Vieyra - [facility] 10:27:08 Social History None recorded. Functional Status [...] [place] [facility] 04/11/2023 10:13:57 Novel [id number], preservative-free 07/13/2009 completed Janis Chaskin null, [place] [...] Encounter Closed Date Diagnosis/Indication Diagnosis SNOMED-CT Code [id number] [address] [address] 11/21/2020 00:00:00 11/21/2020 00:00:[id number] [address] 12/19/2020 00:00:00 12/19/2020 00:00:[id number] [address] 01/17/2021 00:00:00 01/17/2021 00:00:[id number] [address] 09/28/2021 00:00:00 09/28/2021 00:00:[id number] [address] 01/24/2022 00:00:00 01/24/2022 00:00:00 [id number] REYNA Seals [address] [address] 04/11/2023 10:06:17 04/11/2023 11:14:51 Body mass index 20-24 - normal 019601376 Depressive disorder 3548 9007 Migraine 22038890 Asthma [id number] Postural o rthostatic tachycardia syndrome 078713220 Mood disorder 18640138 Adult heal th examination [id number] Health Concerns Section Related Observation LastModified by Organization Detai ls LastModified Time None Recorded Concern Status LastModified by Organization Details LastModified Time None Recorded Advance Directives Directive None Recorded Payers Encounter Date Sequence Insurance Name Policy Number Policy Deng Covered Member ID Deng Member ID Guarantor Name 04/11/2023 1 [facility] [employer] ([employer]) Philip Crowder [id number] Philip Crowder Notes Date Note Type Note Provider Name and Address Organization Details Recorded Time 11/21/2020 text/html HPI Notes: new p t here to establish care c.o of being cold Not Available [facility] 11/21/2020 14:07:37 12/19/2020 text/html HPI Notes: pt do ing well lab result review high stress level with college and her final exams coming up but she notes she is handling it well Patient verbally consents today to telehealth visit via audiovisual communications ([employer], [employer], [employer], etc.) Not Available [facility] 12/19/2020 17:10:32 01/17/2021 text/html HPI Notes: pt c. o of head pressure around her forehead and under her eyes for the past 3 wks she is unsure if this is sinus related or migraine related no other sx high stress level at school Not Available [facility] 01/17/2021 14:24:49 01/24/2022 text/html HPI Notes: 3 mon th f/u on vertigo hx of depression- stable on escitalopram pt wants an epipen, has an allergy to almonds Not Available [facility] 01/24/2022 13:22:47 04/11/2023 text/html HPI Notes: AWE, Parking accommodations form for college to limited walking distance due to DX: REYNA Marinelli [address] [place] [address], [phone], [facility] 04/11/2023 11:13:20 OBGyn Episode No OBEpisode recorded.
[2023-12-27 18:15] VITALS: PULSE 84; O2SAT 99
--- OUTSIDE RECORDS SUMMARY | 2023-12-27 18:15 | XMS_ITS | Clinical Summary ---
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 MG disintegrating tablet PLEASE SEE ATTACHED FOR DETAILED DIRECTIONS 0 09/10/2021 Active Social History Tobacco Use Types Packs/Day Years Used Date Smoking Tobacco: Never Smokeless Tobacco: Never Alcohol Use Standard Drinks/Week Comments Never 0 (1 standard drink = 0.6 oz pur e alcohol) [facility] Housing Answer Date Recorded Living Situation Not on file 04/18/2023 Housing Problems Not on file 04/18/2023 [facility] Safety Answer Date Recorded Threatened Not on [...] age to complete this topic Care Teams Technical Support Professional Relationship Specialty Start Date End Date Pcp, No PCP - General 12/19/21
--- OUTSIDE RECORDS SUMMARY | 2023-12-27 18:15 | XMS_ITS | Data Portability ---
Author Name Unknown Address [address] [place] [address] Phone [phone] Organization [place] [facility] Address 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 [...] 08:20:16 physical therapy shoulder referral 2018 019 [email or web address] Not available 9 10:54:01 Procedures None recorded. Surgeries None recorded. Imaging XR, shoulder, 2 or more view 2018 Gregoria hurley In-House Results, For Internal Use Only, Do Not Delete/merge, [id number] 9 07:38:47 Medication Orders None recorded. Patient [...] joint Active 12/12/19 19 Milli Rosario MD [address] [place] [address], [phone], [facility] 12/11/2018 10:49:20 Pain of right shoulder joint Active 02/14/20 19 Milli Rosario MD [address] [place] [address], [phone], [facility] 02/13/2019 12:06:24 Problem Notes None recorded. Procedures Surgical History Date Name Laterality Status Provider Name and Address Organization Details Recorded Time Head or Neck Surgery completed Jada Kirkland null, [facility] 12/11/2018 09:38:02 Other completed Jada Kirkland null, [place] [facility] 12/11/2018 09:38:02 Wrist/Hand Surgery completed Jada Kirkland [facility], [facility] 12/11/2018 09:38:02 Imaging Results None recorded. Procedure Notes None recorded. Medical Equipment None Reported. Allergies Allergen ID Allergen Name Allergen Category Reaction Reaction Severity Criticality Documentation Date Start Date Code Code System Note Provider Name and Address Organization Details Recorded Time 27086 amoxicill in medicatio n Not available Not available Not available 12/11/2018 723 RxNorm Jada Fitzgeral d null, [facility] 9 10:01:29 97815 cefprozil medicatio n Not available Not available Not available 12/11/2018 51983 RxNorm Jada Fitzgeral d null, [facility] 9 10:01:40 29800 Cipro medicatio n Not available Not available Not available 12/11/2018 48191 3 RxNorm Jada Fitzgeral d null, [facility] 9 10:01:46 93961 Augmentin medicatio n Not available Not available Not available 12/11/2018 24502 2 RxNorm Jada Fitzgeral d null, [facility] 9 10:01:53 58430 Toradol medicatio n Not available Not available Not available 12/11/2018 19155 RxNorm Jada Fitzgeral d null, [facility] 9 10:02:01 50729 Zomig medicatio n Not available Not available Not available 12/11/2018 17284 4 RxNorm Jada Fitzgeral d null, [facility] 9 10:02:11 23067 lemon extract food Not available Not available Not available 12/11/2018 74176 91 RxNorm Jada Fitzgeral d null, [place] [facility] 9 10:02:18 05132 calcium oxide food Not available Not available Not available 12/11/2018 06344 RxNorm Jada Fitzgeral d null, [place] [facility] 9 10:02:23 41121 pineapple extract food Not available Not available Not available 12/11/2018 86218 74 RxNorm Jada Fitzgeral d null, [place] [facility] 9 10:02:28 18839 cranberry preparati on food,medi cation Not available Not available Not available 12/11/2018 92237 3 RxNorm Jada Fitzgeral d null, [place] [facility] 9 10:02:34 Medications Name Sig Start Date [...] Not Available Not Available Not Available BD 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 9 09:50:16 Date Recorded Body height Body mass index (BMI) Percentile per age and sex Body mass index (BMI) Body weight Systolic blood pressure Diastolic blood pressure Provider Name and Address Organization Details Last Updated DateTime 9 165.1 cm 49 % 20.8 kg/m2 43574.0 5 g 116 mm[Hg] 64 mm[Hg] [facility] 9 10:11:31 Social History Question Answer Notes LastModified by Organizat ion Details LastModified Time Tobacco Smoking Status Never [facility] 12/11/2018 09:37:57 What Is Your Level Of Alcohol Consumption? None [email or web address] Information not available 12/11/2018 Auto Related Injury? No [email or web address] Information not available 12/11/2018 Is Blood Transfusion Acceptable In An Emergency? Yes Information not available 12/11/2018 Are You Currently Employed? Yes [email or web address] Information not available 12/11/2018 Who Is Your Employer? 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 Right Information not available 02/12/2019 Live Alone Or With Others? With Others [email or web address] Information not available 12/11/2018 What Was The Date Of Your Most Recent Tobacco Screening? 02/12/2019 Information not available 03/26/2019 How Much Tobacco Do You Smoke? No [email or web address] Information not available 02/12/2019 Work Related Injury? No [email or web address] Information not available 12/11/2018 Sex: Female Functional Status Question Answer Note LastModified by Organization D etails LastModified Time Are you able to care for yourself? Yes [email or web address] Information n ot available 12/11/2018 Mental Status [...] Conditions Y High Cholesterol N Hepatitis N Organ Transplant N Heart Disease N Rheumatoid Arthritis N Pulmonary Embolism N Osteoporosis N Kidney Disease N Bladder/Prostate N Gynecological HistoryNo gynecological history recorded. Obstetrics History GPAL:G 0 P 0 0 0 0 Past Encounters Encounter ID Performer Location Encounter Start Date Encounter Closed Date Diagnosis/Indication Diagnosis SNOMED-CT Code [id number] Milli Rosairo MD [place] [address] [place] [address] 12/11/2018 09:17:18 12/16/2018 08:23:19 Pain of right shoulder joint [id number] 00 Instabilit y of right shoulder joint 520672571691286 8 [id number] Milli Rosario MD [place] [address] [place] [address] 02/12/2019 09:50:56 02/13/2019 13:00:18 Instability of right shoulder joint [id number] 8 Health Concerns Section Related Observation LastModified by Organization Detai ls LastModified Time None Recorded Concern Status LastModified by Organization Details LastModified Time None Recorded Advance Directives Directive None Recorded Payers Encounter Date Sequence Insurance Name Policy Number Policy Deng Covered Member ID Deng Member ID Guarantor Name 02/12/2019 1 [place] Philip Crowder [id number] 12/11/2018 1 [place] Philip Crowder [id number] Notes Date Note Type Note Provider Name and Address Organization Details Recorded Time 12/11/2018 text/html HPI Notes: 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 The software trainer at [facility] called and got appointment with our clinic. Milli Rosario MD [address] [place] [address], [phone], [facility] 12/15/2018 17:23:48 02/12/2019 text/html HPI Notes: R/C: [...] She reports no improvement. Milli Rosario MD [address] [place] [address], [phone], [facility] 02/13/2019 12:12:43 OBGyn Episode No OBEpisode recorded.
--- OUTSIDE RECORDS SUMMARY | 2023-12-27 18:15 | XMS_ITS | Data Portability ---
Author Name Unknown Address [address] [place] [address] Phone [phone] [facility] Address [address] [phone] Care Team Providers Care Rn Informatics Name Role Phone [facility] Primary Care Provid er [facility] Supervisor Contact And Service Clerks [employer]S [employer] [phone] Assessment Encounter Date Assessment Date Assessment LastModified [...] vitamin D, 25-hydroxy, total, serum 2021 022 [facility], [address] [place], [address], 08:43:42 CMP, serum or plasma 2021 022 [employer] [facility], [address] [place] [address], [address], 08:43:42 lipid panel, serum 2021 022 JIM [facility], [address] [place] [address], [address], 08:43:41 CBC w/ auto diff 2021 022 [employer] [facility], [address] [place] [address], [address], 08:43:43 TSH + free T4, serum 2021 022 [employer] [facility], [address] [place] [address], [address], 08:43:41 TSH, serum or plasma 2020 021 [employer] [facility], [address] [place] [address], [address], 09:49:46 CMP, serum or plasma 2020 021 [employer] [facility], [address] [place] [address], [address], 09:49:45 CBC w/ auto diff 2020 021 [employer] [facility], [address] [place] [address], [address], 09:49:47 iron + TIBC + ferritin, serum 2020 021 [employer] [facility], [address] [place] [address], [address], 09:49:45 vitamin D, 25-hydroxy, total, serum 2020 021 JIM [facility], [address] [place], [address], 09:49:46 vitamin B12, serum 2020 021 [facility], [address] [place], [address], 09:49:47 Referral None recorded. Procedures None recorded. Surgeries None recorded. Imaging None recorded. Medication Orders Auvi-Q 0.3 mg/0.3 mL injection, auto-inject or 2021 [facility], [address] [place], [address], 11:49:23 rizatriptan 10 mg disintegrat ing tablet 2021 [facility], [address] [place], [address], 11:49:23 escitalopra m 10 mg tablet 2021 [facility], [address] [place], [address], 13:21:44 ergocalcife rol (vitamin D2) 1,250 mcg (50,000 unit) capsule 2021 022 [facility], [address] [place], [address], 2 12:01:46 escitalopra m 10 mg tablet 2021 022 [facility], [address] [place], [address], 12:01:47 Zithromax Z-Pablo 250 mg tablet 2020 021 [email or web address] [facility], [address] [place], [address], 11:23:26 escitalopra m 10 mg tablet 2020 021 JIM [facility]01, [address] [place], [address], 14:07:32 Patient TargetsNo targets recorded. Patient Instructions Encounter Date Encounter Id Patient Instructions Last Modified By Organization Details Last Modified Time 01/24/2022 [id number] learning about mood disorders Not available 01/24/2022 13:21:42 Reason for Referral None Reported. Results Created Date Observation Date Name Description Value Unit Range Abnormal Flag LastModifiedBy Organization Detail LastModifiedTime 11/29/1911/29/2020 iron + TIBC + chan tin, serum iron, total 67 mcg/d L 27-164 normal Not Available [facility] [address], [place], [address], 11/29/2020 09:49:44 11/29/1911/29/2020 iron + TIBC + chan tin, serum iron binding capacity 381 mcg/d L_(ca lc) 271-44 8 normal Not Available [facility] [address], [place], [address], 11/29/2020 09:49:44 11/29/1911/29/2020 iron + TIBC + chan tin, serum % saturation 18 %_(ca lc) 15-45 normal Not Available [facility] [address], [place], [address], 11/29/2020 09:49:44 11/29/19 21 11/29/2020 iron + TIBC + chan tin, serum ferritin 9 NG/mL 6-67 normal Not Available [facility] [address], [place], [address], 11/29/2020 09:49:44 11/29/19 21 11/29/2020 CMP, serum or plasm a glucose 83 mg/dL 65-99 normal Not Available [facility] [address], [place], [address], 11/29/2020 09:49:45 11/29/19 21 11/29/2020 CMP, serum or plasm a urea nitrogen (BUN) 7 mg/dL 7-20 normal Not Available [facility] [place] [address], [place], [address], 11/29/2020 09:49:45 11/29/19 21 11/29/2020 CMP, serum or plasm a creatinine 0.92 mg/dL 0.50-1 .00 normal Not Available [place] [address], [place], [address], 11/29/2020 09:49:45 11/29/19 21 11/29/2020 CMP, serum or plasm a eGFR non-afr. spanish 91 mL/mi n/1.7 3m2 > or = 60 normal Not Available [place] [address], [place], [address], 11/29/2020 09:49:45 11/29/19 21 11/29/2020 CMP, serum or plasm a eGFR 105 mL/mi n/1.7 3m2 > or = 60 normal Not Available [facility] [address], [place], [address], 11/29/2020 09:49:45 11/29/19 21 11/29/2020 CMP, serum or plasm a BUN/creatini ne ratio not applic able (calc ) 6-22 Not Available [facility] [place] [facility] [address], [place], [address], 11/29/2020 09:49:45 11/29/1911/29/2020 CMP, serum or plasm a sodium 143 mmol/ L 135-14 6 normal Not Available [facility] [address], [place], [address], 11/29/2020 09:49:45 11/29/19 21 11/29/2020 CMP, serum or plasm a potassium 4.0 mmol/ L 3.8-5. 1 normal Not Available [facility] [address], [place], [address], 11/29/2020 09:49:45 11/29/1911/29/2020 CMP, serum or plasm a chloride 106 mmol/ L 98-110 normal Not Available [facility] [address], [place], [address], 11/29/2020 09:49:45 11/29/19 21 11/29/2020 CMP, serum or plasm a carbon dioxide 27 mmol/ L 20-32 normal Not Available [facility] [address], [place], [address], 11/29/2020 09:49:45 11/29/1911/29/2020 CMP, serum or plasm a calcium 9.5 mg/dL 8.9-10 .4 normal Not Available [facility] [address], [place], [address], 11/29/2020 09:49:45 11/29/1911/29/2020 CMP, serum or plasm a protein, total 6.9 g/dL 6.3-8. 2 normal Not Available [facility] [address], [place], [address], 11/29/2020 09:49:45 11/29/19 21 11/29/2020 CMP, serum or plasm a albumin 4.8 g/dL 3.6-5. 1 normal Not Available [facility] [address], [place], [address], 11/29/2020 09:49:45 11/29/19 21 11/29/2020 CMP, serum or plasm a globulin 2.1 g/dL_ (calc ) 2.0-3. 8 normal Not Available [facility] [address], [place], [address], 11/29/2020 09:49:45 11/29/19 21 11/29/2020 CMP, serum or plasm a albumin/glob ulin ratio 2.3 (calc ) 1.0-2. 5 normal Not Available [facility] [address], [place], [address], 11/29/2020 09:49:45 11/29/19 21 11/29/2020 CMP, serum or plasm a bilirubin, total 1.1 mg/dL 0.2-1. 1 normal Not Available [facility] [address], [place], [address], 11/29/2020 09:49:45 11/29/19 21 11/29/2020 CMP, serum or plasm a alkaline phosphatase 60 U/L 36-128 normal Not Available [facility] [address], [place], [address], 11/29/2020 09:49:45 11/29/19 21 11/29/2020 CMP, serum or plasm a AST 17 U/L 12-32 normal Not Available [facility] [address], [place], [address], 11/29/2020 09:49:45 11/29/19 21 11/29/2020 CMP, serum or plasm a ALT 14 U/L 5-32 normal Not Available [facility] [address], [place], [address], 11/29/2020 09:49:45 11/29/19 21 11/29/2020 vitam in D, 25-hy droxy , total , serum vitamin D,25-oh,tota l,ia 17 NG/mL 30-100 low Not Available [facility] [address], [place], [address], 11/29/2020 09:49:46 11/29/19 21 11/29/2020 TSH, serum or plasm a TSH w/reflex to FT4 1.14 mIU/L normal Not Available [facility] [address], [place], [address], 11/29/2020 09:49:46 11/29/19 21 11/29/2020 CBC w/ auto diff white blood cell count 7.2 thous and/u L 4.5-13 .0 normal Not Available [facility] [address], [place], [address], 11/29/2020 09:49:47 11/29/19 21 11/29/2020 CBC w/ auto diff red blood cell count 4.82 ghazala on/uL 3.80-5 .10 normal Not Available [facility] [address], [place], [address], 11/29/2020 09:49:47 11/29/19 21 11/29/2020 CBC w/ auto diff hemoglobin 14.0 g/dL 11.5-1 5.3 normal Not Available [facility] [address], [place], [address], 11/29/2020 09:49:47 11/29/19 21 11/29/2020 CBC w/ auto diff hematocrit 41.4 % 34.0-4 6.0 normal Not Available [facility] [address], [place], [address], 11/29/2020 09:49:47 11/29/19 21 11/29/2020 CBC w/ auto diff MCV 85.9 fL 78.0-9 8.0 normal Not Available [facility] [address], [place], [address], 11/29/2020 09:49:47 11/29/19 21 11/29/2020 CBC w/ auto diff MCH 29.0 pg 25.0-3 5.0 normal Not Available [facility] [address], [place], [address], 11/29/2020 09:49:47 11/29/19 21 11/29/2020 CBC w/ auto diff MCHC 33.8 g/dL 31.0-3 6.0 normal Not Available [facility] [address], [place], [address], 11/29/2020 09:49:47 11/29/19 21 11/29/2020 CBC w/ auto diff RDW 12.6 % 11.0-1 5.0 normal Not Available [facility] [address], [place], [address], 11/29/2020 09:49:47 11/29/19 21 11/29/2020 CBC w/ auto diff platelet count 288 thous and/u L 140-40 0 normal Not Available [facility] [address], [place], [address], 11/29/2020 09:49:47 11/29/19 21 11/29/2020 CBC w/ auto diff MPV 10.2 fL 7.5-12 .5 normal Not Available [facility] [address], [place], [address], 11/29/2020 09:49:47 11/29/19 21 11/29/2020 CBC w/ auto diff absolute neutrophils 4212 cells /uL 1800-8 000 normal Not Available [facility] [address], [place], [address], 11/29/2020 09:49:47 11/29/19 21 11/29/2020 CBC w/ auto diff absolute lymphocytes 2563 cells /uL 1200-5 200 normal Not Available [facility] [address], [place], [address], 11/29/2020 09:49:47 11/29/19 21 11/29/2020 CBC w/ auto diff absolute monocytes 353 cells /uL 200-90 0 normal Not Available [facility] [address], [place], [address], 11/29/2020 09:49:47 11/29/19 21 11/29/2020 CBC w/ auto diff absolute eosinophils 29 cells /uL 15-500 normal Not Available [facility] [address], [place], [address], 11/29/2020 09:49:47 11/29/19 21 11/29/2020 CBC w/ auto diff absolute basophils 43 cells /uL 0-200 normal Not Available [facility] [address], [place], [address], 11/29/2020 09:49:47 11/29/19 21 11/29/2020 CBC w/ auto diff neutrophils 58.5 % normal Not Available [facility] t Search to Phone [facility] [address], [place], [address], 11/29/2020 09:49:47 11/29/19 21 11/29/2020 CBC w/ auto diff lymphocytes 35.6 % normal Not Available [facility] t Search to Phone [facility] [address], [place], [address], 11/29/2020 09:49:47 11/29/19 21 11/29/2020 CBC w/ auto diff monocytes 4.9 % normal Not Available [facility] Search to Phone [facility] [address], [place], [address], 11/29/2020 09:49:47 11/29/19 21 11/29/2020 CBC w/ auto diff eosinophils 0.4 % normal Not Available [facility] [address], [place], [address], 11/29/2020 09:49:47 11/29/19 21 11/29/2020 CBC w/ auto diff basophils 0.6 % normal Not Available [facility] Search to Phone [facility] [address], [place], [address], 11/29/2020 09:49:47 11/29/19 21 11/29/2020 vitam in B12, serum vitamin B12 467 pg/mL 200-11 00 normal Not Available [facility] Search to Phone [facility] [address], [place], [address], 11/29/2020 09:49:47 10/03/19 22 10/04/2021 LIPID PANEL , STAND MICHAEL cholesterol, total 161 mg/dL <170 normal Not Available [facility] Search to Phone [facility] [address], [place], [address], 10/04/2021 08:43:41 10/03/19 22 10/04/2021 LIPID PANEL , STAND MICHAEL HDL cholesterol 61 mg/dL >45 normal Not Available [facility] [address], [place], [address], 10/04/2021 08:43:41 10/03/19 22 10/04/2021 LIPID PANEL , STAND MICHAEL triglyceride s 112 mg/dL <90 high Not Available [facility] [address], [place], [address], 10/04/2021 08:43:41 10/03/19 22 10/04/2021 LIPID PANEL , STAND MICHAEL LDL-choleste rol 79 mg/dL _(marvin c) <110 normal Not Available [facility] [address], [place], [address], 10/04/2021 08:43:41 10/03/19 22 10/04/2021 LIPID PANEL , STAND MICHAEL chol/HDLC ratio 2.6 (calc ) <5.0 normal Not Available [facility] [address], [place], [address], 10/04/2021 08:43:41 10/03/19 22 10/04/2021 LIPID PANEL , STAND MICHAEL non HDL cholesterol 100 mg/dL _(marvin c) <120 normal Not Available [facility] [address], [place], [address], 10/04/2021 08:43:41 10/03/19 22 10/04/2021 TSH+F REE T4 TSH 1.19 mIU/L normal Not Available [facility] [address], [place], [address], 10/04/2021 08:43:41 10/03/19 22 10/04/2021 TSH+F REE T4 T4, free 1.1 NG/dL 0.8-1. 4 normal Not Available [facility] [address], [place], [address], 10/04/2021 08:43:41 10/03/19 22 10/04/2021 COMPR EHENS NICO METAB OLIC PANEL glucose 68 mg/dL 65-99 normal Not Available [facility] [address], [place], [address], 10/04/2021 08:43:42 10/03/19 22 10/04/2021 COMPR EHENS NICO METAB OLIC PANEL urea nitrogen (BUN) 12 mg/dL 7-20 normal Not Available [facility] [address], [place], [address], 10/04/2021 08:43:42 10/03/19 22 10/04/2021 COMPR EHENS NICO METAB OLIC PANEL creatinine 0.74 mg/dL 0.50-1 .00 normal Not Available [facility] [address], [place], [address], 10/04/2021 08:43:42 10/03/19 22 10/04/2021 COMPR EHENS NICO METAB OLIC PANEL eGFR non-afr. spanish 117 mL/mi n/1.7 3m2 > or = 60 normal Not Available [facility] [address], [place], [address], 10/04/2021 08:43:42 10/03/19 22 10/04/2021 COMPR EHENS NICO METAB OLIC PANEL eGFR 136 mL/mi n/1.7 3m2 > or = 60 normal Not Available [facility] [address], [place], [address], 10/04/2021 08:43:42 10/03/19 22 10/04/2021 COMPR EHENS NICO METAB OLIC PANEL BUN/creatini ne ratio not applic able (calc ) 6-22 Not Available [facility] [address], [place], [address], 10/04/2021 08:43:42 10/03/19 22 10/04/2021 COMPR EHENS NICO METAB OLIC PANEL sodium 141 mmol/ L 135-14 6 normal Not Available [facility] [address], [place], [address], 10/04/2021 08:43:42 10/03/19 22 10/04/2021 COMPR EHENS NICO METAB OLIC PANEL potassium 4.3 mmol/ L 3.8-5. 1 normal Not Available [facility] [address], [place], [address], 10/04/2021 08:43:42 10/03/19 22 10/04/2021 COMPR EHENS NICO METAB OLIC PANEL chloride 105 mmol/ L 98-110 normal Not Available [facility] [address], [place], [address], 10/04/2021 08:43:42 10/03/19 22 10/04/2021 COMPR EHENS NICO METAB OLIC PANEL carbon dioxide 26 mmol/ L 20-32 normal Not Available [facility] [address], [place], [address], 10/04/2021 08:43:42 10/03/19 22 10/04/2021 COMPR EHENS NICO METAB OLIC PANEL calcium 9.1 mg/dL 8.9-10 .4 normal Not Available [facility] [address], [place], [address], 10/04/2021 08:43:42 10/03/19 22 10/04/2021 COMPR EHENS NICO METAB OLIC PANEL protein, total 6.5 g/dL 6.3-8. 2 normal Not Available [facility] [address], [place], [address], 10/04/2021 08:43:42 10/03/19 22 10/04/2021 COMPR EHENS NICO METAB OLIC PANEL albumin 4.2 g/dL 3.6-5. 1 normal Not Available [facility] [address], [place], [address], 10/04/2021 08:43:42 10/03/19 22 10/04/2021 COMPR EHENS NICO METAB OLIC PANEL globulin 2.3 g/dL_ (calc ) 2.0-3. 8 normal Not Available [facility] [place] [facility] [address], [place], [address], 10/04/2021 08:43:42 10/03/19 22 10/04/2021 COMPR EHENS NICO METAB OLIC PANEL albumin/glob ulin ratio 1.8 (calc ) 1.0-2. 5 normal Not Available [facility] [address], [place], [address], 10/04/2021 08:43:42 10/03/19 22 10/04/2021 COMPR EHENS NICO METAB OLIC PANEL bilirubin, total 1.1 mg/dL 0.2-1. 1 normal Not Available [facility] [address], [place], [address], 10/04/2021 08:43:42 10/03/19 22 10/04/2021 COMPR EHENS NICO METAB OLIC PANEL alkaline phosphatase 63 U/L 36-128 normal Not Available [facility] [address], [place], [address], 10/04/2021 08:43:42 10/03/19 22 10/04/2021 COMPR EHENS NICO METAB OLIC PANEL AST 23 U/L 12-32 normal Not Available [facility] [address], [place], [address], 10/04/2021 08:43:42 10/03/19 22 10/04/2021 COMPR EHENS NICO METAB OLIC PANEL ALT 17 U/L 5-32 normal Not Available [facility] [address], [place], [address], 10/04/2021 08:43:42 10/03/19 22 10/04/2021 VITAM IN D,25- OH,TO AILYN,I A vitamin D,25-oh,tota l,ia 71 NG/mL 30-100 normal Not Available [facility] [address], [place], [address], 10/04/2021 08:43:42 10/03/19 22 10/04/2021 CBC (INCL UDES DIFF/ PLT) white blood cell count 7.6 thous and/u L 3.8-10 .8 normal Not Available [facility] [address], [place], [address], 10/04/2021 08:43:43 10/03/19 22 10/04/2021 CBC (INCL UDES DIFF/ PLT) red blood cell count 4.80 ghazala on/uL 3.80-5 .10 normal Not Available [facility] [address], [place], [address], 10/04/2021 08:43:43 10/03/19 22 10/04/2021 CBC (INCL UDES DIFF/ PLT) hemoglobin 13.8 g/dL 11.7-1 5.5 normal Not Available [facility] [address], [place], [address], 10/04/2021 08:43:43 10/03/19 22 10/04/2021 CBC (INCL UDES DIFF/ PLT) hematocrit 41.5 % 35.0-4 5.0 normal Not Available [facility] [address], [place], [address], 10/04/2021 08:43:43 10/03/19 22 10/04/2021 CBC (INCL UDES DIFF/ PLT) MCV 86.5 fL 80.0-1 00.0 normal Not Available [facility] [address], [place], [address], 10/04/2021 08:43:43 10/03/19 22 10/04/2021 CBC (INCL UDES DIFF/ PLT) MCH 28.8 pg 27.0-3 3.0 normal Not Available [facility] [address], [place], [address], 10/04/2021 08:43:43 10/03/19 22 10/04/2021 CBC (INCL UDES DIFF/ PLT) MCHC 33.3 g/dL 32.0-3 6.0 normal Not Available [facility] [address], [place], [address], 10/04/2021 08:43:43 10/03/19 22 10/04/2021 CBC (INCL UDES DIFF/ PLT) RDW 12.5 % 11.0-1 5.0 normal Not Available [facility] [address], [place], [address], 10/04/2021 08:43:43 10/03/19 22 10/04/2021 CBC (INCL UDES DIFF/ PLT) platelet count 273 thous and/u L 140-40 0 normal Not Available [facility] [address], [place], [address], 10/04/2021 08:43:43 10/03/19 22 10/04/2021 CBC (INCL UDES DIFF/ PLT) MPV 10.2 fL 7.5-12 .5 normal Not Available [facility] [address], [place], [address], 10/04/2021 08:43:43 10/03/19 22 10/04/2021 CBC (INCL UDES DIFF/ PLT) absolute neutrophils 4180 cells /uL 1500-7 800 normal Not Available [facility] [address], [place], [address], 10/04/2021 08:43:43 10/03/19 22 10/04/2021 CBC (INCL UDES DIFF/ PLT) absolute lymphocytes 2949 cells /uL 850-39 00 normal Not Available [facility] [address], [place], [address], 10/04/2021 08:43:43 10/03/19 22 10/04/2021 CBC (INCL UDES DIFF/ PLT) absolute monocytes 403 cells /uL 200-95 0 normal Not Available [facility] [address], [place], [address], 10/04/2021 08:43:43 10/03/19 22 10/04/2021 CBC (INCL UDES DIFF/ PLT) absolute eosinophils 30 cells /uL 15-500 normal Not Available [facility] [address], [place], [address], 10/04/2021 08:43:43 10/03/19 22 10/04/2021 CBC (INCL UDES DIFF/ PLT) absolute basophils 38 cells /uL 0-200 normal Not Available [facility] [address], [place], [address], 10/04/2021 08:43:43 10/03/19 22 10/04/2021 CBC (INCL UDES DIFF/ PLT) neutrophils 55 % normal Not Available [facility] t Search to Phone [facility] [address], [place], [address], 10/04/2021 08:43:43 10/03/19 22 10/04/2021 CBC (INCL UDES DIFF/ PLT) lymphocytes 38.8 % normal Not Available [facility] t Search to Phone [facility] [address], [place], [address], 10/04/2021 08:43:43 10/03/19 22 10/04/2021 CBC (INCL UDES DIFF/ PLT) monocytes 5.3 % normal Not Available [facility] [address], [place], [address], 10/04/2021 08:43:43 10/03/19 22 10/04/2021 CBC (INCL UDES DIFF/ PLT) eosinophils 0.4 % normal Not Available [facility] [place] [facility] [address], [place], [address], 10/04/2021 08:43:43 10/03/19 22 10/04/2021 CBC (INCL UDES DIFF/ PLT) basophils 0.5 % normal Not Available [facility] [place] [facility] [address], [place], [address], 10/04/2021 08:43:43 Result Notes None recorded. Problems Name Status Onset Date Resolution Date Notes Provider Name and Address Organization Details Recorded Time Asthma Active 016 Asthma ([id number]) Not Available [facility] 9 03:54:04 Gastroesophageal reflux disease Active 016 GERD - Gastro-es ophageal reflux disease ([id number]) Not Available [facility] 9 03:54:04 Notes:09/28/2021 Problem Notes None recorded. Procedures Surgical History Date Name Laterality Status Provider Name and Address Organization Details Recorded Time 01/25/20 BMI Assessment completed ANGIE Lantigua, [facility] 01/23/2022 15:56:04 01/25/20 22 Controlling High Blood Pressure-Systolic completed Ramona Smith MA [facility], [facility] 01/23/2022 15:56:04 01/25/20 22 Controlling High Blood Pressure-Diastolic completed ANGIE Lantigua, [facility] 01/23/2022 15:56:04 09/28/19 22 BMI Assessment completed Leigh Greene [facility] 09/28/2021 11:43:01 09/28/19 22 Controlling High Blood Pressure-Systolic completed Leigh Greene [facility] 09/28/2021 11:43:01 09/28/19 22 Controlling High Blood Pressure-Diastolic completed Leigh Greene [facility] 09/28/2021 11:43:01 01/18/20 21 BMI Assessment completed Carol Ann rush, [facility] 01/17/2021 12:17:36 01/18/20 21 Comprehensive Diabetes Care- Hemoglobin A1c completed Carol Ann rush [facility] 01/17/2021 12:17:36 01/18/20 21 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 completed Carol Ann Somers [facility] 01/17/2021 12:17:36 01/18/20 21 Comprehensive [facility] 12:17:36 01/18/20 21 Controlling High Blood Pressure-Systolic completed Carol Ann Somers [facility] 01/17/2021 12:17:36 01/18/20 21 Controlling High Blood Pressure-Diastolic completed Carol Ann Somers [facility] 01/17/2021 12:17:36 01/18/20 21 Transitions of Care-Medication Reconciliation Post-Discharge completed Carol Ann Somers [facility] 01/17/2021 12:17:36 11/22/19 21 BMI Assessment completed Dhiraj Rosa [facility] 11/17/2020 16:06:17 11/22/19 21 Comprehensive Diabetes Care- Hemoglobin A1c completed Dhiraj Rosa [facility] 11/17/2020 16:06:17 11/22/19 21 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 completed Dhiraj Rosa [facility] 11/17/2020 16:06:17 11/22/19 21 Comprehensive Diabetes Care-Eye Exam completed Dhiraj Rosa [facility] 11/17/2020 16:06:17 11/22/19 21 Controlling High Blood Pressure-Systolic completed Dhiraj Rosa [facility] 11/17/2020 16:06:17 11/22/19 21 Controlling High Blood Pressure-Diastolic completed Dhiraj Rosa [facility] 11/17/2020 16:06:17 11/22/19 21 DMARD Therapy for [facility]umatoid Arthritis [facility] 16:06:17 11/22/19 21 Transitions of Care-Medication Reconciliation Post-Discharge completed Dhiraj Rosa [facility] 11/17/2020 16:06:17 12/02/19 20 Date of Last Pap Smear completed [facility] 11/21/2020 12:53:12 tonsilectomy/adeno idectomy completed [facility] 11/21/2020 12:37:14 Carpal tunnel surgery completed [facility] 11/21/2020 12:51:09 repair or plastic operation on bone, except facial bones completed [facility] 11/21/2020 12:51:53 Pin finger dislocation completed [facility] 11/21/2020 12:52:11 extraction of wisdom tooth completed [facility] 11/21/2020 12:52:39 Imaging Results None recorded. Procedure Notes None recorded. Medical Equipment None Reported. Allergies Allergen ID Allergen Name Allergen Category Reaction Reaction Severity Criticality Documentation Date Start Date Code Code System Note Provider Name and Address Organization Details Recorded Time 998193 wheat preparati on food,medi cation nausea other Not available Not available Not available 11/21/[address] [facility] 12:36:58 40540 amoxicill in medicatio n rash Not available Not available 08/28/2019[address] [facility] 12:36:58 27308 Medicinal product containin g penicilli n and acting as antibacte rial agent (product) medicatio n rash Not available Not available 08/28/20192015 [address] [facility] 12:36:58 Medications Name Sig Start Date Stop [...] No t Available Nasonex 50 mcg/actuati on [place] ,for 30 days 11/09 completed Not Available Not Available Not Available estradiol 0.01% (0.1 mg/gram) vaginal cream active Not Available Not Available Not Available levofloxaci n 750 mg tablet ,for 10 days 06/20 completed Not Available Not Available Not Available BD Skin Installer Tray Reg Bevel 1 mL 27 x [...] Address Organization Details Last Updated DateTime 8 47722.2 96839 g 162.56 cm 21.37 kg/m2 14 /min 97.6 [degF] 98 mm[Hg] 76 mm[Hg] Not Available [facility] 9 06:28:52 Date Recorded Body weight Body height Body mass index (BMI) Respiratory rate Body temperature Systolic blood pressure Diastolic blood pressure Provider Name and Address Organization Details Last Updated DateTime 6 30094.4 5388 g 162.56 cm 21.28 kg/m2 14 /min 97.8 [degF] 110 mm[Hg] 82 mm[Hg] Not Available [facility] 9 06:28:52 Date Recorded Body weight Body height Body mass index (BMI) Respiratory rate Body temperature Systolic blood pressure Diastolic blood pressure Provider Name and Address Organization Details Last Updated DateTime 7 69474.8 53247 g 162.56 cm 21.52 kg/m2 14 /min 97.7 [degF] 108 mm[Hg] 70 mm[Hg] Not Available [facility] 9 06:28:52 Date Recorded Body weight Body temperature Body mass index (BMI) Percentile per age and sex Body mass index (BMI) Body height Heart rate Oxygen saturation Oxygen saturation in Arterial blood by Pulse oximetry Respiratory rate Systolic blood pressure Diastolic blood pressure Provider Name and Address Organization Details Last Updated DateTime 1 97293.7 1 g 97.4 [degF] 29 % 19.9 kg/m2 162.56 cm 75 /min 99 % 99 % 14 /min 118 mm[Hg] 78 mm[Hg] [facility] 1 12:42:15 Date Recorded Body height Body mass index (BMI) Percentile per age and sex Body mass index (BMI) Body weight Body temperature Heart rate Oxygen saturation Oxygen saturation in Arterial blood by Pulse oximetry Respiratory rate Systolic blood pressure Diastolic blood pressure Provider Name and Address Organization Details Last Updated DateTime 1 162.56 cm 24 % 19.6 kg/m2 18720.5 3 g 99 [degF] 81 /min 99 % 99 % 14 /min 116 mm[Hg] 77 mm[Hg] Carol Ann rush [facility] 1 12:22:47 Date Recorded Body height [...] % 73 /min 20.6 kg/m2 36 % 96799.0 8 g 110 mm[Hg] 80 mm[Hg] Leigh Greene [facility] 2 11:44:49 Date Recorded Body height Body mass index (BMI) Body mass index (BMI) Percentile per age and sex Body weight Heart rate Oxygen saturation Oxygen saturation in Arterial blood by Pulse oximetry Respiratory rate Body temperature Systolic blood pressure Diastolic blood pressure Provider Name and Address Organization Details Last Updated DateTime 2 162.56 cm 23.2 kg/m2 66 % 73892.9 7 g 104 /min 98 % 98 % 18 /min 99.8 [degF] 122 mm[Hg] 68 mm[Hg] Ramona Smith MA [facility] 2 11:22:49 Social History Question Answer Notes LastModified by Organizat ion Details LastModified Time Tobacco Smoking Status Never Smoker Carol Ann Somers [facility] 11/21/2020 12:37:10 Do You Have An Advance [...] Do You Have A Medical Power Of Ordnance Engineer? No Information not available 11/21/2020 What Was [...] Heart disease Notes:09/28/2021 Medical History Condition Response Migraine headache; chronic Y E-Force History checked Anxiety Y Depression Y Gynecological History Statement/Question Response Syphillis N HAVE [...] PF, 0.5 mL 12/07/2020 completed ANGIE Lantigua, [facility] 01/24/2022 11:23:09 DTaP 2002 kamilah Somers [facility] 06/28/2021 17:20:51 Influenza, seasonal, injectable 06/14/2008 kamilah Somers [facility] 06/28/2021 17:20:51 Hep A, unspecified formulation 10/04/2009 [facility]/28/2021 17:20:51 IPV 2002 kamilah Somers [facility] 06/28/2021 17:20:51 meningococcal MCV4, unspecified formulation 05/13/2013 completed Carol Ann Somers [facility] 06/28/2021 17:20:51 COVID-19, mRNA, LNP-S, PF, 30 mcg/0.3 mL dose 12/07/2020 [facility]/28/2021 17:20:51 HPV, quadrivalent 05/13/2013 [facility]ah [facility]fer [facility] 06/28/2021 17:20:51 Novel [id number], preservative-free 07/13/2009 [facility] 06/28/2021 17:20:52 influenza, live, intranasal 06/15/2013 completed Carol Ann Lizbet null, [facility] 06/28/2021 17:20:52 MMR 06/16/2003 completed Carol Ann Lizbet null, [facility] 06/28/2021 17:20:52 DTaP 2002 [facility] 06/28/2021 17:20:52 COVID-19, mRNA, LNP-S, PF, 30 mcg/0.3 mL dose 12/30/2020 [facility] 06/28/2021 17:20:52 Hib, unspecified formulation 2002 completed Carol Ann Lizbet null, [facility] 06/28/2021 17:20:52 DTaP 06/16/2003 completed Carol Ann Lizbet null, [facility] 06/28/2021 17:20:52 Hib, unspecified formulation 06/16/2003 completed Carol Ann Lizbet null, [facility] 06/28/2021 17:20:52 IPV 2002 completed Carol Ann Lizbet null, [facility] 06/28/2021 17:20:52 Hep B, unspecified formulation 2002 completed Carol Ann Lizbet null, [facility] 06/28/2021 17:20:52 MMR 05/31/2006 completed Carol Ann Lizbet null, [facility] 06/28/2021 17:20:52 varicella 06/16/2003 completed Carol Ann Lizbet null, [facility] 06/28/2021 17:20:52 DTaP 2002 completed Carol Ann Lizbet null, [facility] 06/28/2021 17:20:52 pneumococcal conjugate PCV 7 2002 [facility]/28/2021 17:20:52 pneumococcal conjugate PCV 7 2002 [facility]/28/2021 17:20:52 Influenza, seasonal, injectable, preservative free 06/15/2014 [facility]/28/2021 17:20:52 Hep A, unspecified formulation 03/30/2009 [facility]/28/2021 17:20:52 Tdap 04/30/2012 [facility] 06/28/2021 17:20:52 HPV, quadrivalent 11/23/2013 [facility] 06/28/2021 17:20:52 varicella 03/30/2009 [facility] 06/28/2021 17:20:52 influenza, live, intranasal 06/09/2009 [facility] 06/28/2021 17:20:52 Influenza, seasonal, injectable, preservative free 06/11/2015 [facility]/28/2021 17:20:52 IPV 2002 [facility]/28/2021 17:20:52 pneumococcal conjugate PCV 7 06/16/2003 [facility] 06/28/2021 17:20:52 Hep B, unspecified formulation 05/12/2003 [facility] 06/28/2021 17:20:52 meningococcal MCV4P 02/06/2019 [facility] 06/28/2021 17:20:52 Hib, unspecified formulation 2002 completed Carol Ann Lizbet [facility] 06/28/2021 17:20:52 HPV, quadrivalent 07/13/2013 completed Carol Ann Somers [facility] 06/28/2021 17:20:52 IPV 05/28/2006 completed Carol Ann Somers [facility] 06/28/2021 17:20:52 Hep B, unspecified formulation 2002 completed Carol Ann Somers [facility] 06/28/2021 17:20:52 influenza, injectable, quadrivalent, preservative free 06/15/2021 completed Carol Ann Somers [facility] 06/28/2021 17:20:52 DTaP 05/31/2006 completed Carol Ann Somers [facility] 06/28/2021 17:20:52 Hib, unspecified formulation 2002 completed Carol Ann Somers [facility] 06/28/2021 17:20:52 Influenza, seasonal, injectable, preservative free 06/05/2010 completed Carol Ann Somers [facility] 06/28/2021 17:20:52 influenza, injectable, quadrivalent, preservative free 06/18/2020 completed Carol Ann Somers [facility] 06/28/2021 17:20:52 COVID-19, mRNA, LNP-S, PF, 30 mcg/0.3 mL dose 08/15/2021 completed Ramona Smith MA [facility] 01/24/2022 11:23:09 Past Encounters Encounter ID Performer Location Encounter Start Date Encounter Closed Date Diagnosis/Indication Diagnosis SNOMED-CT Code [id number] REYNA Seals [facility] [address] [address] 11/21/2020 11:32:27 11/21/2020 14:05:45 Body mass index less than 20 263316230 Fatigue 76591630 Mood disorder 54401660 [id number] REYNA Seals [facility] [address] [place] [address] 12/19/2020 15:29:25 12/19/2020 17:00:03 Fatigue 00921385 Mood disorder 71176385 Body mass index less than 20 464744823 Vitamin D deficiency 347 28909 [id number] REYNA Seals [facility] [address],[place] [address] 01/17/2021 11:42:00 01/17/2021 12:40:30 Body mass index less than 20 482938288 Vitamin D deficiency 347 40577 Mood disorder 68720596 Acute sinusitis 26934195 Migraine 64678786 [id number] REYNA Seals [facility] [address],[place] [address] 06/29/2021 14:18:19 07/21/2021 15:35:12 [id number] REYNA Seals [facility] [address],[place] [address] 09/28/2021 11:28:19 09/28/2021 12:05:29 Body mass index 20-24 - normal 861489425 Depressive disorder 3548 9007 Asthma 887745284 Vitamin D deficiency 347 62727 Vertigo 289598151 Mood disorder 78223863 [id number] REYNA Seals [facility] [address],[place] [address] 01/24/2022 11:16:56 01/24/2022 11:56:41 Body mass index 20-24 - normal 962933496 Migraine 78765422 Food anaphylaxis 5049669 2 Depressive disorder 3548 9007 Dizziness 938073622 Hypertriglyceridemia 302 358887 Health Concerns Section Related Observation LastModified by Organization Detai ls LastModified Time None Recorded Concern Status LastModified by Organization Details LastModified Time None Recorded Advance Directives Directive N: Payers Encounter Date Sequence Insurance Name Policy Number Policy Deng Covered Member ID Deng Member ID Guarantor Name 01/24/2022 1 [place] Philip Crowder [id number] 09/28/2021 1 [employer] Philip Crowder [id number] 06/29/2021 1 [employer] Philip Crowder [id number] 01/17/2021 1 [place] Philip Crowder [id number] 12/19/2020 1 [employer] Philip Crowder [id number] 11/21/2020 1 [employer] Philip Crowder [id number] Notes Date Note Type Note Provider Name and Address Organization Details Recorded Time 11/21/2020 text/html HPI Notes: new p t here to establish care c.o of being cold REYNA Seals [address] [place], [address], [facility] 11/21/2020 14:07:37 12/19/2020 text/html HPI Notes: pt do ing well lab result review high stress level with college and her final exams coming up but she notes she is handling it well Patient verbally consents today to telehealth visit via audiovisual communications ([employer], [email or web address], [employer], etc.) REYNA Seals [address] [place], [address], [facility] 12/19/2020 17:10:32 01/17/2021 text/html HPI Notes: pt c. o of head pressure around her forehead and under her eyes for the past 3 wks she is unsure if this is sinus related or migraine related no other sx high stress level at school REYNA Seals [address] [place], [address], [facility] 01/17/2021 14:24:49 01/24/2022 text/html HPI Notes: 3 mon th f/u on vertigo hx of depression- stable on escitalopram pt wants an epipen, has an allergy to almonds REYNA Seals [address] [place], [address], [facility] 01/24/2022 13:22:47 OBGyn Episode No OBEpisode recorded.
--- OUTSIDE RECORDS SUMMARY | 2023-12-27 18:15 | XMS_ITS | Clinical Summary ---
Author Name Unknown Organization [facility] Address [place], [place] [address] Care Team Providers Care Voice Systems Engineer Name Role Phone Pcp, No Primary Care Provider Unavailabl e Allergies Active Allergy Reactions Criticality Noted Date Comments Lacey Anaphylaxis High 07/04/2023 Amoxicillin Rash Low 11/21/2011 [...] 20 mg tablet 07/02/2023 Active rizatriptan (MAXALT VOIP ENGINEER) 10 mg disintegrating tablet TAKE 1 TABLET [...] Comments Blood Pressure 127/82 09/09/2023 9:12 AM PEDIATRIC DENTAL HYGIENIST Pulse 95 09/09/2023 9:12 AM PEDIATRIC DENTAL HYGIENIST Temperature 37.2 ??C (98.9 ??F) 09/09/2023 9:12 AM CS T Respiratory Rate 18 12/27/2022 1:21 PM CDT Oxygen Saturation 98% 09/09/2023 9:12 AM PEDIATRIC DENTAL HYGIENIST Inhaled Oxygen Concentration - - Weight 65.1 kg (143 lb 9.6 oz) 09/09/2023 9:12 A M PEDIATRIC DENTAL HYGIENIST Height 164.3 cm (5' 4.67) 09/09/2023 9:12 AM CS T Body Mass Index 24.14 09/09/2023 9:12 AM PEDIATRIC DENTAL HYGIENIST Plan of Treatment Upcoming Encounters Date Type Department Care Team (Late st Contact Info) Description 12/31/2023 11:10 AM CDT Office Visit [facility] [address] [place] [address] Violet Winkler PA [address] [place] [address] Health Maintenance Due Date Last Done Comments Tdap 2013 Depression screening for age 12+ 2014 HIV for age 15-65 2017 HPV series for age 9-26 (1 - 3-dose series) 2017 Chlamydia for age 16-24 2018 Hepatitis C screening for age 18-79 2020 Tetanus booster 2022 Pap test for age 21-65 2023 COVID-19 vaccine series ( - 2022-24 season) 2023 05/30/2022, 08/15/2021, 12/30/2020, Additional history [...] age to complete this topic Care Teams Voice Systems Engineer Relationship Specialty Start Date End Date Pcp, No . PCP - General 09/13/22
--- OUTSIDE RECORDS SUMMARY | 2023-12-27 18:15 | XMS_ITS | Data Portability ---
Author Name Unknown Address [address] [place] [address] Phone [phone] Organization [facility] Address [address] [address] Assessment Encounter Date Assessment Date Assessment LastModified [...] monocytes to suggest EBV or CMV infection. [email or web address] Not available 02/11/2018 16:48:29 Plan of Treatment Reminders Order Date Submit Date Provider Last Modified By Organization Details Last Modified Time Details Appointments None recorded. Lab None recorded. Referral None recorded. Procedures None recorded. Surgeries None recorded. Imaging XR, abdomen 018 [id number] [facility], [address], [address], [place], [address], 8 17:35:17 Medication Orders None recorded. Patient TargetsNo targets recorded. Patient Instructions Encounter Date Encounter Id Patient Instructions Last Modified By Organization Details Last Modified Time 02/24/2018 [id number] 1. Reviewed all of her recently test [...] constipation/impaction . Note by Micha Anderson MD. [email or web address] Not available 02/25/2018 11:10:46 02/03/2018 [id number] 1. Both Radha hernandez nd her grandmother [...] on her clinical symptoms and test results. [email or web address] Not available 02/11/2018 16:57:16 Reason for Referral None Reported. Results Created Date Observation Date Name Description Value Unit Range Abnormal Flag LastModifiedBy Organization Detail LastModifiedTime 02/12/20 18 02/12/2018 hepat itis panel (A+B+ C), acute , serum hepatitis A IgM non-re active non-re active normal Not Available [facility] [place] [facility] [address], [place], [address], 02/12/2018 13:53:51 02/12/20 18 02/12/2018 hepat itis panel (A+B+ C), acute , serum hepatitis B surface antigen non-re active non-re active normal Not Available [facility] [address] [place], [address], 02/12/2018 13:53:51 02/12/20 18 02/12/2018 hepat itis panel (A+B+ C), acute , serum hepatitis B core antibody (IgM) non-re active non-re active normal Not Available [facility] [address] [place], [address], 02/12/2018 13:53:51 02/12/20 18 02/12/2018 hepat itis panel (A+B+ C), acute , serum hepatitis C antibody non-re active non-re active normal Not Available [facility] [address], [place], [address], 02/12/2018 13:53:51 02/12/20 18 02/12/2018 hepat itis panel (A+B+ C), acute , serum signal to cut-off 0.04 <1.00 normal Not Available [facility] [address] [place], [address], 02/12/2018 13:53:51 02/12/20 18 02/13/2018 cytom egalo virus (cmv) igg+i gm Ab, serum cytomegalovi malvin antibody (IgG) <0.60 U/mL normal Not Available [facility] [address] [place], [address], 02/13/2018 13:58:23 02/12/20 18 02/13/2018 cytom egalo virus (cmv) igg+i gm Ab, serum cytomegalovi malvin antibody (IgM) <30.00 AU/mL normal Not Available [facility] [address], [place], [address], 02/13/2018 13:58:23 02/12/20 18 02/12/2018 ldh, serum or plasm a LD 299 U/L 110-23 0 high Not Available [facility] [address], [place], [address], 02/12/2018 00:44:22 02/12/20 18 02/12/2018 CMP, serum or plasm a glucose 81 mg/dL 65-99 normal Not Available [facility] [address], [place], [address], 02/12/2018 00:44:23 02/12/20 18 02/12/2018 CMP, serum or plasm a urea nitrogen (BUN) 9 mg/dL 7-20 normal Not Available [facility] [address], [place], [address], 02/12/2018 00:44:23 02/12/20 18 02/12/2018 CMP, serum or plasm a creatinine 0.80 mg/dL 0.40-1 .00 normal Not Available [facility] [address], [place], [address], 02/12/2018 00:44:23 02/12/20 18 02/12/2018 CMP, serum or plasm a BUN/creatini ne ratio not applic able (calc ) 6-22 Not Available [facility] [address], [place], [address], 02/12/2018 00:44:23 02/12/20 18 02/12/2018 CMP, serum or plasm a sodium 140 mmol/ L 135-14 6 normal Not Available [facility] [address], [place], [address], 02/12/2018 00:44:23 02/12/20 18 02/12/2018 CMP, serum or plasm a potassium 3.9 mmol/ L 3.8-5. 1 normal Not Available [facility] [address], [place], [address], 02/12/2018 00:44:23 02/12/20 18 02/12/2018 CMP, serum or plasm a chloride 102 mmol/ L 98-110 normal Not Available [facility] [address], [place], [address], 02/12/2018 00:44:23 02/12/20 18 02/12/2018 CMP, serum or plasm a carbon dioxide 26 mmol/ L 20-31 normal Not Available [facility] [address], [place], [address], 02/12/2018 00:44:23 02/12/20 18 02/12/2018 CMP, serum or plasm a calcium 9.3 mg/dL 8.9-10 .4 normal Not Available [facility] [address], [place], [address], 02/12/2018 00:44:23 02/12/20 18 02/12/2018 CMP, serum or plasm a protein, total 7.4 g/dL 6.3-8. 2 normal Not Available [facility] [address], [place], [address], 02/12/2018 00:44:23 02/12/20 18 02/12/2018 CMP, serum or plasm a albumin 4.3 g/dL 3.6-5. 1 normal Not Available [facility] [address], [place], [address], 02/12/2018 00:44:23 02/12/20 18 02/12/2018 CMP, serum or plasm a globulin 3.1 g/dL_ (calc ) 2.0-3. 8 normal Not Available [facility] [address], [place], [address], 02/12/2018 00:44:23 02/12/20 18 02/12/2018 CMP, serum or plasm a albumin/glob ulin ratio 1.4 (calc ) 1.0-2. 5 normal Not Available [facility] [address] [place], [address], 02/12/2018 00:44:23 02/12/20 18 02/12/2018 CMP, serum or plasm a bilirubin, total 0.8 mg/dL 0.2-1. 1 normal Not Available [facility] [address] [place], [address], 02/12/2018 00:44:23 02/12/20 18 02/12/2018 CMP, serum or plasm a alkaline phosphatase 90 U/L 41-244 normal Not Available [facility] [address] [place], [address], 02/12/2018 00:44:23 02/12/20 18 02/12/2018 CMP, serum or plasm a AST 40 U/L 12-32 high Not Available [facility] [address], [place], [address], 02/12/2018 00:44:23 02/12/20 18 02/12/2018 CMP, serum or plasm a ALT 40 U/L 6-19 high Not Available [facility] [address] [place], [address], 02/12/2018 00:44:23 02/12/20 18 02/13/2018 mycop lasma pneum oniae igg Ab, EIA, serum mycoplasma pneumoniae antibody (IgG) >5.00 <=0.90 high Not Available [facility] [address], [place], [address], 02/13/2018 20:37:54 02/12/20 18 02/13/2018 mycop lasma pneum oniae igm Ab, serum mycoplasma pneumoniae antibody (IgM) 292 U/mL <770 Not Available [facility] [address] [place], [address], 02/13/2018 20:37:56 02/12/20 18 02/13/2018 lucian gunner antib thom panel , serum B. henselae IgG screen negati ve Not Available [facility] [address] [place], [address], 02/13/2018 17:21:50 02/12/20 18 02/13/2018 lucian gunner antib thom panel , serum B. henselae IgM screen negati ve Not Available [facility] [address], [place], [address], 02/13/2018 17:21:50 02/12/20 18 02/12/2018 eryth rocyt e sedim entat ion rate by weste rgren metho d sed rate by modified westhalieren 6 mm/h < or = 20 normal Not Available [facility] [address] [place], [address], 02/12/2018 03:21:34 02/12/20 18 02/12/2018 CBC w/ auto diff white blood cell count 7.6 thous and/u L 4.5-13 .0 normal Not Available [facility] [address] [place], [address], 02/12/2018 16:01:34 02/12/20 18 02/12/2018 CBC w/ auto diff red blood cell count 4.24 ghazala on/uL 3.80-5 .10 normal Not Available [facility] [address] [place], [address], 02/12/2018 16:01:34 02/12/20 18 02/12/2018 CBC w/ auto diff hemoglobin 12.3 g/dL 11.5-1 5.3 normal Not Available [facility] [place] [facility] [address], [place], [address], 02/12/2018 16:01:34 02/12/20 18 02/12/2018 CBC w/ auto diff hematocrit 36.5 % 34.0-4 6.0 normal Not Available [facility] [place] [facility] [address], [place], [address], 02/12/2018 16:01:34 02/12/20 18 02/12/2018 CBC w/ auto diff MCV 86.1 fL 78.0-9 8.0 normal Not Available [facility] [place] [facility] [address], [place], [address], 02/12/2018 16:01:34 02/12/20 18 02/12/2018 CBC w/ auto diff MCH 29.0 pg 25.0-3 5.0 normal Not Available [facility] [address], [place], [address], 02/12/2018 16:01:34 02/12/20 18 02/12/2018 CBC w/ auto diff MCHC 33.7 g/dL 31.0-3 6.0 normal Not Available [facility] [place] [facility] [address], [place], [address], 02/12/2018 16:01:34 02/12/20 18 02/12/2018 CBC w/ auto diff RDW 13.0 % 11.0-1 5.0 normal Not Available [facility] [address], [place], [address], 02/12/2018 16:01:34 02/12/20 18 02/12/2018 CBC w/ auto diff platelet count 229 thous and/u L 140-40 0 normal Not Available [facility] [address], [place], [address], 02/12/2018 16:01:34 02/12/20 18 02/12/2018 CBC w/ auto diff MPV 9.0 fL 7.5-12 .5 normal Not Available [facility] [place] [facility] [address], [place], [address], 02/12/2018 16:01:34 02/12/20 18 02/12/2018 CBC w/ auto diff absolute neutrophils 2280 cells /uL 1800-8 000 normal Not Available [facility] [place] [facility] [address], [place], [address], 02/12/2018 16:01:34 02/12/20 18 02/12/2018 CBC w/ auto diff absolute lymphocytes 4788 cells /uL 1200-5 200 normal Not Available [facility] [place] [facility] [address], [place], [address], 02/12/2018 16:01:34 02/12/20 18 02/12/2018 CBC w/ auto diff absolute monocytes 532 cells /uL 200-90 0 normal Not Available [facility] [address], [place], [address], 02/12/2018 16:01:34 02/12/20 18 02/12/2018 CBC w/ auto diff absolute eosinophils 0 cells /uL 15-500 low Not Available [facility] [address], [place], [address], 02/12/2018 16:01:34 02/12/20 18 02/12/2018 CBC w/ auto diff absolute basophils 0 cells /uL 0-200 normal Not Available [facility] [address], [place], [address], 02/12/2018 16:01:34 02/12/20 18 02/12/2018 CBC w/ auto diff neutrophils 30 % normal Not Available [facility] [address], [place], [address], 02/12/2018 16:01:34 02/12/20 18 02/12/2018 CBC w/ auto diff lymphocytes 43 % normal Not Available [email or web address] [address], [place], [address], 02/12/2018 16:01:34 02/12/20 18 02/12/2018 CBC w/ auto diff reactive lymphocytes 20 % 0-10 high Not Available [facility] [address], [place], [address], 02/12/2018 16:01:34 02/12/20 18 02/12/2018 CBC w/ auto diff monocytes 7 % normal Not Available [facility] [address], [place], [address], 02/12/2018 16:01:34 02/12/20 18 02/12/2018 CBC w/ auto diff eosinophils 0 % normal Not Available [facility] [address], [place], [address], 02/12/2018 16:01:34 02/12/20 18 02/12/2018 CBC w/ auto diff basophils 0 % normal Not Available [facility] [address], [place], [address], 02/12/2018 16:01:34 02/12/20 18 02/12/2018 CBC w/ auto diff comment(s) Not Available [facility] [address], [place], [address], 02/12/2018 16:01:34 02/12/20 18 02/12/2018 C-osvaldo ctive prote in, quant itati ve, serum or plasm a C-reactive protein 4.1 mg/L <8.0 normal Not Available [facility] [address], [place], [address], 02/12/2018 13:53:59 02/12/20 18 02/13/2018 LESLEY (anti nucle ar antib odies ) scree n, ifa, serum LESLEY screen, ifa negati ve negati ve normal Not Available [facility] [address], [place], [address], 02/13/2018 17:21:53 02/12/20 18 02/12/2018 [facility] rr virus (ebv) IgG + IgM panel , serum ebv viral capsid Ag (vca) Ab (IgM) 123.00 U/mL high Not Available [facility] [address], [place], [address], 02/12/2018 11:46:27 02/12/20 18 02/12/2018 [facility] rr virus (ebv) IgG + IgM panel , serum ebv viral capsid Ag (vca) Ab (IgG) 111.00 U/mL high Not Available [facility] [address], [place], [address], 02/12/2018 11:46:27 02/12/20 18 02/12/2018 [facility] rr virus (ebv) IgG + IgM panel , serum ebv nuclear Ag (ebna) Ab (IgG) <18.00 U/mL normal Not Available [facility] [address], [place], [address], 02/12/2018 11:46:27 02/12/20 18 02/12/2018 [facility] rr virus (ebv) IgG + IgM panel , serum interpretati on: Not Available [facility] [address], [place], [address], 02/12/2018 11:46:27 02/12/20 18 02/14/2018 toxop lasma igg+i gm Ab, serum toxoplasma antibody (IgG) <7.20 IU/mL normal Not Available [facility] [address], [place], [address], 02/14/2018 15:30:46 02/12/20 18 02/14/2018 toxop lasma igg+i gm Ab, serum toxoplasma antibody (IgM) <8.00 AU/mL normal Not Available [facility] [place] [facility] [address], [place], [address], 02/14/2018 15:30:46 02/12/20 18 02/14/2018 actin willian h muscl e Ab, serum smooth muscle Ab screen negati ve negati ve normal Not Available [facility] [place] [facility] [address], [place], [address], 02/14/2018 15:30:48 02/25/20 18 02/24/2018 XR, abdom [...] Histor y of ovaria n cysts. COMPAR JUN: No prior exams availa ble for compar jun FINDIN GS: The abdomi nal bowel gas patter n is normal . No abnorm al masses , calcif icatio ns, or organo megaly is seen. The osseou s struct ures are unrema rkable . CONCLU RANI: Benign appear ing KUB. Electr onical ly signed by: Romeo Benz MD 018 5:31 PM EDT [facility] [address], [place], [address], 02/24/2018 22:23:02 Result Notes Documentation Provider Name [...] EDT Micha Anderson MD [address] [place], [address], [facility] [employer] 02/24/2018 22:23:02 Procedures Surgical History None recorded. Imaging Results Imaging Date Name Status LastModified by Organiz ation Details LastModified Time 02/24/2018 XR, abdomen completed [email or web address] [facility] [address], [place], [address], 02/24/2018 22:23:02 Procedure Notes None recorded. Medical Equipment None Reported. Allergies Allergen ID Allergen Name Allergen Category Reaction Reaction Severity Criticality Documentation Date Start Date Code Code System Note Provider Name and Address Organization Details Recorded Time 361245 pineapple extract food Not available Not available Not available 02/25/20182017 12371 74 RxNorm React ion: Anaph ylaxi s;Sev erity : Sever e; Comme nt: Verif ied: Yes T ype: Aller gy; Not Available [facility] 8 02:38:54 [id number] calcium oxide food Not available Not available Not available 02/25/20182017 79095 RxNorm React ion: Anaph ylaxi s;Sev erity : Sever e; Comme nt: Verif ied: Yes T ype: Aller gy; Not Available [facility] 8 02:38:54 666569 lemon extract food Not available Not available Not available 02/25/20182017 37967 91 RxNorm React ion: Anaph ylaxi s;Sev erity : Sever e; Comme nt: Verif ied: Yes T ype: Aller gy; Not Available [facility] 8 02:38:54 224680 amoxicill in medicatio n Not available Not available Not available 02/25/20182017 723 RxNorm React ion: Rash; Sever ity: Sever e; Comme nt: Verif ied: Yes T ype: Aller gy; Not Available [facility] 8 02:52:40 205172 cefprozil medicatio n Not available Not available Not available 02/25/20182017 91286 RxNorm React ion: RASH; Sever ity: Sever e; Comme nt: Verif ied: Yes T ype: Aller gy; Not Available [facility] 8 02:52:40 Medications Name Sig [...] Available Not Available No t Available [employer] Tray Reg Bevel 1 mL 27 x [...] Address Organization Details Last Updated DateTime 8 16662.4 2 g 82 /min 20 /min 98.3 [degF] 110 mm[Hg] 62 mm[Hg] Rebecca Galeano [facility] 8 13:47:39 Date Recorded Body weight Body temperature Respiratory rate Heart rate Systolic blood pressure Diastolic blood pressure Provider Name and Address Organization Details Last Updated DateTime 8 84595.0 5 g 99 [degF] 18 /min 90 /min 110 mm[Hg] 64 mm[Hg] [facility] 8 13:39:44 Social History None recorded. Functional Status None recorded. Mental Status None recorded. Family History Nothing Reported. Medical History No medical history recorded. Gynecological HistoryNo gynecological history recorded. Obstetrics History GPAL:G 0 P 0 0 0 0 Past Encounters Encounter ID Performer Location Encounter Start Date Encounter Closed Date Diagnosis/Indication Diagnosis SNOMED-CT Code [id number] Micha Anderson MD [facility] [address] [place] [address] 02/03/2018 13:33:18 02/03/2018 14:21:28 Cervical lymphadenopathy 358004782 Acute hepatitis 24626883 Fever 450781396 [id number] Micha Anderson MD [facility] [address] [place] [address] 02/24/2018 13:32:11 02/24/2018 14:33:22 Cervical lymphadenopathy 589086598 Acute hepatitis 53135001 Abdominal pain 68398468 Constipation 09128956 Infectious mononucleosis 372091523 Health Concerns Section Related Observation LastModified by Organization Detai ls LastModified Time None Recorded Concern Status LastModified by Organization Details LastModified Time None Recorded Advance Directives Directive None Recorded Payers Encounter Date Sequence Insurance Name Policy Number Policy Deng Covered Member ID Deng Member ID Guarantor Name 02/24/2018 1 [facility]: [employer] (PPO) [id number] [id number] Jazmin Crowder 02/03/2018 1 [facility]: [employer] (PPO) [address] [id number] Jazmin Crowder Notes Date Note Type Note [...] members. Micha Anderson MD [address] [place], [address], [facility] 02/11/2018 17:00:19 02/24/2018 text/html HPI Notes: Joanne hernandez was initially seen on February 03, 2018 as an ID consult. She was diagnosed with cervical lymphadenopathy, acute hepatitis and fevers. Several additional labs were ordered at the time of her initial visit, that established diagnosis of acute Ricardo-Gill virus infection. Both Radah and her mom were reassured, and advised [...] visit. Micha Anderson MD [address] [place], [address], [facility] 02/25/2018 11:15:01 OBGyn Episode No OBEpisode recorded.
[2023-12-27] MEDS: METHYLPREDNISOLONE SOD SUCC 62.5 MG/ML (125) 125 MG IVP (18:18)
--- NOTE | 2023-12-27 19:01 | ED_ITS ---
HPI - Allergic Reaction General Chief complaint: Allergic Reaction Stated complaint: Allergic reaction, hives Time Seen by Provider: 12/27/23 17:45 History of Present Illness HPI narrative: This 23-year-old female comes in with persistent erythema and pruritus related to some kind of allergic reaction that started yesterday. She does report an allergy to nuts and did have some testing to confirm this. She does not know of any exposure to allergens that triggered her current symptoms. She was seen in the emergency department yesterday after being treated by ambulance personnel with epinephrine. She does take Zyrtec daily. She was prescribed prednisone 20 mg twice a day and is currently taking that. She comes in today because she continues to have erythema and pruritus. She does not report any lightheadedness or shortness of breath. She had labs checked yesterday with n ormal findings. She did not have any external sign of angioedema or swelling. She also has had normal vital signs. Related Data Home Medications Medication Instructions Recorded Confirmed escitalopram oxalate 10 mg tablet 10 mg PO DAILY 09/19/22 05/28/23 (Lexapro) rizatriptan 5 mg disintegrating 5 mg PO Q2-4H PRN 09/19/22 05/28/23 tablet Previous Rx's Medication Instructions Recorded epinephrine 0.3 mg/0.3 mL 0.3 mg (0.3 mL) IM Q5-15M PRN #1 ea 07/02/23 injection, auto-injector (EpiPen 2-Pablo) prednisone 20 mg tablet 20 mg PO BID 2 days #4 tabs 07/02/23 prednisone 20 mg tablet 40 mg (2 x 20 mg) PO DAILY #8 tabs 12/26/23 prednisone 20 mg tablet 20 mg PO BID #10 tabs 12/27/23 triamcinolone acetonide 0.1 % 1 applic topical BID #454 grams 12/27/23 topical cream Allergies Allergy/AdvReac Type Severity Reaction Status Date / Time tree nut Allergy Severe Verified 12/26/23 12:13 amoxicillin Allergy Intermediate Rash Verified 05/28/23 13:01 ciprofloxacin [From Cipro] Allergy Intermediate Rash Verified 05/28/23 13:01 morphine AdvReac Intermediate dizzy Verified 05/28/23 13:01 Review of Systems Status of ROS Reports: 10 or more systems reviewed and unremarkable except as noted in History and below Narrative Constitutional: No fevers, no weight gain or loss. Eyes: No discharge. No vision changes. HENT: No congestion, no sore throat, no ear pain. Cardiovascular: No chest pain, no palpitations. Respiratory: No shortness of breath, no wheezes, no cough. Gastrointestinal: No abdominal pain, no vomiting, no diarrhea. Genitourinary: No dysuria, no hematuria. Musculoskeletal: Normal range of motion. Skin: Pruritic rash as described above. Neurological: No dizziness, weakness, sensory change, speech change. Endo/Heme/Allergies: No bruising or bleeding. No polydipsia. Pysch: no suicidality, no anxiety, no insomnia. All other systems reviewed and are negative. [facility] Social History Smoking Status: Never smoker Do you use any of these nicotine containing products: None Second hand tobacco smoke exposure: No How often do you have a drink containing alcohol: 2-3 times a week How many standard drinks containing alcohol do you have on a typical day: 1 or 2 How often do you have six or more drinks on one occasion: Never AUDIT-C Alcohol total score: 3 Non-prescribed substance use: denies use service: No Exam Narrative: Exam Narrative: Constitutional: Well-developed, well-nourished, no acute distress. HEENT: Normocephalic, atraumatic. Neck: Normal range of motion. Nontender. Supple. Heart: Regular. No murmurs. Normal rate. Intact distal pulses. Lungs: Clear to auscultation. No chest discomfort. No wheezes, rhonchi, or rales. Abdomen: Normal bowel sounds. Nontender. No rebound tenderness. Genitalia: Deferred. Back: No midline tenderness. Normal range of motion. Extremities: Normal range of motion. No injury. Skin: Intact. Warm. Diffuse erythema which is flat without any maculopapular component. Neurologic: No altered sensation. No weakness. Alert and oriented. Psychiatric: No suicidality. No anxiety or depression. No insomnia. Nursing notes and vitals signs are reviewed. Const: Vital Signs, click to edit/add: Vital Signs - 24 hr 12/27/23 17:41 12/27/23 17:52 12/27/23 17:53 Temperature 97.8 F Pulse Rate 92 90 Pulse Rate [Pulse Oximeter] 88 Respiratory Rate 22 Blood Pressure 129/85 Blood Pressure [Ri ght Upper Arm] 135/89 Pulse Oximetry 99 98 98 Oxygen Delivery Me thod Room Air 12/27/23 18:00 12/27/23 18:02 12/27/23 18:15 Temperature Pulse Rate 90 88 84 Pulse Rate [Pulse Oximeter] Respiratory Rate Blood Pressure 130/79 Blood Pressure [Ri ght Upper Arm] Pulse Oximetry 98 98 99 Oxygen Delivery Me thod Course Vital Signs Vital signs: Initial Vital Signs Temperature 97.8 F 12/27/23 17:41 Temperature Source Temporal Artery Scan 12/27/23 17:41 Pulse Rate 88 12/27/23 17:41 Respiratory Rate 22 12/27/23 17:41 Blood Pressure 135/89 12/27/23 17:41 Blood Pressure Mean 104 12/27/23 17:41 Blood Pressure Position Sitting 12/27/23 17:41 Pulse Oximetry 99 12/27/23 17:41 Oxygen Delivery Method Room Air 12/27/23 17:41 Vital Signs Temperature 97.8 F 12/27/23 17:41 Pulse Rate 88 12/27/23 17:41 Respiratory Rate 22 12/27/23 17:41 Blood Pressure 135/89 12/27/23 17:41 Pulse Oximetry 99 12/27/23 17:41 Oxygen Delivery Method Room Air 12/27/23 17:41 Temperature 97.8 F 12/27/23 17:41 Pulse Rate 84 12/27/23 18:15 Respiratory Rate 22 12/27/23 17:41 Blood Pressure 130/79 12/27/23 18:02 Pulse Oximetry 99 12/27/23 18:15 Oxygen Delivery Method Room Air 12/27/23 17:41 Medications Administered Medications: Generic Name Dose Route Start Last Admin Trade Name Freq PRN Reason Stop Dose Admin Methylprednisolone Sodium Succinate 125 mg 12/27/23 18:05 12/27/23 18:18 Methylprednisolone Sod Succ 62.5 Mg/Ml (125) IVP 12/27/23 18:06 125 mg ONCE ONE Administration MDM - Allergic Reaction MDM Narrative Medical decision making narrative: This patient has erythema and pruritus occurring for the past couple days. She does have a report of a history of reaction to nuts that responded to epinephrine. She returns today because her symptoms have not resolved with regard to the erythema and pruritus. She does not report any shortness of breath. Her symptoms are not likely related angioedema or anaphylaxis today but rather a delayed hypersensitivity reaction. She does have an IV in place so I did administer Solu-Medrol 125 mg. I reviewed her records and up-to-date guidelines regarding her current symptoms. She is taking Zyrtec daily which is encouraged to continue. I did provide prescription for extra tablets of prednisone 20 mg that she can use currently to increase a steroid benefit for a few days and for future years if needed if she has other reactions. She does have an EpiPen and is taking an antihistamine. I advised her also with regard to checking a tryptase level to help establish what kind of reaction she is having. This tryptase level is more informative if drawn within 60 90 minutes after an exposure. Discharge Plan Discharge Clinical Impression: Allergic reaction Patient Disposition: Home, Self-Care Condition: Stable Additional Instructions: Continue with Zyrtec as prescribed. Consider also taking Pepcid for histamine 2 benefit. Take prednisone as prescribed. Use triamcinolone cream also for symptomatic topical relief. Follow up with MD return if worsening. Prescriptions: New triamcinolone acetonide 0.1 % cream 1 applic topical BID Qty: 454 0RF prednisone 20 mg tablet 20 mg PO BID Qty: 10 0RF No Action escitalopram oxalate [Lexapro] 10 mg tablet 10 mg PO DAILY rizatriptan 5 mg tablet,disintegrating 5 mg PO Q2-4H PRN Rx Instructions: do not exceed 6 doses per 24 hrs prednisone 20 mg tablet 40 mg PO DAILY Qty: 8 0RF prednisone 20 mg tablet 20 mg PO BID 2 Days Qty: 4 1RF epinephrine [EpiPen 2-Pablo] 0.3 mg/0.3 mL auto-injector 0.3 mg IM Q5-15M PRNQty: 1 0RF Rx Instructions: do not exceed 3 doses per episode Follow Up/Referrals: Provider,Not a Local [Primary Care Provider] - Stand Alone Forms: [employer] Info Instructions
== END 2023-12-27 19:21 | disposition home or self-care (01) ==
PROVIDERS: Emergency Provider Emergency Medicine Emergency Medical Services
DX: L29.9 Pruritus, unspecified (principal); T78.40XA Allergy, unspecified, initial encounter
CPT/HCPCS: 99283; 99285; J2919